=== PATIENT | female | born 1950 | race Caucasian/White ===

== ENCOUNTER 2020-01-31 08:48 | Emergency (ER) | payer MEDICARE, OTHER, SELFPAY ==
[2020-01-31 09:03] VITALS: BP 180/71; PULSE 72; RESP 14; TEMP 36.7; O2SAT 95; BMI 46.7
--- NOTE | 2020-01-31 09:31 | CT_ITS ---
WS: [id number] CT CERVICAL SPINE HISTORY: fall, cervical spine point tenderness TECHNIQUE: Contiguous 2.5 mm axial imaging performed through the entire cervical spine. Sagittal and coronal reformats also performed. All CT scans at [facility] use at least one of these do se optimization techniques: automated exposure control; mA and/or kV adjustment per patient size (inc ludes targeted exams where dose is matched to clinical indication); or iterative reconstruction. DLP: 806.85 mGy.cm COMPARISON: None available. Reversal the normal cervical lordosis is moderate at the C5-6 level. Degenerative disc disease and sp ondylosis most significant at C5 and C6. C4 anterolisthesis by 2.5 mm. Lateral masses of C1 and C2 ar e aligned. The odontoid is intact. There are small osseous densities surrounding the tip of the odont oid. Facet joints are normally aligned. Facet joints are narrowed with osteophytes. C2-C3: Osseous density measures 4 mm adjacent to the C2 LEFT transverse foramina. The posterior corti leatha surface of the foramina is irregular suggesting this may be a tiny avulsion fracture which is age -indeterminate. C3-C4: RIGHT facet joint arthritis and bony hypertrophy. Mild foraminal narrowing on the RIGHT. C4-C5: RIGHT facet joint arthritis with mild foraminal narrowing on the RIGHT. C5-C6: Marked osteophytic ridging with osteophytes encroaching upon the ventral thecal sac and forame n. Mild central and bilateral foraminal narrowing. C6-C7: Normal. C7-T1: Normal. Soft tissues are normal. Lung apices are clear. CT/CT cervical spin wo con* [id number] IMPRESSION: 1. Age-indeterminate 4 mm avulsion fracture from the posterior LEFT C2 transve rse foramina. This may be related to the recent trauma or from an old injury. F or further evaluation to evaluate the vertebral artery CTA angiogram may be hel pful. 2. Bilateral facet joint arthritis as described above.
--- NOTE | 2020-01-31 09:31 | CT_ITS ---
WS: [id number] CT FACIAL BONES HISTORY: trauma TECHNIQUE: Images obtained from the supraorbital location through the mandible. Soft tissue and bone windows are reviewed. Coronal and sagittal reformats have also been submitted. DLP: 683.[address] scans at [facility] use at least one of these dose optimization techniques: automat ed exposure control; mA and/or kV adjustment per patient size (includes targeted exams where dose is matched to clinical indication); or iterative reconstruction. COMPARISON: None available. Nasal bones, zygomatic arches and lynch of the sinuses are intact. No air-fluid levels within the sin uses. Nasal septum is midline. Pterygoid plates are intact. There is a large soft tissue hematoma incompletely visualized centered over the RIGHT frontal bone. CT/CT facial bones wo con* [id number] IMPRESSION: No facial bone fracture.
--- NOTE | 2020-01-31 09:31 | CT_ITS ---
WS: [id number] CT HEAD NONCONTRAST HISTORY: head injury TECHNIQUE: Contiguous axial imaging performed through the brain in 2.5 mm imaging. Bone and soft tiss ue windows. Sagittal and coronal reformats reviewed. All CT scans at [facility] use at le ast one of these dose optimization techniques: automated exposure control; mA and/or kV adjustment pe r patient size (includes targeted exams where dose is matched to clinical indication); or iterative r econstruction. DLP: 838.89 mGy.cm COMPARISON: 02/17/2006 No acute intracranial hemorrhage, midline shift or mass effect. Mild atrophy and mild chronic ischemic disease. No prior infarcts. Ventricles: Normal size with no hydrocephalus. Paranasal sinuses: As visualized are clear. Mastoid air cells: Well pneumatized. Calvarium and scalp: No skull fracture. Nasal bones and visualized zygomatic arches and orbits are no rmal. There is a very large acute soft tissue hematoma centered over the RIGHT frontal bone. Hematoma extends across the midline. A few foci of air consistent with a laceration at the nasal bridge. CT/CT head wo con* [id number] IMPRESSION: 1. No acute intracranial hemorrhage or edema. 2. Large scalp hematoma/laceration centered over the RIGHT frontal bone with e xtension across the midline into the nasal bridge. Skull fracture.
[2020-01-31 10:02] LABS: Basophils # 0.1 10^3/uL (0.0-0.1); Basophils % 0.5 %; Eosinophils # 0.2 10^3/uL (0.0-0.8); Eosinophils % 1.7 %; Hematocrit 43.5 % (37.0-47.0); Hemoglobin 13.4 g/dL (11.5-15.3); Lymphocytes # 1.3 10^3/uL (0.8-4.8); Lymphocytes % 12.5 %; Mean Corpuscular HGB Conc 30.8 g/dL (30.0-36.0); Mean Corpuscular Hemoglobin 26.5 pg (28.0-34.0); Mean Platelet Volume 8.4 fL (7.4-10.4); Monocytes # 0.6 10^3/uL (0.2-0.9); Monocytes % 5.2 %; Neutrophils # 8.47 10^3/uL (1.8-7.7); Neutrophils % 79.7 %; Nucleated Red Blood Cells % 0 %; Platelet Count 285 10^3/cmm (130-400); Red Blood Count 5.06 10^6/uL (4.1-5.3); Red Cell Distribution Width 14.5 % (12.1-15.1); White Blood Count 10.6 10^3/uL (4.0-10.0)
--- NOTE | 2020-01-31 10:16 | ED_ITS ---
HPI - Wound/Laceration General: Chief Complaint: Wound/Laceration Stated Complaint: Head Injury/Fall Time Seen by Provider: 01/31/20 08:53 Source: patient and family (daughter) Mode of arrival: ambulatory Limitations: no limitations History of Present Illness: HPI narrative: 69-year-old pleasant female presents to the emergency department with facial trauma. She reports was having a bad dream, got out of bed, tripped and hit her face on the edge of the bedside table. She did not loose consciousness, denies n/v - reports large laceration to her head. She is accompanied with her daughter. Onset (ago): minute(s) (30) Location: face Place: home Patient tetanus UTD: Yes Context: accidental Associated symptoms: Reports no associated symptoms; Denies chills, fever(s), nausea or vomiting Treatments prior to arrival: cold therapy and bandage Review of Systems General: Reports: 10 or more systems reviewed and unremarkable except in HPI and below Const: Denies: fever(s), chills or diaphoresis Eyes: Denies: blurry vision or eye redness ENMT: Denies: throat pain, dental pain or disequilibrium Card: Denies: chest pain, palpitations or irregular heart rhythm Resp: Denies: dyspnea, productive cough, non-productive cough or wheezing GI: Denies: abdominal pain, nausea or vomiting : Denies: difficulty voiding or dysuria Musc: Reports: neck pain; Denies: back pain, joint warmth, limited range of motion or muscle cramps Skin/Breast: Reports: skin tenderness and other (open laceration to the rt face and nose); Denies: rash or pruritus Neuro: Denies: headache(s), weakness in extremities or behavioral changes Psych: Denies: anxiety or depression Ko/Lymph: Denies: easy bruising Physical Exam Const: COMMON NORMALS: no acute distress, patient oriented x3, healthy appearing and alert GENERAL APPEARANCE: cooperative, well developed and well hydrated; not in distress, not anxious, not lethargic and not ill appearing NUTRITIONAL APPEARANCE: obese ORIENTATION/CONSCIOUSNESS: Yes awake, Yes oriented to person, Yes oriented to place and Yes oriented to time; not lethargic HENMT: COMMON NORMALS: normocephalic, external ears normal, EAC's normal, TM's normal bilaterally, Normal external nose present and moist oral mucous membranes HEAD & SCALP: normocephalic HEAD IMAGES: 1. 7.5 cm jagged laceration involving the bridge of the nose 2. 4 cm x 4 cm hematoma to the right forehead FACE & SINUS: sinuses nontender and laceration NOSE: Normal external nose p resent EXTERNAL EAR: Yes external ears normal EXTERNAL AUDITORY CANAL: EAC's normal TYMPANIC MEMBRANE: TM's normal bilaterally MOUTH: Normal oral and palatal mucosa present; no drooling, lip not abnormal, no mouth trauma, no muffled voice, no trismus and no restricted motion TEETH & GINGIVA: Yes dentures (partial) THROAT: posterior oropharynx normal Eye: COMMON NORMALS: Equal, round and reactive pupils present, EOMs intact bilaterally, conjunctivae normal and no scleral icterus GENERAL EYE: appearance normal, both eyes and all related structures ALIGNMENT: Yes alignment normal PERIORBITAL: periorbital findings abnormal (ecchymosis) positive right EYELID: eyelids normal and other (rt facial laceration just below the rt eyebrow,does NOT involve the eye lid) CONJUNCTIVA: Yes conjunctivae normal PUPIL: Yes Equal, round and reactive pupils present Neck/C-Spine: COMMON NORMALS: full ROM, no lymphadenopathy and supple GENERAL: Yes normal visual inspection and Yes trachea midline CERVICAL SPINE: Yes pain with cervical ROM, Yes Cervical spine tenderness C3, C4, C5 and C6, No Paracervical muscle tenderness, No Paracervical spasm and No Trapezius muscle tenderness Lymph: LYMPHATIC: no lymphadenopathy noted Chest: COMMONS NORMALS: normal inspection of the chest Resp: COMMON NORMALS: normal respiratory effort and clear to auscultation bilaterally EFFORT & INSPECTION: Yes able to speak in complete sentences AUSCULTATION: clear to auscultation bilaterally Cardio: COMMON NORMALS: regular rhythm, S1 normal heart sound present, S2 normal heart sound present and Peripheral pulses 2+ throughout RHYTHM: regular rhythm HEART SOUNDS: S1 normal heart sound present and S2 normal heart sound present PERIPHERAL PULSES: Peripheral pulses 2+ throughout GI: COMMON NORMALS: Normal to inspection, nondistended, normoactive bowel sounds present, Soft to palpation and non-tender INSPECTION: Yes normal to inspection and Yes central obesity PALPATION: Yes Soft to palpation : COMMON NORMALS: Yes no CVA tenderness BLADDER/KIDNEY EXAM: Yes no CVA tenderness Back/Pelvis: COMMON NORMALS: no CVA tenderness, thoracic and lumbar spine normal to inspection, no thoracic nor lumbar tenderness, thoraco-lumbar ROM normal and straight leg raise negative bilaterally Extremity: COMMON NORMALS: normal to inspection, full ROM and capillary refill normal GENERAL: Yes normal exam except as noted Neuro: COMMON NORMALS: patient oriented x3 and no focal motor deficits SENSORIUM/ORIENTATION: Yes alert, Yes oriented to person, Yes oriented to place, Yes oriented to time and No lethargic Psych: COMMON NORMALS: mental status grossly normal, Normal thought process present and cooperative ACTIVITY/MOTOR BEHAVIOR: Yes appropriate eye contact THOUGHT PROCESS: Normal thought process present Skin: COMMON NORMALS: no rashes or lesions noted and turgor normal GENERAL SKIN EXAM: no rashes or lesions noted and turgor normal Procedures Laceration Laceration 1: Site: face Side (If applicable): right Size (cm): 7.5 Description: stellate, flap, contaminated and other (contused) Depth: involves muscle layer Local Anesthetic: lidocaine 1% and with epi Amount of anesthesia used (mL): 14 Pre-repair: wound explored, irrigated extensively, deep structures intact, extensive debridement and wound margins revised Skin layer closed with: nylon Size (cm): 5-0 Number of sutures: 19 Muscle layer closed with: vicryl Size: 4-0 Number of sutures: 3 Technique: simple, interrupted Course ED course: 69-year-old female patient presents to the emergency department with large facial laceration/scalp contusion of the forehead. She experienced a bad dream which made her jump out of bed, lost her balance and hit the bedside table. She did not lose consciousness or experience vomiting. CT scan of the head was negative for intracranial bleed/skull fracture. CT of the face without nasal fracture or fragment displacement, CBC without anemia, significant blood loss. CT of the cervical spine did reveal C2 posterior transverse foraminal fracture, consult to Dr. Tirado who advised patient to be placed in a soft cervical collar with appropriate follow-up in 1 to 2 weeks. Patient became nauseated after sutures were placed, IV Zofran administered. She was able to tolerate p.o. fluids with crackers prior to leaving. She was able to ambulate without difficulty. Pressure dressing applied to the sutures as well as to the hematoma to the left frontal forehead. Agrees to return to the emergency department if she develops the worst headache of her life or if new neurological symptoms occur such as confusion, spontaneous vomiting or altered thought process. Consultations: Consultation #1: Dr Tirado, advised to place patient in soft cervical collar, follow-up 1 to 2 weeks in his office. Time: 12:56 Vital Signs: Vital signs: Vital Signs Temperature 98.0 F 01/31/20 09:03 Pulse Rate 64 01/31/20 14:54 Respiratory Rate 18 01/31/20 14:54 Blood Pressure 162/68 01/31/20 14:54 Pulse Oximetry 92 01/31/20 14:54 MDM - Wound/Laceration Lab Data: Labs: Lab Results 01/31/20 01/31/20 Range/Units 09:45 09:45 WBC 10.6 H (4.0-10.0) 10^3/ uL RBC 5.06 (4.1-5.3) 10^6/u L Hgb 13.4 (11.5-15.3) g/dL Hct 43.5 (37.0-47.0) % MCV 86.0 (81-99) fL MCH 26.5 L (28.0-34.0) pg MCHC 30.8 (30.0-36.0) g/dL RDW 14.5 (12.1-15.1) % Plt Count 285 (130-400) 10^3/c mm MPV 8.4 (7.4-10.4) fL Neut % (Auto) 79.7 % Lymph % (Auto) 12.5 % Converse % (Auto) 5.2 % Eos % (Auto) 1.7 % Baso % (Auto) 0.5 % Neut # (Auto) 8.47 H (1.8-7.7) 10^3/u L Lymph # (Auto) 1.3 (0.8-4.8) 10^3/u L Converse # (Auto) 0.6 (0.2-0.9) 10^3/u L Eos # (Auto) 0.2 (0.0-0.8) 10^3/u L Baso # (Auto) 0.1 (0.0-0.1) 10^3/u L Nucleated RBC % (a uto) 0 % Nucleated RBCs # 0.0 /100WBC Sodium 139 (136-145) mmol/L Potassium 4.0 (3.5-5.1) mmol/L Chloride 103 (98-107) mmol/L Carbon Dioxide 26 (22-29) mmol/L Anion Gap 14.0 (5-19) BUN 22 (8-23) mg/dL Creatinine 0.6 (0.5-0.9) mg/dL GFR Calculation 99.1 (90-130) mL/min Glucose 125 H (65-115) mg/dL Calculated Osmolal ity 293 (285-295) mOsm/k g Calcium 9.0 (8.5-10.5) mg/dL Total Bilirubin 0.2 (0.15-1.2) mg/dL AST 18 (0-32) U/L ALT 16 (0-33) U/L Alkaline Phosphata se 110 H (35-105) IU/L Total Protein 7.4 (6.6-8.7) g/dL Albumin 4.0 (3.5-5.2) g/dL Globulin 3.4 (1.3-4.6) g/dL Imaging Data^: CT Head: Radiologist's impression: [address] [address] [address] Scan Report Signed Patient: Kathleen Valdez Unit #: [id number] : 1950 Age/Sex: 69 / F ADM Date: 01/31/20 Loc: ER Room/Bed: Attending Dr: Ordering Provider/Ordering MD: Ogla Lidia Toussaint Date of Service: 01/31/20 Procedure(s): CT facial bones wo con* [id number] Accession Number(s): [id number] Report Number: [id number] WS: [id number] CT FACIAL BONES HISTORY: trauma TECHNIQUE: Images obtained from the supraorbital location through the mandible. Soft tissue and bone windows are reviewed. Coronal and sagittal reformats have also been submitted. DLP: 683.[address] scans at [facility] use at least one of these dose optimization techniques: automated exposure control; mA and/or kV adjustment per patient size (includes targeted exams where dose is matched to clinical indication); or iterative reconstruction. COMPARISON: None available. Nasal bones, zygomatic arches and lynch of the sinuses are intact. No air-fluid levels within the sinuses. Nasal septum is midline. Pterygoid plates are intact. There is a large soft tissue hematoma incompletely visualized centered over the RIGHT frontal bone. CT/CT facial bones wo con* [id number] IMPRESSION: No facial bone fracture. Dictated By: Lara Jessica DO Signed By: Lara Jessica DO Signed Date/Time: 01/31/20 1008 DD/ [address]: Radiologist's impression: [facility] [address] [place] [address] CT Scan Report Signed Patient: Kathleen Valdez Unit #: [id number] : 1950 Age/Sex: 69 / F ADM Date: 01/31/20 Loc: ER Room/Bed: Attending Dr: Ordering Provider/Ordering MD: Olga Lidia Toussaint Date of Service: 01/31/20 Procedure(s): CT cervical spin wo con* [id number] Accession Number(s): [id number] Report Number: [id number] WS: [id number] CT CERVICAL SPINE HISTORY: fall, cervical spine point tenderness TECHNIQUE: Contiguous 2.5 mm axial imaging performed through the entire cervical spine. Sagittal and coronal reformats also performed. All CT scans at [facility] use at least one of these dose optimization techniques: automated exposure control; mA and/or kV adjustment per patient size (includes targeted exams where dose is matched to clinical indication); or iterative reconstruction. DLP: 806.85 mGy.cm COMPARISON: None available. Reversal the normal cervical lordosis is moderate at the C5-6 level. Degenerative disc disease and spondylosis most significant at C5 and C6. C4 anterolisthesis by 2.5 mm. Lateral masses of C1 and C2 are aligned. The odontoid is intact. There are small osseous densities surrounding the tip of the odontoid. Facet joints are normally aligned. Facet joints are narrowed with osteophytes. C2-C3: Osseous density measures 4 mm adjacent to the C2 LEFT transverse foramina. The posterior cortical surface of the foramina is irregular suggesting this may be a tiny avulsion fracture which is age-indeterminate. C3-C4: RIGHT facet joint arthritis and bony hypertrophy. Mild foraminal narrowing on the RIGHT. C4-C5: RIGHT facet joint arthritis with mild foraminal narrowing on the RIGHT. C5-C6: Marked osteophytic ridging with osteophytes encroaching upon the ventral thecal sac and foramen. Mild central and bilateral foraminal narrowing. C6-C7: Normal. C7-T1: Normal. Soft tissues are normal. Lung apices are clear. CT/CT cervical spin wo con* [id number] IMPRESSION: 1. Age-indeterminate 4 mm avulsion fracture from the posterior LEFT C2 transverse foramina. This may be related to the recent trauma or from an old injury. For further evaluation to evaluate the vertebral artery CTA angiogram may be helpful. 2. Bilateral facet joint arthritis as described above. Dictated By: Lara Jessica DO Signed By: Lara Jessica DO Signed Date/Time: 01/31/20 1027 DD/ 1008 Other Imaging: Radiologist's impression: [place] [address] CT Scan Report Signed with Addenda Patient: Kathleen Valdez Unit #: [id number] : 1950 Age/Sex: 69 / F ADM Date: 01/31/20 Loc: ER Room/Bed: Attending Dr: Ordering Provider/Ordering MD: Olga Lidia Toussaint Date of Service: 01/31/20 Procedure(s): CT head wo con* [id number] Accession Number(s): [id number] Report Number: [id number] ADDENDUM WS: [id number] Addendum. Addendum Dictated By: Lara Jessica DO Addendum Signed By: Lara Jessica DO Signed Date/Time: 01/31/20 1 027 Addendum Cosigned By: ADDENDUM CT/CT head wo con* [id number] IMPRESSION: 2. No skull fracture. Addendum Dictated By: Lara Jessica DO Addendum Signed By: Lara Jessica DO Signed Date/Time: 01/31/20 1 030 Addendum Cosigned By: WS: [id number] CT HEAD NONCONTRAST HISTORY: head injury TECHNIQUE: Contiguous axial imaging performed through the brain in 2.5 mm imaging. Bone and soft tissue windows. Sagittal and coronal reformats reviewed. All CT scans at [facility] use at least one of these dose optimization techniques: automated exposure control; mA and/or kV adjustment per patient size (includes targeted exams where dose is matched to clinical indication); or iterative reconstruction. DLP: 838.89 mGy.cm COMPARISON: 02/17/2006 No acute intracranial hemorrhage, midline shift or mass effect. Mild atrophy and mild chronic ischemic disease. No prior infarcts. Ventricles: Normal size with no hydrocephalus. Paranasal sinuses: As visualized are clear. Mastoid air cells: Well pneumatized. Calvarium and scalp: No skull fracture. Nasal bones and visualized zygomatic arches and orbits are normal. There is a very large acute soft tissue hematoma centered over the RIGHT frontal bone. Hematoma extends across the midline. A few foci of air consistent with a laceration at the nasal bridge. CT/CT head wo con* [id number] IMPRESSION: 1. No acute intracranial hemorrhage or edema. 2. Large scalp hematoma/laceration centered over the RIGHT frontal bone with extension across the midline into the nasal bridge. Skull fracture. Dictated By: Lara Jessica DO Signed By: Lara Jessica DO Discharge Plan Discharge Patient Disposition: Home Clinical Impression: Laceration Facial trauma Qualifiers: Encounter type: initial encounter Qualified Code(s): S09.93XA - Unspecified injury of face, initial encounter Cervical vertebral fracture Qualifiers: Encounter type: initial encounter Cervical vertebra fracture level: C2 Fracture type: closed Fracture morphology: other fracture Fracture alignment: nondisplaced Qualified Code(s): S12.191A - Other nondisplaced fracture of second cervical vertebra, initial encounter for closed fracture Contusion Qualifiers: Encounter type: initial encounter Contusion area: head Contusion of head detail: orbital tissues Laterality: unspecified laterality Qualified Code(s): S05.10XA - Contusion of eyeball and orbital tissues, unspecified eye, initial encounter Condition: Stable Prescriptions: New Keflex 500 mg capsule 500 mg PO TID 7 Days Qty: 21 RF: 0 Diflucan 100 mg tablet 100 mg PO DAILY Qty: 3 RF: 0 Discharge Orders: Discharge Order (Routine); Ordered 01/31/20 Ordered By: Olga Lidia Toussaint Discharge Diet: Advance as tolerated and Clear Liquid Discharge Activity: Limit activity as instructed Patient Instructions: Laceration (ED), Black Eye (ED), Cervical Fracture (ED), Contusion in Adults (ED), Soft Cervical Collar (ED), Absorbable Suture Care (ED) Activity Restrictions/Additional Instructions: Sutures out in 7 days Cool compresses to the affected area for the first 48 hours Change bandage as needed for drainage Monitor for signs and symptoms of infection such as redness, increased swelling or foul odor Sleep with the head of your bed elevated and keep the head of your bed elevated to help reduce swelling Follow-up with Dr. Tirado, infection control specialist for cervical transverse foraminal fracture of C2, case management social worker will be contacting you with an appointment, follow-up will be needed in 1 to 2 weeks Continue aspirin therapy due to fracture, please note that drainage may continue from the wound due to aspirin May apply triple antibiotic ointment to the wound as needed for dryness May wash with soap and water and pat dry, gently cleanse Return to the emergency department if you develop confusion, vomiting, fever, difficulty with thought process or falls You will need to rest at home today and tomorrow, take it easy, avoid exertional activity until follow-up with Dr. Tirado You will need to maintain c-collar application due to fracture of the neck. Coding Level of Care Code ED Fore[employer] for [facility] Exam Comprehensive
[2020-01-31 10:20] LABS: Alanine Aminotransferase 16 U/L (0-33); Alkaline Phosphatase 110 IU/L (35-105); Aspartate Amino Transferase 18 U/L (0-32); Blood Urea Nitrogen 22 mg/dL (8-23); Carbon Dioxide 26 mmol/L (22-29); Chloride 103 mmol/L (98-107); Globulin 3.4 g/dL (1.3-4.6); Glomerular Filtration Rate 99.1 mL/min (90-130); Glucose 125 mg/dL (65-115); Osmolality Calculated 293 mOsm/kg (285-295); Sodium 139 mmol/L (136-145); Total Bilirubin 0.2 mg/dL (0.15-1.2); Total Protein 7.4 g/dL (6.6-8.7)
[2020-01-31] MEDS: acetaminophen 500 mg Tablet 1000 MG PO (11:01)
[2020-01-31] MEDS: ondansetron 2 mg/ML SDV 2 mL 4 MG IVP (12:21)
--- NOTE | 2020-01-31 13:27 | DCPLANNER ---
manager pathology was asked to schedule a follow up appointment for patient with ortho, Dr. Tirado. manager pathology called the ortho clinic spoke with Barbara, gave clinic patients information. manager pathology was told that patients information would be printed and reviewed. Clinic will call patient with appointment information.
[2020-01-31 14:54] VITALS: BP 162/68; PULSE 64; RESP 18; O2SAT 92
--- NOTE | 2020-02-02 10:32 | DCPLANNER ---
Patient has a follow up appointment scheduled for February at 3:[address] Tirado. Clinic will call patient with appointment information.
--- NOTE | 2020-03-10 13:01 | DCPLANNER ---
Patient had an appointment scheduled for 02.10.20 with ortho - patient did attend appointment.
== END 2020-01-31 14:56 | disposition home or self-care (01) ==
PROVIDERS: Emergency Provider Nurse Practitioner Family
DX: S05.10XA Contusion of eyeball and orbital tissues, unspecified eye, initial encounter (principal); S12.191A Other nondisplaced fracture of second cervical vertebra, initial encounter for closed fracture; S01.81XA Laceration without foreign body of other part of head, initial encounter; W22.03XA Walked into furniture, initial encounter
CPT/HCPCS: 12014; 12345; 70450; 70486; 72125; 80053; 85025; 96374; 96375; 99282; 99283; 99291; J2405

== ENCOUNTER 2020-02-17 15:35 | Outpatient (CLI) | payer MEDICARE, OTHER, SELFPAY ==
--- NOTE | 2020-02-17 16:00 | MR_ITS ---
WS: [id number] MRI CERVICAL SPINE HISTORY: R52 - Pain, unspecified COMPARISON: CT 01/31/2020 Reversal the normal cervical lordosis centered at C5-6. Disc desiccation and narrowing at C5-6 and mi ld desiccation throughout the remaining cervical levels. C4 anterolisthesis by 2.6 mm. No marrow jaya a or acute fracture is identified. Signal within the cord is normal. Cervical cord is being displaced posteriorly by disc osteophyte at C5-6. Craniocervical junction, C1 and C2 relationship, odontoid process and soft tissues are normal. C2-C3: Normal. C3-C4: Facet arthritis. No significant stenosis. C4-C5: Diffuse mild annular disc bulging with facet arthritis. Mild central and LEFT foraminal narrow ing. Mild to moderate RIGHT foraminal stenosis. C5-C6: Moderate diffuse annular disc bulging and osteophytic ridging. Disc osteophyte complex resulti ng in moderate central with moderate to severe bilateral foraminal stenosis. Cervical cord is being d isplaced posteriorly. C6-C7: Diffuse annular disc bulging and osteophytic ridging. Mild encroachment upon the ventral theca l sac. Mild central and bilateral foraminal stenosis. C7-T1: No stenosis. Bilateral nerve root sleeve diverticula. Paraspinal soft tissue are normal. MR/MR cervical spin wo con* [id number] IMPRESSION: 1. No acute cervical spine fracture is identified. 2. Moderate central with moderate to severe bilateral foraminal stenosis at C5 -6. 3. Mild central and bilateral foraminal stenosis at C6-7. 4. Mild to moderate RIGHT foraminal stenosis at C4-5 with mild central and LEF T foraminal narrowing. 5. Reversal of the normal cervical lordosis centered at C5-6 with the cervical cord being displaced posteriorly by C5-6 disc osteophytes.
== END 2020-02-17 15:36 | disposition home or self-care (01) ==
LOC: RADSHAW 15:39
PROVIDERS: PCP Nurse Practitioner Family; Visit Provider Orthopaedic Surgery
DX: M54.2 Cervicalgia (principal); M48.02 Spinal stenosis, cervical region
CPT/HCPCS: 72141

== ENCOUNTER 2020-02-27 07:45 | Emergency (ER) | payer MEDICARE, OTHER, SELFPAY ==
[2020-02-27] VITALS (8 sets, daily range): BP systolic 124–184; BP diastolic 62–109; PULSE 69–81; RESP 18–24; TEMP 36.6; O2SAT 94–98; BMI 45.1
--- NOTE | 2020-02-27 07:55 | ED_ITS ---
HPI - URI/Sore Throat General: Chief Complaint: Infusion Rei Stated Complaint: COUGH/SOB Time Seen by Provider: 02/27/20 07:55 Source: patient Mode of arrival: ambulatory Limitations: no limitations History of Present Illness: HPI Narrative: 69-year-old female comes in with 3- day history of cough and congestion. Patient has had a productive sputum with yellowish-green sputum. Patient has been started on Levaquin and Medrol Dosepak by her primary care. Patient has taken 1 days dosing from back. Patient comes in this morning with her granddaughter who is a nurse at the hospital and is concerned patient may have COVID-19. Patient has no obvious exposure to COVID- 19 but has been at the hospital recently with her on relative. Patient has a history of hypertension, patient also has had a recent history of a fall with facial laceration and cervical fracture. Associated symptoms: Reports chest pain (left chest pain with deep inspiration) Review of Systems General: Reports: 10 or more systems reviewed and unremarkable except in HPI and below Card: Reports: chest pain (left chest pain with deep inspiration) Resp: Reports: productive cough PFSH ED PFSH: Social History Smoking and tobacco status: never smoked Alcohol intake: never Physical Exam Const: COMMON NORMALS: no acute distress and patient oriented x3 GENERAL APPEARANCE: cooperative HENMT: COMMON NORMALS: normocephalic and Normal external nose present HEAD & SCALP: normal to inspection and normocephalic NOSE: Normal external nose present MOUTH: Normal oral and palatal mucosa present THROAT: posterior oropharynx normal Eye: GENERAL EYE: appearance normal, both eyes and all related structures Neck/C-Spine: COMMON NORMALS: full ROM Lymph: LYMPHATIC: no lymphadenopathy noted Chest: COMMONS NORMALS: normal inspection of the chest Resp: COMMON NORMALS: normal respiratory effort and clear to auscultation bilaterally EFFORT & INSPECTION: Yes able to speak in complete sentences AUSCULTATION: clear to auscultation bilaterally Cardio: COMMON NORMALS: regular rate and regular rhythm RATE: regular rate RHYTHM: regular rhythm GI: COMMON NORMALS: non-tender Back/Pelvis: COMMON NORMALS: thoracic and lumbar spine normal to inspection Extremity: COMMON NORMALS: normal to inspection Neuro: COMMON NORMALS: patient oriented x3 and moves all extremities Psych: COMMON NORMALS: mental status grossly normal and cooperative Skin: COMMON NORMALS: no rashes or lesions noted GENERAL SKIN EXAM: no rashes or lesions noted Course Vital Signs: Vital signs: Vital Signs Temperature 97.8 F 02/27/20 07:53 Pulse Rate 80 02/27/20 09:38 Respiratory Rate 18 02/27/20 09:38 Blood Pressure 151/89 02/27/20 09:38 Pulse Oximetry 95 02/27/20 09:38 MDM - URI/Sore Throat MDM Narrative: Medical decision making narrative: Patient comes in today with complaints of illness starting 2 to 3 days ago. Patient was started on steroids and antibiotics yesterday. Patient comes in today for worsening symptoms. Patient is concerned for COVID-19. On exam vital signs were stable with a good oxygenation. Lungs were clear to auscultation. Skin was warm and dry. Patient appears unwell. Differential diagnosis includes bronchitis, pneumonia, COVID- 19. COVID-19 test was positive. White blood cell count was 3.3. CMP was normal. D-dimer was 0.6 which is probably nonsignificant due to patient's age. CRP was slightly elevated at 5. Chest x-ray noted no pneumonia. Reviewed exam with patient with recommendations for treatment with bam , patient reported understanding of recommendation and agreed to plan. Infusion of bam was done in the emergency room with recommendations for follow-up. Patient reported understanding of care plan and treatment plan. Lab Data: Labs: Lab Results 02/27/20 02/27/20 02/27/20 Range/Units 08:05 08:05 08:05 WBC 3.3 L (4.0-10.0) 10^3/ uL RBC 5.21 (4.1-5.3) 10^6/u L Hgb 13.5 (11.5-15.3) g/dL Hct 43.9 (37.0-47.0) % MCV 84.3 (81-99) fL MCH 25.9 L (28.0-34.0) pg MCHC 30.8 (30.0-36.0) g/dL RDW 14.3 (12.1-15.1) % Plt Count 238 (130-400) 10^3/c mm MPV 8.8 (7.4-10.4) fL Neut % (Auto) 78.3 % Lymph % (Auto) 17.4 % Carbon % (Auto) 3.4 % Eos % (Auto) 0.0 % Baso % (Auto) 0.3 % Neut # (Auto) 2.57 (1.8-7.7) 10^3/u L Lymph # (Auto) 0.6 L (0.8-4.8) 10^3/u L Carbon # (Auto) 0.1 L (0.2-0.9) 10^3/u L Eos # (Auto) 0.0 (0.0-0.8) 10^3/u L Baso # (Auto) 0.0 (0.0-0.1) 10^3/u L Nucleated RBC % (a uto) 0 % Nucleated RBCs # 0.0 /100WBC D-Dimer (0-0.59) ug/mIFE U Sodium 137 (136-145) mmol/L Potassium 3.9 (3.5-5.1) mmol/L Chloride 100 (98-107) mmol/L Carbon Dioxide 24 (22-29) mmol/L Anion Gap 16.9 (5-19) BUN 11 (8-23) mg/dL Creatinine 0.6 (0.5-0.9) mg/dL GFR Calculation 99.1 (90-130) mL/min Glucose 189 H (65-115) mg/dL Calculated Osmolal ity 288 (285-295) mOsm/k g Calcium 9.0 (8.5-10.5) mg/dL Total Bilirubin 0.2 (0.15-1.2) mg/dL AST 23 (0-32) U/L ALT 32 (0-33) U/L Alkaline Phosphata se 97 (35-105) IU/L Troponin T Gen 5 n g/L 6 (0-10) ng/L C-Reactive Protein 6.5 H (0.0-4.9) mg/L NT-Pro-B Natriuret Pep 131 H (0-125) pg/mL Total Protein 7.6 (6.6-8.7) g/dL Albumin 4.3 (3.5-5.2) g/dL Globulin 3.3 (1.3-4.6) g/dL Influenza Type A A g (Negative) Influenza Type B A g (Negative) SARS-CoV-2 Ag (Rap id) (Negative) 02/27/20 02/27/20 02/27/20 Range/Units 08:05 08:13 08:13 WBC (4.0-10.0) 10^3/ uL RBC (4.1-5.3) 10^6/u L Hgb (11.5-15.3) g/dL Hct (37.0-47.0) % MCV (81-99) fL MCH (28.0-34.0) pg MCHC (30.0-36.0) g/dL RDW (12.1-15.1) % Plt Count (130-400) 10^3/c mm MPV (7.4-10.4) fL Neut % (Auto) % Lymph % (Auto) % Carbon % (Auto) % Eos % (Auto) % Baso % (Auto) % Neut # (Auto) (1.8-7.7) 10^3/u L Lymph # (Auto) (0.8-4.8) 10^3/u L Carbon # (Auto) (0.2-0.9) 10^3/u L Eos # (Auto) (0.0-0.8) 10^3/u L Baso # (Auto) (0.0-0.1) 10^3/u L Nucleated RBC % (a uto) % Nucleated RBCs # /100WBC D-Dimer 0.61 H (0-0.59) ug/mIFE U Sodium (136-145) mmol/L Potassium (3.5-5.1) mmol/L Chloride (98-107) mmol/L Carbon Dioxide (22-29) mmol/L Anion Gap (5-19) BUN (8-23) mg/dL Creatinine (0.5-0.9) mg/dL GFR Calculation (90-130) mL/min Glucose (65-115) mg/dL Calculated Osmolal ity (285-295) mOsm/k g Calcium (8.5-10.5) mg/dL Total Bilirubin (0.15-1.2) mg/dL AST (0-32) U/L ALT (0-33) U/L Alkaline Phosphata se (35-105) IU/L Troponin T Gen 5 n g/L (0-10) ng/L C-Reactive Protein (0.0-4.9) mg/L NT-Pro-B Natriuret Pep (0-125) pg/mL Total Protein (6.6-8.7) g/dL Albumin (3.5-5.2) g/dL Globulin (1.3-4.6) g/dL Influenza Type A A g Negative (Negative) Influenza Type B A g Negative (Negative) SARS-CoV-2 Ag (Rap id) Positive H (Negative) EKG Data^: EKG 1: Attestation: I personally reviewed and interpreted this EKG as follows: (940, EKG shows a sinus rhythm with left atrial enlargement. Regular rate at 71 bpm. No ectopy or ST elevation.) Discharge Plan Discharge Patient Disposition: Home Clinical Impression: COVID-19, Bronchitis due to 2019-nCoV Condition: Stable Prescriptions: No Action oxybutynin chloride 15 mg tablet extended release 24hr 15 mg PO BID@0800,1999 RF: 0 escitalopram oxalate [Lexapro] 20 mg tablet 20 mg PO DAILY@0800 RF: 0 aspirin 325 mg tablet 325 mg PO DAILY@0800 RF: 0 loratadine 10 mg tablet 10 mg PO DAILY@0800 RF: 0 naproxen 500 mg tablet 500 mg PO BID RF: 0 metoprolol succinate 50 mg tablet extended release 24 hr 50 mg PO DAILY@0800 RF: 0 triamterene-hydrochlorothiazid 37.5-25 mg tablet 1 tab PO BID@799,1999 RF: 0 omeprazole 20 mg capsule,delayed release(DR/EC) 40 mg PO BID@799,1999 RF: 0 levofloxacin 500 mg tablet 500 mg PO DAILY@0800 RF: 0 methylprednisolone 4 mg tablets,dose pack See Rx Instructions .ROUTE .COMPLEX RF: 0 Discharge Orders: Discharge ED (Routine); Ordered 02/27/20 Ordered By: Gordon Gibson Referrals: Nancy Ramirez APN [Primary Care Provider] - Discharge Diet: Usual diet Discharge Activity: Increase activity as tolerated Activity Restrictions/Additional Instructions: Drink plenty of fluids. Continue with medications as directed. Follow-up with primary care as needed. Return to the emergency department for worsening symptoms. Most people with COVID-19 goes through the acute phase within 7 to 10 days. In that period of 7 to 10 days they may have shortness of breath fever and body aches. At day 7-10 most people will improve and return to normal. Some people have persistent symptoms with increasing shortness of breath and signs of respiratory failure. If you develop the symptoms you should be evaluated. Try to avoid contact with other people in your life during the 10 days of illness. It is important to stop the spread of the illness. After day 10 and absence of fever you should be noncontagious, and can return to normal life. Return to the emergency department for any new concerns. Coding Level of Care Code ED Intervention Analyst for Josefa Fwberonica Exam Comprehensive
--- NOTE | 2020-02-27 08:02 | XRR_ITS ---
PROCEDURE INFORMATION: Exam: XR Chest, 1 View Exam date and time: 02/27/2020 8:03 AM Age: 69 years old Clinical indication: Shortness of breath; Additional info: Cough TECHNIQUE: Imaging protocol: XR of the chest Views: 1 view. COMPARISON: CR Chest 1 [place] [id number] 04/08/2017 9:00 AM FINDINGS: Lungs: There is stable mild fibrosis in the left base. Otherwise lungs are clear. Pleural space: Unremarkable. No pleural effusion. No pneumothorax. Heart/Mediastinum: Unremarkable. No cardiomegaly. Bones/joints: Unremarkable. XR/XR chest 1V portable [id number] IMPRESSION: No acute abnormality.
--- NOTE | 2020-02-27 08:05 | ECG_ITS ---
[facility] Test Date: 2020-02-27 Pat Name: Kathleen Valdez Department: Room: Gender: Female Carcass Washer: : 1950 Requested By: Gordon Rose Order Number: [id number] Coelho MD: Wanda Albrecht M.D. Measurements Intervals [place] Rate: 71 P: 61 NV: 169 QRS: 10 QRSD: 98 T: 41 QT: 420 QTc: 457 Interpretive Statements SINUS RHYTHM POSSIBLE LEFT ATRIAL ENLARGEMENT [-0.1mV P WAVE IN V1/V2] POSSIBLE RIGHT VENTRICULAR CONDUCTION DELAY [RSR (QR) IN V1/V2] Compared to ECG 04/08/2017 15:29:08 T-wave abnormality no longer present Electronically Signed On 02-28-2020 20:38:05 DREDGE MATE by Wanda Albrecht M.D. [email or web address] [email or web address] [email or web address]/[id number]
[2020-02-27 08:21] LABS: Basophils % 0.3 %; Hematocrit 43.9 % (37.0-47.0); Hemoglobin 13.5 g/dL (11.5-15.3); Lymphocytes # 0.6 10^3/uL (0.8-4.8); Lymphocytes % 17.4 %; Mean Corpuscular HGB Conc 30.8 g/dL (30.0-36.0); Mean Corpuscular Hemoglobin 25.9 pg (28.0-34.0); Mean Corpuscular Volume 84.3 fL (81-99); Mean Platelet Volume 8.8 fL (7.4-10.4); Monocytes # 0.1 10^3/uL (0.2-0.9); Monocytes % 3.4 %; Neutrophils # 2.57 10^3/uL (1.8-7.7); Neutrophils % 78.3 %; Nucleated Red Blood Cells % 0 %; Platelet Count 238 10^3/cmm (130-400); Red Blood Count 5.21 10^6/uL (4.1-5.3); Red Cell Distribution Width 14.3 % (12.1-15.1); White Blood Count 3.3 10^3/uL (4.0-10.0)
[2020-02-27 08:36] LABS: D Dimer 0.61 ug/mIFEU (0-0.59)
[2020-02-27 08:45] LABS: Troponin T (5th) Once 6 ng/L (0-10)
[2020-02-27 08:50] LABS: Alanine Aminotransferase 32 U/L (0-33); Albumin Level 4.3 g/dL (3.5-5.2); Alkaline Phosphatase 97 IU/L (35-105); Anion Gap 16.9 (5-19); Aspartate Amino Transferase 23 U/L (0-32); Blood Urea Nitrogen 11 mg/dL (8-23); C Reactive Protein 6.5 mg/L (0.0-4.9); Carbon Dioxide 24 mmol/L (22-29); Chloride 100 mmol/L (98-107); Creatinine Clr Calc Pharmacy 90.5066; Globulin 3.3 g/dL (1.3-4.6); Glomerular Filtration Rate 99.1 mL/min (90-130); Glucose 189 mg/dL (65-115); NT Pro B Type Natriuretic Pept 131 pg/mL (0-125); Osmolality Calculated 288 mOsm/kg (285-295); Potassium 3.9 mmol/L (3.5-5.1); Sodium 137 mmol/L (136-145); Total Bilirubin 0.2 mg/dL (0.15-1.2); Total Protein 7.6 g/dL (6.6-8.7)
[2020-02-27] MEDS: ketorolac 30 mg/mL INJ 15 MG IVP (09:00)
--- NOTE | 2020-02-27 09:15 | PC.NURSE ---
Pt assisted to use BSC. Pt gait steady, but pt reports feeling weak and dizzy.
[2020-02-27 09:46] LABS: Influenza A by IFA Negative (Negative); Influenza B by IFA Negative (Negative)
[2020-02-27 09:47] LABS: SARS Covid-2 Antigen Positive (Negative)
--- NOTE | 2020-02-29 11:59 | DCPLANNER ---
Addendum entered by Laurel Henriquez 03/08/20 15:00: manager center called to check on patient on day 10 after receiving the infusion. Patient stated that she is really tired, and wore out. She had been staying at [facility] that is a nurse, and just went home. Addendum entered by Laurel Henriquez 03/02/20 11:39: manager center called to check on patient after getting BAM infusion. Patient stated that she is feeling great, and is so glad that she got the infusion. Addendum entered by Laurel Henriquez 02/29/20 12:11: Patient returned child welfare caseworker phone call. Patient stated that she tolerated the infusion well. Patient stated that before the infusion she was short of breath, very congested in her lungs. She felt like she had no air flow, oxygen was low when she layed down. She felt weak, and she hurt all over. Patient stated that after the infusion that her breathing was better, not as weak and shaky, that her oxygen was good. Patient stated that she could feel a fifferenct. Patient stated that she never ran a fever, and she did not loose her sense of taste and smell. Original Note: late entry - geriatric case manager had message that patient received the BAM infusion. manager center called to check on patient after receiving the infusion. manager center was unable to speak with patient at this time, a voicemail was left for patient to return child welfare caseworker phone call.
== END 2020-02-27 14:10 | disposition home or self-care (01) ==
PROVIDERS: Emergency Provider Nurse Practitioner Family; PCP Nurse Practitioner Family
DX: U07.1 COVID-19 (principal); J40 Bronchitis, not specified as acute or chronic; Z79.82 Long term (current) use of aspirin; I10 Essential (primary) hypertension
CPT/HCPCS: 12345; 71045; 80053; 83880; 84484; 85025; 85378; 86140; 87426; 87804; 93005; 96365; 96375; 99283; 99284; J1885; J7050

== ENCOUNTER → 2021-03-08 10:48 | Outpatient (BNVA) | payer MEDICARE, OTHER, SELFPAY | PROVIDERS: PCP Nurse Practitioner Family; Visit Provider Orthopaedic Surgery | DX: M48.02 Spinal stenosis, cervical region (principal); M50.320 Other cervical disc degeneration, mid-cervical region, unspecified level; M47.892 Other spondylosis, cervical region | CPT/HCPCS: 72050 ==

== ENCOUNTER → 2021-03-27 08:44 | Outpatient (BNVA) | payer MEDICARE, OTHER, SELFPAY | PROVIDERS: PCP Nurse Practitioner Family; Referring Provider Orthopaedic Surgery; Visit Provider Anesthesiology Pain Medicine | DX: M48.02 Spinal stenosis, cervical region (principal); M79.601 Pain in right arm; M79.602 Pain in left arm | CPT/HCPCS: 99205 ==

== ENCOUNTER → 2021-05-17 12:41 | Outpatient (BNVA) | payer MEDICARE, OTHER, SELFPAY | PROVIDERS: PCP Nurse Practitioner Family; Visit Provider Anesthesiology Pain Medicine | DX: M54.12 Radiculopathy, cervical region (principal) | CPT/HCPCS: 62321; J1100 ==

== ENCOUNTER 2021-05-17 14:15 | Inpatient (IN) | payer MEDICARE, OTHER, SELFPAY ==
[2021-05-17] VITALS (11 sets, daily range): BP systolic 155–180; BP diastolic 82–113; PULSE 75–80; RESP 15–22; TEMP 36.4; O2SAT 90–99
--- NOTE | 2021-05-17 | SCC_ITS ---
Procedure done: 1. C6 Left sided laminectomy partial facetectomy 2. C7 Left sided laminectomy partial facetectomy 3. T1 Left sided laminectomy partial facetectomy 4. T2 Left sided laminectomy partial facetectomy 5. T3 Left sided laminectomy partial facetectomy 6. T4 Left sided laminectomy partial facetectomy 7. T5 Left sided laminectomy partial facetectomy 3.2 seconds of fluoroscopic guidance, for a cumulative dose of 0.46 mGy, was provided to Dr. Garner by the radiology department. C-arm images of the cervical spine were saved for the patient's permanent record. [facility]
--- NOTE | 2021-05-17 14:34 | ECG_ITS ---
[facility] Test Date: 2021-05-17 Pat Name: Kathleen Valdez Department: Room: Gender: Female Medical Payment Poster: : 1950 Requested By: Goran Smith Order Number: [id number] Laquita MD: Wanda Albrecht M.D. Measurements Intervals [place] Rate: 84 P: 64 GA: 167 QRS: 44 QRSD: 136 T: 40 QT: 411 QTc: 488 Interpretive Statements SINUS RHYTHM RIGHT BUNDLE BRANCH BLOCK [120+ ms QRS DURATION, UPRIGHT V1, 40+ ms S IN I/aVL/V4/V5/V6] Compared to ECG 02/27/2020 09:34:09 Right bundle-branch block now present Electronically Signed On 05-18-2021 5:58:04 SPOILAGE WORKER by Wanda Albrecht M.D. [email or web address]/[id number] f
--- NOTE | 2021-05-17 14:34 | XR_ITS ---
WS: [id number] Portable AP upright chest, 05/17/2021 Clinical Data: dyspnea/cough Comparison: Portable chest, 02/27/2020. Findings: No nodules, masses or effusions are seen. The heart is normal. The pulmonary vascularity is not increased. No pneumonia or pneumothorax is seen. The aortic arch and descending thoracic aorta s how tortuosity. There are monitor leads on the chest wall. XR/XR chest 1V portable [id number] Impression: Atherosclerosis.
[2021-05-17 14:36] LABS: ABG PCO2 26.6 mmHg (35-45); ABG PH Result 7.56 (7.35-7.45); Alveolar-Arterial Oxygen Gradi 11.6 mmHg (5-10); Arterial Blood Gas Hematocrit 40.4 % (37-47); Base Excess ABG 2.9 mmol/L (-2.0-2.0); Blood Gas Allen Test Pos; Blood Gas Operator Identificat ED; Blood Gas Sample Site Radial, left; Blood Gas Sample Type Arterial; Carboxyhemoglobin < 0.0 %THgb (0.4-20.1); HGB O2 Sat 97.3 % (95-100); Ionized Calcium Level - ABG 1.2 mmol/L (1.1-1.4); Oxygen Device NC; Oxygen Saturation ABG 97.6; Potassium Level - ABG 3.6 mmol/L (3.5-5.0); Total Hemoglobin 13.2 g/dL (12-16)
--- NOTE | 2021-05-17 14:36 | ED_ITS ---
HPI - Chest Pain General: Chief Complaint: Chest Pain Stated Complaint: back pain Time Seen by Provider: 05/17/21 14:33 History of Present Illness: 71-year-old female was at the pain clinic rapid response was called after patient developed chest pain and bilateral arm pain while receiving a cervical epidural. She reports the pain is 10 out of 10. Patient still complaining of chest discomfort while here. She has rapid breathing. Patient complaining of chest pain. Radiating to her back and into her arms particularly her left arm. Pain is progressively worsening as she arrives here. She is hyperventilating on arrival. MD complaint: chest pain Onset (ago): minute(s) Onset: during rest Pain location: substernal Pain radiation: right arm, left arm and neck Quality: tightness Relieving factors: nothing Exacerbating factors: nothing Associated symptoms: Deny abdominal pain, diaphoresis, dyspnea, fever(s), leg edema, nausea, palpitations, sense of impending doom, syncope or vomiting Treatment prior to arrival: none Review of Systems Const: Denies: fever(s) or diaphoresis ENMT: Denies: throat pain, ear or mastoid pain, nasal discharge or nasal congestion Card: Denies: palpitations or syncope Resp: Denies: dyspnea GI: Denies: abdominal pain, nausea or vomiting : Denies: flank pain, difficulty voiding, dysuria, urinary frequency or urinary urgency Skin/Breast: Denies: rash or pruritus PFS ED PFSH: Medical History Bronchitis due to 2019-nCoV Cervical spine fracture Cervical spondylosis with myelopathy COVID-19 H/O upper respiratory infection Hypertension Morbid obesity Surgical History H/O total knee replacement Social History Alcohol intake: never Physical Exam Const: GENERAL APPEARANCE: cooperative and comfortable ORIENT ATION/CONSCIOUSNESS: Yes awake, Yes oriented to person, Yes oriented to place and Yes oriented to time HENMT: COMMON NORMALS: normocephalic, atraumatic and hearing grossly normal bilaterally HEAD & SCALP: normocephalic and atraumatic Neck/C-Spine: COMMON NORMALS: no JVD Resp: COMMON NORMALS: normal respiratory effort, No retractions, No use of accessory muscles and clear to auscultation bilaterally AUSCULTATION: clear to auscultation bilaterally Cardio: COMMON NORMALS: no JVD, regular rate, regular rhythm and No murmurs present (Cardio) RATE: regular rate RHYTHM: regular rhythm GI: COMMON NORMALS: Soft to palpation and No hepatosplenomegaly present AUSCULTATION: Yes normoactive bowel sounds PALPATION: Yes Soft to palpation, No Tenderness to palpation present (GI), No Guarding due to palpation present (GI) and Yes No hepatosplenomegaly present Extremity: COMMON NORMALS: normal to inspection, capillary refill normal, no clubbing, cyanosis or edema, no calf tenderness and no pedal edema Neuro: SENSORIUM/ORIENTATION: Yes oriented to person, Yes oriented to place and Yes oriented to time Skin: COMMON NORMALS: no rashes or lesions noted GENERAL SKIN EXAM: no rashes or lesions noted Course Vital Signs: Vital signs: Vital Signs Temperature 98.2 F 05/22/21 11:19 Pulse Rate 57 L 05/22/21 11:19 Respiratory Rate 18 05/22/21 11:19 Blood Pressure 117/67 05/22/21 11:19 Pulse Oximetry 93 05/22/21 11:19 MDM - Chest Pain Medical Decision Making Patient has a significant epidural hematoma reviewing the MRI thoracic MRI and lumbar was done to make sure we completely imaged the area of concern. Hematoma is likely secondary to the cervical epidural block that was being placed. Discussed with the physician in place that he had no difficulty with that and all indication of the time he did it was this a completely normal-appearing bl ock on the imaging that was being used to place the block. She has had significant loss of function in her arms. Initially when she arrived she can move both arms freely the time we get the MRI result back she can only lift her arms up and injure to off of the bed. She also has loss of sensation. Dr. Tirado was not sales and distribution clerk however I was able to contact him he graciously agreed to come in and see in care for this patient. Discussed with the hospitalist we have admitted discussed with the patient and her family also reviewed with him the time sensitive nature of this particular diagnosis. Medical Records I reviewed the patient's medical records. Lab Data I reviewed the patient's lab results. : 05/20/21 03:48 05/20/21 03:48 Radiology Impressions Chest X-Ray 05/17/21 14:34 Impression: Atherosclerosis. Cervical Spine X-Ray 05/18/21 06:21 Impression: Cervical spine surgery. Cervical Spine CT 05/19/21 06:15 IMPRESSION: Persistent posterior epidural fluid collection extending from C2 through C5. Visualization of the cord and epidural collection below C5 is limited. COMMENTS: Consistent with the [place] [employer]'s Incidental Findings Committee white paper (J Am Marysol Radiol 2015): In patients aged 35 years and older with an incidental thyroid nodule equal to or greater than 1.[address], MRI or extrathyroidal US, further evaluation with dedicated thyroid US is recommended for patients with normal life expectancy and without comorbidities. For smaller nodules without suspicious features, no further evaluation or follow up is recommended. Thoracic Spine CT 05/19/21 06:15 IMPRESSION: Persistent epidural fluid collection extending from C7 through T6, resulting in severe canal stenosis from T2 through T5. Cervical Spine MRI 05/19/21 07:15 IMPRESSION: Postsurgical changes in the lower cervical and upper thoracic spine with interval decrease in size of the posterior epidural fluid collection in this region. In the mid cervical spine, the epidural fluid collection is similar to minimally increased in size, again resulting in severe spinal canal stenosis particularly at C5-C6. ADDENDUM: 05/19/21 1011 The laminectomy changes extend inferiorly through the level of T4. Lumbar Spine MRI 05/19/21 07:15 IMPRESSION: No acute findings. No substantial interval change. Degenerative changes as above. Thoracic Spine MRI 05/19/21 07:15 IMPRESSION: Postsurgical changes with interval drainage of the posterior epidural fluid collection in the upper thoracic spine. There is some persistent undrained fluid spanning from the inferior aspect of T3 through the superior aspect of T6 resulting in severe spinal canal stenosis at these levels, similar to preoperative imaging. Laboratory Results WBC 10.1 10^3/uL (4.0-10.0) H 05/17/21 14:20 RBC 5.07 10^6/uL (4.1-5.3) 05/17/21 14:20 Hgb 12.9 g/dL (11.5-15.3) 05/17/21 14:20 Hct 40.9 % (37.0-47.0) 05/17/21 14:20 MCV 80.7 fl (81-99) L 05/17/21 14: MCH 25.4 pg (28.0-34.0) L 05/17/21 14: MCHC 31.5 g/dL (30.0-36.0) 05/17/21 14: RDW 15.5 % (12.1-15.1) H 05/17/21 14:20 Plt Count 330 10^3/cmm (130-400) 05/17/21 14:20 MPV 9.0 fL (7.4-10.4) 05/17/21 14:20 Neut % (Auto) 73.0 % 05/17/21 14: Lymph % (Auto) 18.3 % 05/17/21 14: [place] % (Auto) 6.6 % 05/17/21 14: Eos % (Auto) 1.4 % 05/17/21 14: Baso % (Auto) 0.4 % 05/17/21 14: Neut # (Auto) 7.40 10^3/uL (1.8-7.7) 05/17/21 14:20 Lymph # (Auto) 1.9 10^3/uL (0.8-4.8) 05/17/21 14:20 [place] # (Auto) 0.7 10^3/uL (0.2-0.9) 05/17/21 14:20 Eos # (Auto) 0.1 10^3/uL (0.0-0.8) 05/17/21 14: Baso # (Auto) 0.0 10^3/uL (0.0-0.1) 05/17/21: Nucleated RBC % (auto) 0 % 05/17/21: Nucleated RBCs # 0.0 /100WBC 05/17/21 14:20 Specimen Type Arterial 05/17/21 14:25 Sample Site Radial, left 05/17/21 14:25 ABG pH 7.56 (7.35-7.45) H 05/17/21 14:25 ABG pCO2 26.6 mmHg (35-45) L 05/17/21 14:25 ABG pO2 103.0 mmHg (80.0-100.0) H 05/17/21 14:25 ABG HCO3 24.0 mmol/L (22-26) 05/17/21 14:25 ABG O2 Saturation 97.6 05/17/21 14:25 ABG Base Excess 2.9 mmol/L (-2.0-2.0) H 05/17/21 14:25 Jake Test Pos 05/17/21 14:25 A-a O2 Gradient 11.6 mmHg (5-10) H 05/17/21 14:25 Hematocrit 40.4 % (37-47) 05/17/21 14:25 Hgb O2 Saturation 97.3 % (95-100) 05/17/21 14:25 Carboxyhemoglobin < 0.0 %THgb (0.4-20.1) L 05/17/21 14:25 Methemoglobin 0.5 % (0.4-1.5) 05/17/21 14:25 Total Hemoglobin 13.2 g/dL (12-16) 05/17/21 14:25 Sodium 139.0 mmol/L (131-143) 05/17/21 14:25 Potassium 3.6 mmol/L (3.5-5.0) 05/17/21 14:25 Glucose 104.0 mg/dL (70-115) 05/17/21 14:25 Ionized Calcium 1.2 mmol/L (1.1-1.4) 05/17/21 14:25 O2 Delivery Device Nc 05/17/21 14:25 O2 Liters/Min 3.0 % 05/17/21 14:25 FiO2 32.0 % 05/17/21 14:25 Sustainable Agriculture Specialist ID Ed 05/17/21 14:25 Sodium 138 mmol/L (136-145) 05/17/21 14:20 Potassium 4.0 mmol/L (3.5-5.1) 05/17/21 14:20 Chloride 102 mmol/L (98-107) 05/17/21 14:20 Carbon Dioxide 21 mmol/L (22-29) L 05/17/21 14:20 Anion Gap 19.0 (5-19) 05/17/21 14:20 BUN 15 mg/dL (8-23) 05/17/21 14:20 Creatinine 0.7 mg/dL (0.5-0.9) 05/17/21 14:20 GFR Calculation Not Reportable 05/17/21 14:20 Glucose 103 mg/dL (65-115) 05/17/21 14:20 Calculated Osmolality 287 mOsm/kg (285-295) 05/17/21 14:20 Calcium 9.4 mg/dL (8.5-10.5) 05/17/21 14:20 Iron 31 ug/dL (37-145) L 05/17/21 14:20 Iron Cancelled 05/17/21 14:20 TIBC 337 mcg/dl 05/17/21 14:20 TIBC Cancelled 05/17/21 14:20 % Saturation 9.1 % (20-50) L 05/17/21 14:20 % Saturation Cancelled 05/17/21 14:20 Unsat Iron Binding 306 ug/dL (112-347) 05/17/21 14:20 Unsat Iron Binding Cancelled 05/17/21 14:20 Total Bilirubin 0.2 mg/dL (0.15-1.2) 05/17/21 14:20 AST 20 U/L (0-32) 05/17/21 14:20 ALT 17 U/L (0-33) 05/17/21 14:20 Alkaline Phosphatase 115 IU/L (35-105) H 05/17/21 14:20 Creatine Kinase 127 U/L (26-192) 05/17/21 14:20 Troponin T Baseline 7 ng/L (0-10) 05/17/21 14:20 Troponin T 120 Minute 13.84 ng/L (0-10) H 05/17/21 16:51 Delta Troponin T 6.84 ABS# (0-10) 05/17/21 16:51 Total Protein 7.4 g/dL (6.6-8.7) 05/17/21 14:20 Albumin 4.1 g/dL (3.5-5.2) 05/17/21 14:20 Globulin 3.3 g/dL (1.3-4.6) 05/17/21 14:20 TSH 3.24 uIU/mL (0.27-4.20) 05/17/21 14:20 Discharge Plan Discharge Patient Disposition: Admitted As Inpatient Admit Provider: Magdaleno Corbett Clinical Impression: Traumatic epidural hematoma, Morbid obesity, Hypertension Condition: Stable Coding Level of Care Code ED Automatic Shirring Machine Operator for Chg Fwd Exam Comprehensive
[2021-05-17 14:37] LABS: Methemoglobin 0.5 % (0.4-1.5)
[2021-05-17 14:39] LABS: Basophils % 0.4 %; Eosinophils # 0.1 10^3/uL (0.0-0.8); Eosinophils % 1.4 %; Hematocrit 40.9 % (37.0-47.0); Hemoglobin 12.9 g/dL (11.5-15.3); Lymphocytes # 1.9 10^3/uL (0.8-4.8); Lymphocytes % 18.3 %; Mean Corpuscular HGB Conc 31.5 g/dL (30.0-36.0); Mean Corpuscular Hemoglobin 25.4 pg (28.0-34.0); Mean Corpuscular Volume 80.7 fl (81-99); Monocytes # 0.7 10^3/uL (0.2-0.9); Monocytes % 6.6 %; Nucleated Red Blood Cells % 0 %; Platelet Count 330 10^3/cmm (130-400); Red Blood Count 5.07 10^6/uL (4.1-5.3); Red Cell Distribution Width 15.5 % (12.1-15.1); White Blood Count 10.1 10^3/uL (4.0-10.0)
--- NOTE | 2021-05-17 14:41 | MRR_ITS ---
PROCEDURE INFORMATION: Exam: MR Cervical Spine Without Contrast Exam date and time: 05/17/2021 2:41 PM Age: 71 years old Clinical indication: Radicular pain (radiculopathy); Cervical region; Patient HX: Neck and arm pain; Additional info: Pain after cervical epidural TECHNIQUE: Imaging protocol: Multiplanar magnetic resonance images of the cervical spine without contrast. COMPARISON: MR cervical spin wo con* [id number] 02/17/2020 4:34 PM FINDINGS: Vertebrae: The vertebral body stature is maintained. Mild degenerative anterior subluxation of C4 on C5 and posterior subluxation of C6 on C7. Spinal cord: The cord is anteriorly displaced by the posterior epidural fluid collection and is compressed from the T1 through T4 levels and beyond. Spinal epidural space: Posterior epidural fluid collection which is isodense with the cord on T1 sequences and increased in signal on the T2 sequences. This epidural fluid collection extends from C2 down to the T4 thoracic level and beyond. This measures 2 mm in thickness at C2 and gradually tapers to a thickness of 8 mm at C7, and up to 12 mm in the upper thoracic levels. This contributes to mild central canal stenosis from C2 through C4, severe central canal stenosis at C5-C6 and C6-C7, and severe central canal stenosis with cord compression from T1 through T4. C2-C3: No significant disc disease. No foraminal stenosis. C3-C4: Trace disc bulge. No foraminal or central canal stenosis. C4-C5: No significant disc disease. No foraminal stenosis. C5-C6: Circumferential disc bulge. Moderate left foraminal stenosis. No right foraminal stenosis. C6-C7: Circumferential disc bulge. Moderate right and left foraminal stenosis. C7-T1: No significant disc disease. No foraminal stenosis. Soft tissues: Unremarkable. Prevertebral and retropharyngeal spaces: Disc space narrowing at C5-C6 and C6-C7 with endplate and uncovertebral spurring. Vertebral arteries: Expected flow voids in the vertebral arteries. MR/MR cervical spin wo con* [id number] IMPRESSION: 1. Large posterior epidural fluid collection extending from C2 to the T4 levels, and lower. This is presumably an epidural hematoma related to the patient's recent procedure. This measures up to 12 mm at the upper thoracic levels and anteriorly displaces the spinal cord with cord compression from T1 through T4 and lower. 2. The full extent of the posterior epidural hematoma in the lower thoracic levels is not known. Follow-up with an MRI of the thoracic spine is recommended. 3. Multilevel degenerative changes, greatest at C5-C6 and C6-C7.
[2021-05-17] MEDS: ondansetron 2 mg/ML SDV 2 mL 4 MG IVP (14:45)
[2021-05-17] MEDS: morphine 4 mg/mL SDV 1 mL IVP (14:45)
[2021-05-17 14:59] LABS: Troponin(5th) Baseline 7 ng/L (0-10)
[2021-05-17 15:00] LABS: Alanine Aminotransferase 17 U/L (0-33); Albumin Level 4.1 g/dL (3.5-5.2); Alkaline Phosphatase 115 IU/L (35-105); Blood Urea Nitrogen 15 mg/dL (8-23); Calcium 9.4 mg/dL (8.5-10.5); Carbon Dioxide 21 mmol/L (22-29); Chloride 102 mmol/L (98-107); Creatine Phosphokinase 127 U/L (26-192); Globulin 3.3 g/dL (1.3-4.6); Glucose 103 mg/dL (65-115); Osmolality Calculated 287 mOsm/kg (285-295); Sodium 138 mmol/L (136-145); Total Bilirubin 0.2 mg/dL (0.15-1.2); Total Protein 7.4 g/dL (6.6-8.7)
[2021-05-17 15:02] LABS: Aspartate Amino Transferase 20 U/L (0-32)
[2021-05-17] MEDS: LORazepam 2 mg/mL INJ 1 mL IVP (15:03)
--- NOTE | 2021-05-17 16:34 | ECG_ITS ---
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 Measurements Intervals [place] Rate: 68 P: 64 GA: 190 QRS: 23 QRSD: 142 T: 33 QT: 423 QTc: 451 Interpretive Statements SINUS RHYTHM RIGHT BUNDLE BRANCH BLOCK [120+ ms QRS DURATION, UPRIGHT V1, 40+ ms S IN I/aVL/V4/V5/V6] Compared to ECG 05/17/2021 14:17:37 No significant changes Electronically Signed On 05-18-2021 6:05:18 CHANGE OF ADDRESS CLERK by Wanda Albrecht M.D. [id number]
--- NOTE | 2021-05-17 17:28 | MRR_ITS ---
PROCEDURE INFORMATION: Exam: MR Thoracic Spine Without Contrast Exam date and time: 05/17/2021 5:28 PM Age: 71 years old Clinical indication: Pain in thoracic spine; Additional info: Epidural TECHNIQUE: Imaging protocol: Multiplanar magnetic resonance images of the thoracic spine without intravenous contrast. COMPARISON: 1. CTA Thoracic Aorta [id number] 04/08/2017 10:09 AM 2. MR cervical spin wo con* [id number] 05/17/2021 3:47 PM FINDINGS: Vertebrae: Incidental hemangiomas in the T4 and T12 vertebral bodies, with dropout on the STIR sequence. 1.2 cm probable atypical hemangioma in the posterior T5 vertebral body with incomplete dropout on the STIR sequence. Spinal epidural space: Inhomogenous posterior epidural fluid collection extending from T1 to the T5-6 level. This measures up to 11 mm in thickness at the T1 through T4 levels and gradually tapers at the T5-6 level. There is severe central canal narrowing with anterior displacement of the spinal cord from T1 through T4, moderate central canal narrowing at T5 level, and mild central canal stenosis at the T6 level. Spinal cord: The spinal cord appears anteriorly displaced and compressed at the T1 through T4 levels. T1-T2: No significant disc disease. Additional information in the spinal epidural space: . T2-T3: No significant disc disease. Additional information in the spinal epidural space: . T3-T4: No significant disc disease. Additional information in the spinal epidural space: . T4-T5: No significant disc disease. Additional information in the spinal epidural space: . T5-T6: No significant disc disease. Additional information in the spinal epidural space: . T6-T7: No significant disc disease. No significant spinal canal stenosis. T7-T8: No significant disc disease. No significant spinal canal stenosis. T8-T9: No significant disc disease. No significant spinal canal stenosis. T9-T10: No significant disc disease. No significant spinal canal stenosis. T10-T11: No significant disc disease. No significant spinal canal stenosis. T11-T12: No significant disc disease. No significant spinal canal stenosis. Soft tissues: Unremarkable. MR/MR thoracic spin wo con* [id number] IMPRESSION: 1. Posterior epidural hematoma extending from the cervical region inferiorly to the T5-6 level. 2. The posterior epidural hemorrhage creates severe central canal narrowing from T1 through T4 with anterior displacement and compression of the spinal cord.
[2021-05-17 17:39] LABS: Troponin 5 2HR 13.84 ng/L (0-10)
[2021-05-17] MEDS: HYDROmorphone 1 mg/mL INJ 1 mL IVP (17:41)
[2021-05-17 17:44] LABS: Troponin 5 2HR Delta 6.84 ABS# (0-10)
[2021-05-17] MEDS: LORazepam 2 mg/mL INJ 1 mL 1 MG IVP (17:54)
--- NOTE | 2021-05-17 17:55 | MRR_ITS ---
PROCEDURE INFORMATION: Exam: MR Lumbar Spine Without Contrast Exam date and time: 05/17/2021 5:55 PM Age: 71 years old Clinical indication: Low back pain; Additional info: Epidural TECHNIQUE: Imaging protocol: Multiplanar magnetic resonance images of the lumbar spine without intravenous contrast. COMPARISON: MR thoracic spin wo con* [id number] 05/17/2021 6:26 PM FINDINGS: Vertebrae: The vertebral body alignment and stature is intact. Incidental L1 and L3 vertebral body hemangiomas with signal dropout on the STIR sequence. Spinal epidural space: No epidural fluid collection or hematoma visualized. Spinal cord: Normal signal. No cord compression. L1-L2: No significant disc disease. No significant spinal canal stenosis. No neural foraminal stenosis. L2-L3: Mild circumferential disc bulge. Mild degenerative facets. Mild bilateral foraminal stenosis. No central canal stenosis. L3-L4: Mild circumferential disc bulge. Hypertrophic degenerative facets. No foraminal stenosis. Severe central canal stenosis. L4-L5: Circumferential disc bulge which extends into the inferior neural foramina. Moderate right and mild left foraminal stenosis. Degenerative facets with mild-moderate central canal stenosis. L5-S1: Circumferential disc bulge which extends into the inferior neural foramina. Moderate left and mild right foraminal stenosis. No central canal stenosis. Disc space narrowing at L4-L5 and L5-S1. Other bones/joints: The facets are intact with hypertrophic degenerative changes. Soft tissues: Unremarkable. MR/MR lumbar spine wo con* [id number] IMPRESSION: 1. No acute finding. No epidural fluid collection or hematoma. 2. Multilevel degenerative changes as described. 3. The most significant central canal stenosis is severe at L3-L4.
--- NOTE | 2021-05-17 18:15 | PM.HP ---
Providers/Chief Complaint Primary Care Provider: Nancy Ramirez APN Chief Complaint: back pain History of Present Illness Kathleen Valdez is a 71 year old female with past medical history of hypertension, cervical spine fracture and spondylosis for which she follows up with Dr. Tirado was at the pain clinic today receiving cervical epidural when she started having sharp shooting chest pain and bilateral arm pain for which she was transferred to the ER after rapid response was called. In the ER patient was found to have Spinal hematoma for which neurosurgery team was consulted and she is due to go to the OR for decompression surgery hence hospitalist team was requested for admission and further management. On my examination the ER patient was complaining of weakness in her both upper limbs and numbness in her lower limbs. She denies any perianal anesthesia or incontinence of bowel or bladder for now. Denies any difficulty in breathing. Review of Systems General: Reports: 10 or more systems reviewed and unremarkable except in HPI and below Const: Denies: fever(s), chills, body aches, change in appetite, change in weight, malaise, night sweats, diaphoresis, change in sleep pattern, daytime sleepiness or snoring Eyes: Denies: change in vision, blurry vision, photophobia, eye discomfort or eye discharge ENMT: Denies: throat pain, enlarged tonsils, hoarseness, mouth pain, oral sores, dry mouth, tinnitus, nasal congestion or post nasal drip Card: Denies: chest pain, palpitations, irregular heart rhythm, edema, swelling of feet/ankles, lightheadedness, syncope, pre-syncope, dyspnea on exertion, orthopnea, leg pain with exertion or acrocyanosis Resp: Denies: dyspnea, productive cough, non-productive cough, wheezing, stridor, pain on inspiration, change in phlegm color, hemoptysis or chest congestion GI: Denies: abdominal pain, nausea, vomiting, hematemesis, coffee ground emesis, dysphagia, heartburn, diarrhea, constipation, bloating, GI cramping, change in bowel habits, pain on defecation, hematochezia or melena : Denies: flank pain, dysuria, urinary frequency, urinary urgency, urinary hesitancy, nocturia or hematuria Musc: Denies: neck pain, back pain, extremity pain, joint pain, joint swelling, joint redness, joint stiffness or limited range of motion Neuro: Denies: headache(s), numbness in extremities, weakness in extremities, sensory changes, lack of coordination, difficulty walking, frequent falls, dizziness, vertigo, confusion, Slurred speech present, difficulty communicating thoughts or seizure-like activity Psych: Denies: anxiety, depression, mood swings, panic attacks, hopelessness or irritability Endo: Denies: polyuria, polydipsia, tired all the time, cold intolerance, excessive sweating, flushing or heat intolerance Ko/Lymph: Denies: easy bruising or easy bleeding All/Imm: Denies: tongue swelling, facial swelling or acute wheezing Medications/Allergies Home Medications Medication Instructions Recorded Confirmed Last Taken Type aspirin 325 mg tablet 325 mg PO DAILY@0800 02/10/20 05/17/21 05/07/21 History not taken for 10 day escitalopram oxalate 20 mg tablet 20 mg PO DAILY@0800 02/10/20 05/17/21 05/17/21 History (Lexapro) loratadine 10 mg tablet 10 mg PO DAILY 02/10/20 05/17/21 02/26/20 History naproxen 500 mg tablet 500 mg PO BID PRN 02/10/20 05/17/21 05/07/21 History not taken for 10 day oxybutynin chloride 15 mg 15 mg PO BID@ tab 02/10/20 05/17/21 05/17/21 History tablet,extended release 24 hr metoprolol succinate 50 mg 50 mg PO DAILY@0800 02/27/20 05/17/21 05/17/21 History tablet,extended release 24 hr omeprazole 20 mg capsule,delayed 40 mg PO BID@02/27/20 05/17/21 05/17/21 History release triamterene 37.5 1 tab PO QAM 02/27/20 05/17/21 05/17/21 History mg-hydrochlorothiazide 25 mg tablet albuterol sulfate 90 mcg/actuation 2 puff INHALATION QID PRN 05/17/21 05/17/21 Unknown History aerosol inhaler (ProAir HFA) amlodipine 5 mg tablet 5 mg PO BID PRN 05/17/21 05/17/21 Unknown History cephalexin 500 mg capsule 1,000 mg PO BID PRN 05/17/21 05/17/21 Unknown History fluconazole 150 mg tablet 150 mg PO DAILY 05/17/21 05/17/21 Unknown History furosemide 20 mg tablet 20 mg PO DAILY PRN 05/17/21 05/17/21 Unknown History Allergies Allergy/AdvReac Type Severity Reaction Status Date / Time adhesive tape Allergy rash, sores Verified 05/17/21 12:46 codeine Allergy ADR-Vomitin Verified 05/17/21 12:46 g Penicillins Allergy ALGY-Hives Verified 05/17/21 12:46 shellfish derived Allergy anaphlaxis Verified 05/17/21 12:46 Sulfa (Sulfonamide Allergy ALGY-Hives Verified 05/17/21 12:46 Antibiotics) PFSH Acute PFSH: Medical History (Updated 05/17/21 @ 18:17 by Magdaleno Corbett MD) Bronchitis due to 2019-nCoV Cervical spine fracture Cervical spondylosis with myelopathy COVID-19 H/O upper respiratory infection Hypertension Surgical History H/O total knee replacement Social History Alcohol intake: never Vitals/I&O/Wt Last Vital Signs Pulse 76 05/17/21 14:46 Resp 17 05/17/21 17:41 BP 171/82 05/17/21 14:46 Pulse Ox 99 05/17/21 17:41 Physical Exam Narrative: General: No acute distress, AO x3 anxious HEENT: PERRLA, pupils bilaterally equal and reactive Chest: Normal vesicular breath sounds, no added sounds, equal good air entry bilaterally CVS: S1-S2 regular, no murmurs, no tachycardia, no gallops, no rubs Abdomen: Soft, nontender, no organomegaly, bowel sounds present Neuro: Weakness in bilateral upper limbs, numbness in lower limbs, plantars downgoing bilaterally, no facial deformity, AO x3, Data : 05/18/21 03:27 05/18/21 03:27 Other Labs: Radiology Impressions Chest X-Ray 05/17/21 14:34 Impression: Atherosclerosis. Cervical Spine MRI 05/17/21 14:41 IMPRESSION: 1. Large posterior epidural fluid collection extending from C2 to the T4 levels, and lower. This is presumably an epidural hematoma related to the atient's recent procedure. This measures up to 12 mm at the upper thoracic levels and anteriorly displaces the spinal cord with cord compression from T1 through T4 and lower. 2. The full extent of the posterior epidural hematoma in the lower thoracic levels is not known. Follow-up with an MRI of the thoracic spine is recommended. 3. Multilevel degenerative changes, greatest at C5-C6 and C6-C7. ADDENDUM: 05/17/21 [id number] THIS REPORT CONTAINS FINDINGS THAT MAY BE CRITICAL TO PATIENT CARE. The findings were verbally communicated via telephone conference with GORAN QUINTANILLA at 5:36 PM CA[employer]PER on 05/17/2021. The findings were acknowledged and understood. Laboratory Results WBC 10.1 10^3/uL (4.0-10.0) H 05/17/21 14:20 RBC 5.07 10^6/uL (4.1-5.3) 05/17/21 14:20 Hgb 12.9 g/dL (11.5-15.3) 05/17/21 14:20 Hct 40.9 % (37.0-47.0) 05/17/21 14:20 MCV 80.7 fl (81-99) L 05/17/21 14:20 MCH 25.4 pg (28.0-34.0) L 05/17/21 14:20 MCHC 31.5 g/dL (30.0-36.0) 05/17/21 14:20 RDW 15.5 % (12.1-15.1) H 05/17/21 14:20 Plt Count 330 10^3/cmm (130-400) 05/17/21 14:20 MPV 9.0 fL (7.4-10.4) 05/17/21 14:20 Neut % (Auto) 73.0 % 05/17/21 14:20 Lymph % (Auto) 18.3 % 05/17/21 14:20 [place] % (Auto) 6.6 % 05/17/21 14:20 Eos % (Auto) 1.4 % 05/17/21 14:20 Baso % (Auto) 0.4 % 05/17/21 14:20 Neut # (Auto) 7.40 10^3/uL (1.8-7.7) 05/17/21 14:20 Lymph # (Auto) 1.9 10^3/uL (0.8-4.8) 05/17/21 14:20 [place] # (Auto) 0.7 10^3/uL (0.2-0.9) 05/17/21 14:20 Eos # (Auto) 0.1 10^3/uL (0.0-0.8) 05/17/21 14:20 Baso # (Auto) 0.0 10^3/uL (0.0-0.1) 05/17/21 14:20 Nucleated RBC % (auto) 0 % 05/17/21 14:20 Nucleated RBCs # 0.0 /100WBC 05/17/21 14:20 Specimen Type Arterial 05/17/21 14:25 Sample Site Radial, left 05/17/21 14:25 ABG pH 7.56 (7.35-7.45) H 05/17/21 14:25 ABG pCO2 26.6 mmHg (35-45) L 05/17/21 14:25 ABG pO2 103.0 mmHg (80.0-100.0) H 05/17/21 14:25 ABG HCO3 24.0 mmol/L (22-26) 05/17/21 14:25 ABG O2 Saturation 97.6 05/17/21 14:25 ABG Base Excess 2.9 mmol/L (-2.0-2.0) H 05/17/21 14:25 Jake Test Pos 05/17/21 14:25 A-a O2 Gradient 11.6 mmHg (5-10) H 05/17/21 14:25 Hematocrit 40.4 % (37-47) 05/17/21 14:25 Hgb O2 Saturation 97.3 % (95-100) 05/17/21 14:25 Carboxyhemoglobin < 0.0 %THgb (0.4-20.1) L 05/17/21 14:25 Methemoglobin 0.5 % (0.4-1.5) 05/17/21 14:25 Total Hemoglobin 13.2 g/dL (12-16) 05/17/21 14:25 Sodium 139.0 mmol/L (131-143) 05/17/21 14:25 Potassium 3.6 mmol/L (3.5-5.0) 05/17/21 14:25 Glucose 104.0 mg/dL (70-115) 05/17/21 14:25 Ionized Calcium 1.2 mmol/L (1.1-1.4) 05/17/21 14:25 O2 Delivery Device Nc 05/17/21 14:25 O2 Liters/Min 3.0 % 05/17/21 14:25 FiO2 32.0 % 05/17/21 14:25 It Risk And Assurance Senior Manager ID Ed 05/17/21 14:25 Sodium 138 mmol/L (136-145) 05/17/21 14:20 Potassium 4.0 mmol/L (3.5-5.1) 05/17/21 14:20 Chloride 102 mmol/L (98-107) 05/17/21 14:20 Carbon Dioxide 21 mmol/L (22-29) L 05/17/21 14:20 Anion Gap 19.0 (5-19) 05/17/21 14:20 BUN 15 mg/dL (8-23) 05/17/21 14:20 Creatinine 0.7 mg/dL (0.5-0.9) 05/17/21 14:20 GFR Calculation Not Reportable 05/17/21 14:20 Glucose 103 mg/dL (65-115) 05/17/21 14:20 Calculated Osmolality 287 mOsm/kg (285-295) 05/17/21 14:20 Calcium 9.4 mg/dL (8.5-10.5) 05/17/21 14:20 Total Bilirubin 0.2 mg/dL (0.15-1.2) 05/17/21 14:20 AST 20 U/L (0-32) 05/17/21 14:20 ALT 17 U/L (0-33) 05/17/21 14:20 Alkaline Phosphatase 115 IU/L (35-105) H 05/17/21 14:20 Creatine Kinase 127 U/L (26-192) 05/17/21 14:20 Troponin T Baseline 7 ng/L (0-10) 05/17/21 14:20 Troponin T 120 Minute 13.84 ng/L (0-10) H 05/17/21 16:51 Delta Troponin T 6.84 ABS# (0-10) 05/17/21 16:51 Total Protein 7.4 g/dL (6.6-8.7) 05/17/21 14:20 Albumin 4.1 g/dL (3.5-5.2) 05/17/21 14:20 Globulin 3.3 g/dL (1.3-4.6) 05/17/21 14:20 A&P Assessment and plan (1) Paraplegia: Status: Acute (2) Traumatic epidural hematoma: Status: Acute (3) Cervical spondylosis with myelopathy: Status: Acute (4) Hypertension: Status: Acute Plan Paraplegia secondary to traumatic epidural hematoma: Seen on CT scan. Case discussed with Dr. Tirado. Requesting lumbar MRI. Plan for laminectomy in the OR emergently. Start Decadron 10 mg followed by 4 mg every 6 hour IV. Physical therapy, Occupational Therapy post OR. Anticoagulation, pain management, perioperative antibiotics as per surgical team. Check iron panel, TSH, lipid panel, A1c. Hypertension: Goal blood pressure less than 140/90 mmHg. Continue with home antihypertensives. Full code. SCDs for DVT prophylaxis, hold off on medical prophylaxis for now given hematoma. Protonix for PUD prophylaxis. Admit to ICU. Attestations Medical Necessity Statement*: Admission for more than 2 midnights for management of paraplegia secondary to spinal hematoma requiring laminectomy Time Spent in Patient Care: Greater than 35 minutes Coding Level of Care Code Acute Billboard Installer for g Fwd Diagnoses Paraplegia G82.20 Traumatic epidural hematoma S06.4X9A Cervical spondylosis with myelopathy M47.12 Hypertension I10
--- NOTE | 2021-05-17 19:38 | W.PM.OPSUD ---
Surgery/Procedure H&P Update DATE OF PROCEDURE: May 17, 2021 DATE H&P PERFORMED: 05/17/21 PLANNED PROCEDURE: Operation Date: 05/17/21 18:15 Proposed Procedures p Anterior Cervical Discectomy & Fusion(Not Applicable) - Stefan Tirado DO
--- NOTE | 2021-05-17 19:45 | P.ANESASSM_ITS ---
Pre-Anesthetic Assessment Height/Weight: Height 1.68 m Pulse Resp BP Pulse Ox 76 17 171/82 99 05/17/21 14:46 05/17/21 17:41 05/17/21 14:46 05/17/21 17:41 Operation Date: 05/17/21 18:15 Proposed Procedures p Anterior Cervical Discectomy & Fusion(Not Applicable) - Stefan Tirado, DO Familial anesthetic complications: None Was Beta Yovani taken within 24 hours: Yes Was Clonidine taken within 24 hours: N/A Social No alcohol and No tobacco Exam alert, oriented x 3, clear to auscultation bilaterally and regular rate & rhythm Airway Submandibular: within normal limits Cervical ROM: within normal limits Mallampati: Class II Dentition: partials Pulmonary Asthma CV/HEM Hypertension GI Gastroesophageal Reflux Disease Metabolic Morbid Obesity Neuropsych Anxiety Anesthetic Plan ASA status: 3E Anesthesia: General Other: A.line Medications/Allergies Home Medications Medication Instructions Recorded Confirmed Last Taken Type aspirin 325 mg tablet 325 mg PO DAILY@0800 02/10/20 05/17/21 05/07/21 History not taken for 10 day escitalopram oxalate 20 mg tablet 20 mg PO DAILY@0800 02/10/20 05/17/21 05/17/21 History (Lexapro) loratadine 10 mg tablet 10 mg PO DAILY 02/10/20 05/17/21 02/26/20 History naproxen 500 mg tablet 500 mg PO BID PRN 02/10/20 05/17/21 05/07/21 History not taken for 10 day oxybutynin chloride 15 mg 15 mg PO BID@08,1999 tab 02/10/20 05/17/21 05/17/21 History tablet,extended release 24 hr metoprolol succinate 50 mg 50 mg PO DAILY@0800 02/27/20 05/17/21 05/17/21 History tablet,extended release 24 hr omeprazole 20 mg capsule,delayed 40 mg PO BID@0800,199902/27/20 05/17/21 05/17/21 History release triamterene 37.5 1 tab PO QAM 02/27/20 05/17/21 05/17/21 History mg-hydrochlorothiazide 25 mg tablet albuterol sulfate 90 mcg/actuation 2 puff INHALATION QID PRN 05/17/21 05/17/21 Unknown History aerosol inhaler (ProAir HFA) amlodipine 5 mg tablet 5 mg PO BID PRN 05/17/21 05/17/21 Unknown History cephalexin 500 mg capsule 1,000 mg PO BID PRN 05/17/21 05/17/21 Unknown History fluconazole 150 mg tablet 150 mg PO DAILY 05/17/21 05/17/21 Unknown History furosemide 20 mg tablet 20 mg PO DAILY PRN 05/17/21 05/17/21 Unknown History Allergies Allergy/AdvReac Type Severity Reaction Status Date / Time adhesive tape Allergy rash, sores Verified 05/17/21 12:46 codeine Allergy ADR-Vomitin Verified 05/17/21 12:46 g Penicillins Allergy ALGY-Hives Verified 05/17/21 12:46 shellfish derived Allergy anaphlaxis Verified 05/17/21 12:46 Sulfa (Sulfonamide Allergy ALGY-Hives Verified 05/17/21 12:46 Antibiotics) [facility] Anesthesia Medical History (Updated 05/17/21 @ 18:17 by Magdaleno Corbett MD) Bronchitis due to 2019-nCoV Cervical spine fracture Cervical spondylosis with myelopathy COVID-19 H/O upper respiratory infection Hypertension Surgical History H/O total knee replacement Social History Alcohol intake: never Data Anesthesia : 05/17/21 14:20 05/17/21 14:20 Short CBC 05/17/21 Range/Units 14:20 WBC 10.1 H (4.0-10.0) 10^3/uL Hgb 12.9 (11.5-15.3) g/dL Hct 40.9 (37.0-47.0) % MCV 80.7 L (81-99) fl Plt Count 330 (130-400) 10^3/cmm Neut % (Auto) 73.0 % Neut # (Auto) 7.40 (1.8-7.7) 10^3/uL BMP 05/17/21 14:20 Sodium 138 Potassium 4.0 Chloride 102 Carbon Dioxide 21 L BUN 15 Creatinine 0.7 Glucose 103 Calcium 9.4 Cardiac Enzymes 05/17/21 05/17/21 05/17/21 Range/Units 14:20 14:20 16:51 Creatine Kinase 127 (26-192) U/L Troponin T Baseline 7 (0-10) ng/L Troponin T 120 Minute 13.84 H (0-10) ng/L Delta Troponin T 6.84 (0-10) ABS# Liver Function 05/17/21 Range/Units 14:20 Total Bilirubin 0.2 (0.15-1.2) mg/dL AST 20 (0-32) U/L ALT 17 (0-33) U/L Alkaline Phosphatase 115 H (35-105) IU/L Albumin 4.1 (3.5-5.2) g/dL ABG 05/17/21 14:25 Specimen Type Arterial Sample Site Radial, left ABG pH 7.56 H ABG pCO2 26.6 L ABG pO2 103.0 H ABG HCO3 24.0 ABG O2 Saturation 97.6 ABG Base Excess 2.9 H A-a O2 Gradient 11.6 H O2 Delivery Device Nc O2 Liters/Min 3.0 FiO2 32.0 Cardiac Studies: No Data to Display
--- NOTE | 2021-05-17 19:47 | PM.CONSULT ---
Providers/Reason For Consult Consulting Physician/Specialty*: hospitalist Reason for Consult*: epidural hematoma Attending Physician: Magdaleno Corbett MD Primary Care Provider: Nancy Ramirez APN History of Present Illness History of Present Illness Kathleen Valdez is a 71 year old female Who is getting a cervical epidural steroid injection earlier today. Had sudden onset of pain and subsequent went to the ER with weakness and chest pain. MRI was obtained of the cervical thoracic spine which showed a hematoma from C5-T4. At this point was consulted. She has been having weakness in her arms and legs. Review of Systems Narrative: General ROS: negative for weight changes, fever ENT ROS: negative for nasal congestion, drainage or bleeding, sore throat, dysphagia or ear pain Eyes: PERRL Hematological and Lymphatic ROS: negative for swollen glands or abnormal bleeding Endocrine ROS: negative for polyuria/polydpsia or new changes in weight Respiratory ROS: negative for cough, shortness of breath, or wheezing Cardiovascular ROS: negative for chest pain or dyspnea on exertion Gastrointestinal ROS: negative for reflux, abdominal pain, change in bowel habits, or black or bloody stools Musculoskeletal ROS: negative for back pain, neck pain, or joint pain or swelling except for current problem Neurological ROS: negative for TIA or stoke symptoms Skin: no rashes Medications/Allergies Home Medications Medication Instructions Recorded Confirmed Last Taken Type aspirin 325 mg tablet 325 mg PO DAILY@0800 02/10/20 05/17/21 05/07/21 History not taken for 10 day escitalopram oxalate 20 mg tablet 20 mg PO DAILY@0800 02/10/20 05/17/21 05/17/21 History (Lexapro) loratadine 10 mg tablet 10 mg PO DAILY 02/10/20 05/17/21 02/26/20 History naproxen 500 mg tablet 500 mg PO BID PRN 02/10/20 05/17/21 05/07/21 History not taken for 10 day oxybutynin chloride 15 mg 15 mg PO BID@799,1999 tab 02/10/20 05/17/21 05/17/21 History tablet,extended release 24 hr metoprolol succinate 50 mg 50 mg PO DAILY@0800 02/27/20 05/17/21 05/17/21 History tablet,extended release 24 hr omeprazole 20 mg capsule,delayed 40 mg PO BID@08,199902/27/20 05/17/2105/17/22 History release triamterene 37.5 1 tab PO QAM 02/27/20 05/17/21 05/17/21 History mg-hydrochlorothiazide 25 mg tablet albuterol sulfate 90 mcg/actuation 2 puff INHALATION QID PRN 05/17/21 05/17/21 Unknown History aerosol inhaler (ProAir HFA) amlodipine 5 mg tablet 5 mg PO BID PRN 05/17/21 05/17/21 Unknown History cephalexin 500 mg capsule 1,000 mg PO BID PRN 05/17/21 05/17/21 Unknown History fluconazole 150 mg tablet 150 mg PO DAILY 05/17/21 05/17/21 Unknown History furosemide 20 mg tablet 20 mg PO DAILY PRN 05/17/21 05/17/21 Unknown History Allergies Allergy/AdvReac Type Severity Reaction Status Date / Time adhesive tape Allergy rash, sores Verified 05/17/21 12:46 codeine Allergy ADR-Vomitin Verified 05/17/21 12:46 g Penicillins Allergy ALGY-Hives Verified 05/17/21 12:46 shellfish derived Allergy anaphlaxis Verified 05/17/21 12:46 Sulfa (Sulfonamide Allergy ALGY-Hives Verified 05/17/21 12:46 Antibiotics) PFSH Acute PFSH: Medical History (Updated 05/17/21 @ 18:17 by Magdaleno Corbett MD) Bronchitis due to 2019-nCoV Cervical spine fracture Cervical spondylosis with myelopathy COVID-19 H/O upper respiratory infection Hypertension Surgical History H/O total knee replacement Social History Alcohol intake: never Vitals/I&O/Wt Last Vital Signs Pulse 76 05/17/21 14:46 Resp 17 05/17/21 17:41 BP 171/82 05/17/21 14:46 Pulse Ox 99 05/17/21 17:41 Physical Exam Narrative: CONSTITUTIONAL: The patient is a normal appearing [] in no apparent distress. GENERAL: Patient in no acute distress. CARDIAC: Regular rate and rhythm. CHEST: Normal inspiratory effort, normal respiratory rate. ABDOMEN: Soft and nontender. SKIN: Clear, warm and intact. NEURO?PSYCH: The patient is alert and oriented to person, place and time. Sensorv /SILT Motor StrengthShoulder abduction C5 5/5Wrist extension C6 5/5Elbow extension C7 5/5Hand Certified Nuclear Medicine Technologist C8 5/5Finger abduction T15/5 Radial/ Ulnar/ Median n intact LowerSensory (SILT)Motor StrengthHin flexion L2/3Ant/inner thigh 5/5Hip adduction L2/3 5/5Knee extension L4 Lat thigh, 5/5Toe dorsiflexion L5 5/5Ankle dorsiflexion L5/ [id number] flexion S1 5/5 DTRBleeps 2+Triceps 2+Brachioradialis 2+Patellar 2+Achilles 2+ MUSCULOSKELETAL: UPPEREXTREMITIES: C7 down weakness worse on the left SPINE: Skin warm, dry, intact. 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
[2021-05-17] MEDS: sodium chloride 0.9% 1,000 ML 30 ML (19:55)
[2021-05-17] MEDS: clindamycin 900 MG/50 ML PREMIX 100 MG IV (20:00)
[2021-05-17 20:33] LABS: Iron 31 ug/dL (37-145); Thyroid Stimulating Hormone 3.24 uIU/mL (0.27-4.20)
--- NOTE | 2021-05-17 20:34 | ECG_ITS ---
[facility] Test Date: 2021-05-17 Pat Name: Kathleen Valdez Department: Room: ICU08 Gender: Female Melting Operator: : 1950 Requested By: Goran Smith Order Number: [id number] Laquita MD: Jason Joseph M.D. Measurements Intervals [place] Rate: 79 P: 0 [place]: 196 QRS: 63 QRSD: 142 T: 32 QT: 422 QTc: 485 Interpretive Statements SINUS RHYTHM INTRAVENTRICULAR CONDUCTION DELAY [130+ ms QRS DURATION] Compared to ECG 05/17/2021 17:35:05 Intraventricular conduction delay now present Right bundle-branch block no longer present Electronically Signed On 05-20-2021 15:57:40 CDT by Jason Joseph M.D. [id number]
[2021-05-17 20:35] LABS: Percent Saturation 9.1 % (20-50); Total Iron Binding Capacity 337 mcg/dl; Unsaturated Iron Binding 306 ug/dL (112-347)
[2021-05-17] MEDS: vancomycin 1,000 MG SDV 1000 MG XX ×2 (21:37→21:41)
--- NOTE | 2021-05-17 22:37 | PM.OP ---
Operative Report Date of procedure: May 17, 2021 Pre-op diagnosis: epidural hematoma Post-op diagnosis: same Procedure done: 1. C6 Left sided laminectomy partial facetectomy 2. C7 Left sided laminectomy partial facetectomy 3. T1 Left sided laminectomy partial facetectomy 4. T2 Left sided laminectomy partial facetectomy 5. T3 Left sided laminectomy partial facetectomy 6. T4 Left sided laminectomy partial facetectomy 7. T5 Left sided laminectomy partial facetectomy Surgeon: Stefan Tirado Estimated blood loss (mL): 500 Procedure: 1. C6 Left sided laminectomy partial facetectomy 2. C7 Left sided laminectomy partial facetectomy 3. T1 Left sided laminectomy partial facetectomy 4. T2 Left sided laminectomy partial facetectomy 5. T3 Left sided laminectomy partial facetectomy 6. T4 Left sided laminectomy partial facetectomy 7. T5 left sided laminectomy partial facetectomy Patient was brought to the operative suite. After undergoing anesthesia she was positioned in the prone position. All areas impingement were well-padded. Patient was then prepped and draped normal sterile fashion. Skin incision was made over the C6-T5 level.subperiosteal dissection was made from C6 out to the edges of the lateral masses of C6 and C7 on the left. Subperiosteal dissection was also made from T1 down to T5 out to the edges of the TPs. C-arm guidance he was used to confirm that the C6-T5 levels were exposed. Microscope was brought in. A laminectomy was made at C6. This was done by using the high-speed bur. Once the bone was thinned down to the ligamentum flavum. A curved curette was used to undermine the bone. A #2 Kerrison was then used to perform the laminotomy. And then a #3 Kerrison was brought in to widen the laminectomy and continue over to the facet joint and taking down the superior and inferior articular process of the facet joint. The ligamentum flavum was then taken down from superior to inferior. Once the ligamentum flavum was taken down the large hematoma was exposed and irrigation was used as well as a curved curette and Kerrisons in order to facilitate taken the hematoma off of the dura. A laminectomy was made at C7. This was done by using the high-speed bur. Once the bone was thinned down to the ligamentum flavum. A curved curette was used to undermine the bone. A #2 Kerrison was then used to perform the laminotomy. And then a #3 Kerrison was brought in to widen the laminectomy and continue over to the facet joint and taking down the superior and inferior articular process of the facet joint. The ligamentum flavum was then taken down from superior to inferior. Once the ligamentum flavum was taken down the large hematoma was exposed and irrigation was used as well as a curved curette and Kerrisons in order to facilitate taken the hematoma off of the dura. A laminectomy was made at T1. This was done by using the high-speed bur. Once the bone was thinned down to the ligamentum flavum. A curved curette was used to undermine the bone. A #2 Kerrison was then used to perform the laminotomy. And then a #3 Kerrison was brought in to widen the laminectomy and continue over to the facet joint and taking down the superior and inferior articular process of the facet joint. The ligamentum flavum was then taken down from superior to inferior. Once the ligamentum flavum was taken down the large hematoma was exposed and irrigation was used as well as a curved curette and Kerrisons in order to facilitate taken the hematoma off of the dura. A laminectomy was made at T2. This was done by using the high-speed bur. Once the bone was thinned down to the ligamentum flavum. A curved curette was used to undermine the bone. A #2 Kerrison was then used to perform the laminotomy. And then a #3 Kerrison was brought in to widen the laminectomy and continue over to the facet joint and taking down the superior and inferior articular process of the facet joint. The ligamentum flavum was then taken down from superior to inferior. Once the ligamentum flavum was taken down the large hematoma was exposed and irrigation was used as well as a curved curette and Kerrisons in order to facilitate taken the hematoma off of the dura. A laminectomy was made at T3. This was done by using the high-speed bur. Once the bone was thinned down to the ligamentum flavum. A curved curette was used to undermine the bone. A #2 Kerrison was then used to perform the laminotomy. And then a #3 Kerrison was brought in to widen the laminectomy and continue over to the facet joint and taking down the superior and inferior articular process of the facet joint. The ligamentum flavum was then taken down from superior to inferior. Once the ligamentum flavum was taken down the large hematoma was exposed and irrigation was used as well as a curved curette and Kerrisons in order to facilitate taken the hematoma off of the dura. A laminectomy was made at T4. This was done by using the high-speed bur. Once the bone was thinned down to the ligamentum flavum. A curved curette was used to undermine the bone. A #2 Kerrison was then used to perform the laminotomy. And then a #3 Kerrison was brought in to widen the laminectomy and continue over to the facet joint and taking down the superior and inferior articular process of the facet joint. The ligamentum flavum was then taken down from superior to inferior. Once the ligamentum flavum was taken down the large hematoma was exposed and irrigation was used as well as a curved curette and Kerrisons in order to facilitate taken the hematoma off of the dura. A laminectomy was made at T5. This was done by using the high-speed bur. Once the bone was thinned down to the ligamentum flavum. A curved went superiorly inferior to ensure that all the hematoma was removed. The dura was used to undermine the bone. A #2 Kerrison was then used to perform the laminotomy. And then a #3 Kerrison was brought in to widen the laminectomy and continue over to the facet joint and taking down the superior and inferior articular process of the facet joint. The ligamentum flavum was then taken down from superior to inferior. Once the ligamentum flavum was taken down the large hematoma was exposed and irrigation was used as well as a curved curette and Kerrisons in order to facilitate taken the hematoma off of the dura. Once all the laminectomies were decompressed. The curved curette was used to feel superiorly and inferiorly on the laminectomies in order to ensure that the hematoma was complete decompressed. The wound was then closed with 0 Vicryl. Deep drain was placed prior to placing the 0 Vicryl. The 0 Vicryl was used from the cervical fascia and then part of the skin incision closure. And then 2-0 Vicryl was used to close the skin along with nylon suture. Sterile dressing was applied cervical collar was placed and patient was transferred to the ICU in stable condition.
[2021-05-17 23:27] LABS: Troponin 5 6HR 7.84 ng/L (0-10)
[2021-05-17 23:41] LABS: Troponin 5 6HR Delta 0.84 ng/L (0-12)
[2021-05-17 23:44] LABS: Basophils % 0.1 %; Hematocrit 42.4 % (37.0-47.0); Hemoglobin 13.3 g/dL (11.5-15.3); Lymphocytes # 0.6 10^3/uL (0.8-4.8); Lymphocytes % 6.2 %; Mean Corpuscular HGB Conc 31.4 g/dL (30.0-36.0); Mean Corpuscular Hemoglobin 25.5 pg (28.0-34.0); Mean Corpuscular Volume 81.2 fl (81-99); Mean Platelet Volume 8.6 fL (7.4-10.4); Monocytes % 0.4 %; Neutrophils # 8.51 10^3/uL (1.8-7.7); Neutrophils % 92.2 %; Nucleated Red Blood Cells % 0 %; Platelet Count 292 10^3/cmm (130-400); Red Blood Count 5.22 10^6/uL (4.1-5.3); Red Cell Distribution Width 15.2 % (12.1-15.1); White Blood Count 9.2 10^3/uL (4.0-10.0)
[2021-05-17] MEDS: ketorolac 30 mg/mL INJ IVP (23:56)
[2021-05-17] MEDS: metoprolol tartrate 50 mg Tablet PO (23:58)
[2021-05-17] MEDS: dexamethasone 4 mg/mL INJ IVP (23:58)
[2021-05-18] VITALS (62 sets, daily range): BP systolic 102–177; BP diastolic 42–119; PULSE 52–85; RESP 14–26; TEMP 37.4; O2SAT 76–95
[2021-05-18] MEDS: lactated ringers 1,000 ML 90 ML IV ×2 (00:14→14:36)
[2021-05-18] MEDS: HYDROcodone-acetaminophen 5-325 mg Tablet PO (01:10)
[2021-05-18 03:44] LABS: Basophils % 0.2 %; Hematocrit 39.1 % (37.0-47.0); Hemoglobin 12.2 g/dL (11.5-15.3); Lymphocytes # 0.8 10^3/uL (0.8-4.8); Lymphocytes % 4.2 %; Mean Corpuscular HGB Conc 31.2 g/dL (30.0-36.0); Mean Corpuscular Hemoglobin 25.5 pg (28.0-34.0); Mean Corpuscular Volume 81.8 fl (81-99); Mean Platelet Volume 8.7 fL (7.4-10.4); Monocytes # 0.2 10^3/uL (0.2-0.9); Monocytes % 1.1 %; Neutrophils # 18.01 10^3/uL (1.8-7.7); Neutrophils % 93.7 %; Nucleated Red Blood Cells % 0 %; Platelet Count 295 10^3/cmm (130-400); Red Blood Count 4.78 10^6/uL (4.1-5.3); Red Cell Distribution Width 15.2 % (12.1-15.1); White Blood Count 19.2 10^3/uL (4.0-10.0)
[2021-05-18] MEDS: clindamycin 900 MG/50 ML PREMIX 100 MG IV ×3 (03:45→20:24)
[2021-05-18 04:00] LABS: Estmated Average Glucose 111; Hemoglobin A1C 5.5 % (4.0-6.0)
[2021-05-18 04:01] LABS: Chol HDL Ratio 3.14 mg/dL (0.0-4.40); Cholesterol 157 mg/dL (0-200); HDL Cholesterol 50 mg/dL (60-100); LDL Cholesterol Calculated 97 mg/dL (50-129); Triglycerides 52 mg/dL (0-150); VLDL Cholestrol Calculation 10 mg/dL (0-30)
[2021-05-18 04:07] LABS: Magnesium 1.8 mg/dL (1.7-2.3); Phosphorus 3.7 mg/dL (2.5-4.5)
[2021-05-18 04:09] LABS: Alanine Aminotransferase 15 U/L (0-33); Albumin Level 3.5 g/dL (3.5-5.2); Alkaline Phosphatase 107 IU/L (35-105); Anion Gap 14.2 (5-19); Aspartate Amino Transferase 20 U/L (0-32); Blood Urea Nitrogen 13 mg/dL (8-23); Calcium 8.9 mg/dL (8.5-10.5); Carbon Dioxide 24 mmol/L (22-29); Chloride 102 mmol/L (98-107); Globulin 3.5 g/dL (1.3-4.6); Glucose 155 mg/dL (65-115); Osmolality Calculated 285 mOsm/kg (285-295); Potassium 4.2 mmol/L (3.5-5.1); Sodium 136 mmol/L (136-145); Total Bilirubin 0.2 mg/dL (0.15-1.2)
[2021-05-18] MEDS: famotidine 20 mg/2 mL INJ IVP ×2 (05:44→17:44)
[2021-05-18] MEDS: dexamethasone 4 mg/mL INJ IVP ×3 (05:46→17:44)
[2021-05-18] MEDS: HYDROcodone-acetaminophen 5-325 mg Tablet 1 TAB PO ×4 (05:48→20:23)
--- NOTE | 2021-05-18 06:21 | XR_ITS ---
WS: [id number] C-arm fluoroscopy for cervical spine surgery, 05/17/2021 Clinical Data: OR PICS Comparison: None. Findings: Dr. Tirado performed cervical spine surgery. XR/XR cervical spine 1V [id number] Impression: Cervical spine surgery.
--- NOTE | 2021-05-18 06:29 | PC.NURSE ---
Patient rested quietly after lortabs given. She states she was out of pain for the first time in 2yrs. Explained that she had narcotics in her system, and that could be the reason that she no pain. She was thinking she was the surgery that fixed all pain. Explained that she would still have pain r/t to incision site and not to be surprised for the pain to come back. Later in morning she complained of pain at the base of the incision, only gave her 1 lortab. Will see if it works for her.
--- NOTE | 2021-05-18 07:17 | ANE.PACU2 ---
Inpatient post-anesthesia follow up: Airway intact: Yes Vital signs: Temperature 97.5 F Pulse Rate 62 Respiratory Rate 18 Blood Pressure 138/70 Pulse Oximetry 85 Oxygen Delivery Me thod Room Air Oxygen Flow Rate 3 Fraction of Inspir ed Oxygen Hydration adequate: Yes Nausea and vomiting: No Pain level: 3 Mental status: Baseline Additional Comments: Extubated, appears to be resting comfortably in ICU
[2021-05-18] MEDS: morphine 4 mg/mL SDV 1 mL 2 MG IVP ×2 (08:35→13:26)
[2021-05-18] MEDS: escitalopram 10 mg Tablet 20 MG PO (08:43)
[2021-05-18] MEDS: metoprolol tartrate 50 mg Tablet PO (08:44)
[2021-05-18] MEDS: docusate sodium 100 mg Capsule PO ×2 (08:46→17:44)
--- NOTE | 2021-05-18 09:37 | PC.NURSE ---
Dr. Aviles at bedside, gave v.o to leave dressing on x1 week, can remove drain later today if no increase in drainage
[2021-05-18] MEDS: oxybutynin chloride XL 5 MG TABLET 15 MG PO ×2 (09:41→20:22)
--- NOTE | 2021-05-18 09:54 | P.PN_ITS ---
Vitals/I&O/Wt Last Vital Signs Temp 97.5 F L 05/17/21 19:50 Pulse 52 L 05/18/21 09:50 Resp 17 05/18/21 09:50 BP 133/65 05/18/21 09:00 Pulse Ox 94 05/18/21 09:50 05/17/21 05/18/21 05/18/21 22:59 06:59 14:59 Intake Total 240 / 290 Output Total 575 / 575 Balance -335 / -285 Weight last 48 hrs Weight 320 lb 14.4 oz Physical Exam Narrative: Patient is able to dorsiflex and plantarflex her foot with 5-5 s trength. Prior to surgery she was significantly weak. Urinary Catheter Management: Hurd Latex: Cath Placed During This Visit: yes Reason for Continuing Indwelling Catheter: Accurate Measurement of Urinary O utput in Critically Ill Patients Urinary Catheter Date of Insertion: 05/18/21 Urinary Catheter Time of Insertion: 18:00 Data : 05/18/21 03:27 05/18/21 03:27 Micro: Microbiology 05/17/21 22:54 Blood Culture - Preliminary Blood SPECIMEN COLLECTED 05/17/21 23:00 Blood Culture - Preliminary Blood SPECIMEN COLLECTED A&P Assessment and plan (1) Traumatic epidural hematoma: She is postop day 1 C6-T5 laminectomies. At this point I would keep the steroid going for another 24 hours. We can DC the drain and have her transferred to the ICU if okay with the hospitalist service. Status: Acute Attestations Medical Necessity Statement*: per primary service Coding Level of Care Code Acute Sonographer for Josefa Garcia Diagnoses Traumatic epidural hematoma S06.4X9A
--- NOTE | 2021-05-18 13:26 | PM.PN ---
Subjective Subjective: Patient underwent multilevel laminectomy last night. Today morning has minimal output through drain. In cervical collar. Has remained hemodynamically stable and afebrile. Currently on 3 L saturating 93%. Asking to remain in ICU for 1 more day. Hurd catheter in place. States she is feeling worn out. Denies any nausea, vomiting, headache. States she is feeling hungry. Vitals/I&O/Wt Last Vital Signs Temp 97.5 F L 05/17/21 19:50 Pulse 52 L 05/18/21 09:50 Resp 17 05/18/21 09:50 BP 133/65 05/18/21 09:00 Pulse Ox 94 05/18/21 09:50 05/17/21 05/18/21 05/18/21 22:59 06:59 14:59 Intake Total 290 / 340 Output Total 575 / 575 Balance -285 / -235 Weight last 48 hrs Weight 145.558 kg Physical Exam Narrative: General: No acute distress, AO x3 anxious, morbid obesity HEENT: PERRLA, pupils bilaterally equal and reactive Chest: Normal vesicular breath sounds, no added sounds, equal good air entry bilaterally CVS: S1-S2 regular, no murmurs, no tachycardia, no gallops, no rubs Abdomen: Soft, nontender, no organomegaly, bowel sounds present Neuro: Able to move both her upper limbs, power 4 x 5, plantars downgoing bilaterally, no facial deformity, AO x3, Urinary Catheter Management: Hurd Latex: Cath Placed During This Visit: yes Reason for Continuing Indwelling Catheter: Accurate Measurement of Urinary Output in Critically Ill Patients Urinary Catheter Date of Insertion: 05/18/21 Urinary Catheter Time of Insertion: 18:00 Data : 05/18/21 03:27 05/18/21 03:27 Micro: Microbiology 05/17/21 22:54 Blood Culture - Preliminary Blood SPECIMEN COLLECTED 05/17/21 23:00 Blood Culture - Preliminary Blood SPECIMEN COLLECTED A&P Assessment and plan (1) Paraplegia: Status: Acute (2) Traumatic epidural hematoma: Status: Acute (3) Cervical spondylosis with myelopathy: Status: Acute (4) Hypertension: Status: Acute (5) Morbid obesity: Status: Acute Plan Paraplegia secondary to traumatic epidural hematoma: Seen on CT scan. Post multilevel laminectomy. Postop day 1. Continue with Decadron 4 mg IV every 6 hours. Will wean down within next 48 hours. Physical therapy, occupational therapy as per surgical team. Anticoagulation, perioperative antibiotics as per surgical team. With [place] 5 every 4 hours as needed. Remove drain as per surgical team. Hypertension: Goal blood pressure less than 140/90 mmHg. Blood pressure at goal. She is having occasional bradycardia. Decrease dose of metoprolol to 25 mg twice daily. Full code. Lovenox for DVT prophylaxis. Protonix for PUD prophylaxis. Bedside swallow eval and advance diet accordingly. Remove Hurd catheter. Attestations Medical Necessity Statement*: Requires further hospitalization for management of paraplegia secondary traumatic epidural hematoma post laminectomy Time Spent in Patient Care: Greater than 35 minutes Coding Level of Care Code Acute Tire Vulcanizer for [facility] Fwd Diagnoses Paraplegia G82.20 Traumatic epidural hematoma S06.4X9A Cervical spondylosis with myelopathy M47.12 Hypertension I10 Morbid obesity E66.01
--- NOTE | 2021-05-18 14:24 | PC.NURSE ---
Hymavac drain removed per v.o from Dr. Corbett
[2021-05-18] MEDS: ferrous gluconate 324 mg Tablet PO (17:44)
--- NOTE | 2021-05-18 19:16 | PC.NURSE ---
Jayme lint D/C per v.o from Dr. Corbett
[2021-05-18] MEDS: metoprolol tartrate 25 mg Tablet PO (20:22)
[2021-05-19] VITALS (39 sets, daily range): BP systolic 109–173; BP diastolic 53–85; PULSE 62–75; RESP 13–26; TEMP 36.7–37.4; O2SAT 81–95; BMI 51.6
[2021-05-19] MEDS: dexamethasone 4 mg/mL INJ IVP ×5 (00:43→23:17)
[2021-05-19] MEDS: lactated ringers 1,000 ML 90 ML IV (02:45)
[2021-05-19] MEDS: HYDROcodone-acetaminophen 5-325 mg Tablet 1 TAB PO ×5 (02:58→23:16)
[2021-05-19] MEDS: clindamycin 900 MG/50 ML PREMIX 100 MG IV ×3 (04:06→20:34)
--- NOTE | 2021-05-19 04:26 | ECG_ITS ---
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 Measurements Intervals [place] Rate: 69 P: 68 KY: 175 QRS: 35 QRSD: 106 T: 38 QT: 404 QTc: 434 Interpretive Statements SINUS RHYTHM POSSIBLE RIGHT VENTRICULAR CONDUCTION DELAY [RSR (QR) IN V1/V2] Compared to ECG 05/17/2021 23:27:59 Intraventricular conduction delay no longer present Electronically Signed On 05-20-2021 15:46:22 CDT by Jason Joseph M.D. [email or web address]/[id number]
[2021-05-19] MEDS: famotidine 20 mg/2 mL INJ IVP ×2 (05:22→17:45)
[2021-05-19] MEDS: enoxaparin 40 mg/0.4 mL Syringe SUBCUT (05:22)
[2021-05-19 05:31] LABS: Basophils % 0.1 %; Hematocrit 35.9 % (37.0-47.0); Hemoglobin 11.1 g/dL (11.5-15.3); Lymphocytes # 0.8 10^3/uL (0.8-4.8); Lymphocytes % 4.8 %; Mean Corpuscular HGB Conc 30.9 g/dL (30.0-36.0); Mean Corpuscular Hemoglobin 25.5 pg (28.0-34.0); Mean Corpuscular Volume 82.5 fl (81-99); Mean Platelet Volume 8.6 fL (7.4-10.4); Monocytes # 0.9 10^3/uL (0.2-0.9); Monocytes % 5.2 %; Neutrophils # 14.52 10^3/uL (1.8-7.7); Neutrophils % 89.3 %; Nucleated Red Blood Cells % 0 %; Platelet Count 269 10^3/cmm (130-400); Red Blood Count 4.35 10^6/uL (4.1-5.3); Red Cell Distribution Width 15.8 % (12.1-15.1); White Blood Count 16.3 10^3/uL (4.0-10.0)
[2021-05-19 05:58] LABS: Alanine Aminotransferase 13 U/L (0-33); Albumin Level 3.4 g/dL (3.5-5.2); Alkaline Phosphatase 86 IU/L (35-105); Anion Gap 13.5 (5-19); Aspartate Amino Transferase 17 U/L (0-32); Blood Urea Nitrogen 16 mg/dL (8-23); Calcium 8.8 mg/dL (8.5-10.5); Carbon Dioxide 27 mmol/L (22-29); Chloride 104 mmol/L (98-107); Globulin 3.1 g/dL (1.3-4.6); Glucose 136 mg/dL (65-115); Osmolality Calculated 293 mOsm/kg (285-295); Potassium 4.5 mmol/L (3.5-5.1); Sodium 140 mmol/L (136-145); Total Bilirubin 0.2 mg/dL (0.15-1.2); Total Protein 6.5 g/dL (6.6-8.7); Troponin T (5th) Once 12 ng/L (0-10)
--- NOTE | 2021-05-19 06:15 | CTR_ITS ---
PROCEDURE INFORMATION: Exam: CT Cervical Spine Without Contrast Exam date and time: 05/19/2021 6:15 AM Age: 71 years old Clinical indication: Weakness; Neck pain; Prior surgery; Surgery type: Known epidural hematoma S/P surgery, epidural hematoma S/P surgery 05/17 now with repeat symptoms TECHNIQUE: Imaging protocol: Computed tomography images of the cervical spine without contrast. Radiation optimization: All CT scans at this facility use at least one of these dose optimization techniques: automated exposure control; mA and/or kV adjustment per patient size (includes targeted exams where dose is matched to clinical indication); or iterative reconstruction. COMPARISON: MR cervical spin wo con* [id number] 05/17/2021 3:47 PM RADIATION DOSE METRICS: Total DLP (mGy-cm): 845.59 FINDINGS: Bones/joints: No spine curvature seen. There is straightening of the normal cervical lordosis with grade 1 anterolisthesis of C4. The patient is status post C6 through T2 laminectomy on the left. No fracture identified. Vertebral body heights are well maintained. Discs/Spinal canal/Neural foramina: There is multilevel degenerative changes, manifested by intervertebral disc space narrowing, endplate osteophytes and facet joint arthrosis. No significant disc protrusion. No severe spinal canal stenosis. No significant neural foraminal narrowing. Epidural space: The cord is again seen anteriorly displaced and compressed by the posterior epidural fluid collection from C2 through C5. The collection measures up to 0.5 cm in thickness at the level of C4-C5, as seen on previous cervical spine MRI. Visualization of the cord and fluid collection below C5 is limited. Thyroid: There is a 1.3 cm hypodense nodule in the left thyroid lobe. Lungs: Lung apices are normal. Soft tissues: Mild postoperative edema of the left paraspinal musculature is seen. CT/CT cervical spin wo con* [id number] IMPRESSION: Persistent posterior epidural fluid collection extending from C2 through C5. Visualization of the cord and epidural collection below C5 is limited. COMMENTS: Consistent with the [employer]'s Incidental Findings Committee white paper (J Am Marysol Radiol 2015): In patients aged 35 years and older with an incidental thyroid nodule equal to or greater than 1.[address], MRI or extrathyroidal US, further evaluation with dedicated thyroid US is recommended for patients with normal life expectancy and without comorbidities. For smaller nodules without suspicious features, no further evaluation or follow up is recommended.
--- NOTE | 2021-05-19 06:15 | CTR_ITS ---
PROCEDURE INFORMATION: Exam: CT Thoracic Spine Without Contrast Exam date and time: 05/19/2021 6:15 AM Age: 71 years old Clinical indication: Weakness; Pain in thoracic spine; Prior surgery; Surgery date: Post-operative (0-2 days); Surgery type: Known epidural hematoma c2 to t4 S/P surgery, epidural hematoma S/P surgery 05/17 now with repeat symptoms TECHNIQUE: Imaging protocol: Computed tomography images of the thoracic spine without contrast. Radiation optimization: All CT scans at this facility use at least one of these dose optimization techniques: automated exposure control; mA and/or kV adjustment per patient size (includes targeted exams where dose is matched to clinical indication); or iterative reconstruction. COMPARISON: MR thoracic spin wo con* [id number] 05/17/2021 6:26 PM RADIATION DOSE METRICS: Total DLP (mGy-cm): 3735.03 FINDINGS: Vertebrae: There is mild levocurvature of the thoracic spine, which may be positional. The normal thoracic kyphosis is maintained, without listhesis. No fracture seen. Vertebral body heights are well maintained. The patient is status post left-sided laminectomy extending from C7-T4. Discs/Spinal canal/Neural foramina: There is multilevel degenerative changes, manifested by intervertebral disc space narrowing, endplate osteophytes and facet joint arthrosis. No significant disc protrusion. No severe spinal canal stenosis. No significant neural foraminal narrowing. Persistent posterior epidural collection with cord compression extending from C7 through T6, with severe spinal canal narrowing from T2 through T5. Soft tissues: Mild expected postoperative edema of the paraspinal musculature on the left is seen. No fluid collection identified. Lungs: Bilateral dependent atelectasis noted. CT/CT thoracic spin wo con* [id number] IMPRESSION: Persistent epidural fluid collection extending from C7 through T6, resulting in severe canal stenosis from T2 through T5.
--- NOTE | 2021-05-19 07:15 | MRR_ITS ---
PROCEDURE INFORMATION: Exam: MR Thoracic Spine Without Contrast Exam date and time: 05/19/2021 7:15 AM Age: 71 years old Clinical indication: Pain in thoracic spine; Additional info: F/up epidural hematoma, traumatic epidural hematoma c2 to t4s/p surgery on 05/17, TECHNIQUE: Imaging protocol: Multiplanar magnetic resonance images of the thoracic spine without intravenous contrast. COMPARISON: CT thoracic spin wo con* [id number] 05/19/2021 6:27 AM FINDINGS: Vertebrae: No acute fracture or malalignment. Small hemangiomas in the T4 and T12 vertebral bodies. Postsurgical changes of left laminectomy spanning C6 through T4. Spinal epidural space: Interval drainage of the posterior epidural fluid collection in the upper thoracic spine. There is some persistent undrained fluid spanning from the level of the inferior aspect T3 through the superior aspect of T6 resulting in mass effect on the dorsal aspect of the spinal cord and severe spinal canal stenosis. This component appears similar to preoperative imaging. No definite cord signal abnormality. Spinal cord: See Spinal epidural space finding. T1-T2: No significant disc disease. No significant spinal canal stenosis. T2-T3: No significant disc disease. No significant spinal canal stenosis. T3-T4: Severe spinal canal stenosis secondary to the posterior epidural fluid collection. T4-T5: Severe spinal canal stenosis secondary to the posterior epidural fluid collection. T5-T6: Severe spinal canal stenosis secondary to the posterior epidural fluid collection. T6-T7: No significant disc disease. No significant spinal canal stenosis. T7-T8: Small right eccentric disc protrusion. No significant spinal canal stenosis. T8-T9: No significant disc disease. No significant spinal canal stenosis. T9-T10: No significant disc disease. No significant spinal canal stenosis. T10-T11: No significant disc disease. No significant spinal canal stenosis. T11-T12: No significant disc disease. No significant spinal canal stenosis. Soft tissues: Unremarkable. MR/MR thoracic spin wo con* [id number] IMPRESSION: Postsurgical changes with interval drainage of the posterior epidural fluid collection in the upper thoracic spine. There is some persistent undrained fluid spanning from the inferior aspect of T3 through the superior aspect of T6 resulting in severe spinal canal stenosis at these levels, similar to preoperative imaging.
--- NOTE | 2021-05-19 07:15 | MRR_ITS ---
PROCEDURE INFORMATION: Exam: MR Cervical Spine Without Contrast Exam date and time: 05/19/2021 7:15 AM Age: 71 years old Clinical indication: Neck pain; Additional info: Change in neuro exam, traumatic epidural hematoma c2 to t4s/p surgery on 05/17, TECHNIQUE: Imaging protocol: Multiplanar magnetic resonance images of the cervical spine without contrast. COMPARISON: CT cervical spin wo con* [id number] 05/19/2021 6:25 AM FINDINGS: Vertebrae: No acute fracture or change in alignment. Status post left laminectomy at C6 through T2. There is trace degenerative anterolisthesis of C4 on C5. Spinal cord: There is mass effect on the dorsal aspect of the cord from C4 through C7 due to the posterior epidural fluid collection. No definite cord signal abnormality. Spinal epidural space: Redemonstrated posterior epidural fluid collection. The collection in the lower cervical and upper thoracic region has decreased in size. There is a persistent fluid collection in the upper and mid cervical spine, which may be minimally increased in size at the level C4-C5, now measuring up to 4-5 mm, previously 3 mm. C2-C3: No significant disc disease. No significant spinal stenosis. C3-C4: There is mild spinal canal stenosis secondary to a posterior disc osteophyte complex as well as the posterior epidural collection. C4-C5: There is moderate spinal canal stenosis with anterior displacement of the cord by the posterior epidural fluid collection. C5-C6: There is severe spinal canal stenosis secondary to a posterior disc osteophyte complex and the posterior epidural collection, similar to slightly worsened from prior. Degenerative changes produce mild right and moderate left neural foraminal stenosis. C6-C7: There is moderate to severe spinal canal stenosis secondary to degenerative changes and the posterior epidural fluid collection, slightly improved from prior. C7-T1: No significant disc disease. No significant spinal stenosis. Soft tissues: Susceptibility artifact in the posterior soft tissues of the neck, consistent with postsurgical change. Vertebral arteries: Expected flow voids in the vertebral arteries. MR/MR cervical spin wo con* [id number] IMPRESSION: Postsurgical changes in the lower cervical and upper thoracic spine with interval decrease in size of the posterior epidural fluid collection in this region. In the mid cervical spine, the epidural fluid collection is similar to minimally increased in size, again resulting in severe spinal canal stenosis particularly at C5-C6.
--- NOTE | 2021-05-19 07:15 | MRR_ITS ---
PROCEDURE INFORMATION: Exam: MR Lumbar Spine Without Contrast Exam date and time: 05/19/2021 7:15 AM Age: 71 years old Clinical indication: Low back pain; Additional info: F/up epidural hematoma, traumatic epidural hematoma c2 to t4s/p surgery on 05/17, TECHNIQUE: Imaging protocol: Multiplanar magnetic resonance images of the lumbar spine without intravenous contrast. COMPARISON: MR lumbar spine wo con* [id number] 05/17/2021 6:55 PM FINDINGS: Vertebrae: No acute fracture or malalignment. Small hemangiomas in the L1 and L3 vertebral bodies. Spinal cord: The conus terminates at the level of L1-L2. L1-L2: No significant disc disease. No significant spinal canal stenosis. No neural foraminal stenosis. L2-L3: Mild broad-based disc bulge, facet hypertrophy and ligamentum flavum thickening without substantial canal or foraminal stenosis. L3-L4: Broad-based disc bulge, facet hypertrophy and ligamentum flavum thickening contribute to moderate spinal canal stenosis. Mild bilateral foraminal stenosis. Bilateral facet effusions are seen. L4-L5: Right eccentric broad-based disc bulge, facet hypertrophy and ligamentum flavum thickening contribute to mild spinal canal stenosis. Moderate right and mild left foraminal stenosis. L5-S1: Mild broad-based disc bulge, facet hypertrophy and ligamentum flavum thickening without substantial canal stenosis. Severe left and mild right foraminal stenosis. Soft tissues: Unremarkable. MR/MR lumbar spine wo con* [id number] IMPRESSION: No acute findings. No substantial interval change. Degenerative changes as above.
--- NOTE | 2021-05-19 07:20 | W.PM.EVENTAC ---
Event Note Event Note: AT ~ 6 AM this morning, patient started to c/o increased weakness in B/L upper and lower extremities again. Overnight she was able to raise her arms to her face and raise her legs off the bed, this morning she is able to form a fist, raising B/L arms about 30 degrees at shoulder, able to flex and extend at ankles, lift B/L LE about 45 degress of the bed. Stat C spine CT and thoracic spine CT showed Persistent posterior epidural fluid collection extending from C2 through C5 and c7 to t6 resulting in severe canal stenosis from T2 through T5. MRI Cervical, thoracic and lumbar spine ordered for follow up. Already on dexamethesone iv 4mg q6h. Dr. Tirado made aware of change in exam and pending imaging.
[2021-05-19] MEDS: escitalopram 10 mg Tablet 20 MG PO (08:06)
[2021-05-19] MEDS: metoprolol tartrate 25 mg Tablet PO ×2 (08:06→20:33)
[2021-05-19] MEDS: morphine 4 mg/mL SDV 1 mL 2 MG IVP ×2 (08:06→11:50)
[2021-05-19] MEDS: ferrous gluconate 324 mg Tablet PO ×2 (08:06→17:16)
[2021-05-19] MEDS: oxybutynin chloride XL 5 MG TABLET 15 MG PO ×2 (08:06→20:33)
[2021-05-19] MEDS: docusate sodium 100 mg Capsule PO ×2 (08:06→17:16)
--- NOTE | 2021-05-19 09:39 | PC.NURSE ---
to ct scan this am and to mri scan at this time have given pain medication prior alert and oriented at this time related that arms are weaker and cannot lift to face and legs able to lift but weaker
[2021-05-19] MEDS: baclofen 10 mg Tablet PO ×3 (10:50→20:34)
--- NOTE | 2021-05-19 10:58 | PC.NURSE ---
pt refused to raise head of bed i am now comfortable... and dont want to move explained to pt risk of aspiration ect... now related to dr becker that it was not weakness of arms and legs making them weaker it was because of pain in arm and neck getting worse and unable to move for that reason...
--- NOTE | 2021-05-19 13:33 | PC.NURSE ---
pt remains anxious family concerned talked at length with Dr Polanco about status and pain humidifier add to 02 because c/o nasal passages dry .. wanted to take off cervical collar for awhile ,, related do not need to take it off.. pt questioned me about baclofen, requesting to talk with about xanaflex that she thinks will be better for her. informed after talk with family let me know if need to talk to doctor also all had questions about possible transfer to [place].
--- NOTE | 2021-05-19 13:50 | PC.NURSE ---
called to room by patient and daughter .. having shooting stabbing pain shoulder.. strength remains same explained not time for more pain medication at this time.
--- NOTE | 2021-05-19 16:11 | PM.PN ---
Subjective Subjective: No acute events overnight. Today morning patient started complaining of weakness in both her upper limbs especially when trying to move her arms more than 30 degrees. Complaining of extreme back pain. Multiple imagings including CT and MRI was done which are consistent with a possible postoperative changes and fluid collection. Examination with patient she states she never had weakness but has more pain in her tricep region especially when trying to raise her arms more than 30 degrees shooting in nature with back pain. Denies of any numbness or weakness in any of her limbs or legs more than baseline. Saturation has been between 89 to 91% on 4 L. Discussed with detail with patient regarding pain management, pain medication, requirement for being at least 30 to 40 degrees head elevated in bed, incentive spirometry, breathing exercises. Daughter at bedside. All the questions were answered. NIF-60. Vitals/I&O/Wt Last Vital Signs Temp 99.0 F 05/19/21 04:00 Pulse 67 05/19/21 14:00 Resp 13 05/19/21 13:00 BP 136/65 05/19/21 13:00 Pulse Ox 91 05/19/21 13:00 05/19/21 05/19/21 05/19/21 06:59 14:59 22:59 Intake Total 1150 / 2500 1400 / 1400 Output Total 700 / 1850 1500 / 1500 Balance 450 / 650 -100 / -100 Weight last 48 hrs Weight 145.15 kg Weight 145.558 kg Physical Exam Narrative: General: No acute distress, AO x3 anxious, morbid obesity HEENT: PERRLA, pupils bilaterally equal and reactive Chest: Normal vesicular breath sounds, no added sounds, equal good air entry bilaterally CVS: S1-S2 regular, no murmurs, no tachycardia, no gallops, no rubs Abdomen: Soft, nontender, no organomegaly, bowel sounds present Neuro: Able to move both her upper limbs, power 4 x 5, plantars downgoing bilaterally, no facial deformity, AO x3, Urinary Catheter Management: Hurd Latex: Cath Placed During This Visit: yes Reason for Continuing Indwelling Catheter: Required Immobilization for Trauma or Surgery or Anesthesia Urinary Catheter Date of Insertion: 05/18/21 Urinary Catheter Time of Insertion: 18:00 Data : 05/19/21 05:17 05/19/21 05:17 Micro: Microbiology 05/17/21 22:54 Blood Culture - Preliminary Blood NEGATIVE TO DATE 05/17/21 23:00 Blood Culture - Preliminary Blood NEGATIVE TO DATE 05/17/21 23:23 MRSA Culture - Final Nose A&P Assessment and plan (1) Paraplegia: Status: Acute (2) Traumatic epidural hematoma: Status: Acute (3) Cervical spondylosis with myelopathy: Status: Acute (4) Hypertension: Status: Acute (5) Morbid obesity: Status: Acute Plan Paraplegia secondary to traumatic epidural hematoma: Repeat MRI appreciated. If patient continues to have symptoms plan for possible OR on Friday. Post multilevel laminectomy. Postop day 2. Continue with Decadron 4 mg IV every 6 hours. Will wean down after Friday. Physical therapy, occupational therapy as per surgical team. Bedrest today. Anticoagulation, perioperative antibiotics as per surgical team. With [place] 5 every 4 hours as needed. Morphine 1 mg IV every 6 hours as needed. Baclofen 10 mg 3 times daily. Hypertension: Goal blood pressure less than 140/90 mmHg. Blood pressure at goal. She is having occasional bradycardia. Continue with metoprolol to 25 mg twice daily. Full code. Lovenox for DVT prophylaxis. Protonix for PUD prophylaxis. Regular diet. Multiple discussions with family members regarding treatment plan. Answered all the questions to the best of availability. Verbalized understanding. Attestations Medical Necessity Statement*: Requires further hospitalization for management of postoperative care for paraplegia secondary traumatic epidural hematoma Time Spent in Patient Care: Greater than 35 minutes Coding Level of Care Code Acute Head Of Research & Insights for [facility] Fwd Diagnoses Paraplegia G82.20 Traumatic epidural hematoma S06.4X9A Cervical spondylosis with myelopathy M47.12 Hypertension I10 Morbid obesity E66.01
--- NOTE | 2021-05-19 17:05 | PC.NURSE ---
continues to refuse to position in bed or raise up to 30 degree or more .. everytime i move i get to hurting rashida bad i am not going to move right now encouraged to move and deep breath .. and daughter in room
[2021-05-19] MEDS: morphine 4 mg/mL SDV 1 mL 1 MG IVP (19:37)
[2021-05-20] VITALS (24 sets, daily range): BP systolic 116–160; BP diastolic 53–74; PULSE 53–72; RESP 15–33; TEMP 36.4–36.8; O2SAT 92–96; BMI 51.6
[2021-05-20] MEDS: morphine 4 mg/mL SDV 1 mL 1 MG IVP ×3 (03:51→20:03)
[2021-05-20] MEDS: clindamycin 900 MG/50 ML PREMIX 100 MG IV ×3 (04:00→20:04)
[2021-05-20 04:34] LABS: Basophils % 0.1 %; Hematocrit 38.5 % (37.0-47.0); Hemoglobin 11.9 g/dL (11.5-15.3); Lymphocytes # 0.9 10^3/uL (0.8-4.8); Lymphocytes % 5.5 %; Mean Corpuscular HGB Conc 30.9 g/dL (30.0-36.0); Mean Corpuscular Hemoglobin 25.9 pg (28.0-34.0); Mean Corpuscular Volume 83.9 fl (81-99); Monocytes % 6.4 %; Neutrophils # 13.94 10^3/uL (1.8-7.7); Neutrophils % 87.3 %; Nucleated Red Blood Cells % 0 %; Platelet Count 312 10^3/cmm (130-400); Red Blood Count 4.59 10^6/uL (4.1-5.3); Red Cell Distribution Width 15.8 % (12.1-15.1)
[2021-05-20 04:55] LABS: Alanine Aminotransferase 15 U/L (0-33); Albumin Level 3.6 g/dL (3.5-5.2); Alkaline Phosphatase 100 IU/L (35-105); Anion Gap 10.4 (5-19); Aspartate Amino Transferase 17 U/L (0-32); Blood Urea Nitrogen 17 mg/dL (8-23); Carbon Dioxide 31 mmol/L (22-29); Chloride 101 mmol/L (98-107); Globulin 3.9 g/dL (1.3-4.6); Glucose 128 mg/dL (65-115); Osmolality Calculated 289 mOsm/kg (285-295); Potassium 4.4 mmol/L (3.5-5.1); Sodium 138 mmol/L (136-145); Total Bilirubin 0.2 mg/dL (0.15-1.2); Total Protein 7.5 g/dL (6.6-8.7)
[2021-05-20] MEDS: dexamethasone 4 mg/mL INJ IVP ×3 (06:33→17:26)
[2021-05-20] MEDS: famotidine 20 mg/2 mL INJ IVP ×2 (06:38→17:26)
[2021-05-20] MEDS: HYDROcodone-acetaminophen 5-325 mg Tablet 1 TAB PO ×4 (06:52→21:30)
[2021-05-20] MEDS: oxybutynin chloride XL 5 MG TABLET 15 MG PO ×2 (08:00→20:02)
[2021-05-20] MEDS: docusate sodium 100 mg Capsule PO ×2 (08:00→17:26)
[2021-05-20] MEDS: baclofen 10 mg Tablet PO ×3 (08:00→20:19)
[2021-05-20] MEDS: metoprolol tartrate 25 mg Tablet PO ×2 (08:00→20:03)
[2021-05-20] MEDS: escitalopram 10 mg Tablet 20 MG PO (08:00)
[2021-05-20] MEDS: ferrous gluconate 324 mg Tablet PO ×2 (08:00→17:26)
--- NOTE | 2021-05-20 10:32 | PC.NURSE ---
pt awake this am c/o more pain po meds given and repeat morphine for breakthrough pain . refuses to raise up in bed due to pain strenghth juan has no decrease encouraged any activity was cleared to resume pt
--- NOTE | 2021-05-20 10:34 | PM.PN ---
Subjective Subjective: Patient is having severe pain. At this point she feels like strength is improved. She feels like the pain is better than preoperatively. Vitals/I&O/Wt Last Vital Signs Temp 98.3 F 05/20/21 04:00 Pulse 61 05/20/21 10:00 Resp 17 05/20/21 10:00 BP 160/72 05/20/21 10:00 Pulse Ox 93 05/20/21 10:00 05/19/21 05/20/21 05/20/21 21:59 06:59 14:59 Intake Total 150 / 150 Output Total Balance 150 / 150 Weight last 48 hrs Weight 320 lb Weight 320 lb Physical Exam Narrative: Patient has good leg strength and arm strength. On the left. Patient already had weakness on the right prior to surgery. And prior to the injection. Urinary Catheter Management: Hurd Latex: Cath Placed During This Visit: yes Reason for Continuing Indwelling Catheter: Accurate Measurement of Urinary Output in Critically Ill Patients Urinary Catheter Date of Insertion: 05/18/21 Urinary Catheter Time of Insertion: 18:00 Data : 05/20/21 03:48 05/20/21 03:48 A&P Assessment and plan (1) Traumatic epidural hematoma: She is postop day #3 of decompression of epidural hematoma. Status: Acute Attestations Medical Necessity Statement*: Per primary service Coding Level of Care Code Acute [employer] Well Treatment Operator for [facility] Diagnoses Traumatic epidural hematoma S06.4X9A
[2021-05-20] MEDS: TRAMadol 50 mg Tablet PO (11:16)
--- NOTE | 2021-05-20 12:50 | PC.NURSE ---
started other pain medication at this time to assist with pt working with physical therapy.. family at bedside
--- NOTE | 2021-05-20 12:52 | PM.PN ---
Subjective Subjective: No acute events overnight. Patient denies any nausea, vomiting, headache. Complaining of pain. States she had a horrible morning and is exhausted. Seen with family at bedside. During conversation does over the phone as well. We discussed going forward patient needs extensive rehab, physical therapy and sooner she starts physical therapy the better she will feel it is important for her to continue the physical therapy to prevent from any pneumonia, decubitus ulcer and most importantly physical therapy is most important for quick recovery. Patient verbalized understanding but states today she is extremely exhausted. We discussed that she is already on Taver[place], morphine, baclofen. We discussed that we can add tramadol but beyond that he will not go higher on the pain medication because there is a concern that she can have decreased respiratory drive. Patient is working with incentive spirometry. Care discussed in detail with Dr. Tirado. Vitals/I&O/Wt Last Vital Signs Temp 98.3 F 05/20/21 04:00 Pulse 53 L 05/20/21 12:00 Resp 19 H 05/20/21 12:00 BP 116/57 05/20/21 12:00 Pulse Ox 94 05/20/21 12:00 05/19/21 05/20/21 05/20/21 21:59 06:59 14:59 Intake Total 350 / 350 Output Total Balance 350 / 350 Weight last 48 hrs Weight 145.15 kg Weight 145.15 kg Physical Exam Narrative: General: No acute distress, AO x3, morbid obesity HEENT: PERRLA, pupils bilaterally equal and reactive Chest: Normal vesicular breath sounds, no added sounds, equal good air entry bilaterally CVS: S1-S2 regular, no murmurs, no tachycardia, no gallops, no rubs Abdomen: Soft, nontender, no organomegaly, bowel sounds present Neuro: Able to move both her upper limbs, power 4 x 5, plantars downgoing bilaterally, no facial deformity, AO x3, Urinary Catheter Management: Hurd Latex: Cath Placed During This Visit: yes Reason for Continuing Indwelling Catheter: Accurate Measurement of Urinary Output in Critically Ill Patients Urinary Catheter Date of Insertion: 05/18/21 Urinary Catheter Time of Insertion: 18:00 Data : 05/20/21 03:48 05/20/21 03:48 A&P Assessment and plan (1) Paraplegia: Status: Acute (2) Traumatic epidural hematoma: Status: Acute (3) Cervical spondylosis with myelopathy: Status: Acute (4) Hypertension: Status: Acute (5) Morbid obesity: Status: Acute Plan Paraplegia secondary to traumatic epidural hematoma: Repeat MRI appreciated. If patient continues to have symptoms plan for possible OR on Friday. Post multilevel laminectomy. Postop day 3. Wean down Decadron to 4 mg every 8 hourly. Will need a quick taper. Physical therapy, occupational therapy as per surgical team. Out of bed to chair. Anticoagulation, perioperative antibiotics as per surgical team. With [place] 5 every 4 hours as needed. Morphine 1 mg IV every 6 hours as needed. Baclofen 10 mg 3 times daily. Tramadol 50 mg every 6 hours as needed. Remove Hurd catheter. Hypertension: Goal blood pressure less than 140/90 mmHg. Blood pressure at goal. She is having occasional bradycardia. Continue with metoprolol to 25 mg twice daily. Full code. Lovenox for DVT prophylaxis. Protonix for PUD prophylaxis. Regular diet. Multiple discussions with family members regarding treatment plan. Answered all the questions to the best of availability. Verbalized understanding. Appreciate Dr. Tirado's recommendation. Can move out of ICU as has remained hemodynamically stable. Attestations Medical Necessity Statement*: Requires further hospitalization for management of multilevel laminectomy for epidural hematoma requiring extensive physical therapy. Time Spent in Patient Care: Greater than 35 minutes Coding Level of Care Code Acute Client Business Manager for [facility] Diagnoses Paraplegia G82.20 Traumatic epidural hematoma S06.4X9A Cervical spondylosis with myelopathy M47.12 Hypertension I10 Morbid obesity E66.01
--- NOTE | 2021-05-20 14:09 | PC.SOCIAL ---
IMM Update pg 2 of IMM updated and reviewed w/ patient. Copy provided and copy placed in chart.
--- NOTE | 2021-05-20 16:48 | PC.NURSE ---
has rested some this afternoon with family at bedside no distress noted ..
--- NOTE | 2021-05-20 18:45 | NUR.SHIFT ---
Shift Note Frequent safety and comfort rounds continue.nursing care completed as available and tolerated by patient unable to give bath or change linen refused unable to tolerate pain Patient monitored for response to intervention and treatment(s). Education provided includes increase movemnet and risk for dti Patient and/or international representative aware. transfer to room 261 family present
[2021-05-20] MEDS: ipratropium-albuterol 3 mL Neb INHALATION (20:27)
[2021-05-21] VITALS (17 sets, daily range): BP systolic 110–150; BP diastolic 54–77; PULSE 48–66; RESP 17–20; TEMP 36.5–37; O2SAT 90–98
[2021-05-21] MEDS: dexamethasone 4 mg/mL INJ IVP ×4 (00:37→17:08)
[2021-05-21] MEDS: ipratropium-albuterol 3 mL Neb INHALATION ×4 (02:18→22:14)
[2021-05-21] MEDS: HYDROcodone-acetaminophen 5-325 mg Tablet 1 TAB PO ×2 (02:54→08:08)
[2021-05-21] MEDS: clindamycin 900 MG/50 ML PREMIX 100 MG IV ×3 (03:39→21:25)
[2021-05-21] MEDS: famotidine 20 mg/2 mL INJ IVP ×2 (06:17→17:08)
[2021-05-21] MEDS: metoprolol tartrate 25 mg Tablet PO ×2 (08:07→21:24)
[2021-05-21] MEDS: oxybutynin chloride XL 5 MG TABLET 15 MG PO ×2 (08:07→21:23)
[2021-05-21] MEDS: ferrous gluconate 324 mg Tablet PO ×2 (08:07→17:08)
[2021-05-21] MEDS: escitalopram 10 mg Tablet 20 MG PO (08:07)
[2021-05-21] MEDS: docusate sodium 100 mg Capsule PO ×2 (08:08→17:08)
[2021-05-21] MEDS: amlodipine 5 mg Tablet PO (08:08)
[2021-05-21] MEDS: loratadine 10 mg Tablet PO (08:08)
[2021-05-21] MEDS: baclofen 10 mg Tablet PO ×3 (08:08→21:24)
[2021-05-21] MEDS: morphine 4 mg/mL SDV 1 mL 1 MG IVP (09:59)
[2021-05-21] MEDS: TRAMadol 50 mg Tablet PO (09:59)
--- NOTE | 2021-05-21 11:03 | P.PN_ITS ---
Subjective Subjective: Pain improving stregth improving Vitals/I&O/Wt Last Vital Signs Temp 97.7 F 05/21/21 07:37 Pulse 59 L 05/21/21 08:45 Resp 17 05/21/21 08:34 BP 150/77 05/21/21 07:37 Pulse Ox 97 05/21/21 08:34 05/20/21 05/21/21 05/21/21 22:59 06:59 14:59 Intake Total 390 / 1090 290 / 1380 Output Total 1775 / 3575 2500 / 6075 Balance -1385 / -2485 -2210 / -4695 Weight last 48 hrs Weight 320 lb Physical Exam Narrative: good strength and sensation was able to talk on phone Urinary Catheter Management: Hurd Latex: Cath Placed During This Visit: yes Reason for Continuing Indwelling Catheter: Other Urinary Catheter Date of Insertion: 05/18/21 Urinary Catheter Time of Insertion: 18:00 Data : 05/20/21 03:48 05/20/21 03:48 A&P Assessment and plan (1) Traumatic epidural hematoma: POD#4 Evacuation of hematoma increased dose of oral medicine Status: Acute Attestations Medical Necessity Statement*: pain control Coding Level of Care Code Acute Open End Spinning Operator for [facility] Diagnoses Traumatic epidural hematoma S06.4X9A
[2021-05-21] MEDS: oxyCODONE 5 mg IR Tab/Cap 10 MG PO ×2 (11:53→18:25)
[2021-05-21] MEDS: acetaminophen 325 mg Tablet 650 MG PO ×2 (11:53→18:26)
--- NOTE | 2021-05-21 20:35 | P.PN_ITS ---
Subjective Subjective: Doing better. Less pain Moves her upper extremities Vitals/I&O/Wt Last Vital Signs Temp 98.6 F 05/21/21 19:42 Pulse 60 05/21/21 19:42 Resp 18 05/21/21 19:42 BP 120/55 05/21/21 19:42 Pulse Ox 96 05/21/21 19:42 05/21/21 05/21/21 05/21/21 06:59 14:59 22:59 Intake Total 290 / 1380 50 / 50 350 / 400 Output Total 2500 / 6075 1999 / 1999 1000 / 3000 Balance -2210 / -4695 -1950 / -1950 -650 / -2600 Weight last 48 hrs Weight 145.15 kg Physical Exam Narrative: General: No acute distress, AO x3, morbid obesity HEENT: PERRLA, pupils bilaterally equal and reactive Chest: Normal vesicular breath sounds, no added sounds, equal good air entry bilaterally CVS: S1-S2 regular, no murmurs, no tachycardia, no gallops, no rubs Abdomen: Soft, nontender, no organomegaly, bowel sounds present Neuro: Able to move both her upper limbs, power 4 x 5, plantars downgoing bilaterally, no facial deformity, AO x3 Urinary Catheter Management: Hurd Latex: Cath Placed During This Visit: yes Reason for Continuing Indwelling Catheter: Other Urinary Catheter Date of Insertion: 05/18/21 Urinary Catheter Time of Insertion: 18:00 Data : 05/20/21 03:48 05/20/21 03:48 A&P Assessment and plan (1) Traumatic epidural hematoma: Status: Acute (2) Cervical spine fracture: Status: Acute (3) Cervical spondylosis with myelopathy: Status: Acute (4) Paraplegia: Status: Acute (5) Hypertension: Status: Acute (6) Morbid obesity: Status: Acute Plan Paraplegia secondary to traumatic epidural hematoma: Repeat MRI appreciated.? If patient continues to have symptoms plan for possible OR on Friday. Post multilevel laminectomy.? Postop day 3. Wean down Decadron to 4 mg every 8 hourly.? Will need a quick taper. Physical therapy, occupational therapy as per surgical team.? Out of bed to chair. Anticoagulation, perioperative antibiotics as per surgical team.? With [place] 5 every 4 hours as needed.? Morphine 1 mg IV every 6 hours as needed.? Baclofen 10 mg 3 times daily.? Tramadol 50 mg every 6 hours as needed. Remove Hurd catheter. Hypertension: Goal blood pressure less than 140/90 mmHg. Blood pressure at goal.? She is having occasional bradycardia.? Continue with metoprolol to 25 mg twice daily. Continue current pain management PT/OT Attestations Medical Necessity Statement*: Requires further hospitalization for management of multilevel laminectomy for epidural hematoma requiring extensive physical therapy. Time Spent in Patient Care: 40 min min Critical Care Time: 10 min Coding Level of Care Code Acute Review Scheduling Coordinator for g Fwd Diagnoses Traumatic epidural hematoma S06.4X9A Cervical spine fracture S12.9XXA Cervical spondylosis with myelopathy M47.12 Paraplegia G82.20 Hypertension I10 Morbid obesity E66.01
[2021-05-22] VITALS (16 sets, daily range): BP systolic 111–157; BP diastolic 54–81; PULSE 53–78; RESP 16–20; TEMP 36.7–37.1; O2SAT 93–98
[2021-05-22] MEDS: dexamethasone 4 mg/mL INJ IVP ×5 (00:16→23:46)
[2021-05-22] MEDS: oxyCODONE 5 mg IR Tab/Cap 10 MG PO ×4 (03:28→21:02)
[2021-05-22] MEDS: acetaminophen 325 mg Tablet 650 MG PO ×3 (03:31→21:39)
[2021-05-22] MEDS: clindamycin 900 MG/50 ML PREMIX 100 MG IV ×3 (03:35→21:02)
[2021-05-22] MEDS: ipratropium-albuterol 3 mL Neb INHALATION ×4 (04:12→20:42)
[2021-05-22] MEDS: famotidine 20 mg/2 mL INJ IVP ×2 (05:42→17:24)
[2021-05-22] MEDS: TRAMadol 50 mg Tablet PO (07:29)
--- NOTE | 2021-05-22 08:30 | P.PN_ITS ---
Subjective Subjective: POD 5 Patient reports continued back pain. She reports intermittent neck pain with the collar off. Reports different sensations in her arms coming and going. Denies any swallowing difficulties. She feels her legs are improving slowly. Vitals/I&O/Wt Last Vital Signs Temp 98.1 F 05/22/21 07:25 Pulse 64 05/22/21 07:25 Resp 18 05/22/21 07:25 BP 157/81 05/22/21 07:25 Pulse Ox 96 05/22/21 07:25 05/21/21 05/22/21 05/22/21 22:59 06:59 14:59 Intake Total 640 / 690 50 / 740 Output Total 1000 / 3000 2400 / 5400 Balance -360 / -2310 -2350 / -4660 Weight last 48 hrs Weight 312 lb 1.6 oz Physical Exam Narrative: Patient is alert and oriented x3 with a good general appearance normal mood and affect. Mildly tender with palpation about the incisional site. Incision appears to be healing nicely without signs of erythema or drainage. No signs of infection. [place] J collar present. Good motor strength throughout both upper extremities. Appears to fire in all motor groups with 4/5 strength. Hands are warm good cap refill in all digits. Normal sensation to light touch in all dermatomal areas. Urinary Catheter Management: Hurd Latex: Cath Placed During This Visit: yes Reason for Continuing Indwelling Catheter: Other Urinary Catheter Date of Insertion: 05/18/21 Urinary Catheter Time of Insertion: 18:00 Data : 05/20/21 03:48 05/20/21 03:48 A&P Assessment and plan (1) Traumatic epidural hematoma: Physical therapy continue to eval and treat. Continue incentive spirometry for pulmonary toilet. guest services agent to consult for placement. Encourage her to continue to work hard with physical therapy to ambulate to a chair. We will continue to follow closely. Discussed with Dr. 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
[2021-05-22] MEDS: escitalopram 10 mg Tablet 20 MG PO (08:52)
[2021-05-22] MEDS: metoprolol tartrate 25 mg Tablet PO ×2 (08:52→21:03)
[2021-05-22] MEDS: loratadine 10 mg Tablet PO (08:52)
[2021-05-22] MEDS: oxybutynin chloride XL 5 MG TABLET 15 MG PO ×2 (08:52→21:37)
[2021-05-22] MEDS: amlodipine 5 mg Tablet PO (08:52)
[2021-05-22] MEDS: baclofen 10 mg Tablet PO ×3 (08:52→21:03)
[2021-05-22] MEDS: docusate sodium 100 mg Capsule PO ×2 (08:52→17:24)
[2021-05-22] MEDS: ferrous gluconate 324 mg Tablet PO ×2 (08:52→17:24)
--- NOTE | 2021-05-22 10:13 | PC.NURSE ---
patient refusing to have limon catheter removed at this time. discussed working with PT, and patient stated that she wanted to see how she did with PT today before she could even think about the catheter coming out.
--- NOTE | 2021-05-22 13:40 | PC.SOCIAL ---
IMM Updated Updated pt & daughter on IMM. No questions voiced. Provided pt a copy. Initialed, dated, & timed copy in chart.
--- NOTE | 2021-05-22 14:33 | P.PN_ITS ---
Subjective Subjective: Has some neck pain, Constipated. Moves upper extremities. Has chr LBP Vitals/I&O/Wt Last Vital Signs Temp 97.4 F L 05/25/21 08:00 Pulse 59 L 05/25/21 14:27 Resp 18 05/25/21 14:32 BP 140/65 05/25/21 08:00 Pulse Ox 95 05/25/21 14:27 05/24/21 05/25/21 05/25/21 22:59 06:59 14:59 Intake Total 300 / 590 Output Total 600 / 600 1150 / 1750 350 / 350 Balance -300 / -10 -1150 / -1160 -350 / -350 Weight last 48 hrs Weight 139.253 kg Weight 139.389 kg Physical Exam Narrative: General: No acute distress, AO x3, morbid obesity HEENT: PERRLA, pupils bilaterally equal and reactive Chest: Normal vesicular breath sounds, no added sounds, equal good air entry bilaterally CVS: S1-S2 regular, no murmurs, no tachycardia, no gallops, no rubs Abdomen: Soft, nontender, no organomegaly, bowel sounds present Neuro: Able to move both her upper limbs, power 4 x 5, plantars downgoing bilaterally, no facial deformity, AO x3, Urinary Catheter Management: Hurd Latex: Cath Placed During This Visit: yes Reason for Continuing Indwelling Catheter: Other Urinary Catheter Date of Insertion: 05/18/21 Urinary Catheter Time of Insertion: 18:00 Data : 05/20/21 03:48 05/20/21 03:48 A&P Assessment and plan (1) Morbid obesity: Status: Acute (2) Hypertension: Status: Acute (3) Paraplegia: Status: Acute (4) Traumatic epidural hematoma: Status: Acute (5) Cervical spine fracture: Status: Acute (6) Cervical spondylosis with myelopathy: Status: Acute Plan Paraplegia secondary to traumatic epidural hematoma: Repeat MRI appreciated.? If patient continues to have symptoms plan for possible OR on Friday. Post multilevel laminectomy.? Postop day 3. Wean down Decadron to 4 mg every 8 hourly.? Will need a quick taper. Physical therapy, occupational therapy as per surgical team.? Out of bed to chair. Anticoagulation, perioperative antibiotics as per surgical team.? With [place] 5 every 4 hours as needed.? Morphine 1 mg IV every 6 hours as needed.? Baclofen 10 mg 3 times daily.? Tramadol 50 mg every 6 hours as needed. Remove Hurd catheter. Hypertension: Goal blood pressure less than 140/90 mmHg. Blood pressure at goal.? She is having occasional bradycardia.? Continue with metoprolol to 25 mg twice daily. Full code. Lovenox for DVT prophylaxis. Protonix for PUD prophylaxis. Regular diet. Multiple discussions with family members regarding treatment plan.? Answered all the questions to the best of availability.? Verbalized understanding Attestations Medical Necessity Statement*: Requires further hospitalization for management of multilevel laminectomy for epidural hematoma requiring extensive physical therapy. 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
[2021-05-23] VITALS (19 sets, daily range): BP systolic 114–142; BP diastolic 62–74; PULSE 57–74; RESP 16–18; TEMP 36.6–36.9; O2SAT 92–98
[2021-05-23] MEDS: oxyCODONE 5 mg IR Tab/Cap 10 MG PO ×5 (01:04→21:14)
[2021-05-23] MEDS: ipratropium-albuterol 3 mL Neb INHALATION ×4 (03:30→20:12)
[2021-05-23] MEDS: clindamycin 900 MG/50 ML PREMIX 100 MG IV ×3 (03:56→20:35)
[2021-05-23] MEDS: acetaminophen 325 mg Tablet 650 MG PO ×2 (05:30→13:45)
[2021-05-23] MEDS: dexamethasone 4 mg/mL INJ IVP ×2 (05:30→14:08)
[2021-05-23] MEDS: famotidine 20 mg/2 mL INJ IVP (05:30)
--- NOTE | 2021-05-23 06:58 | P.PN_ITS ---
Subjective Subjective: POD 6 Patient rep orts continued kaushik k pain.? She repor ts intermittent ne ck pain.? ? Denies any swallowing di fficulties.? She f eels her legs are improving slowly. Discussed with pt the need to Remove Hurd cath but sh e is reluctant. Vitals/I&O/Wt Last Vital Signs Temp 97.8 F 05/23/21 04:00 Pulse 60 05/23/21 06:00 Resp 18 05/23/21 05:31 BP 114/63 05/23/21 04:00 Pulse Ox 98 05/23/21 04:00 05/22/21 05/22/21 05/23/21 14:59 22:59 06:59 Intake Total 780 / 780 530 / 1310 250 / 1560 Output Total 2150 / 2150 Balance 780 / 780 530 / 1310 -1900 / -590 Weight last 48 hrs Weight 312 lb 8 oz Weight 312 lb 1.6 oz Physical Exam Narrative: Patient is alert and oriented x3 with a good general appearance normal mood and affect.? Mildly tender with palpation about the incisional site.? Incision appears to be healing nicely without signs of erythema or drainage.? No signs of infection.? [place] J collar present.? Good motor strength throughout both upper extremities.? Appears to fire in all motor groups with 4/5 strength.? Hands are warm good cap refill in all digits.? Normal sensation to light touch in all dermatomal areas. Urinary Catheter Management: Hurd Latex: Cath Placed During This Visit: yes Reason for Continuing Indwelling Catheter: Other Urinary Catheter Date of Insertion: 05/18/21 Urinary Catheter Time of Insertion: 18:00 Data : 05/20/21 03:48 05/20/21 03:48 Micro: Microbiology 05/17/21 22:54 Blood Culture - Final Blood NO GROWTH AFTER 5 DAYS 05/17/21 23:00 Blood Culture - Final Blood NO GROWTH AFTER 5 DAYS A&P Assessment and plan (1) Traumatic epidural hematoma: Continue to work with physical therapy for mobilization. 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 Discussed with the patient the need to discontinue the Hurd catheter. Will provide a bedside commode if needed. Continue to work towards discharge when placement is arranged. 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
--- NOTE | 2021-05-23 09:10 | P.PN_ITS ---
Subjective Subjective: Had BM today. Mild to mod neck pain radiating to back of head. Denied CP, SOB, cough Vitals/I&O/Wt Last Vital Signs Temp 97.4 F L 05/25/21 08:00 Pulse 62 05/25/21 14:33 Resp 18 05/25/21 14:32 BP 140/65 05/25/21 08:00 Pulse Ox 95 05/25/21 14:27 05/24/21 05/25/21 05/25/21 22:59 06:59 14:59 Intake Total 300 / 590 Output Total 600 / 600 1150 / 1750 350 / 350 Balance -300 / -10 -1150 / -1160 -350 / -350 Weight last 48 hrs Weight 139.253 kg Weight 139.389 kg Physical Exam Narrative: General: No acute distress, AO x3, morbid obesity HEENT: PERRLA, pupils bilaterally equal and reactive Chest: Normal vesicular breath sounds, no added sounds, equal good air entry bilaterally CVS: S1-S2 regular, no murmurs, no tachycardia, no gallops, no rubs Abdomen: Soft, nontender, no organomegaly, bowel sounds present Neuro: Able to move both her upper limbs, power 4 x 5, plantars downgoing bilaterally, no facial deformity, AO x3, Urinary Catheter Management: Hurd Latex: Cath Placed During This Visit: yes Reason for Continuing Indwelling Catheter: Other Urinary Catheter Date of Insertion: 05/18/21 Urinary Catheter Time of Insertion: 18:00 Data : 05/20/21 03:48 05/20/21 03:48 A&P Assessment and plan (1) Morbid obesity: Status: Acute (2) Hypertension: Status: Acute (3) Paraplegia: Status: Acute (4) Traumatic epidural hematoma: Status: Acute (5) Cervical spine fracture: Status: Acute (6) Cervical spondylosis with myelopathy: Status: Acute Plan Paraplegia secondary to traumatic epidural hematoma: Repeat MRI appreciated.? If patient continues to have symptoms plan for possible OR on Friday. Post multilevel laminectomy.? Postop day 3. Wean down Decadron to 4 mg every 8 hourly.? Will need a quick taper. Physical therapy, occupational therapy as per surgical team.? Out of bed to chair. Anticoagulation, perioperative antibiotics as per surgical team.? With [place] 5 every 4 hours as needed.? Morphine 1 mg IV every 6 hours as needed.? Baclofen 10 mg 3 times daily.? Tramadol 50 mg every 6 hours as needed. Remove Hurd catheter. Hypertension: Goal blood pressure less than 140/90 mmHg. Blood pressure at goal.? She is having occasional bradycardia.? Continue with metoprolol to 25 mg twice daily. Full code. Lovenox for DVT prophylaxis. Protonix for PUD prophylaxis. Regular diet. Multiple discussions with family members regarding treatment plan.? Answered all the questions to the best of availability.? Verbalized understanding Attestations Medical Necessity Statement*: Requires further hospitalization for management of multilevel laminectomy for epidural hematoma requiring extensive physical therapy. Time Spent in Patient Care: 35 min Coding Level of Care Code Acute Manager Corporate Responsibility for [facility] Fwd Diagnoses Morbid obesity E66.01 Hypertension I10 Paraplegia G82.20 Traumatic epidural hematoma S06.4X9A Cervical spine fracture S12.9XXA Cervical spondylosis with myelopathy M47.12
[2021-05-23] MEDS: baclofen 10 mg Tablet PO ×3 (09:49→20:35)
[2021-05-23] MEDS: docusate sodium 100 mg Capsule PO ×2 (09:49→18:04)
[2021-05-23] MEDS: amlodipine 5 mg Tablet PO (09:49)
[2021-05-23] MEDS: ferrous gluconate 324 mg Tablet PO ×2 (09:49→18:04)
[2021-05-23] MEDS: escitalopram 10 mg Tablet 20 MG PO (09:49)
[2021-05-23] MEDS: metoprolol tartrate 25 mg Tablet PO ×2 (09:49→20:36)
[2021-05-23] MEDS: loratadine 10 mg Tablet PO (09:49)
[2021-05-23] MEDS: polyethylene glycol 3350 Pkt 17 gm PO (10:47)
[2021-05-23] MEDS: oxybutynin chloride XL 5 MG TABLET 15 MG PO ×2 (10:47→20:34)
[2021-05-24] VITALS (23 sets, daily range): BP systolic 105–144; BP diastolic 63–81; PULSE 54–60; RESP 16–18; TEMP 36.3–36.8; O2SAT 92–98
[2021-05-24] MEDS: dexamethasone 4 mg/mL INJ IVP ×4 (00:34→17:20)
[2021-05-24] MEDS: oxyCODONE 5 mg IR Tab/Cap 10 MG PO ×5 (01:08→20:29)
[2021-05-24] MEDS: ipratropium-albuterol 3 mL Neb INHALATION ×4 (02:14→21:01)
[2021-05-24] MEDS: clindamycin 900 MG/50 ML PREMIX 100 MG IV ×2 (03:34→12:00)
[2021-05-24] MEDS: famotidine 20 mg/2 mL INJ IVP (05:18)
[2021-05-24] MEDS: acetaminophen 325 mg Tablet 650 MG PO ×4 (05:18→20:31)
--- NOTE | 2021-05-24 07:16 | PM.PN ---
Subjective Subjective: patient asleep in bed did not wake up Vitals/I&O/Wt Last Vital Signs Temp 98.2 F 05/24/21 04:00 Pulse 56 L 05/24/21 06:00 Resp 16 05/24/21 05:18 BP 142/74 05/24/21 04:00 Pulse Ox 94 05/24/21 04:00 05/23/21 05/24/21 05/24/21 22:59 06:59 14:59 Intake Total 340 / 580 50 / 630 Output Total 280 / 280 360 / 640 Balance 60 / 300 -310 / -10 Weight last 48 hrs Weight 307 lb 4.8 oz Weight 312 lb 8 oz Physical Exam Narrative: resting comfortably Urinary Catheter Management: Hurd Latex: Cath Placed During This Visit: yes Reason for Continuing Indwelling Catheter: Other Urinary Catheter Date of Insertion: 05/18/21 Urinary Catheter Time of Insertion: 18:00 Data : 05/20/21 03:48 05/20/21 03:48 A&P Assessment and plan (1) Traumatic epidural hematoma: POD#6 epiduaral hematoma evacuation D/C planning Status: Acute Attestations Medical Necessity Statement*: per primary service Coding Level of Care 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
--- NOTE | 2021-05-24 08:04 | PM.PN ---
Subjective Subjective: POD 7 Patient resting comfortably. Very somnolent this morning present with a [place] collar. She still continues to have some neck pain. She has been working with physical therapy. Vitals/I&O/Wt Last Vital Signs Temp 97.8 F 05/24/21 07:52 Pulse 57 L 05/24/21 07:52 Resp 18 05/24/21 07:52 BP 144/68 05/24/21 07:52 Pulse Ox 96 05/24/21 07:52 05/23/21 05/24/21 05/24/21 22:59 06:59 14:59 Intake Total 340 / 580 50 / 630 Output Total 280 / 280 360 / 640 Balance 60 / 300 -310 / -10 Weight last 48 hrs Weight 307 lb 4.8 oz Weight 312 lb 8 oz Physical Exam Narrative: Patient is alert and oriented x3 with a good general appearance normal mood and affect.? Mildly tender with palpation about the incisional site.? Incision appears to be healing nicely without signs of erythema or drainage.? No signs of infection.? [place] collar present.? Good motor strength throughout both upper extremities.? Appears to fire in all motor groups with 4/5 strength.? Hands are warm good cap refill in all digits.? Normal sensation to light touch in all dermatomal areas. Urinary Catheter Management: Hurd Latex: Cath Placed During This Visit: yes Reason for Continuing Indwelling Catheter: Other Urinary Catheter Date of Insertion: 05/18/21 Urinary Catheter Time of Insertion: 18:00 Data : 05/20/21 03:48 05/20/21 03:48 A&P Assessment and plan (1) Traumatic epidural hematoma: Discussed at length with the nurse pending placement is okay from orthopedic standpoint to transfer to a rehab facility. Encouraged the patient to continue working hard with physical therapy. Continue incentive spirometry for pulmonary toilet. We will see her back in the office in 1 week's time for wound check. 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
[2021-05-24] MEDS: baclofen 10 mg Tablet PO ×3 (08:16→20:28)
[2021-05-24] MEDS: docusate sodium 100 mg Capsule PO ×2 (08:16→17:03)
[2021-05-24] MEDS: polyethylene glycol 3350 Pkt 17 gm PO (08:16)
[2021-05-24] MEDS: loratadine 10 mg Tablet PO (08:16)
[2021-05-24] MEDS: amlodipine 5 mg Tablet PO (08:16)
[2021-05-24] MEDS: ferrous gluconate 324 mg Tablet PO ×2 (08:16→17:03)
[2021-05-24] MEDS: escitalopram 10 mg Tablet 20 MG PO (08:16)
[2021-05-24] MEDS: oxybutynin chloride XL 5 MG TABLET 15 MG PO ×2 (08:22→20:28)
[2021-05-24] MEDS: metoprolol tartrate 25 mg Tablet PO ×2 (08:22→20:29)
--- NOTE | 2021-05-24 08:45 | P.PN_ITS ---
Subjective Subjective: Coretta significant change Has tolerable neck and LBP. MNo paresthesia UE Vitals/I&O/Wt Last Vital Signs Temp 97.4 F L 05/25/21 08:00 Pulse 62 05/25/21 14:33 Resp 18 05/25/21 14:32 BP 140/65 05/25/21 08:00 Pulse Ox 95 05/25/21 14:27 05/24/21 05/25/21 05/25/21 22:59 06:59 14:59 Intake Total 300 / 590 Output Total 600 / 600 1150 / 1750 350 / 350 Balance -300 / -10 -1150 / -1160 -350 / -350 Weight last 48 hrs Weight 139.253 kg Weight 139.389 kg Physical Exam Narrative: General: No acute distress, AO x3, morbid obesity HEENT: PERRLA, pupils bilaterally equal and reactive Chest: Normal vesicular breath sounds, no added sounds, equal good air entry bilaterally CVS: S1-S2 regular, no murmurs, no tachycardia, no gallops, no rubs Abdomen: Soft, nontender, no organomegaly, bowel sounds present Neuro: Able to move both her upper limbs, power 4 x 5, plantars downgoing bilaterally, no facial deformity, AO x3 Urinary Catheter Management: Hurd Latex: Cath Placed During This Visit: yes Reason for Continuing Indwelling Catheter: Other Urinary Catheter Date of Insertion: 05/18/21 Urinary Catheter Time of Insertion: 18:00 Data : 05/20/21 03:48 05/20/21 03:48 A&P Assessment and plan (1) Morbid obesity: Status: Acute (2) Hypertension: Status: Acute (3) Paraplegia: Status: Acute (4) Traumatic epidural hematoma: Status: Acute (5) Cervical spine fracture: Status: Acute (6) Cervical spondylosis with myelopathy: Status: Acute Plan Paraplegia secondary to traumatic epidural hematoma: Repeat MRI appreciated.? If patient continues to have symptoms plan for possible OR on Friday. Post multilevel laminectomy.? Postop day 3. Wean down Decadron to 4 mg every 8 hourly.? Will need a quick taper. Physical therapy, occupational therapy as per surgical team.? Out of bed to chair. Anticoagulation, perioperative antibiotics as per surgical team.? With [place] 5 every 4 hours as needed.? Morphine 1 mg IV every 6 hours as needed.? Baclofen 10 mg 3 times daily.? Tramadol 50 mg every 6 hours as needed. Remove Hurd catheter. Hypertension: Goal blood pressure less than 140/90 mmHg. Blood pressure at goal.? She is having occasional bradycardia.? Continue with metoprolol to 25 mg twice daily. Full code. Lovenox for DVT prophylaxis. Protonix for PUD prophylaxis. Regular diet. Multiple discussions with family members regarding treatment plan.? Answered all the questions to the best of availability.? Verbalized understanding Poss d/c to SNF soon Attestations Medical Necessity Statement*: Requires further hospitalization for management of multilevel laminectomy for epidural hematoma requiring extensive physical therapy. 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
[2021-05-24] MEDS: ketorolac 30 mg/mL INJ IVP (09:37)
--- NOTE | 2021-05-24 14:29 | PC.SOCIAL ---
IMM Update pg 2 of IMM updated and reviewed w/ patient. Copy provided and copy in chart updated.
[2021-05-24] MEDS: famotidine 20 mg Tablet PO (17:02)
[2021-05-24] MEDS: clindamycin 150 mg Capsule 450 MG PO ×2 (17:02→22:45)
[2021-05-24 17:14] LABS: SARS Covid-2 Antigen Negative (Negative)
[2021-05-24] MEDS: fluconazole 100 mg Tablet 200 MG PO (20:28)
[2021-05-24] MEDS: dexamethasone 4 mg Tablet PO (22:45)
[2021-05-25] VITALS (14 sets, daily range): BP systolic 120–140; BP diastolic 59–65; PULSE 54–68; RESP 16–20; TEMP 36.3–36.7; O2SAT 94–97
[2021-05-25] MEDS: oxyCODONE 5 mg IR Tab/Cap 10 MG PO ×4 (02:55→14:32)
[2021-05-25] MEDS: acetaminophen 325 mg Tablet 650 MG PO ×3 (02:55→14:32)
[2021-05-25] MEDS: ipratropium-albuterol 3 mL Neb INHALATION ×3 (03:10→14:24)
[2021-05-25] MEDS: clindamycin 150 mg Capsule 450 MG PO ×2 (04:50→11:29)
[2021-05-25] MEDS: dexamethasone 4 mg Tablet PO ×2 (05:16→14:10)
--- NOTE | 2021-05-25 07:50 | P.PN_ITS ---
Subjective Subjective: pt pain controlled upset this am Vitals/I&O/Wt Last Vital Signs Temp 97.4 F L 05/25/21 03:41 Pulse 56 L 05/25/21 04:08 Resp 18 05/25/21 07:39 BP 127/59 05/25/21 03:41 Pulse Ox 94 05/25/21 03:41 05/24/21 05/25/21 05/25/21 22:59 06:59 14:59 Intake Total 300 / 590 Output Total 600 / 600 1150 / 1750 Balance -300 / -10 -1150 / -1160 Weight last 48 hrs Weight 307 lb Weight 307 lb 4.8 oz Physical Exam Narrative: sister in law at bedside Urinary Catheter Management: Hurd Latex: Cath Placed During This Visit: yes Reason for Continuing Indwelling Catheter: Other Urinary Catheter Date of Insertion: 05/18/21 Urinary Catheter Time of Insertion: 18:00 Data : 05/20/21 03:48 05/20/21 03:48 A&P Assessment and plan (1) Traumatic epidural hematoma: POD#8 cervicothoracic decompression getting [facility]/c today to [facility] Status: Acute Attestations Medical Necessity Statement*: per primary service Coding Level of Care Code Acute 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
[2021-05-25] MEDS: polyethylene glycol 3350 Pkt 17 gm PO (08:46)
[2021-05-25] MEDS: baclofen 10 mg Tablet PO ×2 (08:46→14:10)
[2021-05-25] MEDS: docusate sodium 100 mg Capsule PO (08:46)
[2021-05-25] MEDS: escitalopram 10 mg Tablet 20 MG PO (08:46)
[2021-05-25] MEDS: loratadine 10 mg Tablet PO (08:46)
[2021-05-25] MEDS: famotidine 20 mg Tablet PO (08:46)
[2021-05-25] MEDS: fluconazole 100 mg Tablet 200 MG PO (08:46)
[2021-05-25] MEDS: amlodipine 5 mg Tablet PO (08:47)
[2021-05-25] MEDS: ferrous gluconate 324 mg Tablet PO (08:49)
[2021-05-25] MEDS: oxybutynin chloride XL 5 MG TABLET 15 MG PO (08:50)
[2021-05-25] MEDS: metoprolol tartrate 25 mg Tablet PO (08:53)
--- NOTE | 2021-05-25 14:57 | P.DS_ITS ---
Discharge Providers Date of Admission: 05/17/21 18:50 Date of Discharge: May 25, 2021 Attending Provider at Admission: Magdaleno Corbett MD Attending Provider at Discharge: Aaron Echevarria MD Primary Care Provider: Nancy Ramirez APN Diagnoses at Discharge Discharge Diagnosis (1) Morbid obesity: Status: Acute (2) Hypertension: Status: Acute (3) Paraplegia: Status: Acute (4) Traumatic epidural hematoma: Status: Acute (5) Cervical spine fracture: Status: Acute (6) Cervical spondylosis with myelopathy: Status: Acute Reason for Visit Reason for Visit: back pain Hospital Course Hospital Course Kathleen Valdez is a 71 year old female with past medical history of hypertension, cervical spine fracture and spondylosis for which she follows up with Dr. Tirado was at the pain clinic today receiving cervical epidural when she started having sharp shooting chest pain and bilateral arm pain for which she was transferred to the ER after rapid response was called.? In the ER patient was found to have Spinal hematoma for which neurosurgery team was consulted and she is due to go to the OR for decompression surgery hence hospitalist team was requested for admission and further management.? On my examination the ER patient was complaining of weakness in her both upper limbs and numbness in her lower limbs.? She denies any perianal anesthesia or incontinence of bowel or bladder for now.? Denies any difficulty in breathing. Pt was admitted and was taken to the OR where she was operated by Dr Tirado. Pt underwent cervicothoracic decompression. Post op was uncomplicated. Pt regained movement of her UE and resolution of paresthesia. Pain was controlled w/ narcotic analgesics. She received PT/OT. VSS were stable. She had some dysphagia post op. This will be evaluated further at the SNF. Dr Martínez was aware of this and recommended the transfer to continue and he will address this there. Pt is to transfer to SNF. Physical Exam Narrative: General: No acute distress, AO x3, morbid obesity HEENT: PERRLA, pupils bilaterally equal and reactive Chest: Normal vesicular breath sounds, no added sounds, equal good air entry bilaterally CVS: S1-S2 regular, no murmurs, no tachycardia, no gallops, no rubs Abdomen: Soft, nontender, no organomegaly, bowel sounds present Neuro: Able to move both her upper limbs, power 4 x 5, plantars downgoing bilaterally, no facial deformity, AO x3 Urinary Catheter Management: Hurd Latex: Cath Placed During This Visit: yes Reason for Continuing Indwelling Catheter: Other Urinary Catheter Date of Insertion: 05/18/21 Urinary Catheter Time of Insertion: 18:00 Discharge Data Studies Completed and Pending Completed Studies During Hospitalization Category Date Time Status CT cervical spine wo con [CT cervical spin wo con* Cat Scan 05/19/21 06:15 Completed [id number]] Stat CT thoracic spine wo con [CT thoracic spin wo con* Cat Scan 05/19/21 06:15 Completed [id number]] Stat XR cervical spine 1V [id number] Routine Exams 05/18/21 06:21 Completed XR chest 1V portable [id number] Stat Exams 05/17/21 14:34 Completed MR cervical spin wo con* [id number] Stat MRI 05/17/21 14:41 Completed MR cervical spine wo [MR cervical spin wo con* [id number]] MRI 05/19/21 07:15 Completed Urgent MR lumbar spine wo con* [id number] Stat MRI 05/17/21 17:55 Completed MR lumbar spine wo con* [id number] Urgent MRI 05/19/21 07:15 Completed MR thoracic spin wo con* [id number] Stat MRI 05/17/21 17:28 Completed MR thoracic spin wo con* [id number] Urgent MRI 05/19/21 07:15 Completed Radiology Impressions Chest X-Ray 05/17/21 14:34 Impression: Atherosclerosis. Cervical Spine X-Ray 05/18/21 06:21 Impression: Cervical spine surgery. Cervical Spine CT 05/19/21 06:15 IMPRESSION: Persistent posterior epidural fluid collection extending from C2 through C5. Visualization of the cord and epidural collection below C5 is limited. COMMENTS: Consistent with the [employer]'s Incidental Findings Committee white paper (J Am Marysol Radiol 2015): In patients aged 35 years and older with an incidental thyroid nodule equal to or greater than 1.[address], MRI or extrathyroidal US, further evaluation with dedicated thyroid US is recommended for patients with normal life expectancy and without comorbidities. For smaller nodules without suspicious features, no further evaluation or follow up is recommended. Thoracic Spine CT 05/19/21 06:15 IMPRESSION: Persistent epidural fluid collection extending from C7 through T6, resulting in severe canal stenosis from T2 through T5. Cervical Spine MRI 05/19/21 07:15 IMPRESSION: Postsurgical changes in the lower cervical and upper thoracic spine with interval decrease in size of the posterior epidural fluid collection in this region. In the mid cervical spine, the epidural fluid collection is similar to minimally increased in size, again resulting in severe spinal canal stenosis particularly at C5-C6. ADDENDUM: 05/19/21 1011 The laminectomy changes extend inferiorly through the level of T4. Lumbar Spine MRI 05/19/21 07:15 IMPRESSION: No acute findings. No substantial interval change. Degenerative changes as above. Thoracic Spine MRI 05/19/21 07:15 IMPRESSION: Postsurgical changes with interval drainage of the posterior epidural fluid collection in the upper thoracic spine. There is some persistent undrained fluid spanning from the inferior aspect of T3 through the superior aspect of T6 resulting in severe spinal canal stenosis at these levels, similar to preoperative imaging. Laboratory Results WBC 16.0 10^3/uL (4.0-10.0) H 05/20/21 03:48 RBC 4.59 10^6/uL (4.1-5.3) 05/20/21 03:48 Hgb 11.9 g/dL (11.5-15.3) 05/20/21 03:48 Hct 38.5 % (37.0-47.0) 05/20/21 03:48 MCV 83.9 fl (81-99) 05/20/21 03:48 MCH 25.9 pg (28.0-34.0) L 05/20/21 03:48 MCHC 30.9 g/dL (30.0-36.0) 05/20/21 03:48 RDW 15.8 % (12.1-15.1) H 05/20/21 03:48 Plt Count 312 10^3/cmm (130-400) 05/20/21 03:48 MPV 9.0 fL (7.4-10.4) 05/20/21 03:48 Neut % (Auto) 87.3 % 05/20/21 03:48 Lymph % (Auto) 5.5 % 05/20/21 03:48 [place] % (Auto) 6.4 % 05/20/21 03:48 Eos % (Auto) 0.0 % 05/20/21 03:48 Baso % (Auto) 0.1 % 05/20/21 03:48 Neut # (Auto) 13.94 10^3/uL (1.8-7.7) H 05/20/21 03:48 Lymph # (Auto) 0.9 10^3/uL (0.8-4.8) 05/20/21 03:48 [place] # (Auto) 1.0 10^3/uL (0.2-0.9) H 05/20/21 03:48 Eos # (Auto) 0.0 10^3/uL (0.0-0.8) 05/20/21 03:48 Baso # (Auto) 0.0 10^3/uL (0.0-0.1) 05/20/21 03:48 Nucleated RBC % (auto) 0 % 05/20/21 03:48 Nucleated RBCs # 0.0 /100WBC 05/20/21 03:48 Specimen Type Arterial 05/17/21 14:25 Sample Site Radial, left 05/17/21 14:25 ABG pH 7.56 (7.35-7.45) H 05/17/21 14:25 ABG pCO2 26.6 mmHg (35-45) L 05/17/21 14:25 ABG pO2 103.0 mmHg (80.0-100.0) H 05/17/21 14:25 ABG HCO3 24.0 mmol/L (22-26) 05/17/21 14:25 ABG O2 Saturation 97.6 05/17/21 14:25 ABG Base Excess 2.9 mmol/L (-2.0-2.0) H 05/17/21 14:25 Jake Test Pos 05/17/21 14:25 A-a O2 Gradient 11.6 mmHg (5-10) H 05/17/21 14:25 Hematocrit 40.4 % (37-47) 05/17/21 14:25 Hgb O2 Saturation 97.3 % (95-100) 05/17/21 14:25 Carboxyhemoglobin < 0.0 %THgb (0.4-20.1) L 05/17/21 14:25 Methemoglobin 0.5 % (0.4-1.5) 05/17/21 14:25 Total Hemoglobin 13.2 g/dL (12-16) 05/17/21 14:25 Sodium 139.0 mmol/L (131-143) 05/17/21 14:25 Potassium 3.6 mmol/L (3.5-5.0) 05/17/21 14:25 Glucose 104.0 mg/dL (70-115) 05/17/21 14:25 Ionized Calcium 1.2 mmol/L (1.1-1.4) 05/17/21 14:25 O2 Delivery Device Nc 05/17/21 14:25 O2 Liters/Min 3.0 % 05/17/21 14:25 FiO2 32.0 % 05/17/21 14:25 Ammonia Print Operator ID Ed 05/17/21 14:25 Sodium 138 mmol/L (136-145) 05/20/21 03:48 Potassium 4.4 mmol/L (3.5-5.1) 05/20/21 03:48 Chloride 101 mmol/L (98-107) 05/20/21 03:48 Carbon Dioxide 31 mmol/L (22-29) H 05/20/21 03:48 Anion Gap 10.4 (5-19) 05/20/21 03:48 BUN 17 mg/dL (8-23) 05/20/21 03:48 Creatinine 0.6 mg/dL (0.5-0.9) 05/20/21 03:48 GFR Calculation Not Reportable 05/20/21 03:48 Glucose 128 mg/dL (65-115) H 05/20/21 03:48 Estimat Average Glucose 111 05/18/21 03:27 Hemoglobin A1c 5.5 % (4.0-6.0) 05/18/21 03:27 Calculated Osmolality 289 mOsm/kg (285-295) 05/20/21 03:48 Calcium 9.0 mg/dL (8.5-10.5) 05/20/21 03:48 Phosphorus 3.7 mg/dL (2.5-4.5) 05/18/21 03:27 Magnesium 1.8 mg/dL (1.7-2.3) 05/18/21 03:27 Iron 31 ug/dL (37-145) L 05/17/21 14:20 Iron Cancelled 05/17/21 14:20 TIBC 337 mcg/dl 05/17/21 14:20 TIBC Cancelled 05/17/21 14:20 % Saturation 9.1 % (20-50) L 05/17/21 14:20 % Saturation Cancelled 05/17/21 14:20 Unsat Iron Binding 306 ug/dL (112-347) 05/17/21 14:20 Unsat Iron Binding Cancelled 05/17/21 14:20 Total Bilirubin 0.2 mg/dL (0.15-1.2) 05/20/21 03:48 AST 17 U/L (0-32) 05/20/21 03:48 ALT 15 U/L (0-33) 05/20/21 03:48 Alkaline Phosphatase 100 IU/L (35-105) 05/20/21 03:48 Creatine Kinase 127 U/L (26-192) 05/17/21 14:20 Troponin T Gen 5 ng/L 12 ng/L (0-10) H 05/19/21 05:17 Troponin T Baseline 7 ng/L (0-10) 05/17/21 14:20 Troponin T 120 Minute 13.84 ng/L (0-10) H 05/17/21 16:51 Delta Troponin T 6.84 ABS# (0-10) 05/17/21 16:51 Troponin T Hi Sens 6Hr 7.84 ng/L (0-10) 05/17/21 22:54 Troponin T Hi Sens 6Hr Delta 0.84 ng/L (0-12) 05/17/21 22:54 Total Protein 7.5 g/dL (6.6-8.7) 05/20/21 03:48 Albumin 3.6 g/dL (3.5-5.2) 05/20/21 03:48 Globulin 3.9 g/dL (1.3-4.6) 05/20/21 03:48 Triglycerides 52 mg/dL (0-150) 05/18/21 03:27 Cholesterol 157 mg/dL (0-200) 05/18/21 03:27 LDL Cholesterol, Calc 97 mg/dL (50-129) 05/18/21 03:27 Total VLDL Cholesterol 10 mg/dL (0-30) 05/18/21 03:27 HDL Cholesterol 50 mg/dL (60-100) L 05/18/21 03:27 Cholesterol/HDL Ratio 3.14 mg/dL (0.0-4.40) 05/18/21 03:27 TSH 3.24 uIU/mL (0.27-4.20) 05/17/21 14:20 SARS-CoV-2 Ag (Rapid) Negative (Negative) 05/24/21 Unknown Vitals Last Vital Signs Temp 97.4 F L 05/25/21 08:00 Pulse 62 05/25/21 14:33 Resp 18 05/25/21 14:32 BP 140/65 05/25/21 08:00 Pulse Ox 95 05/25/21 14:27 Discharge Plan Discharge Patient Disposition: Xfer SNF Condition: Stable Prescriptions: New acetaminophen 325 mg Tablet 650 mg PO Q6H PRN (Reason: Mild/Mod Pain Or Temp >/= 101) 50 Days 0RF baclofen 10 mg Tablet 10 mg PO TID 10 Days Qty: 30 0RF calcium carbonate 200 mg calcium (500 mg) Tablet,Chewable 1,000 mg PO Q4H PRN (Reason: DYSPEPSI) 20 Days 0RF bisacodyl 5 mg Tablet,Delayed Release (Dr/Ec) 10 mg PO DAILY PRN (Reason: Constipation (see protocol)) 20 Days 0RF Mag-Al Plus 200-200-20 mg/5 mL Suspension 30 ml PO Q4H PRN (Reason: Indigestion) 300 Days 0RF fluconazole 100 mg Tablet 200 mg PO DAILY 2 Days 0RF clindamycin HCl 150 mg Capsule 450 mg PO Q6H 7 Days Qty: 84 0RF dexamethasone 4 mg Tablet 4 mg PO Q8H 5 Days Qty: 15 0RF docusate sodium 100 mg Capsule 100 mg PO BID 10 Days Qty: 20 0RF enoxaparin 40 mg/0.4 mL Syringe 40 mg SUBCUT Q24H 20 Days Qty: 8 0RF ferrous gluconate 324 mg (37.5 mg iron) Tablet 324 mg PO BIDWM 20 Days Qty: 20 0RF ipratropium-albuterol 0.5 mg-3 mg(2.5 mg base)/3 mL Solution For Nebulization 3 ml inhalation Q6H.RESPIRATORY 20 Days 0RF polyethylene glycol 3350 17 gram Powder In Packet 17 g PO DAILY 20 Days 0RF tramadol 50 mg Tablet 50 mg PO Q6H PRN (Reason: Moderate Pain) 3 Days 0RF Milk of Magnesia 400 mg/5 mL Suspension 30 ml PO Q4H PRN (Reason: Constipation/indigestion) 20 Days 0RF oxycodone 5 mg Tablet 10 mg PO Q4H PRN (Reason: Severe Pain) 3 Days 0RF metoprolol tartrate 25 mg Tablet 25 mg PO BID@0900,2100 60 Days 0RF lactulose 20 gram/30 mL Solution 10 g PO DAILY PRN (Reason: Constipation (see protocol)) 20 Days 0RF Continued oxybutynin chloride 15 mg tablet extended release 24hr 15 mg PO BID@0800,2000 0RF escitalopram oxalate [Lexapro] 20 mg tablet 20 mg PO DAILY@0800 0RF aspirin 325 mg tablet 325 mg PO DAILY@0800 0RF loratadine 10 mg tablet 10 mg PO DAILY 0RF naproxen 500 mg tablet 500 mg PO BID PRN (Reason: Pain) 0RF amlodipine 5 mg tablet 5 mg PO BID PRN (Reason: Blood Pressure) 0RF albuterol sulfate [ProAir HFA] 90 mcg/actuation Hfa Aerosol Inhaler 2 puff INHALATION QID PRN (Reason: Shortness Of Breath) 0RF omeprazole 20 mg capsule,delayed release(DR/EC) 40 mg PO BID@0800,1999 0RF Discontinued oxycodone-acetaminophen [Percocet] 10-325 mg tablet 1 tab PO Q4H PRN (Reason: pain) 30 Days Qty: 120 0RF fluconazole 150 mg tablet 150 mg PO DAILY 0RF Rx Instructions: for 3 day (rx filled 05/08/21 6d/s pt not taking only takes if she takes cephalexin) cephalexin 500 mg capsule 1,000 mg PO BID PRN (Reason: unknown) 0RF Rx Instructions: for 10 days (rx filled 05/16/21 10d/s pt not taking yet) furosemide 20 mg tablet 20 mg PO DAILY PRN (Reason: Edema) 0RF metoprolol succinate 50 mg tablet extended release 24 hr 50 mg PO DAILY@0800 0RF triamterene-hydrochlorothiazid 37.5-25 mg tablet 1 tab PO QAM 0RF Discharge Orders: Discharge Order (Routine); Ordered 05/25/21 Ordered By: Aaron Echevarria Referrals: [facility] [Outside] Ramirez,JANEL Cruz [Primary Care Provider] - 06/04/21 2:30 pm Discharge Diet: Cardiac Discharge Activity: Limit activity as instructed and As per PT/OT instructions Patient Instructions: Opioid Safety Activity Restrictions/Additional Instructions: Keep dressing intact wear collar for comfort no lifting greater than 5 lbs ambulate as tolerated f/u ortho clinic this (05/31) Discharge Attestations Time Spent in Discharge Care*: greater than 30 min Quality Metrics Clinical Quality Measures [ No reported AMI, CVA or VTE this stay] Coding Level of Care Code Acute g FW DC note Diagnoses Morbid obesity E66.01 Hypertension I10 Paraplegia G82.20 Traumatic epidural hematoma S06.4X9A Cervical spine fracture S12.9XXA Cervical spondylosis with myelopathy M47.12
--- NOTE | 2021-05-25 15:27 | PC.NURSE ---
Report called to Evelio Villareal. Patient left EMS.
== END 2021-05-25 15:42 | disposition skilled nursing facility (03) | DRG 908 ==
LOC: ER 18:41 → OPS 18:49 → ICU 19:20 → MEDSURG 05-19 07:42 → ICU 05-19 07:44 → MEDSURG 05-20 18:25
PROVIDERS: Orthopaedic Surgery; Student in an Organized Health Care Education/Training Program; Admitting Provider Student in an Organized Health Care Education/Training Program; Emergency Provider Family Medicine; PCP Nurse Practitioner Family; Visit Provider Internal Medicine
PROC: 00CU0ZZ Extirpation of Matter from Spinal Canal, Open Approach (ICD-10-PCS; principal; 2021-05-17 18:15)
DX: G97.61 Postprocedural hematoma of a nervous system organ or structure following a nervous system procedure (principal); M50.021 Cervical disc disorder at C4-C5 level with myelopathy; Z68.42 Body mass index [BMI] 45.0-49.9, adult; G82.20 Paraplegia, unspecified; Y79.1 Therapeutic (nonsurgical) and rehabilitative orthopedic devices associated with adverse incidents; M48.02 Spinal stenosis, cervical region; M50.322 Other cervical disc degeneration at C5-C6 level; M50.323 Other cervical disc degeneration at C6-C7 level; Z86.16 Personal history of COVID-19; I10 Essential (primary) hypertension; E66.01 Morbid (severe) obesity due to excess calories; Z96.659 Presence of unspecified artificial knee joint; K59.00 Constipation, unspecified; R13.10 Dysphagia, unspecified
CPT/HCPCS: 36415; 36600; 51702; 62321; 71045; 72020; 72125; 72128; 72141; 72146; 72148; 76000; 80051; 80053; 80061; 82330; 82550; 82805; 83036; 83540; 83550; 83735; 84100; 84443; 84484; 85025; 87040; 87426; 87641; 92523; 92610; 93005; 94640; 94664; 96372; 96374; 96375; 96376; 97110; 97116; 97162; 97165; 97530; 99285; J0330; J1100; J1170; J1650; J1885; J2060; J2270; J2370; J2405; J2704; J3370; J3490; J7030; J8540; L0174

== ENCOUNTER 2021-05-28 13:49 | Outpatient (CLI) | payer MEDICARE, OTHER, SELFPAY ==
[2021-05-28 16:46] LABS: Basophils # 0.1 10^3/uL (0.0-0.1); Basophils % 0.2 %; Hematocrit 44.1 % (37.0-47.0); Hemoglobin 14.1 g/dL (11.5-15.3); Lymphocytes % 4.1 %; Mean Corpuscular Hemoglobin 25.6 pg (28.0-34.0); Mean Corpuscular Volume 80.2 fl (81-99); Mean Platelet Volume 9.4 fL (7.4-10.4); Neutrophils # 22.78 10^3/uL (1.8-7.7); Neutrophils % 90.6 %; Nucleated Red Blood Cells % 0 %; Platelet Count 618 10^3/cmm (130-400); Red Cell Distribution Width 15.5 % (12.1-15.1); White Blood Count 25.2 10^3/uL (4.0-10.0)
[2021-05-28 18:15] LABS: Anion Gap 21.2 (5-19); Blood Urea Nitrogen 21 mg/dL (8-23); Calcium 9.5 mg/dL (8.5-10.5); Carbon Dioxide 26 mmol/L (22-29); Chloride 88 mmol/L (98-107); Glucose 102 mg/dL (65-115); Osmolality Calculated 273 mOsm/kg (285-295); Potassium 5.2 mmol/L (3.5-5.1); Sodium 130 mmol/L (136-145); Thyroid Stimulating Hormone 0.67 uIU/mL (0.27-4.20)
== END 2021-05-28 13:50 | disposition home or self-care (01) ==
PROVIDERS: PCP Nurse Practitioner Family; Visit Provider Internal Medicine
DX: I10 Essential (primary) hypertension (principal)
CPT/HCPCS: 80048; 84443; 85025

== ENCOUNTER → 2021-05-29 11:59 | Outpatient (BNVA) | payer MEDICARE, OTHER, SELFPAY | PROVIDERS: PCP Nurse Practitioner Family; Visit Provider Internal Medicine | DX: D72.829 Elevated white blood cell count, unspecified (principal) | CPT/HCPCS: 85025 ==

== ENCOUNTER 2021-05-31 05:08 | Outpatient (CLI) | payer MEDICARE, OTHER, SELFPAY ==
[2021-05-31 05:22] LABS: Basophils % 0.1 %; Hematocrit 41.3 % (37.0-47.0); Hemoglobin 13.7 g/dL (11.5-15.3); Lymphocytes # 0.9 10^3/uL (0.8-4.8); Lymphocytes % 4.3 %; Mean Corpuscular HGB Conc 33.2 g/dL (30.0-36.0); Mean Corpuscular Hemoglobin 25.9 pg (28.0-34.0); Mean Corpuscular Volume 78.1 fl (81-99); Monocytes # 0.9 10^3/uL (0.2-0.9); Monocytes % 4.4 %; Neutrophils # 18.64 10^3/uL (1.8-7.7); Nucleated Red Blood Cells % 0 %; Platelet Count 504 10^3/cmm (130-400); Red Blood Count 5.29 10^6/uL (4.1-5.3); Red Cell Distribution Width 15.6 % (12.1-15.1); White Blood Count 20.7 10^3/uL (4.0-10.0)
== END 2021-05-31 05:09 | disposition home or self-care (01) ==
LOC: LAB 05:14
PROVIDERS: PCP Nurse Practitioner Family; Visit Provider Internal Medicine
DX: D72.829 Elevated white blood cell count, unspecified (principal)
CPT/HCPCS: 85025

== ENCOUNTER → 2021-07-10 14:44 | Outpatient (BNVA) | payer MEDICARE, OTHER, SELFPAY | PROVIDERS: PCP Internal Medicine; Visit Provider Physician Assistant | DX: Z47.89 Encounter for other orthopedic aftercare (principal); Z98.890 Other specified postprocedural states; M50.30 Other cervical disc degeneration, unspecified cervical region | CPT/HCPCS: 72040; 99024; 99999 ==

== ENCOUNTER → 2021-08-21 14:59 | Outpatient (BNVA) | payer MEDICARE, OTHER, SELFPAY | PROVIDERS: PCP Internal Medicine; Visit Provider Orthopaedic Surgery | DX: Z47.89 Encounter for other orthopedic aftercare (principal); Z98.890 Other specified postprocedural states | CPT/HCPCS: 72040; 72070; 99213 ==

== ENCOUNTER → 2021-11-01 10:47 | Outpatient (BNVA) | payer MEDICARE, OTHER, SELFPAY | PROVIDERS: PCP Internal Medicine; Visit Provider Orthopaedic Surgery | DX: M47.12 Other spondylosis with myelopathy, cervical region (principal); Z98.890 Other specified postprocedural states | CPT/HCPCS: 72040; 72070; 99213; 99214 ==

== ENCOUNTER → 2021-12-13 15:17 | Outpatient (BNVA) | payer MEDICARE, OTHER, SELFPAY | PROVIDERS: PCP Internal Medicine; Visit Provider Orthopaedic Surgery | DX: M47.22 Other spondylosis with radiculopathy, cervical region (principal) | CPT/HCPCS: 99213; 99214 ==

== ENCOUNTER 2022-05-12 22:08 | Inpatient (IN) | payer MEDICARE, OTHER, SELFPAY ==
[2022-05-12 22:12] VITALS: BP 123/74; PULSE 73; RESP 22; TEMP 36.4; O2SAT 89
--- NOTE | 2022-05-12 22:15 | PC.NURSE ---
Placed pt on O2 at 4L/NC, O2 sat up to 92%
--- NOTE | 2022-05-12 22:43 | XRR_ITS ---
PROCEDURE INFORMATION: Exam: XR Chest Exam date and time: 05/12/2022 11:01 PM Age: 72 years old Clinical indication: Cough and shortness of breath; Additional info: SOB TECHNIQUE: Imaging protocol: Radiologic exam of the chest. Views: 1 view. COMPARISON: CR XR chest 1V portable [id number] 05/17/2021 2:45 PM FINDINGS: Lungs: Bibasilar atelectasis versus infiltrate. Pleural spaces: Unremarkable. No pleural effusion. No pneumothorax. Heart/Mediastinum: Cardiomegaly. Bones/joints: Unremarkable. XR/XR chest 1V portable [id number] IMPRESSION: 1. Bibasilar atelectasis versus infiltrate. 2. Cardiomegaly.
--- NOTE | 2022-05-12 22:58 | W.ED.SOB ---
Documented by User: BOOKER Smith 05/13/22 17:12 HPI - SOB/Dyspnea General: Chief Complaint: Shortness of Breath/Dyspnea Stated Complaint: OZ 70's Pneumnnia Time Seen by Provider: 05/12/22 22:43 History of Present Illness: HPI Narrative: Patient is a 72-year-old female comes to the ED with shortness of breath. Symptoms started approximately 6 days ago. Initial symptoms started at rest and were pain in the middle left side of chest with inspiration, shortness of breath and a cough. Chest pain is not constant and only occurs when she is coughing or inspiration. She went and saw her primary care doctor the next day and they diagnosed her with pneumonia and she received a shot of Rocephin and steroid in the office. She was sent home from clinic on Levaquin and prednisone. Her symptoms improved for about a day or so. The last couple days her cough and shortness of breath have gotten worse. She says her cough is productive and she gets up brownish sputum and sometimes has red blood in it. Denies any fevers, chills, body aches, abdominal pain, nausea/vomiting, bladder or bowel symptoms. Patient does not take any blood thinners but takes 325 mg of aspirin daily. Associated symptoms: Reports chest pain and hemoptysis; Deny abdominal pain, fever(s), nausea, orthopnea, palpitations or vomiting Review of Systems Const: Denies: fever(s), chills or fatigue Eyes: Denies: change in vision or eye discomfort ENMT: Denies: throat pain, odynophagia, nasal discharge or nasal congestion Card: Reports: chest pain; Denies: palpitations, edema, swelling of feet/ankles, dyspnea on exertion or orthopnea Resp: Reports: dyspnea, productive cough and hemoptysis; Denies: non-productive cough GI: Denies: abdominal pain, nausea, vomiting, diarrhea, constipation or hematochezia : Denies: flank pain, dysuria or hematuria Musc: Denies: neck pain, back pain or extremity swelling Skin/Breast: Denies: rash or new lesions Neuro: Denies: headache(s), numbness in extremities or weakness in extremities PFS ED PFSH: Medical History Bronchitis due to 2019-nCoV Cervical spine fracture Cervical spondylosis with myelopathy COVID-19 H/O upper respiratory infection Hypertension Morbid obesity Surgical History H/O total knee replacement Social History Smoking and tobacco status: never smoked Alcohol intake: never Female Reproductive History: Spontaneous abortions: No Physical Exam Const: COMMON NORMALS: patient oriented x3 and alert GENERAL APPEARANCE: cooperative HENMT: COMMON NORMALS: normocephalic HEAD & SCALP: normocephalic MOUTH: Normal oral and palatal mucosa present THROAT: posterior oropharynx normal and uvula midline Neck/C-Spine: COMMON NORMALS: supple GENERAL: Yes normal visual inspection Resp: COMMON NORMALS: normal respiratory effort, No retractions and No use of accessory muscles EFFORT & INSPECTION: Yes tachypneic and Yes Actively coughing hacking AUSCULTATION: wheezes expiratory wheezes and throughout and diminished lung sounds bilateral in the lower lung olea Cardio: COMMON NORMALS: regular rate, regular rhythm, S1 normal heart sound present, S2 normal heart sound present, No gallops present (Cardio), No clicks present (Cardio), No murmurs present (Cardio) and Peripheral pulses 2+ throughout RATE: regular rate RHYTHM: regular rhythm HEART SOUNDS: S1 normal heart sound present and S2 normal heart sound present PERIPHERAL PULSES: Peripheral pulses 2+ throughout GI: COMMON NORMALS: Normal to inspection, nondistended, normoactive bowel sounds present, Soft to palpation, non-tender and no masses PALPATION: Yes Soft to palpation : COMMON NORMALS: Yes no CVA tenderness BLADDER/KIDNEY EXAM: Yes no CVA tenderness Back/Pelvis: COMMON NORMALS: no CVA tenderness Extremity: COMMON NORMALS: normal to inspection Neuro: COMMON NORMALS: patient oriented x3 SENSORIUM/ORIENTATION: Yes alert GAIT: Yes Normal gait present Skin: GENERAL SKIN EXAM: dry skin Course Vital Signs: Vital signs: Vital Signs Temperature 97.8 F 05/13/22 19:27 Pulse Rate 65 05/13/22 20:45 Respiratory Rate 18 05/13/22 20:45 Blood Pressure 162/74 05/13/22 19:27 Pulse Oximetry 92 05/13/22 20:45 Oxygen Delivery Me thod 05/13/22 20:45 Oxygen Flow Rate 4 05/13/22 20:45 MDM - SOB/Dyspnea Medical Decision Making Patient is a 72-year-old female comes to the ED with shortness of breath. Symptoms started approximately 6 days ago. Initial symptoms started at rest and were pain in the middle left side of chest with inspiration, shortness of breath and a cough. Chest pain is not constant and only occurs when she is coughing or inspiration. She went and saw her primary care doctor the next day and they diagnosed her with pneumonia and she received a shot of Rocephin and steroid in the office. She was sent home from clinic on Levaquin and prednisone. Her cough is productive with brown sputum and also reports some blood in sputum as well. Denies any fevers, nausea/vomiting. Upon triage patient's O2 sat was 88% and her respirations were 22 and the rest of her vitals are stable. Patient was put on 4 L O2 via nasal cannula and her O2 saturation went up to about 92%. Upon exam patient is having a lot of active coughing fits. She is tachypneic and has wheezing throughout all lung olea with diminished lung sounds at the bases. White blood cell count of 13.6 and the rest of CBC and CMP are unremarkable. D-dimer 0.94. Troponin negative. COVID and influenza are both negative. Lactic 2.1. Chest x-ray shows bibasilar atelectasis versus infiltrate. Chest CTA shows increasing areas of the left greater than right mid to lower lung pneumonitis or developing airspace disease. I discussed patient case with Dr. Main and he agreed patient should be admitted. Blood cultures ordered and pending. She was given IV Solu-Medrol, DuoNeb breathing treatment and IV Levaquin while here in the ED. Dr. Main contacted the hospitalist and patient was admitted for hypoxemia and pneumonia. Lab Data I reviewed the patient's lab results. 05/12/22 23:12 05/12/22 23:12 Labs/Radiology: Radiology Impressions Chest X-Ray 05/12/22 22:43 IMPRESSION: 1. Bibasilar atelectasis versus infiltrate. 2. Cardiomegaly. Chest CTA 05/12/22 23:09 IMPRESSION: 1. No definite PE. 2. Large heart with evidence of pulmonary hypertension. 3. Increasing areas of lbqz-deivvfc-qqbl-right mid to lower lung atelectasis, pneumonitis, or developing airspace disease. Likely reactive mild lymphadenopathy. Recommend six-month follow-up. 4. Mild COPD. Multiple chronic findings above. Laboratory Results WBC 13.6 10^3/uL (4.0-10.0) H 05/12/22 23:12 RBC 5.12 10^6/uL (4.1-5.3) 05/12/22 23:12 Hgb 12.8 g/dL (11.5-15.3) 05/12/22 23:12 Hct 41.5 % (37.0-47.0) 05/12/22 23:12 MCV 81.1 fl (81-99) 05/12/22 23: MCH 25.0 pg (28.0-34.0) L 05/12/22 23: MCHC 30.8 g/dL (30.0-36.0) 05/12/22 23:12 RDW 16.2 % (12.1-15.1) H 05/12/22 23:12 Plt Count 364 10^3/cmm (130-400) 05/12/22 23:12 MPV 8.8 fL (7.4-10.4) 05/12/22 23:12 Neut % (Auto) 88.2 % 05/12/22 23:12 Lymph % (Auto) 8.2 % 05/12/22 23:12 [place] % (Auto) 2.6 % 05/12/22 23:12 Eos % (Auto) 0.0 % 05/12/22 23: Baso % (Auto) 0.1 % 05/12/22 23:12 Neut # (Auto) 11.97 10^3/uL (1.8-7.7) H 05/12/22 23:12 Lymph # (Auto) 1.1 10^3/uL (0.8-4.8) 05/12/22 23:12 [place] # (Auto) 0.4 10^3/uL (0.2-0.9) 05/12/22 23:12 Eos # (Auto) 0.0 10^3/uL (0.0-0.8) 05/12/22 23:12 Baso # (Auto) 0.0 10^3/uL (0.0-0.1) 05/12/22 23:12 Nucleated RBC % (auto) 0 % 05/12/22 23:12 Nucleated RBCs # 0.0 /100WBC 05/12/22 23:12 D-Dimer 0.94 ug/mIFEU (0-0.59) H 05/12/22 23:12 Sodium 135 mmol/L (136-145) L 05/12/22 23:12 Potassium 4.3 mmol/L (3.5-5.1) 05/12/22 23:12 Chloride 97 mmol/L (98-107) L 05/12/22 23:12 Carbon Dioxide 25 mmol/L (22-29) 05/12/22 23:12 Anion Gap 17.3 (5-19) 05/12/22 23:12 BUN 27 mg/dL (8-23) H 05/12/22 23:12 Creatinine 0.9 mg/dL (0.5-0.9) 05/12/22 23:12 GFR Calculation Not Reportable 05/12/22 23:12 Glucose 134 mg/dL (65-115) H 05/12/22 23:12 Calculated Osmolality 287 mOsm/kg (285-295) 05/12/22 23:12 Lactate 2.1 mmol/L (0.5-2.2) 05/13/22 03:36 Calcium 8.7 mg/dL (8.5-10.5) 05/12/22 23:12 Total Bilirubin 0.2 mg/dL (0.15-1.2) 05/12/22 23:12 AST 17 U/L (0-32) 05/12/22 23:12 ALT 16 U/L (0-33) 05/12/22 23:12 Alkaline Phosphatase 102 U/L (35-105) 05/12/22 23:12 Troponin T Baseline 6 ng/L (0-10) 05/12/22 23:12 Troponin T 120 Minute 6.09 ng/L (0-10) 05/13/22 03:36 Delta Troponin T 0.09 ABS# (0-10) 05/13/22 03:36 NT-Pro-B Natriuret Pep 95 pg/mL (0-125) 05/12/22 23:12 Total Protein 7.3 g/dL (6.6-8.7) 05/12/22 23:12 Albumin 3.8 g/dL (3.5-5.2) 05/12/22 23:12 Globulin 3.5 g/dL (1.3-4.6) 05/12/22 23:12 Procalcitonin 0.02 ng/mL (0-0.5) 05/13/22 03:56 Coronavirus 229E (PCR) Cancelled 05/12/22 23:10 Influenza Type A Ag Negative (Negative) 05/12/22 23:10 Influenza Type B Ag Negative (Negative) 05/12/22 23:10 SARS-CoV-2 (PCR) Cancelled 05/12/22 23:10 SARS-CoV-2 Ag (Rapid) Negative (Negative) 05/12/22 23:10 Discharge Plan Discharge Patient Disposition: Admitted As Inpatient Admit Provider: Courtney Elaine Clinical Impression: Hypoxemia Pneumonia Qualifiers: Pneumonia type: due to unspecified organism Laterality: unspecified laterality Lung location: unspecified part of lung Qualified Code(s): J18.9 - Pneumonia, unspecified organism Condition: Stable Coding Level of Care Code ED Dental Hygiene Administrative Assistant for Chg Fwd Documented by User: Estevan Main DO 05/13/22 22:20 HPI - SOB/Dyspnea General: Chief Complaint: Shortness of Breath/Dyspnea Stated Complaint: OZ 70's Pneumnnia Time Seen by Provider: 05/12/22 22:43 [facility] ED PFSH: Medical History Bronchitis due to 2019-nCoV Cervical spine fracture Cervical spondylosis with myelopathy COVID-19 H/O upper respiratory infection Hypertension Morbid obesity Surgical History H/O total knee replacement Social History Smoking and tobacco status: never smoked Alcohol intake: never Course Vital Signs: Vital signs: Vital Signs Temperature 97.8 F 05/13/22 19:27 Pulse Rate 65 05/13/22 20:45 Respiratory Rate 18 05/13/22 20:45 Blood Pressure 162/74 05/13/22 19:27 Pulse Oximetry 92 05/13/22 20:45 Oxygen Delivery Me thod 05/13/22 20:45 Oxygen Flow Rate 4 05/13/22 20:45 MDM - SOB/Dyspnea Medical Decision Making Patient is a 72-year-old female comes to the ED with shortness of breath. Symptoms started approximately 6 days ago. Initial symptoms started at rest and were pain in the middle left side of chest with inspiration, shortness of breath and a cough. Chest pain is not constant and only occurs when she is coughing or inspiration. She went and saw her primary care doctor the next day and they diagnosed her with pneumonia and she received a shot of Rocephin and steroid in the office. She was sent home from clinic on Levaquin and prednisone. Her cough is productive with brown sputum and also reports some blood in sputum as well. Denies any fevers, nausea/vomiting. Upon triage patient's O2 sat was 88% and her respirations were 22 and the rest of her vitals are stable. Patient was put on 4 L O2 via nasal cannula and her O2 saturation went up to about 92%. Upon exam patient is having a lot of active coughing fits. She is tachypneic and has wheezing throughout all lung olea with diminished lung sounds at the bases. White blood cell count of 13.6 and the rest of CBC and CMP are unremarkable. D-dimer 0.94. Troponin negative. COVID and influenza are both negative. Lactic 2.1. Chest x-ray shows bibasilar atelectasis versus infiltrate. Chest CTA shows increasing areas of the left greater than right mid to lower lung pneumonitis or developing airspace disease. I discussed patient case with Dr. Main and he agreed patient should be admitted. Blood cultures ordered and pending. She was given IV Solu-Medrol, DuoNeb breathing treatment and IV Levaquin while here in the ED. Dr. Main contacted the hospitalist and patient was admitted for hypoxemia and pneumonia. This patient was initially seen by Mr. Naila PA-C. I agree with his history, evaluation, and treatment. Lab Data 05/12/22 23:12 05/12/22 23:12 Labs/Radiology: Radiology Impressions Chest X-Ray 05/12/22 22:43 IMPRESSION: 1. Bibasilar atelectasis versus infiltrate. 2. Cardiomegaly. Chest CTA 05/12/22 23:09 IMPRESSION: 1. No definite PE. 2. Large heart with evidence of pulmonary hypertension. 3. Increasing areas of iurr-dwdgyta-jscg-right mid to lower lung atelectasis, pneumonitis, or developing airspace disease. Likely reactive mild lymphadenopathy. Recommend six-month follow-up. 4. Mild COPD. Multiple chronic findings above. Laboratory Results WBC 13.6 10^3/uL (4.0-10.0) H 05/12/22 23:12 RBC 5.12 10^6/uL (4.1-5.3) 05/12/22 23:12 Hgb 12.8 g/dL (11.5-15.3) 05/12/22 23:12 Hct 41.5 % (37.0-47.0) 05/12/22 23:12 MCV 81.1 fl (81-99) 05/12/22 23:12 MCH 25.0 pg (28.0-34.0) L 05/12/22 23:12 MCHC 30.8 g/dL (30.0-36.0) 05/12/22 23:12 RDW 16.2 % (12.1-15.1) H 05/12/22 23:12 Plt Count 364 10^3/cmm (130-400) 05/12/22 23:12 MPV 8.8 fL (7.4-10.4) 05/12/22 23:12 Neut % (Auto) 88.2 % 05/12/22 23:12 Lymph % (Auto) 8.2 % 05/12/22 23:12 [place] % (Auto) 2.6 % 05/12/22 23:12 Eos % (Auto) 0.0 % 05/12/22 23:12 Baso % (Auto) 0.1 % 05/12/22 23:12 Neut # (Auto) 11.97 10^3/uL (1.8-7.7) H 05/12/22 23:12 Lymph # (Auto) 1.1 10^3/uL (0.8-4.8) 05/12/22 23:12 [place] # (Auto) 0.4 10^3/uL (0.2-0.9) 05/12/22 23:12 Eos # (Auto) 0.0 10^3/uL (0.0-0.8) 05/12/22 23:12 Baso # (Auto) 0.0 10^3/uL (0.0-0.1) 05/12/22 23:12 Nucleated RBC % (auto) 0 % 05/12/22 23:12 Nucleated RBCs # 0.0 /100WBC 05/12/22 23:12 D-Dimer 0.94 ug/mIFEU (0-0.59) H 05/12/22 23:12 Sodium 135 mmol/L (136-145) L 05/12/22 23:12 Potassium 4.3 mmol/L (3.5-5.1) 05/12/22 23:12 Chloride 97 mmol/L (98-107) L 05/12/22 23:12 Carbon Dioxide 25 mmol/L (22-29) 05/12/22 23:12 Anion Gap 17.3 (5-19) 05/12/22 23:12 BUN 27 mg/dL (8-23) H 05/12/22 23:12 Creatinine 0.9 mg/dL (0.5-0.9) 05/12/22 23:12 GFR Calculation Not Reportable 05/12/22 23:12 Glucose 134 mg/dL (65-115) H 05/12/22 23:12 Calculated Osmolality 287 mOsm/kg (285-295) 05/12/22 23:12 Lactate 2.1 mmol/L (0.5-2.2) 05/13/22 03:36 Calcium 8.7 mg/dL (8.5-10.5) 05/12/22 23:12 Total Bilirubin 0.2 mg/dL (0.15-1.2) 05/12/22 23:12 AST 17 U/L (0-32) 05/12/22 23:12 ALT 16 U/L (0-33) 05/12/22 23:12 Alkaline Phosphatase 102 U/L (35-105) 05/12/22 23:12 Troponin T Baseline 6 ng/L (0-10) 05/12/22 23:12 Troponin T 120 Minute 6.09 ng/L (0-10) 05/13/22 03:36 Delta Troponin T 0.09 ABS# (0-10) 05/13/22 03:36 NT-Pro-B Natriuret Pep 95 pg/mL (0-125) 05/12/22 23:12 Total Protein 7.3 g/dL (6.6-8.7) 05/12/22 23:12 Albumin 3.8 g/dL (3.5-5.2) 05/12/22 23:12 Globulin 3.5 g/dL (1.3-4.6) 05/12/22 23:12 Procalcitonin 0.02 ng/mL (0-0.5) 05/13/22 03:56 Coronavirus 229E (PCR) Cancelled 05/12/22 23:10 Influenza Type A Ag Negative (Negative) 05/12/22 23:10 Influenza Type B Ag Negative (Negative) 05/12/22 23:10 SARS-CoV-2 (PCR) Cancelled 05/12/22 23:10 SARS-CoV-2 Ag (Rapid) Negative (Negative) 05/12/22 23:10 Discharge Plan Discharge Patient Disposition: Admitted As Inpatient Admit Provider: Courtney Elaine Clinical Impression: Hypoxemia Pneumonia Qualifiers: Pneumonia type: due to unspecified organism Laterality: unspecified laterality Lung location: unspecified part of lung Qualified Code(s): J18.9 - Pneumonia, unspecified organism Condition: Stable Coding Level of Care Code ED Dental Hygiene Administrative Assistant for Josefa Garcia
--- NOTE | 2022-05-12 23:09 | CTR_ITS ---
PROCEDURE INFORMATION: Exam: CTA Chest With Contrast Exam date and time: 05/13/2022 1:29 AM Age: 72 years old Clinical indication: Pain; Shortness of breath; Chest pressure; Additional info: Shortness of breath, chest pain, hemoptysis TECHNIQUE: Imaging protocol: Computed tomographic angiography of the chest with contrast. 3D rendering (Not supervised by radiologist): MIP and/or 3D reconstructed images were created by the technologist. Radiation optimization: All CT scans at this facility use at least one of these dose optimization techniques: automated exposure control; mA and/or kV adjustment per patient size (includes targeted exams where dose is matched to clinical indication); or iterative reconstruction. Contrast material: OMNI 350; Contrast volume: 100 ml; Contrast route: INTRAVENOUS (IV); REPORTING DATA: Count of CT and Cardiac NM exams in prior 12 months: This patient has received 2 known CTs and 0 known cardiac nuclear medicine studies in the 12 months prior to the current study. COMPARISON: CT angio chest [id number] 04/08/2017 10:09 AM RADIATION DOSE METRICS: Total DLP (mGy-cm): 963.99 FINDINGS: Pulmonary arteries: Large pulmonary arteries. No strong evidence of main, lobar, or segmental occlusive PE. There is some truncated flow in the bilateral lower lobe subsegmental arteries. Certainly no significant PE. Aorta: Advanced diffuse vascular calcification noted. No aortic aneurysm. No aortic dissection. Veins: Mild venous congestion. Thyroid: Multinodular goiter. Lungs: Mild COPD. Awkl-mg-awkpsetw areas of lingular and bibasilar atelectasis, pneumonitis, or developing airspace disease. Findings have progressed. Lungs show no dominant mass or spiculated nodule. Pleural spaces: No pneumothorax. No pleural effusion noted. Heart: The heart is enlarged. No pericardial effusion is noted. Lymph nodes: Mild likely reactive mediastinal lymphadenopathy. Liver: Partially assessed right hepatic cystic lesion measures about 4 cm. This is larger from 04/08/2017 but was present previously. This is probably an enlarging cyst or hemangioma. Bones/joints: Moderate spine DJD. Soft tissues: Unremarkable. CT/CT angio chest PE protcl [id number] IMPRESSION: 1. No definite PE. 2. Large heart with evidence of pulmonary hypertension. 3. Increasing areas of akmf-ofensvu-mjrd-right mid to lower lung atelectasis, pneumonitis, or developing airspace disease. Likely reactive mild lymphadenopathy. Recommend six-month follow-up. 4. Mild COPD. Multiple chronic findings above.
[2022-05-12] MEDS: ipratropium-albuterol 3 mL Neb 6 ML INHALATION (23:22)
[2022-05-12 23:24] VITALS: PULSE 83; RESP 22; O2SAT 94
[2022-05-12 23:30] VITALS: BP 192/89; PULSE 64; RESP 22; O2SAT 93
[2022-05-12 23:40] LABS: Troponin(5th) Baseline 6 ng/L (0-10)
[2022-05-12 23:48] LABS: D Dimer 0.94 ug/mIFEU (0-0.59)
[2022-05-12 23:49] LABS: Alanine Aminotransferase 16 U/L (0-33); Albumin Level 3.8 g/dL (3.5-5.2); Alkaline Phosphatase 102 U/L (35-105); Anion Gap 17.3 (5-19); Aspartate Amino Transferase 17 U/L (0-32); Blood Urea Nitrogen 27 mg/dL (8-23); Calcium 8.7 mg/dL (8.5-10.5); Carbon Dioxide 25 mmol/L (22-29); Chloride 97 mmol/L (98-107); Globulin 3.5 g/dL (1.3-4.6); Glucose 134 mg/dL (65-115); NT Pro B Type Natriuretic Pept 95 pg/mL (0-125); Osmolality Calculated 287 mOsm/kg (285-295); Potassium 4.3 mmol/L (3.5-5.1); Sodium 135 mmol/L (136-145); Total Bilirubin 0.2 mg/dL (0.15-1.2); Total Protein 7.3 g/dL (6.6-8.7)
[2022-05-13] VITALS (12 sets, daily range): BP systolic 147–171; BP diastolic 68–100; PULSE 64–90; RESP 15–22; TEMP 36.3–36.8; O2SAT 90–94
[2022-05-13 00:09] LABS: Basophils % 0.1 %; Hematocrit 41.5 % (37.0-47.0); Hemoglobin 12.8 g/dL (11.5-15.3); Lymphocytes # 1.1 10^3/uL (0.8-4.8); Lymphocytes % 8.2 %; Mean Corpuscular HGB Conc 30.8 g/dL (30.0-36.0); Mean Corpuscular Volume 81.1 fl (81-99); Mean Platelet Volume 8.8 fL (7.4-10.4); Monocytes # 0.4 10^3/uL (0.2-0.9); Monocytes % 2.6 %; Neutrophils # 11.97 10^3/uL (1.8-7.7); Neutrophils % 88.2 %; Nucleated Red Blood Cells % 0 %; Platelet Count 364 10^3/cmm (130-400); Red Blood Count 5.12 10^6/uL (4.1-5.3); Red Cell Distribution Width 16.2 % (12.1-15.1); White Blood Count 13.6 10^3/uL (4.0-10.0)
[2022-05-13] MEDS: acetaminophen 1,000 MG/100 ML PIGGYBACK 400 MG IV (00:11)
[2022-05-13 00:28] LABS: Influenza A by IFA Negative (Negative); Influenza B by IFA Negative (Negative)
[2022-05-13 00:45] LABS: SARS Covid-2 Antigen Negative (Negative)
[2022-05-13] MEDS: diphenhydrAMINE 50 mg/mL SDV 1mL IVP (01:21)
[2022-05-13] MEDS: hydrocortisone 100 mg/2 mL SDV IVP (01:21)
[2022-05-13] MEDS: iohexol 350 mg/mL 500 mL Btl (per mL) IV (01:23)
[2022-05-13] MEDS: levofloxacin-dextrose 5 % 750 MG/150 ML PREMIX 100 MG IV (03:15)
[2022-05-13 04:35] LABS: Troponin 5 2HR 6.09 ng/L (0-10)
[2022-05-13 04:38] LABS: Lactate (Lactic Acid level) 2.1 mmol/L (0.5-2.2)
--- NOTE | 2022-05-13 04:57 | ECG_ITS ---
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 Measurements Intervals [place] Rate: 59 P: 64 MT: 173 QRS: 11 QRSD: 98 T: 54 QT: 463 QTc: 460 Interpretive Statements SINUS BRADYCARDIA Compared to ECG 05/19/2021 04:44:43 Sinus rhythm no longer present Electronically Signed On 05-13-2022 11:21:55 STEAMBLASTER by Jason Joseph M.D. [id number]
[2022-05-13 05:20] LABS: Troponin 5 2HR Delta 0.09 ABS# (0-10)
[2022-05-13] MEDS: vancomycin 1,250 MG/250 ML PIGGYBACK 200 MG IV (05:53)
--- NOTE | 2022-05-13 07:07 | PM.HP ---
Providers/Chief Complaint Admitting Physician: Courtney Elaine MD Primary Care Provider: Nancy Ramirez APN Chief Complaint: OZ 70's Pneumnnia History of Present Illness Kathleen Valdez is a 72 year old female with past medical history of hypertension, cervical spine fracture and spondylosis?presenting to the emergency room today with 1 week of cough and dyspnea. Patient has been having experiencing cough with hemoptysis which started approximately 1 week ago. On Friday she visited with her primary care provider who started her on an outpatient course of levofloxacin, she received 10 mg short of dexamethasone and was thereafter started on p.o. prednisone. In spite of taking the antibiotics, prednisone and increasing her frequency of nebulization she has not had any significant relief in her symptoms. She was noted to be desatting down to 70% and presented into the emergency room. Patient typically does not wear any oxygen at home. Denies any complaints of chest pain or palpitations. Denies any syncope. She has not had similar symptoms in the past. CTA of the chest performed in the ER was negative for PE, showed bilateral lower lobe pneumonitis. Patient reports a past history of swallowing difficulty and choking on her food since around 1 year when she had a spinal hematoma which needed to be evacuated. She had a swallow eval around that time which was reportedly normal. She does report she chokes on things that are dry and crumbly. Has to drink a lot of water along with her meals. No other recent sick contacts Review of Systems General: Reports: 10 or more systems reviewed and unremarkable except in HPI and below Const: Denies: fever(s), chills or body aches Eyes: Denies: change in vision, blurry vision or photophobia ENMT: Reports: hoarseness; Denies: throat pain, enlarged tonsils, odynophagia or nasal congestion Card: Denies: chest pain, palpitations, irregular heart rhythm, edema, swelling of feet/ankles, lightheadedness, pre-syncope, dyspnea on exertion or orthopnea Resp: Denies: dyspnea, productive cough, non-productive cough, wheezing, stridor, pain on inspiration, change in phlegm color, hemoptysis or chest congestion GI: Denies: abdominal pain, nausea, vomiting, hematemesis, coffee ground emesis, dysphagia, heartburn, diarrhea, constipation, GI cramping, change in stool character, hematochezia or melena : Denies: flank pain, difficulty voiding, dysuria, urinary frequency, urinary urgency, urinary hesitancy or hematuria Musc: Denies: neck pain, back pain, extremity pain, joint swelling, joint warmth or deformity Neuro: Denies: headache(s), numbness in extremities, weakness in extremities, sensory changes, difficulty walking, frequent falls, dizziness, vertigo, behavioral changes, Slurred speech present or seizure-like activity Psych: Denies: anxiety, depression, suicidal ideation or homicidal ideation Endo: Denies: polyuria, polydipsia, tired all the time, cold intolerance or hot flashes Ko/Lymph: Denies: easy bruising or easy bleeding Medications/Allergies Home Medications Medication Instructions Recorded Confirmed Last Taken Type aspirin 325 mg tablet 325 mg PO DAILY@0800 02/10/20 05/13/22 05/12/22 History escitalopram oxalate 20 mg tablet 20 mg PO DAILY@0800 02/10/20 05/13/22 05/12/22 History (Lexapro) loratadine 10 mg tablet 10 mg PO DAILY 02/10/20 05/13/22 05/12/22 History naproxen 500 mg tablet 500 mg PO BID PRN Pain 02/10/20 05/13/22 05/12/22 History oxybutynin chloride 15 mg 15 mg PO BID@0802/10/20 05/13/22 05/12/22 History tablet,extended release 24 hr omeprazole 20 mg capsule,delayed 40 mg PO BID@0800,199902/27/20 05/13/22 05/12/22 History release albuterol sulfate 90 mcg/actuation 2 puff inhalation QID PRN 05/17/21 05/13/22 05/12/22 History aerosol inhaler (ProAir HFA) Shortness Of Breath fluconazole 150 mg tablet 150 mg PO DAILY #3 tabs 08/13/21 05/13/22 05/12/22 Rx tramadol 50 mg tablet 50 mg PO TID PRN pain 10 days #30 09/04/21 05/13/22 05/12/22 Rx tabs baclofen 10 mg tablet 10 mg PO QID PRN spasm 30 days 11/08/21 05/13/22 05/12/22 Rx #120 tabs aspirin 325 mg PO DAILY 05/13/22 05/13/22 05/12/22 History furosemide 40 mg PO BID PRN Edema 05/13/22 05/13/22 05/12/22 History ondansetron 4 mg disintegrating See Rx Instructions .Route 05/13/22 05/13/22 Unknown History tablet .COMPLEX PRN Nausea triamterene-hydrochlorothiazid See Rx Instructions .Route .COMPLEX 05/13/22 05/13/22 05/12/22 History valacyclovir 1 gram tablet 2,000 mg PO BID PRN Cold Sores 05/13/22 05/13/22 Unknown History (Valtrex) Allergies Allergy/AdvReac Type Severity Reaction Status Date / Time adhesive tape Allergy rash, sores Verified 11/01/21 11:03 barium iodide Allergy ALGY-Bliste Verified 11/01/21 11:03 r barium sulfate Allergy ALGY-Bliste Verified 11/01/21 11:03 r codeine Allergy ADR-Vomitin Verified 11/01/21 11:03 g Penicillins Allergy ALGY-Hives Verified 11/01/21 11:03 shellfish derived Allergy anaphlaxis Verified 11/01/21 11:03 Sulfa (Sulfonamide Allergy ALGY-Hives Verified 11/01/21 11:03 Antibiotics) PFSH Acute PFSH: Medical History Bronchitis due to 2019-nCoV Cervical spine fracture Cervical spondylosis with myelopathy COVID-19 H/O upper respiratory infection Hypertension Morbid obesity Surgical History H/O total knee replacement Social History Smoking and tobacco status: never smoked Alcohol intake: never Female Reproductive History: Spontaneous abortions: No Vitals/I&O/Wt Last Vital Signs Temp 97.9 F 05/13/22 05:23 Pulse 68 05/13/22 05:23 Resp 20 H 05/13/22 05:23 BP 171/100 05/13/22 05:23 Pulse Ox 92 05/13/22 05:23 O2 Del Method 05/13/22 05:23 O2 Flow Rate 4 05/13/22 05:23 05/12/22 05/13/22 05/13/22 22:59 06:59 14:59 Intake Total 250 / 250 Balance 250 / 250 Weight last 48 hrs Weight 124.738 kg Physical Exam Narrative: General: No acute distress, AO x3 HEENT: PERRLA, pupils bilaterally equal and reactive, pallors not present Chest: Normal vesicular breath sounds, no added sounds, equal good air entry bilaterally CVS: S1-S2 regular, no murmurs, no tachycardia, no gallops, no rubs Abdomen: Soft, nontender, no organomegaly, bowel sounds present Neuro: No focal deficits, no facial deformity, AO x3, power 5/5 in all limbs Data 05/12/22 23:12 05/12/22 23:12 Micro: Microbiology 05/13/22 03:36 Blood Culture - Preliminary Blood SPECIMEN COLLECTED 05/13/22 03:34 Blood Culture - Preliminary Blood SPECIMEN COLLECTED Other data: Radiology Impressions Chest X-Ray 05/12/22 22:43 IMPRESSION: 1. Bibasilar atelectasis versus infiltrate. 2. Cardiomegaly. Chest CTA 05/12/22 23:09 IMPRESSION: 1. No definite PE. 2. Large heart with evidence of pulmonary hypertension. 3. Increasing areas of cgtr-[id number]-right mid to lower lung atelectasis, pneumonitis, or developing airspace disease. Likely reactive mild lymphadenopathy. Recommend six-month follow-up. 4. Mild COPD. Multiple chronic findings above. Laboratory Results WBC 13.6 10^3/uL (4.0-10.0) H 05/12/22 23:12 RBC 5.12 10^6/uL (4.1-5.3) 05/12/22 23:12 Hgb 12.8 g/dL (11.5-15.3) 05/12/22 23:12 Hct 41.5 % (37.0-47.0) 05/12/22 23:12 MCV 81.1 fl (81-99) 05/12/22 23:12 MCH 25.0 pg (28.0-34.0) L 05/12/22 23:12 MCHC 30.8 g/dL (30.0-36.0) 05/12/22 23:12 RDW 16.2 % (12.1-15.1) H 05/12/22 23:12 Plt Count 364 10^3/cmm (130-400) 05/12/22 23:12 MPV 8.8 fL (7.4-10.4) 05/12/22 23:12 Neut % (Auto) 88.2 % 05/12/22 23:12 Lymph % (Auto) 8.2 % 05/12/22 23:12 [place] % (Auto) 2.6 % 05/12/22 23:12 Eos % (Auto) 0.0 % 05/12/22 23:12 Baso % (Auto) 0.1 % 05/12/22 23:12 Neut # (Auto) 11.97 10^3/uL (1.8-7.7) H 05/12/22 23:12 Lymph # (Auto) 1.1 10^3/uL (0.8-4.8) 05/12/22 23:12 [place] # (Auto) 0.4 10^3/uL (0.2-0.9) 05/12/22 23:12 Eos # (Auto) 0.0 10^3/uL (0.0-0.8) 05/12/22 23:12 Baso # (Auto) 0.0 10^3/uL (0.0-0.1) 05/12/22 23:12 Nucleated RBC % (auto) 0 % 05/12/22 23:12 Nucleated RBCs # 0.0 /100WBC 05/12/22 23:12 D-Dimer 0.94 ug/mIFEU (0-0.59) H 05/12/22 23:12 Sodium 135 mmol/L (136-145) L 05/12/22 23:12 Potassium 4.3 mmol/L (3.5-5.1) 05/12/22 23:12 Chloride 97 mmol/L (98-107) L 05/12/22 23:12 Carbon Dioxide 25 mmol/L (22-29) 05/12/22 23:12 Anion Gap 17.3 (5-19) 05/12/22 23:12 BUN 27 mg/dL (8-23) H 05/12/22 23:12 Creatinine 0.9 mg/dL (0.5-0.9) 05/12/22 23:12 GFR Calculation Not Reportable 05/12/22 23:12 Glucose 134 mg/dL (65-115) H 05/12/22 23:12 Calculated Osmolality 287 mOsm/kg (285-295) 05/12/22 23:12 Lactate 2.1 mmol/L (0.5-2.2) 05/13/22 03:36 Calcium 8.7 mg/dL (8.5-10.5) 05/12/22 23:12 Total Bilirubin 0.2 mg/dL (0.15-1.2) 05/12/22 23:12 AST 17 U/L (0-32) 05/12/22 23:12 ALT 16 U/L (0-33) 05/12/22 23:12 Alkaline Phosphatase 102 U/L (35-105) 05/12/22 23:12 Troponin T Baseline 6 ng/L (0-10) 05/12/22 23:12 Troponin T 120 Minute 6.09 ng/L (0-10) 05/13/22 03:36 Delta Troponin T 0.09 ABS# (0-10) 05/13/22 03:36 NT-Pro-B Natriuret Pep 95 pg/mL (0-125) 05/12/22 23:12 Total Protein 7.3 g/dL (6.6-8.7) 05/12/22 23:12 Albumin 3.8 g/dL (3.5-5.2) 05/12/22 23:12 Globulin 3.5 g/dL (1.3-4.6) 05/12/22 23:12 Coronavirus 229E (PCR) Cancelled 05/12/22 23:10 Influenza Type A Ag Negative (Negative) 05/12/22 23:10 Influenza Type B Ag Negative (Negative) 05/12/22 23:10 SARS-CoV-2 (PCR) Cancelled 05/12/22 23:10 SARS-CoV-2 Ag (Rapid) Negative (Negative) 05/12/22 23:10 A&P Assessment and plan (1) Community acquired pneumonia: Patient presenting with 1 week duration of cough hemoptysis and hypoxia not relieved by outpatient treatment with steroids and antibiotics. CTA performed today showing bilateral infiltrates concerning for pneumonitis/pneumonia Start empiric treatment with cefepime vancomycin. Atypical coverage not needed at this time as patient has had 1 week course of levofloxacin which would provide the same. Check respiratory viral panel Check sputum culture, bacterial antigen, urine Legionella antigen Reported allergy to penicillins, however has tolerated several cephalosporins in the past without issues. No current clinical signs of heart failure Cough suppressants to minimize risk of hemoptysis. Hold aspirin 325 for now until hemoptysis resolves. Budesonide and DuoNeb scheduled inhalation, hold off on systemic steroids for now. No wheezing noted on exam at this present time. Supplemental O2 to keep saturation greater than 92% Swallow evaluation to assess for possible aspiration (2) Hypoxia: Attestations Medical Necessity Statement*: Anticipate greater than 2 midnight admission for management of pneumonia, having failed outpatient therapy Coding Level of Care Code Acute Code for Chg Fwd Moderate MDM includes number and complexity of problems actively addressed during encounter, amount and/or complexity of data reviewed/ordered and described risk of complication, morbidity or mortality of management as documented Diagnoses Community acquired pneumonia J18.9 Hypoxia R09.02
[2022-05-13 07:32] LABS: Troponin 5 6HR Delta 0 ng/L (0-12)
[2022-05-13 07:45] LABS: Procalcitonin 0.02 ng/mL (0-0.5)
[2022-05-13] MEDS: budesonide 0.5 mg/2 mL Neb INHALATION ×2 (08:32→20:38)
[2022-05-13] MEDS: ipratropium-albuterol 3 mL Neb INHALATION ×3 (08:32→20:38)
[2022-05-13] MEDS: fluconazole 100 mg Tablet 150 MG PO (09:23)
[2022-05-13] MEDS: oxybutynin chloride XL 5 MG TABLET 15 MG PO ×2 (09:23→20:46)
[2022-05-13] MEDS: loratadine 10 mg Tablet PO (09:24)
[2022-05-13] MEDS: escitalopram 10 mg Tablet 20 MG PO (09:24)
[2022-05-13] MEDS: cefepime 2,000 MG in sodium chloride 0.9% (plus) 50 ML 100 MG IV (09:24)
[2022-05-13] MEDS: pantoprazole DR 40 mg Tablet PO (10:23)
[2022-05-13] MEDS: cetylpyridinium Lozenge 1 EACH MUCOUS MEM (10:24)
[2022-05-13] MEDS: enoxaparin 40 mg/0.4 mL Syringe SUBCUT (10:25)
[2022-05-13] MEDS: baclofen 10 mg Tablet PO (14:39)
[2022-05-13] MEDS: metoprolol succinate ER (24 HR) 25 mg Tablet PO (15:06)
--- NOTE | 2022-05-13 15:10 | PM.PN ---
Subjective Subjective: Patient was seen this morning, she tells me that she worked with speech therapy, and they had no concerns, she tells me that she uses aspiration precautions when she is at home, she does not want to have any barium swallow, due to adverse reaction to barium, she thinks she has COVID long since she had COVID back in February, she was treated with steroids, with Paxlovid, but she continues to have 6 shortness of breath, but now the shortness of breath has significantly worsened, no recent travel, she does have a nonproductive cough, Vitals/I&O/Wt Last Vital Signs Temp 98.2 F 05/13/22 12:00 Pulse 74 05/13/22 14:05 Resp 18 05/13/22 14:05 BP 152/76 05/13/22 12:00 Pulse Ox 94 05/13/22 14:05 O2 Del Method 05/13/22 14:05 O2 Flow Rate 4 05/13/22 14:05 05/13/22 05/13/22 05/13/22 06:59 14:59 22:59 Intake Total 250 / 250 1020 / 1020 Balance 250 / 250 1020 / 1020 Weight last 48 hrs Weight 124.738 kg Physical Exam Const: COMMON NORMALS: no acute distress and patient oriented x3 Resp: COMMON NORMALS: normal respiratory effort, No retractions and No use of accessory muscles AUSCULTATION: wheezes Cardio: COMMON NORMALS: regular rate, regular rhythm, S1 normal heart sound present and S2 normal heart sound present RATE: regular rate RHYTHM: regular rhythm HEART SOUNDS: S1 normal heart sound present and S2 normal heart sound present GI: COMMON NORMALS: Normal to inspection, nondistended, normoactive bowel sounds present and non-tender Extremity: COMMON NORMALS: no pedal edema Neuro: COMMON NORMALS: patient oriented x3 Psych: COMMON NORMALS: mental status grossly normal Data 05/12/22 23:12 05/12/22 23:12 Micro: Microbiology 05/13/22 03:36 Blood Culture - Preliminary Blood SPECIMEN COLLECTED 05/13/22 03:34 Blood Culture - Preliminary Blood SPECIMEN COLLECTED A&P Assessment and plan (1) Community acquired pneumonia: Patient presenting with 1 week duration of cough hemoptysis and hypoxia not relieved by outpatient treatment with steroids and antibiotics. CTA performed today showing bilateral infiltrates concerning for pneumonitis/pneumonia Start empiric treatment with cefepime vancomycin. Atypical coverage not needed at this time as patient has had 1 week course of levofloxacin which would provide the same. Check respiratory viral panel Check sputum culture, bacterial antigen, urine Legionella antigen Reported allergy to penicillins, however has tolerated several cephalosporins in the past without issues, patient started develop rash on her face, and her arms after receiving cefepime we will switch to meropenem No current clinical signs of heart failure Cough suppressants to minimize risk of hemoptysis. Hold aspirin 325 for now until hemoptysis resolves. Budesonide and DuoNeb scheduled inhalation, hold off on systemic steroids for now. No wheezing noted on exam at this present time. Supplemental O2 to keep saturation greater than 92% Swallow evaluation to assess for possible aspiration, aspiration precautions (2) Hypoxia: Attestations Medical Necessity Statement*: Patient requires hospitalization for pneumonia Diagnoses Community acquired pneumonia J18.9 Hypoxia R09.02
[2022-05-13 17:08] LABS: Adenovirus Not Detected (NOT DETECT); Chlamydia Pneumoniae Not Detected (NOT DETECT); Coronavirus 229E,HKU1,NL63,OC4 Not Detected (NOT DETECT); Human Metapneumovirus Not Detected (NOT DETECT); Human Rhinovirus/Enterovirus Detected (NOT DETECT); Influenza A Not Detected (NOT DETECT); Influenza A H1 Not Detected (NOT DETECT); Influenza A H1-2009 Not Detected (NOT DETECT); Influenza A H3 Not Detected (NOT DETECT); Influenza B Not Detected (NOT DETECT); Mycoplasma Pneumoniae Not Detected (NOT DETECT); Parainfluenza Virus Type 1 Not Detected (NOT DETECT); Parainfluenza Virus Type 2 Not Detected (NOT DETECT); Parainfluenza Virus Type 3 Not Detected (NOT DETECT); Parainfluenza Virus Type 4 Not Detected (NOT DETECT); Respiratory Syncytial Virus A Not Detected (NOT DETECT); Respiratory Syncytial Virus B Not Detected (NOT DETECT); SARS-COV-2 Not Detected (NOT DETECT)
[2022-05-13] MEDS: meropenem 1,000 MG in sodium chloride 0.9% (plus) 50 ML 100 MG IV (17:11)
[2022-05-13] MEDS: vancomycin 1,500 MG/300 ML PIGGYBACK 200 MG IV (17:45)
--- NOTE | 2022-05-13 22:58 | PC.NURSE ---
Upon assessment patient has a slight expiratory wheeze and crackles which are worse on the left side. Patient has a dry, persistent hacking cough that she says gets worse at night but has stopped being productive.
[2022-05-14] VITALS (12 sets, daily range): BP systolic 130–136; BP diastolic 68–88; PULSE 59–93; RESP 15–20; TEMP 36.4–36.8; O2SAT 89–98
[2022-05-14] MEDS: benzonatate 100 mg Capsule PO ×3 (01:02→23:46)
[2022-05-14] MEDS: TRAMadol 50 mg Tablet PO (01:02)
[2022-05-14] MEDS: meropenem 1,000 MG in sodium chloride 0.9% (plus) 50 ML 100 MG IV ×3 (02:14→17:06)
[2022-05-14] MEDS: ipratropium-albuterol 3 mL Neb INHALATION ×4 (02:32→20:59)
[2022-05-14 05:59] LABS: Basophils % 0.2 %; Eosinophils % 0.3 %; Hematocrit 40.9 % (37.0-47.0); Hemoglobin 12.3 g/dL (11.5-15.3); Lymphocytes # 2.6 10^3/uL (0.8-4.8); Lymphocytes % 19.5 %; Mean Corpuscular HGB Conc 30.1 g/dL (30.0-36.0); Mean Corpuscular Hemoglobin 25.1 pg (28.0-34.0); Mean Corpuscular Volume 83.5 fl (81-99); Mean Platelet Volume 8.9 fL (7.4-10.4); Monocytes # 0.9 10^3/uL (0.2-0.9); Monocytes % 6.9 %; Neutrophils # 9.82 10^3/uL (1.8-7.7); Neutrophils % 72.4 %; Nucleated Red Blood Cells % 0 %; Platelet Count 310 10^3/cmm (130-400); Red Cell Distribution Width 16.7 % (12.1-15.1); White Blood Count 13.6 10^3/uL (4.0-10.0)
[2022-05-14 06:16] LABS: Alanine Aminotransferase 17 U/L (0-33); Albumin Level 3.2 g/dL (3.5-5.2); Alkaline Phosphatase 86 U/L (35-105); Aspartate Amino Transferase 20 U/L (0-32); Blood Urea Nitrogen 22 mg/dL (8-23); Calcium 8.5 mg/dL (8.5-10.5); Carbon Dioxide 24 mmol/L (22-29); Chloride 101 mmol/L (98-107); Globulin 3.1 g/dL (1.3-4.6); Glucose 91 mg/dL (65-115); Osmolality Calculated 285 mOsm/kg (285-295); Sodium 136 mmol/L (136-145); Total Bilirubin 0.2 mg/dL (0.15-1.2); Total Protein 6.3 g/dL (6.6-8.7)
[2022-05-14 06:35] LABS: Anion Gap 14.8 (5-19); Potassium 3.8 mmol/L (3.5-5.1)
[2022-05-14] MEDS: budesonide 0.5 mg/2 mL Neb INHALATION ×2 (07:41→20:59)
[2022-05-14] MEDS: fluconazole 100 mg Tablet 150 MG PO (08:42)
[2022-05-14] MEDS: enoxaparin 40 mg/0.4 mL Syringe SUBCUT (08:42)
[2022-05-14] MEDS: oxybutynin chloride XL 5 MG TABLET 15 MG PO ×2 (08:42→19:50)
[2022-05-14] MEDS: loratadine 10 mg Tablet PO (08:43)
[2022-05-14] MEDS: escitalopram 10 mg Tablet 20 MG PO (08:43)
[2022-05-14] MEDS: baclofen 10 mg Tablet PO ×2 (08:44→13:40)
[2022-05-14] MEDS: metoprolol succinate ER (24 HR) 25 mg Tablet PO (08:44)
[2022-05-14] MEDS: pantoprazole DR 40 mg Tablet PO (08:44)
--- NOTE | 2022-05-14 10:26 | PC.CHAP ---
Pastoral Care Encounter/Spiritual Assessment Type of Contact [] Declined grease press helper visit [] Patient/Family/Request visit [] Outpatient visit [] Follow-up visit [] Physician referral [] Code/Alert [] Routine visit [] Staff referral [] Actively dying [] Patient sleeping [] Family support [] [] Out of room [] Palliative care [] [x] Receiving care in room [] Pre-surgical visit [] Trauma [] Long length of stay [] ICU visit [] Other: Relational/Emotional Strength [] Patient feels connected with others/family/visitors/staff [] Distress [] Loneliness/isolation [] Abandonment Spirituality of Patient [] Person of Kiki [] Attends Gnosticism of their Kiki [] Believes in Prayer [] Reads Bible or Baptism materials [] There are Spiritual issues to be addressed Land Planner Interventions [] Prayer [] Active listening [] Non-anxious presence [] Spiritual/emotional support [] Crisis/trauma care [] Spiritual counseling [] Bereavement support [] Provided bereavement packet [] Provided Bible/devotional materials [] Provided toy/stuffed animal, coloring book to patient or family member [] Provided Communion [] Anointing/[place] [] Salvation [] Completed spiritual assessment [] Other: Impact on Illness or Injury [] Angry [] Fearful [] Anxious [] Often cries [] Exhaustion [] Unable to work [] Unable to attend sikh [] Unable to walk/stand [] Unable to read [] Unable to drive [] Unable to eat/drink [] Unable to sleep [] Unable to be with family [] Patient intubated [] Other: Summary Time spent with patient
[2022-05-14] MEDS: vancomycin 1,500 MG/300 ML PIGGYBACK 200 MG IV (13:39)
--- NOTE | 2022-05-14 14:50 | PM.PN ---
Subjective Subjective: Patient was seen this morning, she is, she tells me that she actually takes baclofen 10 3 times daily as needed, will update order she feels better, she is doing better with the meropenem she is tell me she coughed all night, but is a nonproductive cough Vitals/I&O/Wt Last Vital Signs Temp 98.0 F 05/14/22 12:00 Pulse 93 05/14/22 13:43 Resp 20 H 05/14/22 13:39 BP 134/88 05/14/22 12:00 Pulse Ox 89 L 05/14/22 13:39 O2 Del Method 05/14/22 13:39 O2 Flow Rate 3 05/14/22 13:39 05/13/22 05/14/22 05/14/22 22:59 06:59 14:59 Intake Total 830 / 1850 290 / 2140 410 / 410 Output Total 300 / 300 Balance 830 / 1850 -10 / 1840 410 / 410 Weight last 48 hrs Weight 124.738 kg Physical Exam Const: COMMON NORMALS: no acute distress and patient oriented x3 Resp: COMMON NORMALS: normal respiratory effort, No retractions, No use of accessory muscles and clear to auscultation bilaterally AUSCULTATION: clear to auscultation bilaterally Cardio: COMMON NORMALS: regular rate, regular rhythm, S1 normal heart sound present and S2 normal heart sound present RATE: regular rate RHYTHM: regular rhythm HEART SOUNDS: S1 normal heart sound present and S2 normal heart sound present GI: COMMON NORMALS: Normal to inspection, nondistended, normoactive bowel sounds present and non-tender Extremity: COMMON NORMALS: no pedal edema Neuro: COMMON NORMALS: patient oriented x3 Psych: COMMON NORMALS: mental status grossly normal Data 05/14/22 05:41 05/14/22 05:41 Micro: Microbiology 05/13/22 03:36 Blood Culture - Preliminary Blood NEGATIVE TO DATE 05/13/22 03:34 Blood Culture - Preliminary Blood NEGATIVE TO DATE A&P Assessment and plan (1) Community acquired pneumonia: Patient presenting with 1 week duration of cough hemoptysis and hypoxia not relieved by outpatient treatment with steroids and antibiotics. CTA performed today showing bilateral infiltrates concerning for pneumonitis/pneumonia Start empiric treatment with meropenem and vancomycin. Check respiratory viral panel positive for rhinovirus Check sputum culture, bacterial antigen, urine Legionella antigen No current clinical signs of heart failure Cough suppressants to minimize risk of hemoptysis. Hold aspirin 325 for now until hemoptysis resolves. Budesonide and DuoNeb scheduled inhalation, hold off on systemic steroids for now. No wheezing noted on exam at this present time. Supplemental O2 to keep saturation greater than 92% Swallow evaluation to assess for possible aspiration, aspiration precautions (2) Hypoxia: (3) Rhinovirus infection: Attestations Medical Necessity Statement*: Patient returns hospitalization for pneumonia, rhinovirus, respiratory failure Diagnoses Community acquired pneumonia J18.9 Hypoxia R09.02 Rhinovirus infection B34.8
[2022-05-14] MEDS: acetaminophen 325 mg Tablet 650 MG PO (20:35)
[2022-05-15] VITALS (13 sets, daily range): BP systolic 133–164; BP diastolic 71–79; PULSE 61–90; RESP 16–22; TEMP 36.4–36.8; O2SAT 89–94
[2022-05-15] MEDS: albuterol 2.5 mg/3 mL Neb INHALATION ×3 (00:28→16:37)
[2022-05-15] MEDS: meropenem 1,000 MG in sodium chloride 0.9% (plus) 50 ML 100 MG IV ×3 (01:27→17:12)
[2022-05-15 05:20] LABS: Basophils # 0.1 10^3/uL (0.0-0.1); Basophils % 0.5 %; Eosinophils # 0.2 10^3/uL (0.0-0.8); Eosinophils % 1.8 %; Hematocrit 40.6 % (37.0-47.0); Lymphocytes # 2.3 10^3/uL (0.8-4.8); Lymphocytes % 19.8 %; Mean Corpuscular HGB Conc 29.6 g/dL (30.0-36.0); Mean Corpuscular Hemoglobin 25.1 pg (28.0-34.0); Mean Corpuscular Volume 84.8 fl (81-99); Mean Platelet Volume 9.1 fL (7.4-10.4); Monocytes # 0.8 10^3/uL (0.2-0.9); Neutrophils # 8.11 10^3/uL (1.8-7.7); Nucleated Red Blood Cells % 0 %; Platelet Count 315 10^3/cmm (130-400); Red Blood Count 4.79 10^6/uL (4.1-5.3); Red Cell Distribution Width 16.8 % (12.1-15.1); White Blood Count 11.6 10^3/uL (4.0-10.0)
[2022-05-15 05:29] LABS: Blood Urea Nitrogen 28 mg/dL (8-23); Calcium 8.4 mg/dL (8.5-10.5); Carbon Dioxide 27 mmol/L (22-29); Chloride 102 mmol/L (98-107); Glucose 94 mg/dL (65-115); Osmolality Calculated 291 mOsm/kg (285-295); Sodium 138 mmol/L (136-145)
[2022-05-15 05:32] LABS: Anion Gap 12.9 (5-19); Potassium 3.9 mmol/L (3.5-5.1)
[2022-05-15 05:39] LABS: Vancomycin Trough 11.3 ug/mL (10-15)
[2022-05-15] MEDS: vancomycin 1,500 MG/300 ML PIGGYBACK 200 MG IV ×2 (06:16→23:12)
[2022-05-15] MEDS: enoxaparin 40 mg/0.4 mL Syringe SUBCUT (09:14)
[2022-05-15] MEDS: TRAMadol 50 mg Tablet PO ×3 (09:14→23:12)
[2022-05-15] MEDS: fluconazole 100 mg Tablet 150 MG PO (09:15)
[2022-05-15] MEDS: benzonatate 100 mg Capsule PO (09:16)
[2022-05-15] MEDS: baclofen 10 mg Tablet PO ×3 (09:16→23:12)
[2022-05-15] MEDS: pantoprazole DR 40 mg Tablet PO (09:16)
[2022-05-15] MEDS: escitalopram 10 mg Tablet 20 MG PO (09:16)
[2022-05-15] MEDS: oxybutynin chloride XL 5 MG TABLET 15 MG PO ×2 (09:16→21:13)
[2022-05-15] MEDS: loratadine 10 mg Tablet PO (09:16)
[2022-05-15] MEDS: metoprolol succinate ER (24 HR) 25 mg Tablet PO (09:16)
[2022-05-15] MEDS: ipratropium-albuterol 3 mL Neb INHALATION ×2 (13:41→20:55)
[2022-05-15] MEDS: benzonatate 100 mg Capsule 200 MG PO ×2 (14:29→21:14)
--- NOTE | 2022-05-15 16:34 | PM.PN ---
Subjective Subjective: Patient continues to complain of shortness of breath and weakness this morning, she tells me that she needs albuterol more frequently, she continues to have a cough Vitals/I&O/Wt Last Vital Signs Temp 97.9 F 05/15/22 11:30 Pulse 85 05/15/22 13:42 Resp 18 05/15/22 13:42 BP 133/79 05/15/22 11:30 Pulse Ox 92 05/15/22 13:42 O2 Del Method 05/15/22 13:42 O2 Flow Rate 2.5 05/15/22 13:42 05/15/22 05/15/22 05/15/22 06:59 14:59 22:59 Intake Total 50 / 1050 350 / 350 Balance 50 / 1050 350 / 350 Physical Exam Const: COMMON NORMALS: no acute distress and patient oriented x3 Resp: COMMON NORMALS: normal respiratory effort, No retractions and No use of accessory muscles AUSCULTATION: wheezes Cardio: COMMON NORMALS: regular rate, regular rhythm, S1 normal heart sound present and S2 normal heart sound present RATE: regular rate RHYTHM: regular rhythm HEART SOUNDS: S1 normal heart sound present and S2 normal heart sound present GI: COMMON NORMALS: Normal to inspection, nondistended, normoactive bowel sounds present and non-tender Extremity: COMMON NORMALS: no pedal edema Neuro: COMMON NORMALS: patient oriented x3 Psych: COMMON NORMALS: mental status grossly normal Data 05/15/22 04:49 05/15/22 04:49 A&P Assessment and plan (1) Community acquired pneumonia: Patient presenting with 1 week duration of cough hemoptysis and hypoxia not relieved by outpatient treatment with steroids and antibiotics. CTA performed today showing bilateral infiltrates concerning for pneumonitis/pneumonia Continue treatment with meropenem and vancomycin. Check respiratory viral panel positive for rhinovirus Check sputum culture, bacterial antigen, urine Legionella antigen No current clinical signs of heart failure Cough suppressants to minimize risk of hemoptysis. Hold aspirin 325 for now until hemoptysis resolves. Budesonide and DuoNeb scheduled inhalation, will give 1 dose of steroids today Supplemental O2 to keep saturation greater than 92% Swallow evaluation to assess for possible aspiration, aspiration precautions (2) Hypoxia: (3) Rhinovirus infection: Attestations Medical Necessity Statement*: Patient requires hospitalization for pneumonia Diagnoses Community acquired pneumonia J18.9 Hypoxia R09.02 Rhinovirus infection B34.8
[2022-05-15] MEDS: budesonide 0.5 mg/2 mL Neb INHALATION (20:55)
[2022-05-15] MEDS: acetaminophen 325 mg Tablet 650 MG PO (21:14)
[2022-05-16] VITALS (15 sets, daily range): BP systolic 132–169; BP diastolic 72–86; PULSE 67–80; RESP 16–20; TEMP 36.5–36.9; O2SAT 90–97
[2022-05-16] MEDS: ipratropium-albuterol 3 mL Neb INHALATION ×4 (01:03→20:26)
[2022-05-16] MEDS: meropenem 1,000 MG in sodium chloride 0.9% (plus) 50 ML 100 MG IV ×2 (01:08→17:22)
[2022-05-16 05:15] LABS: Basophils % 0.1 %; Hematocrit 38.9 % (37.0-47.0); Lymphocytes # 0.7 10^3/uL (0.8-4.8); Mean Corpuscular HGB Conc 30.8 g/dL (30.0-36.0); Mean Corpuscular Hemoglobin 25.1 pg (28.0-34.0); Mean Corpuscular Volume 81.4 fl (81-99); Mean Platelet Volume 8.9 fL (7.4-10.4); Monocytes # 0.2 10^3/uL (0.2-0.9); Monocytes % 1.3 %; Neutrophils # 11.02 10^3/uL (1.8-7.7); Neutrophils % 91.8 %; Nucleated Red Blood Cells % 0 %; Platelet Count 341 10^3/cmm (130-400); Red Blood Count 4.78 10^6/uL (4.1-5.3); Red Cell Distribution Width 16.5 % (12.1-15.1)
[2022-05-16 05:31] LABS: Anion Gap 13.1 (5-19); Blood Urea Nitrogen 19 mg/dL (8-23); Calcium 8.2 mg/dL (8.5-10.5); Carbon Dioxide 26 mmol/L (22-29); Chloride 101 mmol/L (98-107); Glucose 129 mg/dL (65-115); Osmolality Calculated 286 mOsm/kg (285-295); Potassium 4.1 mmol/L (3.5-5.1); Sodium 136 mmol/L (136-145)
[2022-05-16] MEDS: budesonide 0.5 mg/2 mL Neb INHALATION ×2 (07:39→20:27)
[2022-05-16] MEDS: escitalopram 10 mg Tablet 20 MG PO (07:41)
[2022-05-16] MEDS: oxybutynin chloride XL 5 MG TABLET 15 MG PO ×2 (07:42→20:09)
[2022-05-16] MEDS: fluconazole 100 mg Tablet 150 MG PO (09:03)
[2022-05-16] MEDS: loratadine 10 mg Tablet PO (09:06)
[2022-05-16] MEDS: pantoprazole DR 40 mg Tablet PO (09:08)
[2022-05-16] MEDS: metoprolol succinate ER (24 HR) 25 mg Tablet PO (09:08)
[2022-05-16] MEDS: enoxaparin 40 mg/0.4 mL Syringe SUBCUT (09:08)
[2022-05-16] MEDS: baclofen 10 mg Tablet PO ×2 (09:38→22:23)
[2022-05-16] MEDS: TRAMadol 50 mg Tablet PO ×2 (09:38→22:22)
[2022-05-16] MEDS: meropenem 1,000 MG in sodium chloride 0.9% (plus) 50 ML 200 MG IV (10:21)
[2022-05-16] MEDS: FUROsemide 10 mg/mL SDV 2mL 20 MG IVP (11:10)
--- NOTE | 2022-05-16 14:38 | PM.PN ---
Subjective Subjective: Patient continues to have complaints of shortness of breath and wheezing but she feels that she is overall better, Vitals/I&O/Wt Last Vital Signs Temp 97.7 F 05/16/22 12:00 Pulse 69 05/16/22 12:00 Resp 18 05/16/22 12:00 BP 134/86 05/16/22 12:00 Pulse Ox 94 05/16/22 12:00 O2 Del Method 05/16/22 12:00 O2 Flow Rate 1.5 05/16/22 12:00 05/15/22 05/16/22 05/16/22 22:59 06:59 14:59 Intake Total 290 / 880 350 / 1230 290 / 290 Balance 290 / 880 350 / 1230 290 / 290 Physical Exam Const: COMMON NORMALS: no acute distress and patient oriented x3 Resp: COMMON NORMALS: normal respiratory effort, No retractions and No use of accessory muscles AUSCULTATION: wheezes Cardio: COMMON NORMALS: regular rate, regular rhythm, S1 normal heart sound present and S2 normal heart sound present RATE: regular rate RHYTHM: regular rhythm HEART SOUNDS: S1 normal heart sound present and S2 normal heart sound present GI: COMMON NORMALS: Normal to inspection, nondistended, normoactive bowel sounds present and non-tender Extremity: COMMON NORMALS: no pedal edema Neuro: COMMON NORMALS: patient oriented x3 Psych: COMMON NORMALS: mental status grossly normal Data 05/16/22 04:18 05/16/22 04:18 Micro: Microbiology 05/16/22 00:20 Gram Stain - Final Sputum - Expectorated Sputum 05/15/22 23:19 Legionella Urinary Antigen - Final Urine,Voided A&P Assessment and plan (1) Community acquired pneumonia: Patient presenting with 1 week duration of cough hemoptysis and hypoxia not relieved by outpatient treatment with steroids and antibiotics. CTA performed today showing bilateral infiltrates concerning for pneumonitis/pneumonia Continue treatment with meropenem, stop vancomycin as MRSA nares negative Check respiratory viral panel positive for rhinovirus Check sputum culture, bacterial antigen, urine Legionella antigen No current clinical signs of heart failure Cough suppressants to minimize risk of hemoptysis. Hold aspirin 325 for now until hemoptysis resolves. Budesonide and DuoNeb scheduled inhalation, additional steroid doses today Supplemental O2 to keep saturation greater than 92% Swallow evaluation to assess for possible aspiration, aspiration precautions (2) Hypoxia: (3) Rhinovirus infection: Attestations Medical Necessity Statement*: Patient requires hospitalization for pneumonia, rhinovirus and, hypoxia Diagnoses Community acquired pneumonia J18.9 Hypoxia R09.02 Rhinovirus infection B34.8
[2022-05-16] MEDS: acetaminophen 325 mg Tablet 650 MG PO (22:22)
[2022-05-17] VITALS (13 sets, daily range): BP systolic 131–167; BP diastolic 66–89; PULSE 62–89; RESP 16–20; TEMP 36.4–36.8; O2SAT 90–97
[2022-05-17] MEDS: benzonatate 100 mg Capsule 200 MG PO ×2 (00:43→21:33)
[2022-05-17] MEDS: ipratropium-albuterol 3 mL Neb INHALATION ×4 (03:20→21:20)
[2022-05-17 03:28] LABS: Basophils % 0.1 %; Eosinophils % 0.1 %; Hematocrit 39.2 % (37.0-47.0); Lymphocytes # 1.6 10^3/uL (0.8-4.8); Lymphocytes % 10.4 %; Mean Corpuscular HGB Conc 30.6 g/dL (30.0-36.0); Mean Corpuscular Volume 81.7 fl (81-99); Mean Platelet Volume 8.8 fL (7.4-10.4); Monocytes # 0.8 10^3/uL (0.2-0.9); Neutrophils # 12.91 10^3/uL (1.8-7.7); Neutrophils % 83.8 %; Nucleated Red Blood Cells % 0 %; Platelet Count 344 10^3/cmm (130-400); Red Cell Distribution Width 16.6 % (12.1-15.1); White Blood Count 15.4 10^3/uL (4.0-10.0)
[2022-05-17] MEDS: meropenem 1,000 MG in sodium chloride 0.9% (plus) 50 ML 100 MG IV ×2 (03:36→11:40)
[2022-05-17 03:44] LABS: Blood Urea Nitrogen 21 mg/dL (8-23); Calcium 8.2 mg/dL (8.5-10.5); Carbon Dioxide 27 mmol/L (22-29); Chloride 103 mmol/L (98-107); Glucose 146 mg/dL (65-115); Osmolality Calculated 294 mOsm/kg (285-295); Sodium 139 mmol/L (136-145)
[2022-05-17] MEDS: escitalopram 10 mg Tablet 20 MG PO (07:51)
[2022-05-17] MEDS: oxybutynin chloride XL 5 MG TABLET 15 MG PO ×2 (07:52→21:33)
[2022-05-17] MEDS: pantoprazole DR 40 mg Tablet PO (08:00)
[2022-05-17] MEDS: fluconazole 100 mg Tablet 150 MG PO (08:00)
[2022-05-17] MEDS: loratadine 10 mg Tablet PO (08:00)
[2022-05-17] MEDS: metoprolol succinate ER (24 HR) 25 mg Tablet PO (08:01)
[2022-05-17] MEDS: enoxaparin 40 mg/0.4 mL Syringe SUBCUT (08:01)
[2022-05-17] MEDS: budesonide 0.5 mg/2 mL Neb INHALATION ×2 (08:13→21:20)
[2022-05-17] MEDS: nystatin 100,000 unit/mL UDC 5 mL 100000 UNIT PO ×2 (13:42→21:34)
--- NOTE | 2022-05-17 13:57 | PM.PN ---
Subjective Subjective: Patient was seen this morning, she continues wheezing, shortness of breath, she feels weak Vitals/I&O/Wt Last Vital Signs Temp 98.3 F 05/17/22 12:00 Pulse 88 05/17/22 13:47 Resp 18 05/17/22 13:47 BP 142/80 05/17/22 12:00 Pulse Ox 93 05/17/22 13:47 O2 Del Method 05/17/22 13:47 O2 Flow Rate 1 05/17/22 13:47 05/16/22 05/17/22 05/17/22 22:59 06:59 14:59 Intake Total 290 / 940 50 / 990 2069 Balance 290 / 940 50 / 990 2069 Physical Exam Const: COMMON NORMALS: no acute distress and patient oriented x3 Resp: COMMON NORMALS: normal respiratory effort, No retractions and No use of accessory muscles AUSCULTATION: wheezes Cardio: COMMON NORMALS: regular rate, regular rhythm, S1 normal heart sound present and S2 normal heart sound present RATE: regular rate RHYTHM: regular rhythm HEART SOUNDS: S1 normal heart sound present and S2 normal heart sound present GI: COMMON NORMALS: Normal to inspection, nondistended, normoactive bowel sounds present and non-tender Extremity: COMMON NORMALS: no pedal edema Neuro: COMMON NORMALS: patient oriented x3 Psych: COMMON NORMALS: mental status grossly normal Data 05/17/22 03:20 05/17/22 03:20 Micro: Microbiology 05/15/22 23:19 Bacterial Antigens - Final Urine,Clean Catch 05/16/22 00:20 Gram Stain - Final Sputum - Expectorated Sputum A&P Assessment and plan (1) Community acquired pneumonia: Patient presenting with 1 week duration of cough hemoptysis and hypoxia not relieved by outpatient treatment with steroids and antibiotics. CTA performed today showing bilateral infiltrates concerning for pneumonitis/pneumonia Continue treatment with meropenem Check respiratory viral panel positive for rhinovirus Check sputum culture, bacterial antigen, urine Legionella antigen No current clinical signs of heart failure Cough suppressants to minimize risk of hemoptysis. Hold aspirin 325 for now until hemoptysis resolves. Budesonide and DuoNeb scheduled inhalation, additional steroid doses today Supplemental O2 to keep saturation greater than 92% Swallow evaluation to assess for possible aspiration, aspiration precautions Continue Solu-Medrol (2) Hypoxia: (3) Rhinovirus infection: Attestations Medical Necessity Statement*: Patient requires hospitalization for pneumonia, continues to have wheezing Diagnoses Community acquired pneumonia J18.9 Hypoxia R09.02 Rhinovirus infection B34.8
[2022-05-17] MEDS: acetaminophen 325 mg Tablet 650 MG PO (21:32)
[2022-05-17] MEDS: baclofen 10 mg Tablet PO (21:33)
[2022-05-17] MEDS: TRAMadol 50 mg Tablet PO (21:33)
[2022-05-18] VITALS (12 sets, daily range): BP systolic 134–171; BP diastolic 70–85; PULSE 64–84; RESP 16–19; TEMP 36.4–36.5; O2SAT 90–94
[2022-05-18] MEDS: ipratropium-albuterol 3 mL Neb INHALATION ×3 (01:57→14:11)
[2022-05-18] MEDS: nystatin 100,000 unit/mL UDC 5 mL 100000 UNIT PO ×3 (02:06→14:18)
[2022-05-18] MEDS: meropenem 1,000 MG in sodium chloride 0.9% (plus) 50 ML 100 MG IV ×2 (02:06→10:35)
[2022-05-18 03:24] LABS: Basophils % 0.2 %; Eosinophils % 0.1 %; Hematocrit 42.7 % (37.0-47.0); Lymphocytes # 1.3 10^3/uL (0.8-4.8); Lymphocytes % 8.4 %; Mean Corpuscular HGB Conc 30.4 g/dL (30.0-36.0); Mean Corpuscular Hemoglobin 25.4 pg (28.0-34.0); Mean Corpuscular Volume 83.4 fl (81-99); Mean Platelet Volume 8.9 fL (7.4-10.4); Monocytes # 0.5 10^3/uL (0.2-0.9); Monocytes % 3.3 %; Neutrophils # 12.96 10^3/uL (1.8-7.7); Neutrophils % 86.5 %; Nucleated Red Blood Cells % 0 %; Platelet Count 371 10^3/cmm (130-400); Red Blood Count 5.12 10^6/uL (4.1-5.3); Red Cell Distribution Width 16.6 % (12.1-15.1)
[2022-05-18 04:00] LABS: Blood Urea Nitrogen 23 mg/dL (8-23); Calcium 8.3 mg/dL (8.5-10.5); Carbon Dioxide 27 mmol/L (22-29); Chloride 102 mmol/L (98-107); Glucose 167 mg/dL (65-115); Osmolality Calculated 293 mOsm/kg (285-295); Sodium 138 mmol/L (136-145)
[2022-05-18 04:03] LABS: Anion Gap 12.6 (5-19); Potassium 3.6 mmol/L (3.5-5.1)
[2022-05-18] MEDS: budesonide 0.5 mg/2 mL Neb INHALATION (08:06)
[2022-05-18] MEDS: oxybutynin chloride XL 5 MG TABLET 15 MG PO (08:48)
[2022-05-18] MEDS: enoxaparin 40 mg/0.4 mL Syringe SUBCUT (08:48)
[2022-05-18] MEDS: fluconazole 100 mg Tablet 150 MG PO (08:48)
[2022-05-18] MEDS: pantoprazole DR 40 mg Tablet PO (08:49)
[2022-05-18] MEDS: metoprolol succinate ER (24 HR) 25 mg Tablet PO (08:50)
[2022-05-18] MEDS: loratadine 10 mg Tablet PO (08:50)
[2022-05-18] MEDS: TRAMadol 50 mg Tablet PO (08:50)
[2022-05-18] MEDS: escitalopram 10 mg Tablet 20 MG PO (08:51)
[2022-05-18] MEDS: baclofen 10 mg Tablet PO (08:59)
[2022-05-18] MEDS: acetaminophen 325 mg Tablet 650 MG PO (09:00)
[2022-05-18] MEDS: FUROsemide 10 mg/mL SDV 2mL 20 MG IVP (10:59)
--- NOTE | 2022-05-18 11:50 | PM.DCS ---
Discharge Providers Date of Admission: 05/13/22 04:36 Date of Discharge: May 18, 2022 Attending Provider at Admission: Courtney Elaine MD Attending Provider at Discharge: Genaro Baum MD Primary Care Provider: Nancy Ramirez APN Diagnoses at Discharge Discharge Diagnosis (1) Community acquired pneumonia: Status: Acute (2) Hypoxia: Status: Acute (3) Rhinovirus infection: Status: Acute Reason for Visit Reason for Visit: [address] Course Hospital Course Kathleen Valdez is a 72 year old female with past medical history of hypertension, cervical spine fracture and spondylosis?presenting to the emergency room today with 1 week of cough and dyspnea.? Patient has been having experiencing cough with hemoptysis which started approximately 1 week ago.? On Friday she visited with her primary care provider who started her on an outpatient course of levofloxacin, she received 10 mg short of dexamethasone and was thereafter started on p.o. prednisone.? In spite of taking the antibiotics, prednisone and increasing her frequency of nebulization she has not had any significant relief in her symptoms.? She was noted to be desatting down to 70% and presented into the emergency room.? Patient typically does not wear any oxygen at home.? Denies any complaints of chest pain or palpitations.? Denies any syncope.? She has not had similar symptoms in the past.? CTA of the chest performed in the ER was negative for PE, showed bilateral lower lobe pneumonitis.? Patient reports a past history of swallowing difficulty and choking on her food since around 1 year when she had a spinal hematoma which needed to be evacuated.? She had a swallow eval around that time which was reportedly normal.? She does report she chokes on things that are dry and crumbly.? Has to drink a lot of water along with her meals. No other recent sick contacts Patient was admitted to [facility] for community-acquired pneumonia, patient was managed with broad-spectrum antibiotic therapy, respiratory cultures positive for rhinovirus, received nebulizer treatments, intermittent diuresis, due to persistent wheezing, was given steroid treatments, overall patient is clinically improved. I suspect some degree of aspiration pneumonitis, discharged with steroid burst, doxycycline, with a close follow-up with primary care as outpatient. Appoint made with pulmonary as outpatient. Physical Exam Const: COMMON NORMALS: no acute distress and patient oriented x3 Resp: COMMON NORMALS: normal respiratory effort, No retractions, No use of accessory muscles and clear to auscultation bilaterally AUSCULTATION: clear to auscultation bilaterally Cardio: COMMON NORMALS: regular rate, regular rhythm, S1 normal heart sound present and S2 normal heart sound present RATE: regular rate RHYTHM: regular rhythm HEART SOUNDS: S1 normal heart sound present and S2 normal heart sound present GI: COMMON NORMALS: Normal to inspection, nondistended, normoactive bowel sounds present and non-tender Extremity: COMMON NORMALS: no pedal edema Neuro: COMMON NORMALS: patient oriented x3 Psych: COMMON NORMALS: mental status grossly normal Discharge Data Studies Completed and Pending Completed Studies During Hospitalization Category Date Time Status CTA chest [CT angio chest PE protcl [id number]] Stat Cat Scan 05/12/22 23:09 Completed XR chest 1V portable [id number] Stat Exams 05/12/22 22:43 Completed Pending at discharge Category Date Time Status Basic Metabolic Panel AM LABS Lab 05/19/22 04:00 Ordered Basic Metabolic Panel AM LABS Lab 05/20/22 04:00 Ordered Complete Blood Count w/Auto AM LABS Lab 05/19/22 04:00 Ordered Complete Blood Count w/Auto AM LABS Lab 05/20/22 04:00 Ordered Sputum Culture and Gram Stain Routine Lab 05/16/22 00:20 Results Radiology Impressions Chest X-Ray 05/12/22 22:43 IMPRESSION: 1. Bibasilar atelectasis versus infiltrate. 2. Cardiomegaly. Chest CTA 05/12/22 23:09 IMPRESSION: 1. No definite PE. 2. Large heart with evidence of pulmonary hypertension. 3. Increasing areas of mpvs-hvkgrap-ixpy-right mid to lower lung atelectasis, pneumonitis, or developing airspace disease. Likely reactive mild lymphadenopathy. Recommend six-month follow-up. 4. Mild COPD. Multiple chronic findings above. Laboratory Results WBC 15.0 10^3/uL (4.0-10.0) H 05/18/22 02:55 RBC 5.12 10^6/uL (4.1-5.3) 05/18/22 02:55 Hgb 13.0 g/dL (11.5-15.3) 05/18/22 02:55 Hct 42.7 % (37.0-47.0) 05/18/22 02:55 MCV 83.4 fl (81-99) 05/18/22 02:55 MCH 25.4 pg (28.0-34.0) L 05/18/22 02:55 MCHC 30.4 g/dL (30.0-36.0) 05/18/22 02:55 RDW 16.6 % (12.1-15.1) H 05/18/22 02:55 Plt Count 371 10^3/cmm (130-400) 05/18/22 02:55 MPV 8.9 fL (7.4-10.4) 05/18/22 02:55 Neut % (Auto) 86.5 % 05/18/22 02:55 Lymph % (Auto) 8.4 % 05/18/22 02:55 Wilkinson % (Auto) 3.3 % 05/18/22 02:55 Eos % (Auto) 0.1 % 05/18/22 02:55 Baso % (Auto) 0.2 % 05/18/22 02:55 Neut # (Auto) 12.96 10^3/uL (1.8-7.7) H 05/18/22 02:55 Lymph # (Auto) 1.3 10^3/uL (0.8-4.8) 05/18/22 02:55 Wilkinson # (Auto) 0.5 10^3/uL (0.2-0.9) 05/18/22 02:55 Eos # (Auto) 0.0 10^3/uL (0.0-0.8) 05/18/22 02:55 Baso # (Auto) 0.0 10^3/uL (0.0-0.1) 05/18/22 02:55 Nucleated RBC % (auto) 0 % 05/18/22 02:55 Nucleated RBCs # 0.0 /100WBC 05/18/22 02:55 D-Dimer 0.94 ug/mIFEU (0-0.59) H 05/12/22 23:12 Sodium 138 mmol/L (136-145) 05/18/22 02:55 Potassium 3.6 mmol/L (3.5-5.1) 05/18/22 02:55 Chloride 102 mmol/L (98-107) 05/18/22 02:55 Carbon Dioxide 27 mmol/L (22-29) 05/18/22 02:55 Anion Gap 12.6 (5-19) 05/18/22 02:55 BUN 23 mg/dL (8-23) 05/18/22 02:55 Creatinine 0.6 mg/dL (0.5-0.9) 05/18/22 02:55 GFR Calculation Not Reportable 05/18/22 02:55 Glucose 167 mg/dL (65-115) H 05/18/22 02:55 Calculated Osmolality 293 mOsm/kg (285-295) 05/18/22 02:55 Lactate 2.1 mmol/L (0.5-2.2) 05/13/22 03:36 Calcium 8.3 mg/dL (8.5-10.5) L 05/18/22 02:55 Total Bilirubin 0.2 mg/dL (0.15-1.2) 05/14/22 05:41 AST 20 U/L (0-32) 05/14/22 05:41 ALT 17 U/L (0-33) 05/14/22 05:41 Alkaline Phosphatase 86 U/L (35-105) 05/14/22 05:41 Troponin T Baseline 6 ng/L (0-10) 05/12/22 23:12 Troponin T 120 Minute 6.09 ng/L (0-10) 05/13/22 03:36 Delta Troponin T 0.09 ABS# (0-10) 05/13/22 03:36 Troponin T Hi Sens 6Hr 6.00 ng/L (0-10) 05/13/22 06:27 Troponin T Hi Sens 6Hr Delta 0 ng/L (0-12) 05/13/22 06:27 NT-Pro-B Natriuret Pep 95 pg/mL (0-125) 05/12/22 23:12 Total Protein 6.3 g/dL (6.6-8.7) L 05/14/22 05:41 Albumin 3.2 g/dL (3.5-5.2) L 05/14/22 05:41 Globulin 3.1 g/dL (1.3-4.6) 05/14/22 05:41 Procalcitonin 0.02 ng/mL (0-0.5) 05/13/22 03:56 Nasal Influ A H1 2009 PCR Not detected (NOT DETECT) 05/13/22 13:40 Vancomycin Trough 11.3 ug/mL (10-15) 05/15/22 04:49 Adenovirus (PCR) Not detected (NOT DETECT) 05/13/22 13:40 C. pneumoniae DNA (PCR) Not detected (NOT DETECT) 05/13/22 13:40 Coronavirus 229E (PCR) Not detected (NOT DETECT) 05/13/22 13:40 Human Metapneumovir PCR Not detected (NOT DETECT) 05/13/22 13:40 Influenza A (H1) PCR Not detected (NOT DETECT) 05/13/22 13:40 Influenza A (H3) PCR Not detected (NOT DETECT) 05/13/22 13:40 Influenza Type A Ag Negative (Negative) 05/12/22 23:10 Influenza Type A (PCR) Not detected (NOT DETECT) 05/13/22 13:40 Influenza Type B Ag Negative (Negative) 05/12/22 23:10 Influenza Type B (PCR) Not detected (NOT DETECT) 05/13/22 13:40 M. pneumoniae (PCR) Not detected (NOT DETECT) 05/13/22 13:40 Parainfluenza 1 (PCR) Not detected (NOT DETECT) 05/13/22 13:40 Parainfluenza 2 (PCR) Not detected (NOT DETECT) 05/13/22 13:40 Parainfluenza 3 (PCR) Not detected (NOT DETECT) 05/13/22 13:40 Parainfluenza 4 (PCR) Not detected (NOT DETECT) 05/13/22 13:40 RSV Type A (PCR) Not detected (NOT DETECT) 05/13/22 13:40 RSV Type B (PCR) Not detected (NOT DETECT) 05/13/22 13:40 Entero/Rhino (PCR) Detected (NOT DETECT) A 05/13/22 13:40 SARS-CoV-2 (PCR) Not detected (NOT DETECT) 05/13/22 13:40 SARS-CoV-2 Ag (Rapid) Negative (Negative) 05/12/22 23:10 Vitals Last Vital Signs Temp 97.6 F 05/18/22 11:35 Pulse 64 05/18/22 11:35 Resp 16 05/18/22 11:35 BP 134/81 05/18/22 11:35 Pulse Ox 90 05/18/22 11:35 O2 Del Method 05/18/22 11:35 O2 Flow Rate 1 05/18/22 08:07 Discharge Plan Discharge Patient Disposition: Home Condition: Stable Prescriptions: New benzonatate 100 mg Capsule 100 mg PO TID PRN (Reason: COUGH (1ST)) 7 Days Qty: 21 0RF doxycycline hyclate 100 mg tablet 100 mg PO BID 5 Days Qty: 10 0RF ipratropium-albuterol 0.5 mg-3 mg(2.5 mg base)/3 mL solution for nebulization 3 ml inhalation Q6H PRN (Reason: shortness of breath or wheezing) 30 Days Qty: 60 0RF nystatin 100,000 unit/mL suspension 1 ml PO QID 7 Days Qty: 28 0RF Rx Instructions: swish and spit prednisone 20 mg tablet 20 mg PO BID 5 Days Qty: 10 0RF Continued oxybutynin chloride 15 mg tablet extended release 24hr 15 mg PO BID@0800,2000 escitalopram oxalate [Lexapro] 20 mg tablet 20 mg PO DAILY@0800 aspirin 325 mg tablet 325 mg PO DAILY@0800 loratadine 10 mg tablet 10 mg PO DAILY naproxen 500 mg tablet 500 mg PO BID PRN (Reason: Pain) fluconazole 150 mg tablet 150 mg PO DAILY Qty: 3 2RF tramadol 50 mg tablet 50 mg PO TID PRN (Reason: pain) 10 Days Qty: 30 0RF baclofen 10 mg tablet 10 mg PO QID PRN (Reason: spasm) 30 Days Qty: 120 0RF albuterol sulfate [ProAir HFA] 90 mcg/actuation Hfa Aerosol Inhaler 2 puff INHALATION QID PRN (Reason: Shortness Of Breath) omeprazole 20 mg capsule,delayed release(DR/EC) 40 mg PO BID@0800,2000 valacyclovir [Valtrex] 1 gram tablet 1,000 mg PO BID PRN (Reason: Cold Sores) ondansetron 4 mg tablet,disintegrating See Rx Instructions .ROUTE .COMPLEX PRN (Reason: Nausea) Rx Instructions: DISSOLVE ONE TABLET in MOUTH EVERY 4 HOURS NEEDED FOR NAUSEA AND VOMITING triamterene-hydrochlorothiazid 1 tab PO DAILY Rx Instructions: 37.5/5mg tablet metoprolol succinate 25 mg Tablet Extended Release 24 Hr 25 mg PO BID furosemide 40 mg Tablet 40 mg PO BID PRN (Reason: swelling) Discharge Orders: Discharge Order (Routine); Ordered 05/18/22 Ordered By: Genaro Baum Referrals: DatarVíctor MD [Physician] - 4-7 days Ramirez,JANEL Cruz [Primary Care Provider] - 05/23/22 3:40 pm Discharge Diet: Cardiac Discharge Activity: Resume usual activity Patient Instructions: Opioid Safety Activity Restrictions/Additional Instructions: - Take steroid taper as prescribed -Take antibiotics as prescribed -Continue DuoNebs as prescribed Discharge Attestations Time Spent in Discharge Care*: greater than 30 min Quality Metrics Clinical Quality Measures [ No reported AMI, CVA or VTE this stay] Coding Level of Care Code 46810 Total time (in minutes) for Discharge: 40 Diagnoses Community acquired pneumonia J18.9 Hypoxia R09.02 Rhinovirus infection B34.8
== END 2022-05-18 14:50 | disposition home or self-care (01) | DRG 178 ==
LOC: ER 23:01 → MEDSURG 05-13 04:37
PROVIDERS: Emergency Medicine; Admitting Provider Student in an Organized Health Care Education/Training Program; Emergency Provider Physician Assistant; PCP Nurse Practitioner Family; Visit Provider Family Medicine
DX: J69.0 Pneumonitis due to inhalation of food and vomit (principal); M47.12 Other spondylosis with myelopathy, cervical region; Z68.41 Body mass index [BMI] 40.0-44.9, adult; B34.8 Other viral infections of unspecified site; I10 Essential (primary) hypertension; Z79.51 Long term (current) use of inhaled steroids; Z86.16 Personal history of COVID-19; E66.01 Morbid (severe) obesity due to excess calories
CPT/HCPCS: 36415; 71045; 71275; 80048; 80053; 80202; 83605; 83880; 84145; 84484; 85025; 85378; 86403; 87040; 87070; 87205; 87426; 87449; 87486; 87581; 87633; 87804; 92523; 92610; 93005; 94640; 94760; 96365; 96366; 96367; 96372; 96375; 97110; 97161; 97165; 97530; 99285; J0131; J0692; J1200; J1650; J1720; J1940; J1956; J2185; J2920; J2930; J3370; J7613; J7626; Q9967

== ENCOUNTER → 2022-05-21 15:07 | Outpatient (BNVA) | payer MEDICARE, OTHER, SELFPAY | PROVIDERS: PCP Nurse Practitioner Family; Visit Provider Internal Medicine Pulmonary Disease | DX: R06.02 Shortness of breath (principal); G47.19 Other hypersomnia; U09.9 Post COVID-19 condition, unspecified; E66.01 Morbid (severe) obesity due to excess calories; G47.9 Sleep disorder, unspecified; R53.81 Other malaise; Z68.42 Body mass index [BMI] 45.0-49.9, adult; Z77.22 Contact with and (suspected) exposure to environmental tobacco smoke (acute) (chronic); I51.7 Cardiomegaly; I27.20 Pulmonary hypertension, unspecified | CPT/HCPCS: 99204 ==

== ENCOUNTER 2022-05-28 16:07 | Emergency (ER) | payer MEDICARE, OTHER, SELFPAY ==
[2022-05-28] VITALS (9 sets, daily range): BP systolic 126–146; BP diastolic 72–79; PULSE 62–71; RESP 18–20; TEMP 36.7; O2SAT 87–94
--- NOTE | 2022-05-28 17:57 | XRR_ITS ---
PROCEDURE INFORMATION: Exam: XR Chest Exam date and time: 05/28/2022 6:14 PM Age: 72 years old Clinical indication: Shortness of breath; Additional info: SOB TECHNIQUE: Imaging protocol: Radiologic exam of the chest. Views: 1 view. COMPARISON: CR (CHEST, ) 05/12/2022 11:01 PM FINDINGS: Lungs: Linear opacities in both lung bases, left greater than right. No consolidation. Pleural spaces: Unremarkable. No pleural effusion. No pneumothorax. Heart/Mediastinum: Unremarkable. No cardiomegaly. Bones/joints: Unremarkable. XR/XR chest 1V portable [id number] IMPRESSION: Linear opacities in the lung bases most likely represents atelectasis or scarring. Pneumonia in the left base cannot be excluded.
[2022-05-28 18:29] LABS: Basophils % 0.2 %; Eosinophils % 0.1 %; Hemoglobin 13.8 g/dL (11.5-15.3); Lymphocytes # 1.4 10^3/uL (0.8-4.8); Lymphocytes % 11.2 %; Mean Corpuscular HGB Conc 31.4 g/dL (30.0-36.0); Mean Corpuscular Hemoglobin 25.3 pg (28.0-34.0); Mean Corpuscular Volume 80.6 fl (81-99); Mean Platelet Volume 8.6 fL (7.4-10.4); Monocytes # 0.3 10^3/uL (0.2-0.9); Monocytes % 2.3 %; Neutrophils # 10.67 10^3/uL (1.8-7.7); Neutrophils % 85.6 %; Nucleated Red Blood Cells % 0 %; Platelet Count 349 10^3/cmm (130-400); Red Blood Count 5.46 10^6/uL (4.1-5.3); Red Cell Distribution Width 16.7 % (12.1-15.1); White Blood Count 12.5 10^3/uL (4.0-10.0)
--- NOTE | 2022-05-28 18:36 | ECG_ITS ---
[facility] Test Date: 2022-05-28 Pat Name: Kathleen Valdez Department: Room: Gender: Female Direct Care Supervisor: : [id number] Requested By: Dejuan Yoo Order Number: [id number] Laquita MD: Neeraj William M.D. Measurements Intervals [place] Rate: 59 P: 58 OR: 166 QRS: 11 QRSD: 97 T: 53 QT: 467 QTc: 464 Interpretive Statements SINUS BRADYCARDIA POSSIBLE LEFT ATRIAL ENLARGEMENT [-0.1mV P-WAVE IN V1/V2] Compared to ECG 05/13/2022 00:29:43 No significant changes Electronically Signed On 05-28-2022 23:12:43 CDT by Neeraj William M.D. [id number]
--- NOTE | 2022-05-28 18:37 | W.ED.SOB ---
HPI - SOB/Dyspnea General: Chief Complaint: Shortness of Breath/Dyspnea Stated Complaint: sob Time Seen by Provider: 05/28/22 18:23 History of Present Illness: HPI Narrative: Patient is a 72-year-old female who comes to the ED with shortness of breath. Patient was recently hospitalized for pneumonia back on May 12. She was discharged On May 18 and was not requiring any home oxygen. She has already had a follow-up with the medical office supervisor Dr. Smiley and she is scheduled for a pulmonary function test in the next couple weeks. Last night patient started having symptoms of shortness of breath. Her shortness of breath worsens if she lays flat and improves if she is sitting upright or standing. She has been using her DuoNeb breathing treatments every 4-6 hours since onset of symptoms. This morning she developed some chest pain while at rest and its continued all day. Patient took 325 mg of aspirin this morning at around 8 AM. chest pain is located in midsternum and she rates it currently a 5 out of 10. Chest pain radiates to her back as well. Patient is currently on daily Lasix. Endorses having a dry cough. Denies any fevers, nasal congestion and drainage, nausea/vomiting, abdominal pain, bladder or bowel symptoms. Associated symptoms: Reports chest pain and orthopnea; Deny abdominal pain, fever(s), nausea, palpitations or vomiting Review of Systems Const: Denies: fever(s), chills or fatigue Eyes: Denies: change in vision or eye discomfort ENMT: Denies: throat pain, odynophagia, nasal discharge or nasal congestion Card: Reports: chest pain and orthopnea; Denies: palpitations, edema, swelling of feet/ankles or dyspnea on exertion Resp: Reports: dyspnea and non-productive cough; Denies: productive cough GI: Denies: abdominal pain, nausea, vomiting, diarrhea, constipation or hematochezia : Denies: flank pain, dysuria or hematuria Musc: Denies: neck pain, back pain or extremity swelling Skin/Breast: Denies: rash or new lesions Neuro: Denies: headache(s), numbness in extremities or weakness in extremities PFS ED PFSH: Medical History Bronchitis due to 2019-nCoV Cervical spine fracture Cervical spondylosis with myelopathy COVID-19 H/O upper respiratory infection Hypertension Morbid obesity Surgical History H/O total knee replacement Social History Smoking and tobacco status: never smoked Alcohol intake: never Female Reproductive History: Spontaneous abortions: No Physical Exam Const: COMMON NORMALS: patient oriented x3 and alert GENERAL APPEARANCE: cooperative NUTRITIONAL APPEARANCE: obese HENMT: COMMON NORMALS: normocephalic HEAD & SCALP: normocephalic MOUTH: Normal oral and palatal mucosa present THROAT: posterior oropharynx normal and uvula midline Neck/C-Spine: COMMON NORMALS: supple GENERAL: Yes normal visual inspection Resp: COMMON NORMALS: normal respiratory effort, No retractions and No use of accessory muscles AUSCULTATION: diminished lung sounds on the right in the lower lung olea Cardio: COMMON NORMALS: regular rate, regular rhythm, S1 normal heart sound present, S2 normal heart sound present, No gallops present (Cardio), No clicks present (Cardio), No murmurs present (Cardio) and Peripheral pulses 2+ throughout RATE: regular rate RHYTHM: regular rhythm HEART SOUNDS: S1 normal heart sound present and S2 normal heart sound present PERIPHERAL PULSES: Peripheral pulses 2+ throughout GI: COMMON NORMALS: Normal to inspection, nondistended, normoactive bowel sounds present, Soft to palpation, non-tender and no masses INSPECTION: Yes central obesity PALPATION: Yes Soft to palpation : COMMON NORMALS: Yes no CVA tenderness BLADDER/KIDNEY EXAM: Yes no CVA tenderness Back/Pelvis: COMMON NORMALS: no CVA tenderness Extremity: COMMON NORMALS: normal to inspection and no pedal edema Neuro: COMMON NORMALS: patient oriented x3 SENSORIUM/ORIENTATION: Yes alert GAIT: Yes Normal gait present Skin: GENERAL SKIN EXAM: dry skin Course Vital Signs: Vital signs: Vital Signs Temperature 98.0 F 05/28/22 16:16 Pulse Rate 64 05/28/22 23:00 Respiratory Rate 18 05/28/22 23:00 Blood Pressure 131/77 05/28/22 23:00 Pulse Oximetry 91 05/28/22 23:00 Oxygen Delivery Me thod 05/28/22 23:00 Oxygen Flow Rate 2 05/28/22 23:00 MDM - SOB/Dyspnea Medical Decision Making Patient is a 72-year-old female comes to the ED with shortness of breath. Patient is requiring 2 L of oxygen here in the ED and O2 saturation is around 92%. Rest of vitals are stable. White blood cell count 12.5 and the rest of CBC and CMP are unremarkable. Troponins negative and BNP was 99. Influenza and COVID were both negative as well. Chest x-ray shows possible pneumonia in left base lung. Patient was offered admission to the hospital for inpatient treatment or to try outpatient treatment first. Patient was good with trying outpatient treatment first. Home O2 eval was performed and patient qualified for 2 L of oxygen via nasal cannula continuously at home. Patient diagnosed with pneumonia and she was given a dose of IV antibiotics and steroids here in the ED. Patient was sent home with a prescription for an antibiotic and steroid and told to follow-up with her PCP in the next 2 to 3 days for reevaluation. Strict return ED precautions given. Patient understood agree with plan. Dr. Valerio reviewed case and agrees with plan. Lab Data I reviewed the patient's lab results. 05/28/22 18:10 05/28/22 18:10 Labs/Radiology: Radiology Impressions Chest X-Ray 05/28/22 17:57 IMPRESSION: Linear opacities in the lung bases most likely represents atelectasis or scarring. Pneumonia in the left base cannot be excluded. Laboratory Results WBC 12.5 10^3/uL (4.0-10.0) H 05/28/22 18:10 RBC 5.46 10^6/uL (4.1-5.3) H 05/28/22 18:10 Hgb 13.8 g/dL (11.5-15.3) 05/28/22 18:10 Hct 44.0 % (37.0-47.0) 05/28/22 18:10 MCV 80.6 fl (81-99) L 05/28/22 18:10 MCH 25.3 pg (28.0-34.0) L 05/28/22 18:10 MCHC 31.4 g/dL (30.0-36.0) 05/28/22 18:10 RDW 16.7 % (12.1-15.1) H 05/28/22 18:10 Plt Count 349 10^3/cmm (130-400) 05/28/22 18:10 MPV 8.6 fL (7.4-10.4) 05/28/22 18:10 Neut % (Auto) 85.6 % 05/28/22 18:10 Lymph % (Auto) 11.2 % 05/28/22 18:10 Hubbard % (Auto) 2.3 % 05/28/22 18:10 Eos % (Auto) 0.1 % 05/28/22 18:10 Baso % (Auto) 0.2 % 05/28/22 18:10 Neut # (Auto) 10.67 10^3/uL (1.8-7.7) H 05/28/22 18:10 Lymph # (Auto) 1.4 10^3/uL (0.8-4.8) 05/28/22 18:10 Hubbard # (Auto) 0.3 10^3/uL (0.2-0.9) 05/28/22 18:10 Eos # (Auto) 0.0 10^3/uL (0.0-0.8) 05/28/22 18:10 Baso # (Auto) 0.0 10^3/uL (0.0-0.1) 05/28/22 18:10 Nucleated RBC % (auto) 0 % 05/28/22 18:10 Nucleated RBCs # 0.0 /100WBC 05/28/22 18:10 Sodium 133 mmol/L (136-145) L 05/28/22 18:10 Potassium 4.2 mmol/L (3.5-5.1) 05/28/22 18:10 Chloride 94 mmol/L (98-107) L 05/28/22 18:10 Carbon Dioxide 27 mmol/L (22-29) 05/28/22 18:10 Anion Gap 16.2 (5-19) 05/28/22 18:10 BUN 26 mg/dL (8-23) H 05/28/22 18:10 Creatinine 0.8 mg/dL (0.5-0.9) 05/28/22 18:10 GFR Calculation Not Reportable 05/28/22 18:10 Glucose 125 mg/dL (65-115) H 05/28/22 18:10 Calculated Osmolality 282 mOsm/kg (285-295) L 05/28/22 18:10 Calcium 9.2 mg/dL (8.5-10.5) 05/28/22 18:10 Total Bilirubin 0.3 mg/dL (0.15-1.2) 05/28/22 18:10 AST 14 U/L (0-32) 05/28/22 18:10 ALT 17 U/L (0-33) 05/28/22 18:10 Alkaline Phosphatase 97 U/L (35-105) 05/28/22 18:10 Troponin T Baseline 10 ng/L (0-10) 05/28/22 18:10 Troponin T 120 Minute 7.51 ng/L (0-10) 05/28/22 20:55 Delta Troponin T -2.49 ABS# (0-10) L 05/28/22 20:55 NT-Pro-B Natriuret Pep 99 pg/mL (0-125) 05/28/22 18:10 Total Protein 7.7 g/dL (6.6-8.7) 05/28/22 18:10 Albumin 4.2 g/dL (3.5-5.2) 05/28/22 18:10 Globulin 3.5 g/dL (1.3-4.6) 05/28/22 18:10 Influenza Type A Ag negative (Negative) 05/28/22 18:28 Influenza Type B Ag negative (Negative) 05/28/22 18:28 SARS-CoV-2 Ag (Rapid) negative (Negative) 05/28/22 18:28 EKG Data EKG 1: EKG Interpretation Date: 05/28/22 Interpretation: Sinus rhythm, no ST segment elevation or depression seen. 61 bpm. Discharge Plan Discharge Patient Disposition: Home Clinical Impression: Pneumonia Qualifiers: Pneumonia type: due to unspecified organism Laterality: left Lung location: lower lobe of lung Qualified Code(s): J18.9 - Pneumonia, unspecified organism Condition: Stable Prescriptions: New azithromycin 250 mg tablet See Rx Instructions .ROUTE .COMPLEX Qty: 6 0RF Rx Instructions: For 250 mg dose pack: take 500 mg today (day 1), then 250 mg for 4 days (days 2-5) levofloxacin 750 mg tablet 750 mg PO DAILY 5 Days Qty: 5 0RF methylprednisolone 4 mg tablets,dose pack See Rx Instructions .ROUTE .COMPLEX Qty: 21 0RF Rx Instructions: orally per package directions No Action oxybutynin chloride 15 mg tablet extended release 24hr 15 mg PO BID@0800,1999 escitalopram oxalate [Lexapro] 20 mg tablet 20 mg PO DAILY@0800 aspirin 325 mg tablet 325 mg PO DAILY@0800 loratadine 10 mg tablet 10 mg PO DAILY naproxen 500 mg tablet 500 mg PO BID PRN (Reason: Pain) fluconazole 150 mg tablet 150 mg PO DAILY Qty: 3 2RF tramadol 50 mg tablet 50 mg PO TID PRN (Reason: pain) 10 Days Qty: 30 0RF baclofen 10 mg tablet 10 mg PO QID PRN (Reason: spasm) 30 Days Qty: 120 0RF albuterol sulfate [ProAir HFA] 90 mcg/actuation Hfa Aerosol Inhaler 2 puff INHALATION QID PRN (Reason: Shortness Of Breath) omeprazole 20 mg capsule,delayed release(DR/EC) 40 mg PO BID@0800,1999 valacyclovir [Valtrex] 1 gram tablet 1,000 mg PO BID PRN (Reason: Cold Sores) ondansetron 4 mg tablet,disintegrating See Rx Instructions .ROUTE .COMPLEX PRN (Reason: Nausea) Rx Instructions: DISSOLVE ONE TABLET in MOUTH EVERY 4 HOURS NEEDED FOR NAUSEA AND VOMITING triamterene-hydrochlorothiazid 1 tab PO DAILY Rx Instructions: 37.5/5mg tablet metoprolol succinate 25 mg Tablet Extended Release 24 Hr 25 mg PO BID furosemide 40 mg Tablet 40 mg PO BID PRN (Reason: swelling) ipratropium-albuterol 0.5 mg-3 mg(2.5 mg base)/3 mL solution for nebulization 3 ml inhalation Q6H PRN (Reason: shortness of breath or wheezing) 30 Days Qty: 60 0RF Symbicort 80-4.5 mcg/actuation HFA aerosol inhaler 1 inh inhalation BID Qty: 10.2 0RF Discharge Orders: Discharge ED (Routine); Ordered 05/28/22 Ordered By: Dejuan Yoo Other Ambulatory Orders: DME: Oxygen (Order) Location: None Selected Ordered By: Dejuan Yoo Referrals: Ramirez,Nancy, [employer] [Primary Care Provider] - Discharge Diet: Regular Discharge Activity: Increase activity as tolerated Patient Instructions: Using Oxygen at Home (ED), Pneumonia (ED) Activity Restrictions/Additional Instructions: Follow-up with medical provider as directed in the next 2 to 3 days for reevaluation. Take medications as prescribed. Use home oxygen 2 L as prescribed continuously throughout the day. Return to the ER or your medical provider if condition worsens. Please read and understand discharge instructions. Thank you for choosing [facility] for your healthcare needs today. Please realize this is an emergency room and that we are providing you with a medical screening exam and this may not be complete and all inclusive of all the testing and or work up that you may need to determine your ailment or severity of your illness. It is very important that you follow up as instructed or that you return to the Emergency Department should you have concerns or if your condition changes or worsens in any way. Coding Level of Care Code ED Smoke Tester for Josefa Garcia
[2022-05-28 19:03] LABS: Alanine Aminotransferase 17 U/L (0-33); Albumin Level 4.2 g/dL (3.5-5.2); Alkaline Phosphatase 97 U/L (35-105); Anion Gap 16.2 (5-19); Aspartate Amino Transferase 14 U/L (0-32); Blood Urea Nitrogen 26 mg/dL (8-23); Calcium 9.2 mg/dL (8.5-10.5); Carbon Dioxide 27 mmol/L (22-29); Chloride 94 mmol/L (98-107); Globulin 3.5 g/dL (1.3-4.6); Glucose 125 mg/dL (65-115); NT Pro B Type Natriuretic Pept 99 pg/mL (0-125); Osmolality Calculated 282 mOsm/kg (285-295); Potassium 4.2 mmol/L (3.5-5.1); Sodium 133 mmol/L (136-145); Total Bilirubin 0.3 mg/dL (0.15-1.2); Total Protein 7.7 g/dL (6.6-8.7)
[2022-05-28 19:19] LABS: Troponin(5th) Baseline 10 ng/L (0-10)
[2022-05-28 19:30] LABS: SARS Covid-2 Antigen negative (Negative)
[2022-05-28 19:31] LABS: Influenza A by IFA negative (Negative); Influenza B by IFA negative (Negative)
[2022-05-28] MEDS: ipratropium-albuterol 3 mL Neb 6 ML INHALATION (19:35)
--- NOTE | 2022-05-28 20:36 | ECG_ITS ---
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 Measurements Intervals [place] Rate: 61 P: 48 NH: 175 QRS: 1 QRSD: 97 T: 36 QT: 472 QTc: 477 Interpretive Statements SINUS RHYTHM POSSIBLE LEFT ATRIAL ENLARGEMENT [-0.1mV P-WAVE IN V1/V2] POSSIBLE LEFT VENTRICULAR HYPERTROPHY [VOLTAGE CRITERIA PLUS LAE OR QRS WIDENING] PROLONGED QT INTERVAL Compared to ECG 05/28/2022 18:56:13 Prolonged QT interval now present Sinus bradycardia no longer present Electronically Signed On 05-28-2022 23:17:39 CDT by Neeraj William M.D. [email or web address]
[2022-05-28] MEDS: cefTRIAXone 2,000 MG in sodium chloride 0.9% (plus) 50 ML 100 MG IV (21:14)
[2022-05-28 21:18] LABS: Troponin 5 2HR 7.51 ng/L (0-10)
[2022-05-28 21:48] LABS: Troponin 5 2HR Delta -2.49 ABS# (0-10)
[2022-05-29 01:50] VITALS: BP 147/75; PULSE 71; RESP 19; O2SAT 90
== END 2022-05-29 00:15 | disposition home or self-care (01) ==
PROVIDERS: Emergency Medicine; Emergency Provider Physician Assistant; PCP Nurse Practitioner Family
DX: J18.9 Pneumonia, unspecified organism (principal); Z79.82 Long term (current) use of aspirin; Z20.822 Contact with and (suspected) exposure to COVID-19; I10 Essential (primary) hypertension
CPT/HCPCS: 36415; 71045; 80053; 83880; 84484; 85025; 87426; 87804; 93005; 94640; 96365; 96375; 99285; J0696; J2930

== ENCOUNTER → 2022-06-03 16:32 | Outpatient (BNVA) | payer MEDICARE, OTHER, SELFPAY | PROVIDERS: PCP Nurse Practitioner Family; Visit Provider Internal Medicine Pulmonary Disease | DX: J18.9 Pneumonia, unspecified organism (principal); R06.02 Shortness of breath; E66.01 Morbid (severe) obesity due to excess calories; G47.9 Sleep disorder, unspecified; R53.81 Other malaise; B94.8 Sequelae of other specified infectious and parasitic diseases | CPT/HCPCS: 71046; 99214 ==

== ENCOUNTER 2022-06-11 15:54 | Outpatient (CLI) | payer MEDICARE, OTHER, SELFPAY ==
--- NOTE | 2022-06-11 16:00 | MR_ITS ---
WS: [id number] MRI THORACIC SPINE WITHOUT CONTRAST TECHNIQUE: Sagittal T1, T2 and STIR imaging. Axial T2 imaging. Noncontrast imaging obtained. CLINICAL INFORMATION: M47.12 - Other spondylosis with myelopathy, cervical region COMPARISON: MRI May 19, 2021 FINDINGS: Mild thoracic curve. Mild thoracic kyphosis. No acute compression. No high-grade central canal stenos is. Cord signal is normal. Moderate facet arthropathy in the lower thoracic spine. Normal caliber tho racic aorta. Interval drainage of the previously described dorsal epidural fluid collection upper thoracic spine. No significant central canal stenosis. Cord signal is normal. Stable incidental hemangiomas T4 and T1 2 vertebral bodies. Postoperative hemilaminectomy C6-T4. Shallow RIGHT pericentral protrusion T7-T8 with slight contact of the thoracic cord. This is similar in appearance to previous. Incidental perineural cysts in the lower thoracic spine most prominent at RIGHT T10-T11 unchanged. MR/MR thoracic spin wo con* [id number] IMPRESSION: 1. Mild thoracic curve. Mild thoracic kyphosis. No acute compression fractures . 2. Previously described epidural collection in the upper thoracic spine has be en drained in the interval. 3. Prior laminectomy defects lower cervical and upper thoracic spine C6-T4. 4. Small RIGHT pericentral protrusion T7-T8 with slight contact of the thoraci c cord is similar to previous. 5. No other significant interval changes.
--- NOTE | 2022-06-11 16:13 | MR_ITS ---
WS: [id number] MRI CERVICAL SPINE NONCONTRAST TECHNIQUE: Sagittal T1, T2 and STIR imaging. Axial T2, gradient, and fiesta imaging. CLINICAL INFORMATION: OTHER SPONDYLOSIS WITH RADICULOPATHY, CERVICAL REGION COMPARISON: MRI May 19, 2021 FINDINGS: Straightening with slight reversal normal cervical lordosis. Slight anterolisthesis C3 on C4 on C5. D isc bulging worse at C5-C6. Previous described epidural collection has been removed compared to previous. Laminectomy defects in the lower cervical and upper thoracic spine. C2-C3: Mild facet arthropathy. Spinal canal is patent. Mild RIGHT bony foraminal narrowing. LEFT fora men is patent. C3-C4: Mild disc osteophytic ridging. Moderate facet arthropathy. Mild bilateral bony foraminal narro wing. C4-C5: Slight anterolisthesis. Disc osteophytic ridging with advanced RIGHT facet arthropathy. Mild t o moderate RIGHT and mild LEFT bony foraminal narrowing. C5-C6: Disc osteophyte complex with endplate ridging. Slight contact of the cervical cord with mild c entral canal stenosis. Severe LEFT and moderate RIGHT bony foraminal narrowing. C6-C7: Disc osteophyte complex with endplate ridging. Mild to moderate LEFT and mild RIGHT bony lashonda inal narrowing. Spinal canal is patent. C7-T1: Spinal canal and neural foramen are patent. Visualized upper thoracic canal is patent. Visualized brain stem structures: Normal. Prevertebral soft tissues: Normal. MR/MR cervical spin wo con* [id number] IMPRESSION: 1. Previously described epidural collection has been removed/drained. Laminect rosita defects in the lower cervical and upper thoracic spine. 2. No high-grade central canal stenosis. 3. Disc osteophyte protrusion C5-C6 similar to previous with slight contact of the cervical cord and mild central canal stenosis. 4. Slight anterolisthesis C3 on C4 and C4 on C5 appears unchanged. 5. Severe LEFT C5-C6 bony foraminal narrowing. Moderate RIGHT C5-C6 bony lashonda inal narrowing. 6. Moderate LEFT C6-C7 bony foraminal narrowing. 7. Moderate to advanced facet arthropathy worse at RIGHT C2-C3, LEFT C3-C4, RI GHT C4-C5.
== END 2022-06-11 15:55 | disposition home or self-care (01) ==
LOC: RAD 16:00
PROVIDERS: PCP Nurse Practitioner Family; Visit Provider Orthopaedic Surgery
DX: M47.22 Other spondylosis with radiculopathy, cervical region (principal); M47.12 Other spondylosis with myelopathy, cervical region; M48.02 Spinal stenosis, cervical region
CPT/HCPCS: 72141; 72146

== ENCOUNTER 2022-06-18 13:44 | Outpatient (CLI) | payer MEDICARE, OTHER, SELFPAY ==
[2022-06-18 14:20] VITALS: BP 144/78
== END 2022-06-18 13:45 | disposition home or self-care (01) ==
LOC: RT 13:49
PROVIDERS: PCP Nurse Practitioner Family; Visit Provider Internal Medicine Pulmonary Disease
DX: J18.9 Pneumonia, unspecified organism (principal)
CPT/HCPCS: 94010; 94618; 94729

== ENCOUNTER 2022-06-20 14:30 | Outpatient (CLI) | payer MEDICARE, OTHER, SELFPAY ==
--- NOTE | 2022-06-20 14:30 | USCV_ITS ---
Kathleen Valdez Age: 72 Gender: F : 1950 Exam Date: 06/20/2022 15:00 Ordering Phys: Víctor Smiley MD Technologist: Exam Location: [facility] – [place] Indication: chest pain BP: 150 / 84 HR: 73 Rhythm: Sinus Technical Quality: Adequate MEASUREMENTS (Male / Female) Normal Values 2D ECHO LV Diastolic Diameter PLAX 3.8 cm 4.2 - 5.9 / 3.9 - 5.3 cm LV Systolic Diameter PLAX 2.1 cm IVS Diastolic Thickness 1.2 cm 0.6 - 1.0 / 0.6 - 0.9 cm IVS Systolic Thickness 1.9 cm LVPW Diastolic Thickness 1.4 cm 0.6 - 1.0 / 0.6 - 0.9 cm LVPW Systolic Thickness 1.6 cm LVOT Diameter 2.0 cm LV Ejection Fraction 2D Teich 76.3 % LV Ejection Fraction MOD 2C 61.1 % LV Ejection Fraction 2C AL 62.1 % LA Diameter 3.9 cm Aorta at Sinotubular Diameter 2.7 cm IVC Diameter 1.6 cm M-MODE Aortic Annulus Diameter 3.8 cm LA Ao Ratio MM 1.1 MV E Point Septal Separation 0.7 cm DOPPLER AV Peak Velocity 144.0 cm/s LVOT Peak Velocity 114.0 cm/s AV Area Cont Eq vti 2.8 cm squared AV Area Cont Eq pk 2.5 cm squared MV Area PHT 5.0 cm squared Mitral E to A Ratio 0.9 MV E' Velocity 107.0 cm/s Mitral E to LV E' Septal Ratio 9.3 TR Peak Velocity 251.0 cm/s TR Peak Gradient 25.2 mmHg TV Peak E Velocity 97.0 cm/s Right Atrial Pressure 3.0 mmHg Pulmonary Artery Systolic Pressu 28.2 mmHg RV Acceleration Time 0.2 s FINDINGS Left Ventricle Left ventricle is normal in size. LV systolic function is normal with EF of 60 to 65%. No regional wall motion abnormalities are seen. Grade 1 diastolic dysfunction Right Ventricle Normal in size and function Right Atrium Normal in size Left Atrium Normal in size Mitral Valve Structurally normal mitral valve. Trace mitral regurgitation. Aortic Valve Mild mitral annular calcification. No significant aortic stenosis or regurgitation seen. Tricuspid Valve Mild tricuspid regurgitation. Pulmonary artery systolic pressure is normal. Pulmonic Valve Not well visualized Pericardium Normal Aorta Normal in size IVC Appears to be normal CONCLUSIONS LV systolic function is normal with EF of 60 to 65% Grade 1 diastolic dysfunction Trace mitral regurgitation Mild tricuspid regurgitation Compared to prior echocardiogram from 2018, no significant changes seen. Jason Joseph MD (Electronically Signed) Final Date: 04 July 2022 12:32 S
== END 2022-06-20 14:31 | disposition home or self-care (01) ==
LOC: RAD 14:34
PROVIDERS: PCP Nurse Practitioner Family; Visit Provider Internal Medicine Pulmonary Disease
DX: M47.22 Other spondylosis with radiculopathy, cervical region (principal); I10 Essential (primary) hypertension; R06.02 Shortness of breath
CPT/HCPCS: 93306; 99214

== ENCOUNTER → 2022-08-19 15:09 | Outpatient (BNVA) | payer MEDICARE, OTHER, SELFPAY | PROVIDERS: PCP Nurse Practitioner Family; Visit Provider Internal Medicine Pulmonary Disease | DX: R06.02 Shortness of breath (principal); E66.01 Morbid (severe) obesity due to excess calories; G47.9 Sleep disorder, unspecified; R13.10 Dysphagia, unspecified | CPT/HCPCS: 99214 ==

== ENCOUNTER 2022-09-16 20:00 | Outpatient (CLI) | payer MEDICARE, OTHER, SELFPAY | END 2022-09-16 20:01 | disposition home or self-care (01) | LOC: SLEEP 09-17 04:37 | PROVIDERS: PCP Nurse Practitioner Family; Visit Provider Internal Medicine Pulmonary Disease | DX: G47.19 Other hypersomnia (principal); G47.33 Obstructive sleep apnea (adult) (pediatric) | CPT/HCPCS: 95810 ==

== ENCOUNTER → 2022-11-18 15:11 | Outpatient (BNVA) | payer MEDICARE, OTHER, SELFPAY | PROVIDERS: PCP Nurse Practitioner Family; Visit Provider Internal Medicine Pulmonary Disease | DX: R06.02 Shortness of breath (principal); E66.01 Morbid (severe) obesity due to excess calories; G47.33 Obstructive sleep apnea (adult) (pediatric); Z77.22 Contact with and (suspected) exposure to environmental tobacco smoke (acute) (chronic); Z68.42 Body mass index [BMI] 45.0-49.9, adult | CPT/HCPCS: 99214 ==

== ENCOUNTER 2022-12-16 15:41 | Outpatient (CLI) | payer MEDICARE, OTHER, SELFPAY ==
--- NOTE | 2022-12-16 15:55 | XRR_ITS ---
PROCEDURE INFORMATION: Exam: XR Chest Exam date and time: 12/16/2022 4:01 PM Age: 72 years old Clinical indication: Shortness of breath; Prior surgery; Surgery date: 6+ months; Surgery type: L spine; Patient HX: HX of ovarian cancer; Additional info: Bronchitis TECHNIQUE: Imaging protocol: Radiologic exam of the chest. Views: 2 views. COMPARISON: CR XR chest 2V* [id number] 06/03/2022 4:38 PM FINDINGS: Lungs: Stable chronic granulomatous changes. Lungs appear free of acute disease. Pleural spaces: Unremarkable. No pleural effusion. No pneumothorax. Heart/Mediastinum: Unremarkable. No cardiomegaly. Bones/joints: Unremarkable. XR/XR chest 2V* [id number] IMPRESSION: Stable nonacute findings.
== END 2022-12-16 15:42 | disposition home or self-care (01) ==
PROVIDERS: PCP Nurse Practitioner Family; Visit Provider Nurse Practitioner Family
DX: J40 Bronchitis, not specified as acute or chronic (principal); Z85.43 Personal history of malignant neoplasm of ovary
CPT/HCPCS: 71046

== ENCOUNTER → 2023-01-23 14:02 | Outpatient (BNVA) | payer MEDICARE, OTHER, SELFPAY | PROVIDERS: PCP Nurse Practitioner Family; Referring Provider Nurse Practitioner Family; Visit Provider Internal Medicine Cardiovascular Disease | DX: I10 Essential (primary) hypertension (principal) | CPT/HCPCS: 99203 ==

== ENCOUNTER 2023-01-23 15:28 | Emergency (ER) | payer MEDICARE, OTHER, SELFPAY ==
[2023-01-23 15:38] VITALS: BP 111/68; PULSE 74; RESP 20; TEMP 36.9; O2SAT 97; BMI 41.8
--- NOTE | 2023-01-23 15:54 | W.ED.WEAKNES ---
HPI - Weakness General: Chief complaint: Weakness Stated complaint: dizziness Time Seen by Provider: 01/23/23 15:53 Source: patient Mode of arrival: ambulatory History of Present Illness: 72-year-old female presents emergency room with cough congestion myalgias headache generally not feeling well for the last 2 days denies fever has been nauseated but no vomiting a few loose stools. No chest or abdominal pain no dysuria urgency or frequency. Cough has been nonproductive. Generally states she feels very very weak. MD Complaint: generalized weakness Onset (ago): day(s) (2) Duration: constant Location: generalized Associated symptoms: Reports chills, decreased appetite, myalgias, nausea and short of breath; Denies chest pain, confusion, melena, diaphoresis, dysuria, easy bruising, fever(s), headache(s), rash, syncope or vomiting Review of Systems Const: Reports: chills; Denies: fever(s) or diaphoresis Card: Denies: chest pain or syncope Resp: Denies: dyspnea GI: Reports: nausea; Denies: abdominal pain, vomiting or melena : Denies: dysuria, urinary frequency or urinary urgency Musc: Denies: neck pain or back pain Skin/Breast: Denies: rash Neuro: Denies: headache(s) or confusion Ko/Lymph: Denies: easy bruising PFSH ED PFSH: Medical History Bronchitis due to 2019-nCoV Cervical spine fracture Cervical spondylosis with myelopathy COVID-19 H/O upper respiratory infection Hypertension Morbid obesity Surgical History H/O total knee replacement Social History Smoking and tobacco/nicotine status: never used tobacco/nicotine Alcohol intake: never Substance/Drug Use: never Female Reproductive History: Spontaneous abortions: No Physical Exam Const: COMMON NORMALS: no acute distress GENERAL APPEARANCE: cooperative and comfortable ORIENTATION/CONSCIOUSNESS: Yes awake, Yes oriented to person, Yes oriented to place and Yes oriented to time HENMT: COMMON NORMALS: normocephalic, atraumatic and hearing grossly normal bilaterally HEAD & SCALP: normocephalic and atraumatic Resp: COMMON NORMALS: normal respiratory effort, No retractions, No use of accessory muscles and clear to auscultation bilaterally AUSCULTATION: clear to auscultation bilaterally Cardio: COMMON NORMALS: regular rate, regular rhythm and No murmurs present (Cardio) RATE: regular rate RHYTHM: regular rhythm GI: COMMON NORMALS: Soft to palpation and No hepatosplenomegaly present AUSCULTATION: Yes normoactive bowel sounds PALPATION: Yes Soft to palpation, No Tenderness to palpation present (GI), No Guarding due to palpation present (GI) and Yes No hepatosplenomegaly present Extremity: COMMON NORMALS: normal to inspection, capillary refill normal, no clubbing, cyanosis or edema, no calf tenderness and no pedal edema Neuro: SENSORIUM/ORIENTATION: Yes oriented to person, Yes oriented to place and Yes oriented to time Skin: COMMON NORMALS: no rashes or lesions noted GENERAL SKIN EXAM: no rashes or lesions noted Course Vital Signs: Vital signs: Vital Signs Temperature 98.4 F 01/23/23 15:38 Pulse Rate 74 01/23/23 15:38 Respiratory Rate 18 01/23/23 16:26 Blood Pressure 125/52 01/23/23 16:26 Pulse Oximetry 97 01/23/23 15:38 MDM - Weakness Medical Decision Making Chest x-ray unremarkable remainder labs also unremarkable patient seems to have more of a viral syndrome presentation is suspicious for COVID-19 may be in the early stages she has been swab will discharge home and contact her with results Medical Records I reviewed the patient's medical records. Lab Data I reviewed the patient's lab results. 01/23/23 16:00 01/23/23 16:00 Laboratory Results WBC 9.06 10^3/uL (3.29-11.43) 01/23/23 16:00 RBC 4.65 10^6/uL (3.85-5.65) 01/23/23 16:00 Hgb 11.70 g/dL (11.27-16.99) 01/23/23 16:00 Hct 36.9 % (36-47) 01/23/23 16:00 MCV 79.4 fl (85-98) L 01/23/23 16:00 MCH 25.2 pg (27-33) L 01/23/23 16:00 MCHC 31.7 g/dL (30-55) 01/23/23 16:00 RDW 15.9 % (12.1-15.1) H 01/23/23 16:00 Plt Count 269 10^3/cmm (157-399) 01/23/23 16:00 MPV 8.9 fL (7.4-10.4) 01/23/23 16:00 Neut % (Auto) 79.0 % 01/23/23 16:00 Lymph % (Auto) 10.0 % 01/23/23 16:00 [place] % (Auto) 10.4 % 01/23/23 16:00 Eos % (Auto) 0.0 % 01/23/23 16:00 Baso % (Auto) 0.2 % 01/23/23 16:00 Neut # (Auto) 7.15 10^3/uL (1.8-7.7) 01/23/23 16:00 Lymph # (Auto) 0.9 10^3/uL (0.8-4.8) 01/23/23 16:00 [place] # (Auto) 0.9 10^3/uL (0.2-0.9) 01/23/23 16:00 Eos # (Auto) 0.0 10^3/uL (0.0-0.8) 01/23/23 16:00 Baso # (Auto) 0.0 10^3/uL (0.0-0.1) 01/23/23 16:00 Nucleated RBC % (auto) 0 % 01/23/23 16:00 Nucleated RBCs # 0.0 /100WBC 01/23/23 16:00 Sodium 135 mmol/L (136-145) L 01/23/23 16:00 Potassium 3.5 mmol/L (3.5-5.1) 01/23/23 16:00 Chloride 100 mmol/L (98-107) 01/23/23 16:00 Carbon Dioxide 24 mmol/L (22-29) 01/23/23 16:00 Anion Gap 14.5 (5-19) 01/23/23 16:00 BUN 15 mg/dL (8-23) 01/23/23 16:00 Creatinine 0.9 mg/dL (0.5-0.9) 01/23/23 16:00 GFR Calculation Not Reportable 01/23/23 16:00 Glucose 107 mg/dL (65-115) 01/23/23 16:00 Calculated Osmolality 281 mOsm/kg (285-295) L 01/23/23 16:00 Calcium 8.8 mg/dL (8.5-10.5) 01/23/23 16:00 Total Bilirubin 0.5 mg/dL (0.15-1.2) 01/23/23 16:00 AST 17 U/L (0-32) 01/23/23 16:00 ALT 12 U/L (0-33) 01/23/23 16:00 Alkaline Phosphatase 92 U/L (35-105) 01/23/23 16:00 Total Protein 7.4 g/dL (6.6-8.7) 01/23/23 16:00 Albumin 3.8 g/dL (3.5-5.2) 01/23/23 16:00 Globulin 3.6 g/dL (1.3-4.6) 01/23/23 16:00 Coronavirus 229E (PCR) Not detected (NOT DETECT) 01/23/23 16:10 SARS-CoV-2 (PCR) Not detected (NOT DETECT) 01/23/23 16:10 All radiology interpretation(s) finalized by discharge Discharge Plan Discharge Patient Disposition: Home Clinical Impression: Viral upper respiratory tract infection with cough Condition: Stable Prescriptions: No Action oxybutynin chloride 15 mg tablet extended release 24hr 15 mg PO BID@0800,1999 escitalopram oxalate [Lexapro] 20 mg tablet 20 mg PO DAILY@0800 aspirin 325 mg tablet 325 mg PO DAILY@0800 loratadine 10 mg tablet 10 mg PO DAILY PRN (Reason: Allergic Symptoms) naproxen 500 mg tablet 500 mg PO BID PRN (Reason: Pain) baclofen 10 mg tablet 10 mg PO DAILY fluconazole 150 mg tablet 150 mg PO DAILY Qty: 3 2RF tramadol 50 mg tablet 50 mg PO TID PRN (Reason: pain) 10 Days Qty: 30 0RF albuterol sulfate [ProAir HFA] 90 mcg/actuation Hfa Aerosol Inhaler 2 puff INHALATION QID PRN (Reason: Shortness Of Breath) omeprazole 20 mg capsule,delayed release(DR/EC) 40 mg PO BID@0800,1999 valacyclovir [Valtrex] 1 gram tablet 1,000 mg PO BID PRN (Reason: Cold Sores) ondansetron 4 mg tablet,disintegrating See Rx Instructions .ROUTE .COMPLEX PRN (Reason: Nausea) Rx Instructions: DISSOLVE ONE TABLET in MOUTH EVERY 4 HOURS NEEDED FOR NAUSEA AND VOMITING triamterene-hydrochlorothiazid 1 tab PO DAILY Rx Instructions: 37.5/5mg tablet metoprolol succinate 25 mg Tablet Extended Release 24 Hr 25 mg PO BID furosemide 40 mg Tablet 20 mg PO BID PRN (Reason: swelling) Symbicort 80-4.5 mcg/actuation HFA aerosol inhaler 1 inh inhalation BID metoclopramide HCl 10 mg tablet 10 mg PO Q6H Qty: 20 0RF ciprofloxacin HCl 500 mg tablet 500 mg PO BID Qty: 10 0RF Discharge Orders: Discharge ED (Routine); Ordered 01/23/23 Ordered By: Goran Quintanilla Referrals: Ramirez,JANEL Cruz [Primary Care Provider] - Discharge Diet: Usual diet Discharge Activity: Increase activity as tolerated Patient Instructions: Opioid Safety, Pain Management Activity Restrictions/Additional Instructions: Thank you for choosing [facility] for your healthcare needs today. Please realize this is an emergency room and that we are providing you with a medical screening exam and this may not be complete and all inclusive of all the testing and or work up that you may need to determine your ailment or severity of your illness. It is very important that you follow up as instructed or that you return to the Emergency Department should you have concerns or if your condition changes or worsens in any way. Based on your history and exam suspect that you have COVID. It is also possible you have some other viral upper respiratory infection causing cough. Vital signs are stable. Your respiratory swabs were pending we will contact you with results and call in medications if needed. Coding Level of Care Code ED Business Systems Manager for Josefa Garcia
--- NOTE | 2023-01-23 15:55 | XR_ITS ---
WS: [id number] Exam: XR chest 1V portable [id number] Date/Time of Exam: 01/23/2023 3:57 PM Reason For Exam: dyspnea/cough Comparison 12/16/2022. Lungs are clear and fully expanded. Normal cardiomediastinal silhouette. Spondylosis of the T-spine w ith slight scoliosis. No pleural effusions. Bony structures are intact. IMPRESSION: 1. No acute cardiopulmonary finding.
[2023-01-23 16:11] LABS: Basophils % 0.2 %; Hematocrit 36.9 % (36-47); Lymphocytes # 0.9 10^3/uL (0.8-4.8); Mean Corpuscular HGB Conc 31.7 g/dL (30-55); Mean Corpuscular Hemoglobin 25.2 pg (27-33); Mean Corpuscular Volume 79.4 fl (85-98); Mean Platelet Volume 8.9 fL (7.4-10.4); Monocytes # 0.9 10^3/uL (0.2-0.9); Monocytes % 10.4 %; Neutrophils # 7.15 10^3/uL (1.8-7.7); Nucleated Red Blood Cells % 0 %; Platelet Count 269 10^3/cmm (157-399); Red Blood Count 4.65 10^6/uL (3.85-5.65); Red Cell Distribution Width 15.9 % (12.1-15.1); White Blood Count 9.06 10^3/uL (3.29-11.43)
[2023-01-23 16:26] VITALS: BP 125/52; RESP 18
[2023-01-23 16:32] LABS: Alanine Aminotransferase 12 U/L (0-33); Albumin Level 3.8 g/dL (3.5-5.2); Alkaline Phosphatase 92 U/L (35-105); Anion Gap 14.5 (5-19); Aspartate Amino Transferase 17 U/L (0-32); Blood Urea Nitrogen 15 mg/dL (8-23); Calcium 8.8 mg/dL (8.5-10.5); Carbon Dioxide 24 mmol/L (22-29); Chloride 100 mmol/L (98-107); Globulin 3.6 g/dL (1.3-4.6); Glucose 107 mg/dL (65-115); Osmolality Calculated 281 mOsm/kg (285-295); Potassium 3.5 mmol/L (3.5-5.1); Sodium 135 mmol/L (136-145); Total Bilirubin 0.5 mg/dL (0.15-1.2); Total Protein 7.4 g/dL (6.6-8.7)
[2023-01-23 18:15] LABS: Adenovirus Not Detected (NOT DETECT); Chlamydia Pneumoniae Not Detected (NOT DETECT); Coronavirus 229E,HKU1,NL63,OC4 Not Detected (NOT DETECT); Human Metapneumovirus Not Detected (NOT DETECT); Human Rhinovirus/Enterovirus Not Detected (NOT DETECT); Influenza A Not Detected (NOT DETECT); Influenza A H1 Not Detected (NOT DETECT); Influenza A H1-2009 Not Detected (NOT DETECT); Influenza A H3 Not Detected (NOT DETECT); Influenza B Not Detected (NOT DETECT); Mycoplasma Pneumoniae Not Detected (NOT DETECT); Parainfluenza Virus Type 1 Not Detected (NOT DETECT); Parainfluenza Virus Type 2 Not Detected (NOT DETECT); Parainfluenza Virus Type 3 Not Detected (NOT DETECT); Parainfluenza Virus Type 4 Not Detected (NOT DETECT); Respiratory Syncytial Virus A Not Detected (NOT DETECT); Respiratory Syncytial Virus B Not Detected (NOT DETECT); SARS-COV-2 Not Detected (NOT DETECT)
== END 2023-01-23 17:14 | disposition home or self-care (01) ==
PROVIDERS: Emergency Provider Family Medicine; PCP Nurse Practitioner Family
DX: J06.9 Acute upper respiratory infection, unspecified (principal); R05.9 Cough, unspecified; Z79.82 Long term (current) use of aspirin; I10 Essential (primary) hypertension; Z11.52 Encounter for screening for COVID-19
CPT/HCPCS: 71045; 80053; 85025; 87635; 99203; 99284

== ENCOUNTER 2023-01-26 12:48 | Emergency (ER) | payer MEDICARE, OTHER, SELFPAY ==
[2023-01-26 12:54] VITALS: BP 148/84; PULSE 76; RESP 18; TEMP 37.1; O2SAT 95; BMI 41.4
--- NOTE | 2023-01-26 13:09 | ED_ITS ---
HPI - Dizziness General: Chief Complaint: Dizziness Stated Complaint: N/V/D Time Seen by Provider: 01/26/23 13:07 Source: patient Mode of arrival: ambulatory Limitations: no limitations History of Present Illness: HPI Narrative: Patient presents emergency department today accompanied by family for evaluation treatment of continued symptoms of cough, diarrhea, new onset vomiting, and reported through and through chest pain . Patient was seen and evaluated here approximately 3 days ago. Patient had some testing performed which showed no acute abnormalities and, COVID test was collected and was negative at that time. She was diagnosed with viral upper respiratory infection with cough and discharged home. Patient states she has continued to get worse since that time. She reports she has barely gotten off the couch due to her intense fatigue from all of her diarrhea. She reports approximately 7-8 episodes of diarrhea daily stating they are very watery and yellow. She denies any recent antibiotic use. No other similarly ill at home at this time. Patient reports that yesterday she started having vomiting as well. She is complaining of pain in her lower mid chest radiating through to her back. She states she is dizzy and weak because she is so dehydrated. She states her urine is brown and malodorous. Review of Systems General: Reports: 10 or more systems reviewed and unremarkable except in HPI and below PFSH ED PFSH: Medical History Bronchitis due to 2019-nCoV Cervical spine fracture Cervical spondylosis with myelopathy COVID-19 H/O upper respiratory infection Hypertension Morbid obesity Surgical History H/O total knee replacement Social History Smoking and tobacco/nicotine status: never used tobacco/nicotine Alcohol intake: never Substance/Drug Use: never Female Reproductive History: Spontaneous abortions: No Physical Exam Const: COMMON NORMALS: no acute distress, patient oriented x3 and alert OTHER: Nontoxic-appearing. Patient easily communicates and provides lots of information regarding her history over the last few days without difficulty. HENMT: COMMON NORMALS: normocephalic, atraumatic, hearing grossly normal misa aterally and moist oral mucous membranes HEAD & SCALP: normocephalic and atraumatic Eye: COMMON NORMALS: Equal, round and reactive pupils present, EOMs intact bilaterally and conjunctivae normal CONJUNCTIVA: Yes conjunctivae normal PUPIL: Yes Equal, round and reactive pupils present Neck/C-Spine: COMMON NORMALS: full ROM and no JVD Lymph: LYMPHATIC: no lymphadenopathy noted Resp: COMMON NORMALS: normal respiratory effort, No retractions, No use of accessory muscles and clear to auscultation bilaterally AUSCULTATION: clear to auscultation bilaterally Cardio: COMMON NORMALS: no JVD, regular rate and regular rhythm RATE: regular rate RHYTHM: regular rhythm GI: OTHER: Patient with large body habitus and large pannus. Auscultated abdominal sounds revealed hyperactive bowel sounds where auscultation could be performed. Patient was nontender on palpation across her abdomen and indicates no areas of point specific tenderness. Her abdomen is soft. Extremity: COMMON NORMALS: normal to inspection, full ROM and capillary refill normal NARRATIVE EXTREMITY EXAM: Patient requires commode at bedside but is able to get up and down from the commode with some assist. Neuro: COMMON NORMALS: patient oriented x3 SENSORIUM/ORIENTATION: Yes alert Psych: COMMON NORMALS: mental status grossly normal, Normal thought process present, cooperative, normal affect and activity/motor behavior normal THOUGHT PROCESS: Normal thought process present Skin: COMMON NORMALS: no rashes or lesions noted and no wounds GENERAL SKIN EXAM: no rashes or lesions noted Course Vital Signs: Vital signs: Vital Signs Temperature 98.7 F 01/26/23 12:54 Pulse Rate 79 01/26/23 15:00 Respiratory Rate 18 01/26/23 12:54 Blood Pressure 131/69 01/26/23 15:00 Pulse Oximetry 90 01/26/23 15:00 Oxygen Delivery Me thod Room Air 01/26/23 15:00 MDM - Dizziness Medical Decision Making Patient's reevaluation today reveals no acute changes in lab work. Patient's chest x-ray was negative. Patient had no episodes of diarrhea while she was here though an order for a stool collection had been made. Patient did receive some fluids while she was here as she was not able to produce a urine specimen for us until after her for 500 cc. Still, explained to her that her kidney function is within normal limits and vital signs show no signs of tachycardia or hypotension due to to dehydration. Patient most likely has a gastroenteritis. However, her urinalysis did confirm signs of urinary tract infection. Discussed with her that we can treat for urinary tract infection but also give us coverage for pneumonias with alberto quinolones. I did warn her that it is possible that her diarrhea can be made worse with antibiotic use however. We discussed the importance of continuing to push fluids. Patient is provided antinausea medication in an effort to help ease p.o. intake and tolerating medications. They are to closely monitor. I did request a follow-up appointment with the primary care for recheck of the patient's urine. Went over strict return precautions for change or worsening in the patient's condition for which she is to be seen and reevaluated. I did discuss the case with Dr. Quintanilla as he had previously evaluated the patient several days ago. He looked over patient's lab work and confirmed suspicion for a gastroenteritis pattern. Patient verbalized understanding and agreement to treatment plan. Differential Diagnosis Unlikely adverse reaction to drug, benign paroxysmal positional vertigo, orthostatic hypotension, vertebral basilar insufficiency or transient cerebral ischemia Lab Data 01/26/23 13:18 01/26/23 13:18 Radiology Impressions Chest X-Ray 01/26/23 13:21 IMPRESSION: No acute findings. Laboratory Results WBC 13.32 10^3/uL (3.29-11.43) H 01/26/23 13:18 RBC 4.78 10^6/uL (3.85-5.65) 01/26/23 13:18 Hgb 11.90 g/dL (11.27-16.99) 01/26/23 13:18 Hct 38.3 % (36-47) 01/26/23 13:18 MCV 80.1 fl (85-98) L 01/26/23 13:18 MCH 24.9 pg (27-33) L 01/26/23 13:18 MCHC 31.1 g/dL (30-55) 01/26/23 13:18 RDW 15.4 % (12.1-15.1) H 01/26/23 13:18 Plt Count 305 10^3/cmm (157-399) 01/26/23 13:18 MPV 9.3 fL (7.4-10.4) 01/26/23 13:18 Neut % (Auto) 83.2 % 01/26/23 13:18 Lymph % (Auto) 8.2 % 01/26/23 13:18 [place] % (Auto) 7.7 % 01/26/23 13:18 Eos % (Auto) 0.1 % 01/26/23 13:18 Baso % (Auto) 0.3 % 01/26/23 13:18 Neut # (Auto) 11.10 10^3/uL (1.8-7.7) H 01/26/23 13:18 Lymph # (Auto) 1.1 10^3/uL (0.8-4.8) 01/26/23 13:18 [place] # (Auto) 1.0 10^3/uL (0.2-0.9) H 01/26/23 13:18 Eos # (Auto) 0.0 10^3/uL (0.0-0.8) 01/26/23 13:18 Baso # (Auto) 0.0 10^3/uL (0.0-0.1) 01/26/23 13:18 Nucleated RBC % (auto) 0 % 01/26/23 13:18 Nucleated RBCs # 0.0 /100WBC 01/26/23 13:18 Sodium 136 mmol/L (136-145) 01/26/23 13:18 Potassium 3.4 mmol/L (3.5-5.1) L 01/26/23 13:18 Chloride 100 mmol/L (98-107) 01/26/23 13:18 Carbon Dioxide 22 mmol/L (22-29) 01/26/23 13:18 Anion Gap 17.4 (5-19) 01/26/23 13:18 BUN 15 mg/dL (8-23) 01/26/23 13:18 Creatinine 0.9 mg/dL (0.5-0.9) 01/26/23 13:18 GFR Calculation Not Reportable 01/26/23 13:18 Glucose 98 mg/dL (65-115) 01/26/23 13:18 Calculated Osmolality 283 mOsm/kg (285-295) L 01/26/23 13:18 Calcium 8.8 mg/dL (8.5-10.5) 01/26/23 13:18 Total Bilirubin 0.4 mg/dL (0.15-1.2) 01/26/23 13:18 AST 18 U/L (0-32) 01/26/23 13:18 ALT 17 U/L (0-33) 01/26/23 13:18 Alkaline Phosphatase 89 U/L (35-105) 01/26/23 13:18 Troponin T Baseline 13 ng/L (0-10) H 01/26/23 13:18 Troponin T 120 Minute 11.47 ng/L (0-10) H 01/26/23 15:18 Delta Troponin T -1.53 ABS# (0-10) L 01/26/23 15:18 Troponin T Hi Sens 6Hr Cancelled 01/26/23 19:13 Troponin T Hi Sens 6Hr Delta Cancelled 01/26/23 19:13 NT-Pro-B Natriuret Pep 423 pg/mL (0-125) H 01/26/23 13:18 Total Protein 7.0 g/dL (6.6-8.7) 01/26/23 13:18 Albumin 3.3 g/dL (3.5-5.2) L 01/26/23 13:18 Globulin 3.7 g/dL (1.3-4.6) 01/26/23 13:18 Lipase 19 U/L (13-60) 01/26/23 13:18 Urine Color Yellow (Yellow) 01/26/23 15:40 Urine Appearance Hazy (CLEAR) A 01/26/23 15:40 Urine pH 5 (5-7) 01/26/23 15:40 Ur Specific [place] 1.005 (1.005-1.030) 01/26/23 15:40 Urine Protein Trace (Negative) 01/26/23 15:40 Urine Glucose (UA) Norm (Normal) 01/26/23 15:40 Urine Ketones 1+ (Negative) H 01/26/23 15:40 Urine Blood 2+ (Negative) H 01/26/23 15:40 Urine Nitrate Positive (Negative) H 01/26/23 15:40 Urine Bilirubin Neg (Negative) 01/26/23 15:40 Urine Urobilinogen Neg mg/dL (Negative) 01/26/23 15:40 Ur Leukocyte Esterase Trace (Negative) H 01/26/23 15:40 Urine RBC 0-4 /hpf (0-2) H 01/26/23 15:40 Urine WBC 15-25 /hpf (0-5) H 01/26/23 15:40 Ur Squamous Epith Cells 0-4 /hpf (0-5) H 01/26/23 15:40 Amorphous Sediment Not Reportable 01/26/23 15:40 Urine Bacteria 3+ /hpf (NONE) H 01/26/23 15:40 All radiology interpretation(s) finalized by discharge Discharge Plan Discharge Patient Disposition: Home Clinical Impression: Gastroenteritis, Acute UTI Condition: Stable Prescriptions: New metoclopramide HCl 10 mg tablet 10 mg PO Q6H Qty: 20 0RF ciprofloxacin HCl 500 mg tablet 500 mg PO BID Qty: 10 0RF No Action oxybutynin chloride 15 mg tablet extended release 24hr 15 mg PO BID@0800,2000 escitalopram oxalate [Lexapro] 20 mg tablet 20 mg PO DAILY@0800 aspirin 325 mg tablet 325 mg PO DAILY@0800 loratadine 10 mg tablet 10 mg PO DAILY PRN (Reason: Allergic Symptoms) naproxen 500 mg tablet 500 mg PO BID PRN (Reason: Pain) baclofen 10 mg tablet 10 mg PO DAILY fluconazole 150 mg tablet 150 mg PO DAILY Qty: 3 2RF tramadol 50 mg tablet 50 mg PO TID PRN (Reason: pain) 10 Days Qty: 30 0RF albuterol sulfate [ProAir HFA] 90 mcg/actuation Hfa Aerosol Inhaler 2 puff INHALATION QID PRN (Reason: Shortness Of Breath) omeprazole 20 mg capsule,delayed release(DR/EC) 40 mg PO BID@0800,1999 valacyclovir [Valtrex] 1 gram tablet 1,000 mg PO BID PRN (Reason: Cold Sores) ondansetron 4 mg tablet,disintegrating See Rx Instructions .ROUTE .COMPLEX PRN (Reason: Nausea) Rx Instructions: DISSOLVE ONE TABLET in MOUTH EVERY 4 HOURS NEEDED FOR NAUSEA AND VOMITING triamterene-hydrochlorothiazid 1 tab PO DAILY Rx Instructions: 37.5/5mg tablet metoprolol succinate 25 mg Tablet Extended Release 24 Hr 25 mg PO BID furosemide 40 mg Tablet 20 mg PO BID PRN (Reason: swelling) Symbicort 80-4.5 mcg/actuation HFA aerosol inhaler 1 inh inhalation BID Discharge Orders: Discharge ED (Routine); Ordered 01/26/23 Ordered By: Jessica Houston Referrals: Ramirez,JANEL Cruz [Primary Care Provider] - Discharge Diet: Advance as tolerated Discharge Activity: Increase activity as tolerated Patient Instructions: Urinary Tract Infection in Women (ED), Gastroenteritis (ED) Activity Restrictions/Additional Instructions: Blood work today revealed no acute concerns. Your kidney function is well within normal limits and you do not have significant abnormalities in your electrolytes from excessive diarrhea and now vomiting. Your vital signs here remained stable. Your chest x-ray was negative for any signs of acute pneumonia. Urinalysis was positive for concerns of urinary tract infection and we will start you on antibiotics today. Unfortunately, antibiotics can make diarrhea and GI upset worse so you may wish to take an [id number]-[id number] probiotic during this time as well. I provided you antinausea medication for the next several days for you to be able to tolerate your medications and fluids to continue stay hydrated. Please have a follow-up appoint with your primary care doctor this week for general recheck and to recheck your urinalysis to make sure all signs of infection have resolved. Be seen and reevaluated here in the emergency department if you have any acute worsening. Coding Level of Care Code ED Film And Video Graphics Designer for Josefa Garcia
--- NOTE | 2023-01-26 13:18 | ECG_ITS ---
[facility] Test Date: 2023-01-26 Pat Name: Kathleen Valdez Department: Room: Gender: Female Sheet Metal Operator: : 1950 Requested By: Jessica Myles Order Number: [id number] Laquita MD: Neeraj William M.D. Measurements Intervals [place] Rate: 73 P: 63 [place]: 151 QRS: 38 QRSD: 138 T: 46 QT: 421 QTc: 466 Interpretive Statements SINUS RHYTHM POSSIBLE LEFT ATRIAL ENLARGEMENT [-0.1mV P-WAVE IN V1/V2] RIGHT BUNDLE BRANCH BLOCK [120+ ms QRS DURATION, UPRIGHT V1, 40+ ms S IN I/aVL/V4/V5/V6] Compared to ECG 05/28/2022 22:09:08 Right bundle-branch block now present Prolonged QT interval no longer present Electronically Signed On 01-26-2023 22:08:01 FIRST BEATER by Neeraj William M.D. [id number]
--- NOTE | 2023-01-26 13:21 | XRR_ITS ---
PROCEDURE INFORMATION: Exam: XR Chest Exam date and time: 01/26/2023 1:29 PM Age: 72 years old Clinical indication: Shortness of breath; Chest pressure and chest wall pain; Patient HX: Mediastinal chest pain that radiates posteriorly; Nausea/vomiting TECHNIQUE: Imaging protocol: Radiologic exam of the chest. Views: 1 view. COMPARISON: CR XR chest 1V portable [id number] 01/23/2023 4:01 PM FINDINGS: Lungs: Low lung volumes. No focal consolidation. Pleural spaces: No pleural effusion. No pneumothorax. Heart/Mediastinum: Heart size unchanged. Bones/joints: No acute findings. XR/XR chest 1V [id number] IMPRESSION: No acute findings.
[2023-01-26 13:36] LABS: Basophils % 0.3 %; Eosinophils % 0.1 %; Hematocrit 38.3 % (36-47); Lymphocytes # 1.1 10^3/uL (0.8-4.8); Lymphocytes % 8.2 %; Mean Corpuscular HGB Conc 31.1 g/dL (30-55); Mean Corpuscular Hemoglobin 24.9 pg (27-33); Mean Corpuscular Volume 80.1 fl (85-98); Mean Platelet Volume 9.3 fL (7.4-10.4); Monocytes % 7.7 %; Neutrophils % 83.2 %; Nucleated Red Blood Cells % 0 %; Platelet Count 305 10^3/cmm (157-399); Red Blood Count 4.78 10^6/uL (3.85-5.65); Red Cell Distribution Width 15.4 % (12.1-15.1); White Blood Count 13.32 10^3/uL (3.29-11.43)
[2023-01-26 13:44] LABS: Alanine Aminotransferase 17 U/L (0-33); Albumin Level 3.3 g/dL (3.5-5.2); Alkaline Phosphatase 89 U/L (35-105); Anion Gap 17.4 (5-19); Aspartate Amino Transferase 18 U/L (0-32); Blood Urea Nitrogen 15 mg/dL (8-23); Calcium 8.8 mg/dL (8.5-10.5); Carbon Dioxide 22 mmol/L (22-29); Chloride 100 mmol/L (98-107); Globulin 3.7 g/dL (1.3-4.6); Glucose 98 mg/dL (65-115); Osmolality Calculated 283 mOsm/kg (285-295); Potassium 3.4 mmol/L (3.5-5.1); Sodium 136 mmol/L (136-145); Total Bilirubin 0.4 mg/dL (0.15-1.2)
[2023-01-26 13:45] LABS: Troponin(5th) Baseline 13 ng/L (0-10)
[2023-01-26 13:50] LABS: Lipase 19 U/L (13-60)
[2023-01-26] MEDS: metoclopramide 5 mg/mL SDV 2 mL 10 MG IVP (13:58)
[2023-01-26] MEDS: sodium chloride 0.9% 500 ML IV ×2 (13:58→16:22)
[2023-01-26 14:00] VITALS: BP 111/68; PULSE 78; O2SAT 91
[2023-01-26 14:17] LABS: NT Pro B Type Natriuretic Pept 423 pg/mL (0-125)
[2023-01-26 14:29] VITALS: BP 124/68; PULSE 79; O2SAT 91
[2023-01-26 15:00] VITALS: BP 131/69; PULSE 79; O2SAT 90
--- NOTE | 2023-01-26 15:23 | ECG_ITS ---
[facility] Test Date: 2023-01-26 Pat Name: Kathleen Valdez Department: Room: Gender: Female Sas Programmer: : 1950 Requested By: Jessica Myles Order Number: [id number] Laquita MD: Neeraj William M.D. Measurements Intervals [place] Rate: 75 P: 64 [place]: 161 QRS: 33 QRSD: 138 T: 42 QT: 432 QTc: 485 Interpretive Statements SINUS RHYTHM POSSIBLE LEFT ATRIAL ENLARGEMENT [-0.1mV P-WAVE IN V1/V2] RIGHT BUNDLE BRANCH BLOCK [120+ ms QRS DURATION, UPRIGHT V1, 40+ ms S IN I/aVL/V4/V5/V6] Compared to ECG 01/26/2023 13:18:12 No significant changes Electronically Signed On 01-26-2023 22:21:31 REHAB THERAPY MANAGER by Neeraj William M.D. [id number]
[2023-01-26 16:15] LABS: Troponin 5 2HR 11.47 ng/L (0-10)
[2023-01-26 16:17] LABS: Troponin 5 2HR Delta -1.53 ABS# (0-10)
[2023-01-26 16:33] LABS: Protein Urine Trace (Negative); Specific Gravity, Urine 1.005 (1.005-1.030); Urine Appearance Hazy (CLEAR); Urine Color Yellow (Yellow); pH Urine 5 (5-7)
[2023-01-26 16:34] LABS: Add Urine Microscopic? YES; Bilirubin Urine Neg (Negative); Blood Urine 2+ (Negative); Glucose Urine UA Norm (Normal); Ketones Urine 1+ (Negative); Leukocyte Esterase Urine Trace (Negative); Nitrate Urine Positive (Negative); Urobilinogen Urine Neg (Negative)
[2023-01-26 16:35] LABS: Bacteria Urine 3+ /hpf; RBC Urine 0-4 /hpf (0-2); Squamous Epithelial Cell Urine 0-4 /hpf (0-5); WBC Urine 15-25 /hpf (0-5)
[2023-01-26 16:36] LABS: Add Urine Culture? Yes
== END 2023-01-26 17:04 | disposition home or self-care (01) ==
PROVIDERS: Emergency Provider Physician Assistant; PCP Nurse Practitioner Family
DX: K52.9 Noninfective gastroenteritis and colitis, unspecified (principal); N39.0 Urinary tract infection, site not specified; Z79.82 Long term (current) use of aspirin; I10 Essential (primary) hypertension
CPT/HCPCS: 36415; 71045; 80053; 81001; 83690; 83880; 84484; 85025; 87077; 87086; 87186; 93005; 96361; 96374; 99285; J2765; J7040; J7050

== ENCOUNTER 2023-05-08 15:59 | Emergency (ER) | payer MEDICARE, OTHER, SELFPAY ==
[2023-05-08 16:10] VITALS: BP 126/71; PULSE 76; RESP 18; TEMP 36.4; O2SAT 93
--- NOTE | 2023-05-08 16:15 | USR_ITS ---
PROCEDURE INFORMATION: Exam: US Duplex Left Lower Extremity Veins, Limited Exam date and time: 05/08/2023 3:39 PM Age: 73 years old Clinical indication: Pain; Leg, lower; Left TECHNIQUE: Imaging protocol: Real-time duplex ultrasound of the left extremity with 2-D erickson scale, color Doppler flow and spectral waveform analysis including responses to compression and other maneuvers (when performed) with image documentation. Limited exam focused on the left lower extremity veins. COMPARISON: No relevant prior studies available. FINDINGS: Left deep veins: Unremarkable. The common femoral, femoral, proximal profunda femoral and popliteal veins as well as the visualized deep veins of the lower leg are patent without thrombus. Normal Doppler waveforms. Normal compressibility and/or augmentation response. Superficial veins: Greater saphenous vein at the saphenofemoral junction is patent without thrombus. Soft tissues: Unremarkable. US/CV venous duplex [facility] [id number] IMPRESSION: No evidence of deep vein thrombosis.
[2023-05-08 19:57] VITALS: PULSE 84; RESP 18
--- NOTE | 2023-05-08 20:13 | W.ED.EXTPRO ---
Documented by User: BOOKER Ferris 05/08/23 20:21 HPI - Extremity Problem General: Chief complaint: Extremity Injury, Lower Stated complaint: left leg pain Time Seen by Provider: 05/08/23 19:13 Source: patient Mode of arrival: ambulatory Limitations: no limitations History of Present Illness: Patient is a 73-year-old female who presents the emergency department complaining of left lower extremity pain onset today. Patient notes swelling to the lateral aspect of the lower calf, as well as to the posterior aspect of her knee. Pain began all of a sudden, and she denies any history of blood thinner use or DVT. Patient states that she is unable to walk due to the pain, but denies noticing any overlying skin changes, changes in sensation, fevers, shortness of breath, chest pain, palpitations, or any other symptoms. She has taken Tylenol for symptoms, but notes minimal relief. MD Complaint: extremity pain (LLE) and extremity swelling (LLE) Pain Consistency: constant Location: left Quality: sharp and constant Relieving factors: nothing Exacerbating factors: range of motion, weight bearing, walking and exertion Associated symptoms: Deny chest pain, fever(s) or rash Review of Systems General: Reports: 10 or more systems reviewed and unremarkable except in HPI and below Const: Denies: fever(s), chills or fatigue Eyes: Denies: change in vision ENMT: Denies: throat pain, ear or mastoid pain or nasal discharge Card: Denies: chest pain, palpitations, swelling of feet/ankles or lightheadedness Resp: Denies: dyspnea, productive cough or wheezing GI: Denies: abdominal pain, nausea, vomiting, diarrhea or constipation : Denies: flank pain, difficulty voiding, dysuria or urinary frequency Musc: Reports: extremity pain (LLE) and extremity swelling (LLE); Denies: neck pain, back pain, joint pain, joint swelling, joint redness or joint warmth Skin/Breast: Denies: rash Neuro: Denies: headache(s), numbness in extremities or weakness in extremities PFSH ED PFSH: Medical History Morbid obesity Hypertension H/O upper respiratory infection Cervical spondylosis with myelopathy Bronchitis due to 2019-nCoV COVID-19 Cervical spine fracture Surgical History H/O total knee replacement Social History Smoking and tobacco/nicotine status: never used tobacco/nicotine Alcohol intake: never Substance/Drug Use: never Female Reproductive History: Spontaneous abortions: No Physical Exam Const: COMMON NORMALS: no acute distress, patient oriented x3 and no limitations GENERAL APPEARANCE: cooperative, comfortable and well developed NUTRITIONAL APPEARANCE: obese ORIENTATION/CONSCIOUSNESS: Yes awake, Yes oriented to person, Yes oriented to place and Yes oriented to time HENMT: COMMON NORMALS: normocephalic, atraumatic and hearing grossly normal bilaterally HEAD & SCALP: normocephalic and atraumatic Resp: COMMON NORMALS: normal respiratory effort, No retractions, No use of accessory muscles and clear to auscultation bilaterally AUSCULTATION: clear to auscultation bilaterally Cardio: COMMON NORMALS: regular rate, regular rhythm, No clicks present (Cardio), No murmurs present (Cardio) and No rub (Cardio) RATE: regular rate RHYTHM: regular rhythm Extremity: COMMON NORMALS: full ROM OTHER: There is an area of superficial swelling noted to the lateral aspect of the lower left serrano without overlying skin changes or bruising. This area is tender to the touch. She has another area of superficial swelling noted to the proximal and inferior to the left lateral knee joint. The extremity is not cool to the touch and she does not demonstrate any distal neurovascular deficits. She has good dorsalis pedis and posterior tibial pulses bilaterally. No significant calf tenderness. Bilateral lower extremity lymphedema. Neuro: COMMON NORMALS: patient oriented x3, moves all extremities, no focal motor deficits and no sensory deficits noted SENSORIUM/ORIENTATION: Yes oriented to person, Yes oriented to place and Yes oriented to time Psych: COMMON NORMALS: mental status grossly normal and Normal thought process present THOUGHT PROCESS: Normal thought process present Skin: COMMON NORMALS: no rashes or lesions noted GENERAL SKIN EXAM: no rashes or lesions noted Course Vital Signs: Vital signs: Vital Signs Temperature 97.5 F L 05/08/23 16:10 Pulse Rate 84 05/08/23 19:57 Respiratory Rate 18 05/08/23 19:57 Blood Pressure 126/71 05/08/23 16:10 Pulse Oximetry 93 05/08/23 16:10 Oxygen Delivery Me thod Room Air 05/08/23 16:10 MDM - Extremity (Nontraumatic) Medical Decision Making This patient is a 73-year-old female who was seen and evaluated in the emergency department today for acute onset of left lower leg pain. The pain came on all of a sudden and has prevented her from walking. Her vitals have been normal. Upon examination of the left lower extremity, she noted signs of superficial thrombophlebitis without overlying cellulitis or concern for deeper thrombosis. Left extremity duplex ultrasound failed to show any sign of coagulopathy. Due to the patient's presentation, I believe that she can be treated conservatively with ice, NSAIDs, and compression for superficial thrombophlebitis. She is instructed that if her symptoms worsen or she starts to develop any distal neurovascular deficits or alarming skin color changes, to return for reevaluation. Otherwise, she agrees with the plan and will be discharged home. Lab Data Radiology Impressions Venous Duplex 05/08/23 16:15 IMPRESSION: No evidence of deep vein thrombosis. All radiology interpretation(s) finalized by discharge Discharge Plan Discharge Patient Disposition: Home Clinical Impression: Superficial thrombophlebitis Qualifiers: Superficial thrombophlebitis-Involved body area: lower extremity Laterality: left Qualified Code(s): I80.02 - Phlebitis and thrombophlebitis of superficial vessels of left lower extremity Condition: Stable Prescriptions: No Action oxybutynin chloride 15 mg tablet extended release 24hr 15 mg PO BID@0800,1999 escitalopram oxalate [Lexapro] 20 mg tablet 20 mg PO DAILY@0800 aspirin 325 mg tablet 325 mg PO DAILY@0800 loratadine 10 mg tablet 10 mg PO DAILY PRN (Reason: Allergic Symptoms) naproxen 500 mg tablet 500 mg PO BID PRN (Reason: Pain) baclofen 10 mg tablet 10 mg PO DAILY fluconazole 150 mg tablet 150 mg PO DAILY Qty: 3 2RF tramadol 50 mg tablet 50 mg PO TID PRN (Reason: pain) 10 Days Qty: 30 0RF albuterol sulfate [ProAir HFA] 90 mcg/actuation Hfa Aerosol Inhaler 2 puff INHALATION QID PRN (Reason: Shortness Of Breath) omeprazole 20 mg capsule,delayed release(DR/EC) 40 mg PO BID@0800,1999 valacyclovir [Valtrex] 1 gram tablet 1,000 mg PO BID PRN (Reason: Cold Sores) ondansetron 4 mg tablet,disintegrating See Rx Instructions .ROUTE .COMPLEX PRN (Reason: Nausea) Rx Instructions: DISSOLVE ONE TABLET in MOUTH EVERY 4 HOURS NEEDED FOR NAUSEA AND VOMITING triamterene-hydrochlorothiazid 1 tab PO DAILY Rx Instructions: 37.5/5mg tablet metoprolol succinate 25 mg Tablet Extended Release 24 Hr 25 mg PO BID furosemide 40 mg Tablet 20 mg PO BID PRN (Reason: swelling) Symbicort 80-4.5 mcg/actuation HFA aerosol inhaler 1 inh inhalation BID metoclopramide HCl 10 mg tablet 10 mg PO Q6H Qty: 20 0RF ciprofloxacin HCl 500 mg tablet 500 mg PO BID Qty: 10 0RF Discharge Orders: Discharge ED (Routine); Ordered 05/08/23 Ordered By: Balaji Luciano Referrals: Nancy Ramirez APN [Primary Care Provider] - Discharge Diet: Usual diet Discharge Activity: Increase activity as tolerated Patient Instructions: Superficial Thrombophlebitis (ED) Activity Restrictions/Additional Instructions: Use compression stocking as discussed. Ice for added relief. Take ibuprofen as instructed. Gentle range of motion exercises as tolerated. Watch for any signs of skin color changes, changes in sensation, significant increase in pain, or any other symptoms you may have. Follow-up with your primary care provider. Coding Level of Care Code ED Aircraft Navigator for Chg Fwd Documented by User: Goran Quintanilla DO 05/09/23 06:13 HPI - Extremity Problem General: Chief complaint: Extremity Injury, Lower Stated complaint: left leg pain Time Seen by Provider: 05/08/23 19:13 [facility] ED PFSH: Medical History Morbid obesity Hypertension H/O upper respiratory infection Cervical spondylosis with myelopathy Bronchitis due to 2019-nCoV COVID-19 Cervical spine fracture Surgical History H/O total knee replacement Social History Smoking and tobacco/nicotine status: never used tobacco/nicotine Alcohol intake: never Substance/Drug Use: never Course Vital Signs: Vital signs: Vital Signs Temperature 97.5 F L 05/08/23 16:10 Pulse Rate 84 05/08/23 19:57 Respiratory Rate 18 05/08/23 19:57 Blood Pressure 126/71 05/08/23 16:10 Pulse Oximetry 93 05/08/23 16:10 Oxygen Delivery Me thod Room Air 05/08/23 16:10 MDM - Extremity (Nontraumatic) Medical Decision Making This patient is a 73-year-old female who was seen and evaluated in the emergency department today for acute onset of left lower leg pain. The pain came on all of a sudden and has prevented her from walking. Her vitals have been normal. Upon examination of the left lower extremity, she noted signs of superficial thrombophlebitis without overlying cellulitis or concern for deeper thrombosis. Left extremity duplex ultrasound failed to show any sign of coagulopathy. Due to the patient's presentation, I believe that she can be treated conservatively with ice, NSAIDs, and compression for superficial thrombophlebitis. She is instructed that if her symptoms worsen or she starts to develop any distal neurovascular deficits or alarming skin color changes, to return for reevaluation. Otherwise, she agrees with the plan and will be discharged home. Chart reviewed and patient discussed with midlevel. Agree with assessment and plan. Lab Data Radiology Impressions Venous Duplex 05/08/23 16:15 IMPRESSION: No evidence of deep vein thrombosis. Discharge Plan Discharge Patient Disposition: Home Clinical Impression: Superficial thrombophlebitis Qualifiers: Superficial thrombophlebitis-Involved body area: lower extremity Laterality: left Qualified Code(s): I80.02 - Phlebitis and thrombophlebitis of superficial vessels of left lower extremity Condition: Stable Prescriptions: No Action oxybutynin chloride 15 mg tablet extended release 24hr 15 mg PO BID@0800,1999 escitalopram oxalate [Lexapro] 20 mg tablet 20 mg PO DAILY@0800 aspirin 325 mg tablet 325 mg PO DAILY@0800 loratadine 10 mg tablet 10 mg PO DAILY PRN (Reason: Allergic Symptoms) naproxen 500 mg tablet 500 mg PO BID PRN (Reason: Pain) baclofen 10 mg tablet 10 mg PO DAILY fluconazole 150 mg tablet 150 mg PO DAILY Qty: 3 2RF tramadol 50 mg tablet 50 mg PO TID PRN (Reason: pain) 10 Days Qty: 30 0RF albuterol sulfate [ProAir HFA] 90 mcg/actuation Hfa Aerosol Inhaler 2 puff INHALATION QID PRN (Reason: Shortness Of Breath) omeprazole 20 mg capsule,delayed release(DR/EC) 40 mg PO BID@0800,2000 valacyclovir [Valtrex] 1 gram tablet 1,000 mg PO BID PRN (Reason: Cold Sores) ondansetron 4 mg tablet,disintegrating See Rx Instructions .ROUTE .COMPLEX PRN (Reason: Nausea) Rx Instructions: DISSOLVE ONE TABLET in MOUTH EVERY 4 HOURS NEEDED FOR NAUSEA AND VOMITING triamterene-hydrochlorothiazid 1 tab PO DAILY Rx Instructions: 37.5/5mg tablet metoprolol succinate 25 mg Tablet Extended Release 24 Hr 25 mg PO BID furosemide 40 mg Tablet 20 mg PO BID PRN (Reason: swelling) Symbicort 80-4.5 mcg/actuation HFA aerosol inhaler 1 inh inhalation BID metoclopramide HCl 10 mg tablet 10 mg PO Q6H Qty: 20 0RF ciprofloxacin HCl 500 mg tablet 500 mg PO BID Qty: 10 0RF Discharge Orders: Discharge ED (Routine); Ordered 05/08/23 Ordered By: Balaji Luciano Referrals: Nancy Ramirez APN [Primary Care Provider] - Discharge Diet: Usual diet Discharge Activity: Increase activity as tolerated Patient Instructions: Superficial Thrombophlebitis (ED) Activity Restrictions/Additional Instructions: Use compression stocking as discussed. Ice for added relief. Take ibuprofen as instructed. Gentle range of motion exercises as tolerated. Watch for any signs of skin color changes, changes in sensation, significant increase in pain, or any other symptoms you may have. Follow-up with your primary care provider. Coding Level of Care Code ED Aircraft Navigator for Josefa Garcia
== END 2023-05-08 19:58 | disposition home or self-care (01) ==
PROVIDERS: Emergency Provider Physician Assistant; PCP Nurse Practitioner Family
DX: I80.02 Phlebitis and thrombophlebitis of superficial vessels of left lower extremity (principal); Z79.82 Long term (current) use of aspirin; I10 Essential (primary) hypertension
CPT/HCPCS: 93971; 99284

== ENCOUNTER → 2023-05-13 15:26 | Outpatient (BNVA) | payer MEDICARE, OTHER, SELFPAY | PROVIDERS: PCP Nurse Practitioner Family; Visit Provider Dermatology | DX: L98.8 Other specified disorders of the skin and subcutaneous tissue (principal); L73.8 Other specified follicular disorders; D23.122 Other benign neoplasm of skin of left lower eyelid, including canthus | CPT/HCPCS: 99202 ==

== ENCOUNTER 2023-08-03 15:09 | Emergency (ER) | payer MEDICARE, OTHER, SELFPAY ==
--- NOTE | 2023-08-03 15:19 | XRR_ITS ---
PROCEDURE INFORMATION: Exam: XR Chest Exam date and time: 08/03/2023 3:26 PM Age: 73 years old Clinical indication: Pain; Chest pressure; Additional info: Cp TECHNIQUE: Imaging protocol: Radiologic exam of the chest. Views: 1 view. COMPARISON: CR (CHEST, ) 01/26/2023 1:29 PM FINDINGS: Lungs: Bilateral lower lung zone atelectasis. No focal consolidation. Pleural spaces: Unremarkable. No pleural effusion. No pneumothorax. Heart/Mediastinum: Unremarkable. No cardiomegaly. Vasculature: Unfolding of the thoracic aorta. Bones/joints: Mild degenerative disease of bilateral acromioclavicular joints. Mild degenerative disease of the thoracic spine. Soft tissues: Soft tissue calcifications projecting over the right axilla. XR/XR chest 1V portable [id number] IMPRESSION: No acute cardiopulmonary process.
--- NOTE | 2023-08-03 15:19 | ECG_ITS ---
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 Measurements Intervals [place] Rate: 87 P: 51 [place]: 132 QRS: -11 QRSD: 142 T: 38 QT: 404 QTc: 488 Interpretive Statements SINUS RHYTHM POSSIBLE LEFT ATRIAL ENLARGEMENT [-0.1mV P-WAVE IN V1/V2] RIGHT BUNDLE BRANCH BLOCK [120+ ms QRS DURATION, UPRIGHT V1, 40+ ms S IN I/aVL/V4/V5/V6] Compared to ECG 01/26/2023 15:24:22 No significant changes Electronically Signed On 08-04-2023 8:34:01 CDT by Neeraj William M.D. [id number]
[2023-08-03 15:20] VITALS: BP 159/78; PULSE 89; RESP 20; TEMP 36.6; O2SAT 91; BMI 46.5
[2023-08-03 15:48] LABS: Basophils # 0.1 10^3/uL (0.0-0.1); Basophils % 0.5 %; Eosinophils # 0.2 10^3/uL (0.0-0.8); Eosinophils % 2.2 %; Hematocrit 38.8 % (36-47); Lymphocytes # 1.8 10^3/uL (0.8-4.8); Lymphocytes % 19.8 %; Mean Corpuscular HGB Conc 31.4 g/dL (30-55); Mean Corpuscular Hemoglobin 25.2 pg (27-33); Mean Corpuscular Volume 80.2 fl (85-98); Mean Platelet Volume 9.1 fL (7.4-10.4); Monocytes # 0.6 10^3/uL (0.2-0.9); Monocytes % 6.9 %; Neutrophils % 70.4 %; Nucleated Red Blood Cells % 0 %; Platelet Count 277 10^3/cmm (157-399); Red Blood Count 4.84 10^6/uL (3.85-5.65); Red Cell Distribution Width 15.9 % (12.1-15.1); White Blood Count 9.24 10^3/uL (3.29-11.43)
[2023-08-03 16:01] LABS: INR 0.99 (0.8-1.2)
--- NOTE | 2023-08-03 16:02 | ED_ITS ---
HPI - Chest Pain 2 General: Chief Complaint: Chest Pain Stated Complaint: chest pain Time Seen by Provider: 08/03/23 15:55 Source: patient Mode of arrival: ambulatory Limitations: no limitations History of Present Illness: 73-year-old female states roughly 45 min utes ago she started having chest pain. She states chest pain in the center of her chest she taken a nitro her pain is improved. She has had some back pain as well. She had some dyspnea with her pain she denies any nausea or vomiting denies any fevers. Associated symptoms: Reports dyspnea; Deny abdominal pain, fever(s), nausea or vomiting Review of Systems 2 Const: Denies: fever(s), chills, body aches or change in appetite ENMT: Denies: throat pain or dental pain Card: Reports: chest pain Resp: Reports: dyspnea GI: Denies: abdominal pain, nausea, vomiting or diarrhea Musc: Denies: neck pain or back pain Skin/Breast: Denies: rash Neuro: Denies: headache(s) PFSH ED 2 PFSH: Medical History Morbid obesity Hypertension H/O upper respiratory infection Cervical spondylosis with myelopathy Bronchitis due to 2019-nCoV COVID-19 Cervical spine fracture Surgical History H/O total knee replacement Social History Smoking and tobacco/nicotine status: never used tobacco/nicotine Alcohol intake: never Substance/Drug Use: never Female Reproductive History: Spontaneous abortions: No Physical Exam 2 Const: COMMON NORMALS: patient oriented x3 HENMT: COMMON NORMALS: normocephalic and atraumatic HEAD & SCALP: n ormocephalic and atraumatic Neck/C-Spine: COMMON NORMALS: full ROM and supple Chest: COMMONS NORMALS: normal inspection of the chest and normal palpation of entire chest wall Resp: COMMON NORMALS: normal respiratory effort, No retractions, No use of accessory muscles and clear to auscultation bilaterally AUSCULTATION: clear to auscultation bilaterally Cardio: COMMON NORMALS: regular rate, regular rhythm and No murmurs present (Cardio) RATE: regular rate RHYTHM: regular rhythm GI: COMMON NORMALS: Normal to inspection, nondistended, normoactive bowel sounds present, Soft to palpation, non-tender and no masses PALPATION: Yes Soft to palpation Extremity: COMMON NORMALS: normal to inspection and full ROM Neuro: COMMON NORMALS: patient oriented x3, moves all extremities and no focal motor deficits Psych: COMMON NORMALS: mental status grossly normal, Normal thought process present and cooperative THOUGHT PROCESS: Normal thought process present Skin: COMMON NORMALS: no rashes or lesions noted and no wounds GENERAL SKIN EXAM: no rashes or lesions noted Course 2 Vital Signs: Vital signs: Vital Signs Temperature 98 F 08/03/23 15:20 Pulse Rate 70 08/03/23 19:00 Respiratory Rate 20 H 08/03/23 15:20 Blood Pressure 170/95 08/03/23 19:00 Pulse Oximetry 93 08/03/23 19:00 Oxygen Delivery Me thod Room Air 08/03/23 19:00 MDM - Chest Pain Medical Decision Making Patient presents here with chest pain initial troponin negative CT angio was negative as well patient's pending her 2-hour troponin care turned over to Dr. Veloz pending 2-hour troponin likely stable for discharge of 2-hour troponin is negative Medical Records I reviewed the patient's medical records. Lab Data I reviewed the patient's lab results. 08/03/23 15:41 08/03/23 15:41 Radiology Impressions Chest X-Ray 08/03/23 15:19 IMPRESSION: No acute cardiopulmonary process. Chest CTA 08/03/23 16:16 IMPRESSION: 1. No pulmonary embolism. 2. No acute infiltrates. COMMENTS: Consistent with the [employer]'s Incidental Findings Committee white paper (J Am Marysol Radiol 2015): In patients aged 35 years and older with an incidental thyroid nodule equal to or greater than 1.[address], MRI or extrathyroidal US, further evaluation with dedicated thyroid US is recommended for patients with normal life expectancy and without comorbidities. For smaller nodules without suspicious features, no further evaluation or follow up is recommended. Laboratory Results WBC 9.24 10^3/uL (3.29-11.43) 08/03/23 15:41 RBC 4.84 10^6/uL (3.85-5.65) 08/03/23 15:41 Hgb 12.20 g/dL (11.27-16.99) 08/03/23 15:41 Hct 38.8 % (36-47) 08/03/23 15:41 MCV 80.2 fl (85-98) L 08/03/23 15:41 MCH 25.2 pg (27-33) L 08/03/23 15:41 MCHC 31.4 g/dL (30-55) 08/03/23 15:41 RDW 15.9 % (12.1-15.1) H 08/03/23 15:41 Plt Count 277 10^3/cmm (157-399) 08/03/23 15:41 MPV 9.1 fL (7.4-10.4) 08/03/23 15:41 Neut % (Auto) 70.4 % 08/03/23 15:41 Lymph % (Auto) 19.8 % 08/03/23 15:41 [place] % (Auto) 6.9 % 08/03/23 15:41 Eos % (Auto) 2.2 % 08/03/23 15:41 Baso % (Auto) 0.5 % 08/03/23 15:41 Neut # (Auto) 6.50 10^3/uL (1.8-7.7) 08/03/23 15:41 Lymph # (Auto) 1.8 10^3/uL (0.8-4.8) 08/03/23 15:41 [place] # (Auto) 0.6 10^3/uL (0.2-0.9) 08/03/23 15:41 Eos # (Auto) 0.2 10^3/uL (0.0-0.8) 08/03/23 15:41 Baso # (Auto) 0.1 10^3/uL (0.0-0.1) 08/03/23 15:41 Nucleated RBC % (auto) 0 % 08/03/23 15:41 Nucleated RBCs # 0.0 /100WBC 08/03/23 15:41 PT 13.40 SECONDS (12.1-14.9) 08/03/23 15:41 INR 0.99 (0.8-1.2) 08/03/23 15:41 D-Dimer 0.85 ug/mLFEU (0-0.59) H 08/03/23 15:41 Sodium 140 mmol/L (136-145) 08/03/23 15:41 Potassium 3.8 mmol/L (3.5-5.1) 08/03/23 15:41 Chloride 105 mmol/L (98-107) 08/03/23 15:41 Carbon Dioxide 23 mmol/L (22-29) 08/03/23 15:41 Anion Gap 15.8 (5-19) 08/03/23 15:41 BUN 35 mg/dL (8-23) H 08/03/23 15:41 Creatinine 1.0 mg/dL (0.5-0.9) H 08/03/23 15:41 GFR Calculation Not Reportable 08/03/23 15:41 Glucose 126 mg/dL (65-115) H 08/03/23 15:41 Calculated Osmolality 300 mOsm/kg (285-295) H 08/03/23 15:41 Calcium 9.0 mg/dL (8.5-10.5) 08/03/23 15:41 Total Bilirubin 0.2 mg/dL (0.15-1.2) 08/03/23 15:41 AST 17 U/L (0-32) 08/03/23 15:41 ALT 12 U/L (0-33) 08/03/23 15:41 Alkaline Phosphatase 115 U/L (35-105) H 08/03/23 15:41 Troponin T Baseline 9 ng/L (0-10) 08/03/23 15:41 Troponin T 120 Minute 11.75 ng/L (0-10) H 08/03/23 18:18 Delta Troponin T 2.75 ABS# (0-10) 08/03/23 18:18 NT-Pro-B Natriuret Pep 61 pg/mL (0-125) 08/03/23 15:41 Total Protein 6.9 g/dL (6.6-8.7) 08/03/23 15:41 Albumin 3.8 g/dL (3.5-5.2) 08/03/23 15:41 Globulin 3.1 g/dL (1.3-4.6) 08/03/23 15:41 Lipase 27 U/L (13-60) 08/03/23 15:41 Urine Color Yellow (Yellow) 08/03/23 18:07 Urine Appearance Clear (CLEAR) 08/03/23 18:07 Urine pH 5 (5-7) 08/03/23 18:07 Ur Specific [place] 1.015 (1.005-1.030) 08/03/23 18:07 Urine Protein Trace (Negative) 08/03/23 18:07 Urine Glucose (UA) Norm (Normal) 08/03/23 18:07 Urine Ketones 1+ (Negative) H 08/03/23 18:07 Urine Blood Neg (Negative) 08/03/23 18:07 Urine Nitrate Negative (Negative) 08/03/23 18:07 Urine Bilirubin Neg (Negative) 08/03/23 18:07 Urine Urobilinogen Neg mg/dL (Negative) 08/03/23 18:07 Ur Leukocyte Esterase Trace (Negative) H 08/03/23 18:07 Urine RBC 5-10 /hpf (0-2) H 08/03/23 18:07 Urine WBC 0-4 /hpf (0-5) H 08/03/23 18:07 Ur Squamous Epith Cells 5-10 /hpf (0-5) H 08/03/23 18:07 Calcium Oxalate Crystal 0-4 /hpf H 08/03/23 18:07 Amorphous Sediment Not Reportable 08/03/23 18:07 Urine Bacteria Trace /hpf (NONE) 08/03/23 18:07 All radiology interpretation(s) finalized by discharge Discharge Plan Discharge Patient Disposition: Home Clinical Impression: Chest pain Qualifiers: Chest pain type: unspecified Qualified Code(s): R07.9 - Chest pain, unspecified Condition: Stable Prescriptions: No Action oxybutynin chloride 15 mg tablet extended release 24hr 15 mg PO BID@0800,1999 escitalopram oxalate [Lexapro] 20 mg tablet 20 mg PO DAILY@0800 aspirin 325 mg tablet 325 mg PO DAILY@0800 loratadine 10 mg tablet 10 mg PO DAILY PRN (Reason: Allergic Symptoms) naproxen 500 mg tablet 500 mg PO BID PRN (Reason: Pain) baclofen 10 mg tablet 10 mg PO DAILY fluconazole 150 mg tablet 150 mg PO DAILY Qty: 3 2RF tramadol 50 mg tablet 50 mg PO TID PRN (Reason: pain) 10 Days Qty: 30 0RF albuterol sulfate [ProAir HFA] 90 mcg/actuation Hfa Aerosol Inhaler 2 puff INHALATION QID PRN (Reason: Shortness Of Breath) omeprazole 20 mg capsule,delayed release(DR/EC) 40 mg PO BID@0800,2000 valacyclovir [Valtrex] 1 gram tablet 1,000 mg PO BID PRN (Reason: Cold Sores) ondansetron 4 mg tablet,disintegrating See Rx Instructions .ROUTE .COMPLEX PRN (Reason: Nausea) Rx Instructions: DISSOLVE ONE TABLET in MOUTH EVERY 4 HOURS NEEDED FOR NAUSEA AND VOMITING triamterene-hydrochlorothiazid 1 tab PO DAILY Rx Instructions: 37.5/5mg tablet metoprolol succinate 25 mg Tablet Extended Release 24 Hr 25 mg PO BID furosemide 40 mg Tablet 20 mg PO BID PRN (Reason: swelling) Symbicort 80-4.5 mcg/actuation HFA aerosol inhaler 1 inh inhalation BID metoclopramide HCl 10 mg tablet 10 mg PO Q6H Qty: 20 0RF ciprofloxacin HCl 500 mg tablet 500 mg PO BID Qty: 10 0RF Discharge Orders: Discharge ED (Routine); Ordered 08/03/23 Ordered By: Dominick Veloz Referrals: Nancy Ramirez APN [Primary Care Provider] - 1 week Patient Instructions: Chest Pain (ED) Activity Restrictions/Additional Instructions: Your evaluation in the ER including serial troponins and EKGs did not show an acute cardiac cause of your chest pain. Your chest pain is thought to be noncardiac in nature. Please follow-up with your family practice physician and/or bioinformatics research technician within next 7 days for further evaluation and treatment. If your chest pain returns or worsens please feel free to return to the ER. Coding Level of Care Code ED Energy Operations Vice President for Josefa Garcia
[2023-08-03 16:05] LABS: Alanine Aminotransferase 12 U/L (0-33); Albumin Level 3.8 g/dL (3.5-5.2); Alkaline Phosphatase 115 U/L (35-105); Anion Gap 15.8 (5-19); Aspartate Amino Transferase 17 U/L (0-32); Blood Urea Nitrogen 35 mg/dL (8-23); Carbon Dioxide 23 mmol/L (22-29); Chloride 105 mmol/L (98-107); Globulin 3.1 g/dL (1.3-4.6); Glucose 126 mg/dL (65-115); Lipase 27 U/L (13-60); Osmolality Calculated 300 mOsm/kg (285-295); Potassium 3.8 mmol/L (3.5-5.1); Sodium 140 mmol/L (136-145); Total Bilirubin 0.2 mg/dL (0.15-1.2); Total Protein 6.9 g/dL (6.6-8.7)
[2023-08-03 16:06] LABS: Troponin(5th) Baseline 9 ng/L (0-10)
[2023-08-03 16:10] LABS: Creatinine Clr Calc Pharmacy 67.2345
[2023-08-03 16:15] LABS: D Dimer 0.85 ug/mLFEU (0-0.59)
--- NOTE | 2023-08-03 16:16 | CTR_ITS ---
PROCEDURE INFORMATION: Exam: CTA Chest With Contrast Exam date and time: 08/03/2023 4:41 PM Age: 73 years old Clinical indication: Pain; Chest pressure and other: Elevated d dimer; Additional info: Cp TECHNIQUE: Imaging protocol: Computed tomographic angiography of the chest with contrast. Exam focused on the arteries. 3D rendering (Not supervised by radiologist): MIP and/or 3D reconstructed images were created by the technologist. Radiation optimization: All CT scans at this facility use at least one of these dose optimization techniques: automated exposure control; mA and/or kV adjustment per patient size (includes targeted exams where dose is matched to clinical indication); or iterative reconstruction. Contrast material: OMNI 350; Contrast volume: 88 ml; Contrast route: INTRAVENOUS (IV); COMPARISON: CT angio chest PE protcl [id number] 05/13/2022 1:29 AM RADIATION DOSE METRICS: Total DLP (mGy-cm): 477.88 FINDINGS: Pulmonary arteries: Normal. No pulmonary emboli. Aorta: Unremarkable. No aortic aneurysm. No aortic dissection. Thyroid: There is a left thyroid nodule measuring 1.3 cm. Lungs: Atelectatic changes in bilateral lung bases. No acute infiltrates. Pleural spaces: Unremarkable. No pneumothorax. No pleural effusion. Heart: Unremarkable. No cardiomegaly. No pericardial effusion. Lymph nodes: Calcified mediastinal lymph nodes. Liver: Multiple hypodense hepatic lesions, likely representing cysts measuring 5 x 3.3 cm in the right hepatic lobe, smaller hypodense left hepatic lesion measuring 1.3 cm. There is a 6 mm hypodense lesion in segment 6 of the liver, too small to characterize. Spleen: Calcified granulomas of the spleen. Bones/joints: There are vascular calcifications. Multilevel anterior osteophytes of the thoracic spine consistent with mild degenerative disease. Soft tissues: Unremarkable. CT/CT angio chest PE protcl [id number] IMPRESSION: 1. No pulmonary embolism. 2. No acute infiltrates. COMMENTS: Consistent with the [employer]'s Incidental Findings Committee white paper (J Am Maryosl Radiol 2015): In patients aged 35 years and older with an incidental thyroid nodule equal to or greater than 1.[address], MRI or extrathyroidal US, further evaluation with dedicated thyroid US is recommended for patients with normal life expectancy and without comorbidities. For smaller nodules without suspicious features, no further evaluation or follow up is recommended.
[2023-08-03 16:26] LABS: NT Pro B Type Natriuretic Pept 61 pg/mL (0-125)
[2023-08-03] MEDS: iohexol 350 mg/mL 500 mL Btl (per mL) IV (16:49)
--- NOTE | 2023-08-03 17:19 | ECG_ITS ---
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 Measurements Intervals Joshua Rate: 74 P: 53 ME: 172 QRS: -29 QRSD: 140 T: 24 QT: 418 QTc: 464 Interpretive Statements SINUS RHYTHM POSSIBLE LEFT ATRIAL ENLARGEMENT [-0.1mV P-WAVE IN V1/V2] BORDERLINE LEFT AXIS DEVIATION [QRS AXIS < -20] RIGHT BUNDLE BRANCH BLOCK [120+ ms QRS DURATION, UPRIGHT V1, 40+ ms S IN I/aVL/V4/V5/V6] POSSIBLE LEFT VENTRICULAR HYPERTROPHY [VOLTAGE CRITERIA PLUS LAE OR QRS WIDENING] Compared to ECG 08/03/2023 15:15:13 No significant changes Electronically Signed On 08-04-2023 8:40:17 CDT by Neeraj William M.D. [id number]
[2023-08-03 18:44] LABS: Add Urine Microscopic? YES; Bacteria Urine TRACE /hpf; Bilirubin Urine Neg (Negative); Blood Urine Neg (Negative); Calcium Oxalate Crystals Urine 0-4 /hpf; Glucose Urine UA Norm (Normal); Ketones Urine 1+ (Negative); Leukocyte Esterase Urine Trace (Negative); Nitrate Urine Negative (Negative); Protein Urine Trace (Negative); Specific Gravity, Urine 1.015 (1.005-1.030); Urine Appearance Clear (CLEAR); Urine Color Yellow (Yellow); Urobilinogen Urine Neg (Negative); WBC Urine 0-4 /hpf (0-5); pH Urine 5 (5-7)
[2023-08-03 19:00] VITALS: BP 170/95; PULSE 70; O2SAT 93
[2023-08-03 19:05] LABS: Troponin 5 2HR 11.75 ng/L (0-10); Troponin 5 2HR Delta 2.75 ABS# (0-10)
[2023-08-03 19:30] VITALS: BP 159/68; PULSE 66; RESP 14; O2SAT 92
== END 2023-08-03 19:54 | disposition home or self-care (01) ==
PROVIDERS: Emergency Medicine; Emergency Provider Emergency Medicine; PCP Nurse Practitioner Family
DX: R07.9 Chest pain, unspecified (principal); Z79.82 Long term (current) use of aspirin; I10 Essential (primary) hypertension
CPT/HCPCS: 36415; 71045; 71275; 80053; 81001; 83690; 83880; 84484; 85025; 85378; 85610; 93005; 99285; Q9967

== ENCOUNTER → 2023-12-18 13:50 | Outpatient (BNVA) | payer MEDICARE, OTHER, SELFPAY | PROVIDERS: PCP Nurse Practitioner Family; Visit Provider Orthopaedic Surgery | DX: M54.2 Cervicalgia (principal); M54.9 Dorsalgia, unspecified; M96.1 Postlaminectomy syndrome, not elsewhere classified | CPT/HCPCS: 72050; 72072; 99214 ==

== ENCOUNTER → 2023-12-25 11:00 | Outpatient (BNVA) | payer MEDICARE, OTHER, SELFPAY | PROVIDERS: PCP Nurse Practitioner Family; Referring Provider Nurse Practitioner Family; Visit Provider Psychiatry & Neurology Neurology | DX: R41.3 Other amnesia (principal); R26.89 Other abnormalities of gait and mobility; I10 Essential (primary) hypertension | CPT/HCPCS: 99203 ==

== ENCOUNTER 2024-01-15 10:56 | Outpatient (CLI) | payer MEDICARE, OTHER, SELFPAY ==
--- NOTE | 2024-01-15 11:00 | MR_ITS ---
WS: [id number] MRI CERVICAL SPINE NONCONTRAST HISTORY: neck pain COMPARISON: 06/11/2022 Technique: Multiplanar, multisequence noncontrast imaging of the cervical spine. Reversal of the normal cervical lordosis centered at C5-6 is similar to the prior study. Disc spaces are narrowed throughout the cervical spine most significant at C5-6. No marrow edema or fracture. Signal within the cervical cord is normal. Cervical cord is being displaced posteriorly at C5-[address] osteophyte. No cord edema. Visualized posterior fossa is unremarkable. Craniocervical junction, C1 and C2 relationship, odontoid process and soft tissues are normal. C2-C3: Normal. C3-C4: Mild disc osteophytic ridging. Mild bilateral foraminal stenosis. C4-C5: 2 mm anterolisthesis of C4. Mild osteophytic ridging with facet arthritis. Mild to moderate bi lateral foraminal stenosis, RIGHT greater than LEFT. C5-C6: Osteophytic ridging with disc osteophyte centrally and extending into the foramina. Complete e ffacement of CSF with posterior displacement of the cord. Moderate central stenosis. Severe LEFT and moderate RIGHT foraminal stenosis similar to the prior study. Facet arthritis. C6-C7: Mild osteophytic ridging. Mild bilateral foraminal narrowing. C7-T1: No stenosis. 10 mm LEFT thyroid nodule. Laminectomy defects noted at the cervical thoracic junction. MR/MR cervical spin wo con* [id number] IMPRESSION: 1. Reversal of normal cervical lordosis centered at C5-6 with disc osteophyte contacting and displacing the cervical cord. No cord edema. 2. C5-6: Moderate central with severe LEFT and moderate RIGHT foraminal stenos is. 3. Multilevel areas of stenosis due to disc and osteophyte and facet disease. 4. C4-5: Mild to moderate RIGHT and mild LEFT foraminal stenosis. 5. C3-4 and C6-7: Mild bilateral foraminal stenosis. Previously described sten osis at C6-7 on the LEFT does not appear as significant on today's exam.
--- NOTE | 2024-01-15 11:45 | MR_ITS ---
WS: [id number] MRI THORACIC SPINE noncontrast HISTORY: back pain COMPARISON: 06/11/2022 TECHNIQUE: Multiplanar sequences are performed in sagittal and axial planes. Mild LEFT curvature at thoracic spine. Mild increase in thoracic kyphosis. Signal within the cord is normal. Conus tapers normally and ends at the T12-L1 level. No cord atrophy or edema. Posterior laminectomy defects at the cervical thoracic junction. 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 Reidentified is the RIGHT paracentral disc protrusion at T7-8. Slightly greater contact on the thorac ic cord as compared to the most recent examination. No additional disc protrusions. Incidental note i s made of perineural cysts in the lower thoracic spine greatest on the LEFT. The largest perineural c yst RIGHT foramen at T10-11. Paravertebral soft tissues are normal. MR/MR thoracic spin wo con* [id number] IMPRESSION: 1. Mild increase in thoracic kyphosis with scoliosis. Similar to the prior yamini dy. 2. RIGHT paracentral disc protrusion at T7-8 is very slightly increased in siz e since the prior examination of 06/11/2022. Slightly greater contact on the thor acic cord. 3. No cord atrophy or edema.
== END 2024-01-15 10:57 | disposition home or self-care (01) ==
LOC: RAD 10:56
PROVIDERS: PCP Nurse Practitioner Family; Visit Provider Orthopaedic Surgery
DX: M51.24 Other intervertebral disc displacement, thoracic region (principal); M43.12 Spondylolisthesis, cervical region; M25.78 Osteophyte, vertebrae; M48.02 Spinal stenosis, cervical region; M47.892 Other spondylosis, cervical region; M99.61 Osseous and subluxation stenosis of intervertebral foramina of cervical region; G96.191 Perineural cyst
CPT/HCPCS: 72141; 72146

== ENCOUNTER 2024-01-16 13:09 | Outpatient (CLI) | payer MEDICARE, OTHER, SELFPAY ==
--- NOTE | 2024-01-16 13:45 | USCV_ITS ---
José Miguel Kathleen Age: 73 Gender: F : 1950 Exam Date: 01/16/2024 13:43 Ordering Phys: Juventino Cartagena MD Technologist: CT [place]am [place] [facility] [place]: Risk Factors: Previous Vascular Surgery: Right Brachial BP: / Left Brachial BP: / Right Left Velocity (cm/s) Spectral Plaque Velocity (cm/s) Spectral Plaque Syst/Diast Broadening Syst/Diast Broadening 95.60/ 19.00 Prox CCA 99.40 / 22.40 67.10/ 12.00 Mid CCA 66.10 / 11.50 61.30/ 13.00 Distal CCA 57.00 / 17.60 64.60/ 19.40 Prox ICA 52.30 / 12.40 67.30/ 19.70 Mid ICA 59.40 / 17.70 54.50/ 14.10 Distal ICA 56.00 / 17.40 65.70 ECA 45.80 1.10 ICA/CCA 1.00 Antegrade Vertebral Antegrade 31.30/ 5.30 cm/s 27.70/ 7.40 cm/s Tri Subclavian Tri 108.9 87.80 0 CONCLUSIONS Right ICA stenosis <50%. Mild atheromatous plaque right carotid bulb/ICA. Left ICA stenosis <50%. Mild atheromatous plaque left carotid bulb/ICA. Intimal thickening in the common carotid arteries and internal carotid arteries bilaterally. Normal antegrade Doppler flow noted in the right vertebral artery. Normal antegrade Doppler flow noted in the left vertebral artery. Jorge Toledo MD (Electronically Signed) Final Date: 16 January 2024 15:01 S
--- NOTE | 2024-01-16 15:15 | MR_ITS ---
WS: [id number] MRI BRAIN WITH AND WITHOUT CONTRAST HISTORY: R41.3 - Other amnesia COMPARISON: None available. TECHNIQUE: Multiplanar imaging performed through the brain with MultiHance. No acute infarcts are seen. Raymundo-white matter differentiation is well preserved. Mild atrophy and mil d small vessel ischemic disease. Moderate bilateral small vessel disease in the faith. No susceptibility artifacts or prior lacunar infarcts. Ventricles and extra-axial spaces are normal. Clivus and pituitary gland are normal. Visualized posterior fossa and brainstem are also normal. Intensely enhancing extra-axial mass in the far lateral LEFT cerebellum adjacent to the dural venous sinus measures 7.7 x 4.5 mm. No additional mass or abnormal enhancement. Dural venous sinuses are normal. Paranasal sinuses: Mucoperiosteal thickening in the LEFT maxillary sinus. Mastoid air cells: Normal. Calvarium and scalp: Normal. MR/MR head wo/w con [id number] IMPRESSION: 1. No acute infarct or hemorrhage. 2. Mild atrophy and mild small vessel disease in the supratentorial white haresh er. 3. Moderate small vessel disease in the faith, bilateral. 4. Intensely enhancing extra-axial mass in the LEFT posterior fossa measures 7 .7 x 4.5 mm. Most consistent with a meningioma.
[2024-01-16] MEDS: gadobenate dimeglumine 20 mL vial IV (17:21)
== END 2024-01-16 13:10 | disposition home or self-care (01) ==
LOC: RAD 13:10
PROVIDERS: PCP Nurse Practitioner Family; Visit Provider Psychiatry & Neurology Neurology
DX: I65.23 Occlusion and stenosis of bilateral carotid arteries (principal); D43.2 Neoplasm of uncertain behavior of brain, unspecified; I67.89 Other cerebrovascular disease; I10 Essential (primary) hypertension; R26.89 Other abnormalities of gait and mobility; R41.3 Other amnesia
CPT/HCPCS: 36415; 70553; 82542; 82550; 93880

== ENCOUNTER → 2024-01-21 13:00 | Outpatient (BNVA) | payer MEDICARE, OTHER, SELFPAY | PROVIDERS: PCP Nurse Practitioner Family; Visit Provider Psychiatry & Neurology Neurology | DX: R41.3 Other amnesia (principal); D49.6 Neoplasm of unspecified behavior of brain | CPT/HCPCS: 99212; 99213 ==

== ENCOUNTER 2024-01-22 08:30 | Outpatient (CLI) | payer MEDICARE, OTHER, SELFPAY ==
--- NOTE | 2024-01-22 08:38 | MM_ITS ---
WS: [email or web address] Bilateral screening 3D tomosynthesis digital mammogram, 01/22/2024 8:39 AM Clinical Data: SCREENING Comparison: None. Findings: No spiculated masses or clustered calcifications are seen. There are no secondary signs of carcinoma . There are scattered benign and vascular calcifications in both breasts. There are mole markers on b oth breasts. MM/MM scr BI tomosynthesis [id number] Impression: Negative bilateral mammogram with no prior exam for review. Recommend annual screening mammograms. BIRADS: 1 - Negative. FOLLOW UP: 1 Year Follow-up DENSITY: There are scattered areas of fibroglandular density. The CAD film tests checker was used
== END 2024-01-22 08:34 | disposition home or self-care (01) ==
PROVIDERS: PCP Nurse Practitioner Family; Visit Provider Nurse Practitioner Family
DX: Z12.31 Encounter for screening mammogram for malignant neoplasm of breast (principal); R92.1 Mammographic calcification found on diagnostic imaging of breast
CPT/HCPCS: 77063; 77067

== ENCOUNTER 2024-01-22 14:20 | Emergency (ER) | payer MEDICARE, OTHER, SELFPAY ==
[2024-01-22 14:22] VITALS: BP 203/98; PULSE 69; RESP 18; TEMP 36.8; O2SAT 91; BMI 46.5
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
[2024-01-22 15:05] VITALS: RESP 18; O2SAT 93
[2024-01-22] MEDS: morphine 4 mg/mL SDV 1 mL IVP (15:05)
[2024-01-22 15:19] VITALS: BP 189/91; PULSE 64; O2SAT 92
[2024-01-22] MEDS: iohexol 350 mg/mL 500 mL Btl (per mL) IV (15:29)
[2024-01-22 15:30] LABS: Basophils # 0.1 10^3/uL (0.0-0.1); Basophils % 0.7 %; Eosinophils # 0.2 10^3/uL (0.0-0.8); Eosinophils % 2.6 %; Hematocrit 40.8 % (36-47); Lymphocytes # 1.5 10^3/uL (0.8-4.8); Lymphocytes % 21.5 %; Mean Corpuscular HGB Conc 30.9 g/dL (30-55); Mean Corpuscular Hemoglobin 25.4 pg (27-33); Mean Corpuscular Volume 82.3 fl (85-98); Mean Platelet Volume 8.7 fL (7.4-10.4); Monocytes # 0.5 10^3/uL (0.2-0.9); Monocytes % 6.8 %; Neutrophils # 4.76 10^3/uL (1.8-7.7); Nucleated Red Blood Cells % 0 %; Platelet Count 261 10^3/cmm (157-399); Red Blood Count 4.96 10^6/uL (3.85-5.65); White Blood Count 7.01 10^3/uL (3.29-11.43)
--- NOTE | 2024-01-22 15:33 | PC.PHAR ---
Spouse states pt does not take blood pressure medications Metoprolol and Triamterene/hydrochlorothiazide any longer last filled at [facility] in 2022. Pt states still takes triamterene/hctz.
[2024-01-22 15:48] LABS: Alanine Aminotransferase 11 U/L (0-33); Albumin Level 3.9 g/dL (3.5-5.2); Alkaline Phosphatase 121 U/L (35-105); Anion Gap 12.6 (5-19); Aspartate Amino Transferase 13 U/L (0-32); Blood Urea Nitrogen 12 mg/dL (8-23); Calcium 8.1 mg/dL (8.5-10.5); Carbon Dioxide 27 mmol/L (22-29); Chloride 105 mmol/L (98-107); Creatinine Clr Calc Pharmacy 84.0432; Globulin 3.1 g/dL (1.3-4.6); Glucose 89 mg/dL (65-115); Osmolality Calculated 291 mOsm/kg (285-295); Potassium 3.6 mmol/L (3.5-5.1); Sodium 141 mmol/L (136-145); Total Bilirubin 0.2 mg/dL (0.15-1.2)
[2024-01-22 16:00] VITALS: BP 165/93; PULSE 69; O2SAT 91
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
[2024-01-22 16:53] VITALS: BP 180/104; PULSE 55; O2SAT 94
== END 2024-01-22 16:54 | disposition home or self-care (01) ==
PROVIDERS: Emergency Provider Emergency Medicine; PCP Nurse Practitioner Family
DX: S16.1XXA Strain of muscle, fascia and tendon at neck level, initial encounter (principal); V89.2XXA Person injured in unspecified motor-vehicle accident, traffic, initial encounter; I10 Essential (primary) hypertension
CPT/HCPCS: 70450; 71260; 72125; 72128; 72131; 73060; 73130; 74177; 80053; 85025; 96374; 99285; J2270

== ENCOUNTER → 2024-01-27 12:56 | Outpatient (BNVA) | payer MEDICARE, OTHER, SELFPAY | PROVIDERS: PCP Nurse Practitioner Family; Visit Provider Orthopaedic Surgery | DX: M47.22 Other spondylosis with radiculopathy, cervical region (principal) | CPT/HCPCS: 99214 ==

== ENCOUNTER → 2024-05-04 14:07 | Outpatient (BNVA) | payer MEDICARE, OTHER, SELFPAY | PROVIDERS: PCP Nurse Practitioner Family; Visit Provider Psychiatry & Neurology Neurology | DX: D49.6 Neoplasm of unspecified behavior of brain (principal); R41.3 Other amnesia; F03.90 Unspecified dementia, unspecified severity, without behavioral disturbance, psychotic disturbance, mood disturbance, and anxiety | CPT/HCPCS: 0346U; 36415; 83520; 99212 ==

== ENCOUNTER → 2024-05-18 15:39 | Outpatient (BNVA) | payer MEDICARE, OTHER, SELFPAY | PROVIDERS: PCP Nurse Practitioner Family; Visit Provider Family Medicine | DX: J02.9 Acute pharyngitis, unspecified (principal); R05.9 Cough, unspecified | CPT/HCPCS: 87071; 87400; 87426; 87880 ==

== ENCOUNTER 2024-07-11 14:36 | Emergency (ER) | payer MEDICARE, OTHER, SELFPAY ==
[2024-07-11] VITALS (9 sets, daily range): BP systolic 145–216; BP diastolic 80–100; PULSE 57–68; RESP 16; TEMP 36.5; O2SAT 96–99; BMI 43.2
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
--- NOTE | 2024-07-11 15:55 | W.ED.FALL ---
HPI - Fall General: Chief Complaint: Fall Stated Complaint: fell, pain in arm, head, and neck Time Seen by Provider: 07/11/24 15:29 History of Present Illness: 74-year-old female who presents to the emergency room after falling off a stepladder. She fell backwards complaining of left forearm pain left shoulder pain neck pain she hit the back of her head when she fell there is no loss of consciousness she also complaining of lumbar spine pain no vomiting or vision changes. She denies any chest pain. She has knee pain but states that is chronic. She has previously had a cervical spine surgical procedure. Patient does have some history of meningioma that is being followed by neurosurgery. Still has some Alzheimer's she has been seeing neurology for this. Associated symptoms-after fall: Denies abdominal pain, chest pain or neck pain Related Data Home Medications ?Medication ?Instructions ?Recorded ?Confirmed aspirin 325 mg tablet 325 mg PO DAILY@0800 02/10/20 07/11/24 escitalopram oxalate 20 mg tablet 20 mg PO DAILY@0800 02/10/20 07/11/24 (Lexapro) oxybutynin chloride 15 mg 15 mg PO BID@0800,199902/10/20 07/11/24 tablet,extended release 24 hr alprazolam 0.5 mg tablet 0.25 - 0.5 mg PO TID PRN Anxiety 01/22/24 07/11/24 chlorzoxazone 500 mg tablet 500 mg PO BID 07/11/24 07/11/24 furosemide 20 mg tablet 20 mg PO DAILY 07/11/24 07/11/24 memantine 5 mg tablet 10 mg PO BID 07/11/24 07/11/24 triamterene 37.5 1 tab PO DAILY 07/11/24 07/11/24 mg-hydrochlorothiazide 25 mg tablet Previous Rx's ?Medication ?Instructions ?Recorded donepezil 10 mg tablet (Aricept) 10 mg PO DAILY #30 tabs 05/04/24 donepezil 5 mg tablet (Aricept) 5 mg PO DAILY #30 tabs 05/04/24 methylprednisolone 4 mg tablets in See Rx Instructions PO .COMPLEX 07/11/24 a dose pack (Medrol (Yogesh)) #21 ea Allergies Allergy/AdvReac Type Severity Reaction Status Date / Time adhesive tape Allergy rash, sores Verified 05/18/24 15:22 barium iodide Allergy ALGY-Bliste Verified 05/18/24 15:22 r barium sulfate Allergy ALGY-Bliste Verified 05/18/24 15:22 r codeine Allergy ADR-Vomitin Verified 05/18/24 15:22 g iodine Allergy ALGY-Anaphy Verified 05/18/24 15:22 laxis Penicillins Allergy ALGY-Hives Verified 05/18/24 15:22 shellfish derived Allergy anaphlaxis Verified 05/18/24 15:22 Sulfa (Sulfonamide Allergy ALGY-Hives Verified 05/18/24 15:22 Antibiotics) Review of Systems Const: Denies: fever(s) or chills Card: Denies: chest pain Resp: Denies: dyspnea GI: Denies: abdominal pain : Denies: dysuria, urinary frequency or urinary urgency Musc: Denies: neck pain or back pain Skin/Breast: Denies: rash PFSH ED PFSH: Medical History Morbid obesity Hypertension H/O upper respiratory infection Cervical spondylosis with myelopathy Bronchitis due to 2019-nCoV COVID-19 Cervical spine fracture Surgical History H/O total knee replacement Social History Smoking and tobacco/nicotine status: never used tobacco/nicotine Alcohol intake: never Substance/Drug Use: never Female Reproductive History: Spontaneous abortions: No Physical Exam Const: GENERAL APPEARANCE: cooperative ORIENTATION/CONSCIOUSNESS: Yes awake, Yes oriented to person, Yes oriented to place and Yes oriented to time HENMT: COMMON NORMALS: normocephalic, atraumatic and hearing grossly normal bilaterally HEAD & SCALP: normocephalic and atraumatic Resp: COMMON NORMALS: normal respiratory effort, No retractions, No use of accessory muscles and clear to auscultation bilaterally AUSCULTATION: clear to auscultation bilaterally Cardio: COMMON NORMALS: regular rate, regular rhythm and No murmurs present (Cardio) RATE: regular rate RHYTHM: regular rhythm GI: COMMON NORMALS: Soft to palpation and No hepatosplenomegaly present AUSCULTATION: Yes normoactive bowel sounds PALPATION: Yes Soft to palpation, No Tenderness to palpation present (GI), No Guarding due to palpation present (GI) and Yes No hepatosplenomegaly present Extremity: COMMON NORMALS: capillary refill normal, no clubbing, cyanosis or edema, no calf tenderness and no pedal edema OTHER: Movement in all extremities no crepitus deformity or severe pain does have obvious large hematoma along the mid to proximal ulnar ridge on the left forearm no full-thickness lacerations on the extremities noted movement of the lower extremities without significant pain or crepitus. Neuro: SENSORIUM/ORIENTATION: Yes oriented to person, Yes oriented to place and Yes oriented to time Skin: COMMON NORMALS: no rashes or lesions noted GENERAL SKIN EXAM: no rashes or lesions noted Course Vital Signs: Vital signs: Vital Signs Temperature 97.7 F 07/11/24 14:40 Pulse Rate 66 07/11/24 20:08 Respiratory Rate 16 07/11/24 14:40 Blood Pressure 190/91 07/11/24 20:08 Pulse Oximetry 98 07/11/24 20:08 Oxygen Delivery Me thod Room Air 07/11/24 14:40 MDM - Fall Medical Decision Making Patient complaining of multiple areas of discomfort she did hit her head she has some ecchymosis on her left forearm she also has a little abrasion on her left cheek there is no loss conscious complaining of neck and back pain CTs showed no acute abnormalities a lumbar cervical spine to the large hematoma on her left forearm but no fracture head CT was also negative. Discussed with patient she will likely be very sore for the neck several days but did not find any acute injuries. Will discharge patient home. Lab Data Radiology Impressions Cervical Spine CT 07/11/24 15:39 IMPRESSION: No acute fracture, compression deformity or traumatic subluxation. Forearm X-Ray 07/11/24 15:39 IMPRESSION: No acute findings. Head CT 07/11/24 15:39 IMPRESSION: No acute intracranial abnormality. Lumbar Spine CT 07/11/24 15:59 IMPRESSION: 1. Moderate osteoarthritis. 2. There is moderate central canal stenosis L4-L5 3. Large bone spur posterior aspect of the spinal canal L3-L4 . 4. L2-L3 with bulge of the annulus and bilateral foraminal stenosis Shoulder X-Ray 07/11/24 15:59 IMPRESSION: No acute findings. All radiology interpretation(s) finalized by discharge Discharge Plan Discharge Patient Disposition: Home Clinical Impression: Fall from ladder Condition: Stable Prescriptions: New methylprednisolone [Medrol (Yogesh)] 4 mg tablets,dose pack See Rx Instructions .ROUTE .COMPLEX Qty: 21 0RF Rx Instructions: orally per package directions No Action oxybutynin chloride 15 mg tablet extended release 24hr 15 mg PO BID@0800,2000 escitalopram oxalate [Lexapro] 20 mg tablet 20 mg PO DAILY@0800 aspirin 325 mg tablet 325 mg PO DAILY@0800 donepezil [Aricept] 5 mg tablet 5 mg PO DAILY Qty: 30 0RF donepezil [Aricept] 10 mg tablet 10 mg PO DAILY Qty: 30 5RF chlorzoxazone 500 mg tablet 500 mg PO BID triamterene-hydrochlorothiazid 37.5-25 mg tablet 1 tab PO DAILY furosemide 20 mg tablet 20 mg PO DAILY memantine 5 mg tablet 10 mg PO BID Rx Instructions: TAKE TWO TABLETS BY MOUTH TWICE DAILY alprazolam 0.5 mg tablet 0.25 - 0.5 mg PO TID PRN (Reason: Anxiety) Discharge Orders: Discharge ED (Routine); Ordered 07/11/24 Ordered By: Goran Quintanilla Referrals: Ramirez,JANEL Cruz [Primary Care Provider, Nurse Practitioner] Discharge Diet: Usual diet Discharge Activity: Increase activity as tolerated Patient Instructions: Opioid Safety, Pain Management Activity Restrictions/Additional Instructions: Thank you for choosing [facility] for your healthcare needs today. It is very important that you follow up as instructed or that you return to the Emergency Department should you have concerns or if your condition changes or worsens in any way. You are seen in the emergency room after a fall. You have a hematoma in the left forearm there is no fracture. X-rays of your left shoulder and forearm are negative CT of your lumbar spine cervical spine and head were also negative. The CTs of your neck and lumbar spine did show significant amount of arthritic changes but no acute fractures related to this fall. Continue current medications we did give you a short course of prednisone to use as needed. Follow-up with your doctor if your symptoms persist. Print Language: [place] Coding Level of Care Code ED Pbx Supervisor for Josefa Garcia
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
--- NOTE | 2024-07-11 15:59 | XRR_ITS ---
PROCEDURE INFORMATION: Exam: XR Left Shoulder Exam date and time: 07/11/2024 4:22 PM Age: 74 years old Clinical indication: Injury or trauma; Fall; Blunt trauma (contusions or hematomas); Shoulder; Left TECHNIQUE: Imaging protocol: Radiologic exam of the left shoulder. Views: 2 or more views. COMPARISON: CT cervical spin wo con* [id number] 07/11/2024 4:08 PM FINDINGS: Bones/joints: Negative for acute bone abnormality. Soft tissues: Normal. XR/XR shoulder LT min 2V* [id number] IMPRESSION: No acute findings.
[2024-07-11] MEDS: TRAMadol 50 mg Tablet PO (17:58)
[2024-07-11] MEDS: hyDRALAzine 20 mg/mL INJ 1 mL IM (18:50)
[2024-07-11] MEDS: amlodipine 10 mg Tablet PO (20:06)
== END 2024-07-11 20:12 | disposition home or self-care (01) ==
PROVIDERS: Emergency Provider Family Medicine; PCP Nurse Practitioner Family
DX: S50.12XA Contusion of left forearm, initial encounter (principal); S00.81XA Abrasion of other part of head, initial encounter; M25.512 Pain in left shoulder; M54.2 Cervicalgia; M54.50 Low back pain, unspecified; W11.XXXA Fall on and from ladder, initial encounter
CPT/HCPCS: 70450; 72125; 72131; 73030; 73090; 96372; 99284; J0360; J9999

== ENCOUNTER → 2024-09-13 14:58 | Outpatient (BNVA) | payer MEDICARE, OTHER, SELFPAY | PROVIDERS: PCP Nurse Practitioner Family; Visit Provider Psychiatry & Neurology Neurology | DX: R41.3 Other amnesia (principal); F03.90 Unspecified dementia, unspecified severity, without behavioral disturbance, psychotic disturbance, mood disturbance, and anxiety; D49.6 Neoplasm of unspecified behavior of brain | CPT/HCPCS: 99212 ==

== ENCOUNTER → 2025-02-16 14:29 | Outpatient (BNVA) | payer MEDICARE, OTHER, SELFPAY | PROVIDERS: PCP Nurse Practitioner Family; Visit Provider Student in an Organized Health Care Education/Training Program | DX: G56.03 Carpal tunnel syndrome, bilateral upper limbs (principal) | CPT/HCPCS: 73130 ==

== ENCOUNTER 2025-02-16 15:39 | Outpatient (CLI) | payer MEDICARE, OTHER, SELFPAY | END 2025-02-16 15:40 | disposition home or self-care (01) | LOC: SPT 15:39 | PROVIDERS: PCP Nurse Practitioner Family; Visit Provider Physician Assistant | DX: Z46.89 Encounter for fitting and adjustment of other specified devices (principal); G56.03 Carpal tunnel syndrome, bilateral upper limbs | CPT/HCPCS: L3908 ==